=== PATIENT | female | born 1940 | race Caucasian/White ===

== ENCOUNTER 2018-03-20 05:58 | Inpatient (IN) ==
[2018-03-20] MEDS ORDERED: Vancomycin 1,000 MG, Sodium Chloride IRRigation 1,000 ML IR ONE (06:00)
[2018-03-20] MEDS ORDERED: CeFAZolin Syr 2,000MG/20 ML 2,000 MG/20 ML SYRINGE IVPB ONE (06:16)
[2018-03-20] MEDS ORDERED: Albuterol 2.5 MG/3 ML NEBULIZER IH ONE (06:16)
[2018-03-20] MEDS ORDERED: Ringers Solution, Lactated 1,000 ML IVC SCH (06:30)
[2018-03-20] MEDS ORDERED: *HR* Propofol 200 MG/20 ML VIAL IVP ONE (06:48)
[2018-03-20] MEDS ORDERED: *HR* FentaNYL (PF) 100 MCG/2 ML VIAL ONE ×2 (06:48→10:37)
--- NOTE | 2018-03-20 06:48 | Anesthesia Evaluation PreOp ---
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) Other Medical History: Renal (frequent UTIs) Anesthesia History: No Prior Anesthetic Complications, Past Anesthesia (jaw sx, lumpectomy) Alcohol Use: rarely Drug use: marijuana Medications and Allergies Amlodipine [Norvasc] 5 mg PO DAILY 06/26/15 [History] Aspirin 81 mg PO DAILY 06/26/15 [History] Clopidogrel [Plavix] 75 mg PO DAILY #30 tablet 06/28/15 [Rx] Atorvastatin [Lipitor] 40 mg PO HS #30 tablet 08/12/15 [Rx] Citalopram [CeleXA] 40 mg PO DAILY 10/19/15 [History] Trospium Chloride [Trospium Chloride ER] 60 mg PO DAILY 07/14/16 [History] Docusate [Colace] 100 mg PO BID PRN 07/23/16 [History] Ipratropium/Albuterol Sulfate [Combivent Respimat Inhal Alba] 4 gm IH QID PRN 07/23/16 [History] Multivit-Min/FA/Lycopen/Lutein [Centrum Silver Tablet] 1 tab PO DAILY 07/23/16 [ History] Bisacodyl [Dulcolax] 10 mg RC DAILY PRN #0 supp.rect 08/11/16 [Rx] Ferrous Sulfate 325 mg PO BIDWM tablet 08/11/16 [Rx] Lidocaine Patch [Lidoderm 5% patch] 1 each TP DAILY adh..patch 08/11/16 [Rx] Metoprolol [Lopressor] 12.5 mg PO BID tablet 08/11/16 [Rx] Omeprazole [PriLOSEC] 20 mg PO DAILY@0630 capsule. 08/11/16 [Rx] Ondansetron ODT [Zofran ODT] 4 mg SL Q6HR PRN #0 tab.rapdis 08/11/16 [Rx] OxyCODONE/APAP 7.5/325 [Percocet 7.5/325 MG] 1 each PO Q6HR PRN #10 tablet 08/11 [Rx] Sennosides/Docusate Sodium [Senna Plus] 2 each PO BID tablet 08/11/16 [Rx] 3 Allergy/AdvReac Type Severity Reaction Status Date / Time codeine Allergy Severe Anaphylaxis Verified 07/15/16 13:36 - Meds/Allergy Pre-op Review Medications Reviewed: Yes Allergies Reviewed: Yes Beta Blockers on Current Med List: Yes If Beta Blockers taken, Date/Time (Last Dose taken): unknown, [facility] not answering phone Anesthesia Results - Labs Laboratory Tests 03/11/18 03/11/18 03/17/18 15:51 15:51 06:12 Hgb 13.7 Hct 41.1 Plt Count 284 PT 11.1 INR 1.0 APTT 32.1 Sodium 135 L Potassium 3.9 BUN 19 Creatinine 0.74 - Imaging Additional studies: stress: mpression: Pharmacologic stress ECG is negative for ischemia at level of heart rate achieved. Gated EF > 70%. Perfusion imaging was negative for ischemia or infarct. cath 2015: Impressions: There is severe one vessel coronary artery disease. RCA 100% occluded. The left ventricle is normal and has normal contractility EF 70% FFR Measurement: 0.99 LMCA There is good quality collateral vessel/vessels from the left to the right that are visualized. FFR Measurement: 0.94 Mid LAD carotid studies: mpressions: Findings: Bilateral carotid systems have nonstenotic plaque. Anesthesia Exam - HEENT Pupil (Motor): EOMI Mallampati: II Teeth: Missing, Edentulous Denture Type: Upper: Complete Oral Opening: Greater than 3 - ACTIVITIES AIDE LOC: Oriented ACTIVITIES AIDE Motor: Normal RUE, Normal LUE, Normal RLE, Normal LLE, Normal Face ACTIVITIES AIDE Sensory: Normal: RUE, LUE, RLE, LLE, Face - Cardiac Rhythm: Regular - Pulmonary Breath Sounds: bilateral Clear Respiratory Effort: Symmetrical Anesthesia Assess/Plan ASA Score: 4 Modified Noemi Scale for Level of Consciousness: Cooperative, oriented, and tranquil Anesthetic Plan: General Monitoring Plan: Standard Monitors, A-Line, CVC Recovery Plan: ICU (agrees to GA, lines and blood products if needed)
[2018-03-20] MEDS ORDERED: Dexamethasone 4 MG/ML VIAL ONE (06:50)
[2018-03-20] MEDS ORDERED: Ondansetron 4 MG/2 ML VIAL ONE (06:50)
[2018-03-20] MEDS ORDERED: Lidocaine -MPF 2% 2 ML VIAL ONE (06:51)
[2018-03-20] MEDS ORDERED: *HR* Rocuronium Bromide 50 MG/5 ML VIAL ONE (06:51)
[2018-03-20] MEDS ORDERED: Lidocaine -MPF 4% 5 ML AMPUL ONE (06:58)
[2018-03-20] MEDS ORDERED: *HR* Labetalol 100 MG/20 ML MDV ONE (07:05)
[2018-03-20] MEDS ORDERED: NiCARdipine 2.5 MG/10 ML Syringe IVPB ONE (07:06)
[2018-03-20] MEDS ORDERED: *HR* Phenylephrine 10 MG/ML VIAL ONE (07:07)
[2018-03-20] MEDS ORDERED: *HR* Remifentanil 1 MG VIAL IVP ONE (07:12)
[2018-03-20] MEDS ORDERED: Heparin 1,000 UNITS/500 mL 1,500 ML ONE (07:23)
--- NOTE | 2018-03-20 07:31 | History & Physical Report ---
Date of Encounter: 03/20/18 Time of Encounter: 07:28 24 Hour HP Update - Instructions Instructions: If the History and Physical is less than 30 days old and was completed prior to A.M. admission and or procedure and has NOT been updated on calendar day of procedure please complete this update prior to performing procedure. - Update Patient reports changes in Medical Condition: No Changes in examination, assessment, or condition: No Changes in Medication: No Preop tests/diagnostics Reviewed: Yes Surgery Remains Indicated: Yes Consent for Planned Operative Procedure(s) Verified: Yes - Pre-Operative Checklist Preoperative Checklist Indicated: Yes Prophylactic Antibiotic Ordered: Yes (vancomycin due to MRSA risk) Home Medications Include Beta Marian: Yes Beta Marian Taken Today (Day of Surgery): Yes Beta Marian Taken Yesterday (Day Prior to Surgery): Yes Is VTE Prophylaxis Indicated?: Yes
[2018-03-20] MEDS ORDERED: Nitroglycerin 25 MG/250 ML INFUS..BTL IVC ONE (07:52)
[2018-03-20] MEDS ORDERED: *HR* Midazolam HCl 2 MG/2 ML VIAL ONE (08:05)
[2018-03-20] MEDS ORDERED: Vancomycin 1,000 MG VIAL ONE ×2 (11:08→12:11)
[2018-03-20] MEDS ORDERED: Albumin Human 5% 25.0 GM/500 ML VIAL ONE (11:40)
[2018-03-20] MEDS ORDERED: EPHEDrine 50 MG/ML VIAL ONE (12:10)
[2018-03-20] MEDS ORDERED: *HR* PHENYLEPHRINE 1,000 MCG/10 ML SYRINGE IVP ONE (12:19)
[2018-03-20 12:54] LABS: ABG Base Excess -10 mEq/L (-2 to 3); ABG Chloride 106 mEq/L (98-107); ABG Glucose 321 mg/dL (60-95); ABG HCO3 17 mEq/L (21-27); ABG Ionized Calcium 1.14 mmol/L (1.15-1.35); ABG Oxygen Saturation 100 % (95-98); ABG PCO2 46 mmHg (35-45); ABG PH 7.18 pH Units (7.32-7.45); ABG PO2 262 mmHg (85-104); ABG TCO2 19 mEq/L (20-26)
[2018-03-20] MEDS ORDERED: *HR* HYDROmorphone (PF) 1 MG/ML SYRINGE ONE (13:02)
[2018-03-20] MEDS ORDERED: Neostigmine Methylsulfate 3 MG/3 ML SYRINGE ONE (13:13)
[2018-03-20 13:36] LABS: ABG Base Excess -4 mEq/L (-2 to 3); ABG Chloride 104 mEq/L (98-107); ABG Glucose 274 mg/dL (60-95); ABG HCO3 22 mEq/L (21-27); ABG Oxygen Saturation 100 % (95-98); ABG PCO2 46 mmHg (35-45); ABG PH 7.29 pH Units (7.32-7.45); ABG PO2 536 mmHg (85-104); ABG TCO2 24 mEq/L (20-26)
[2018-03-20] MEDS ORDERED: Potassium Phosphate 44 MEQ in 0.9 % Sodium Chloride 250 ML IVPB PRN ×2 (14:06→14:27)
--- NOTE | 2018-03-20 14:09 | Operative Note ---
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 Complications: None Anesthesia: NAN Surgeon: Andrae Holman Was there an laboratory assistant present: No Tank Truck Mechanic: David Berkowitz Estimated blood loss (cc): 1,800 (940 returned via Cellsaver) Specimen: aortic thrombus and plaque Condition: stable Disposition: ICU Procedure in Detail: Indications: The patient is a 77-year-old female with a history of hypertension , hyperlipidemia, coronary artery disease and tobacco abuse. She is found have a 6.7 cm juxtarenal aortic aneurysm. Aneurysm was not amenable to endograft repair. The patient also declined fenestrated endograft repair. Repair is recommended to reduce her risk of rupture.. Procedure: The patient was identified in the preoperative area. The risks, benefits, and alternatives of the procedure were discussed. All questions were answered. The patient was taken to the operating room and placed in supine position on the operating room table. After the induction of general endotracheal anesthesia, he was cleaned and draped in normal sterile fashion. A midline incision was mad sharply. Hemaostasis was obtained via electrocautery. Through a process of blunt, sharp and electrocautery dissection , the subcutaneous tissue, fascia and peritoneum were traversed. A brief exporation of the peritoneum revealed no acute pathology. The aorta was palpated in the retroperitoneum. Exploration of the abdomen revealed no acute pathology. The retroperitoneum was opened with blunt, sharp and electrocautery dissection. The aorta was dissected along it's anterior, medial and lateral surfaces to above the renal arteries. Sufficient infrarenal aortic neck was identified to allow for clamping below the renal arteries. The dissection was extended down the aortic bifurcation into the mid to distal portion of the bilateral common iliac arteries. The proximal common iliac artery and a calcified. The distal common iliac artery dissected circumferentially and surrounded with vessel loops. The patient received 5000 units of intravenous heparin. After waiting adequate time for the heparin to circulate the bilateral iliac arteries were occluded by applying tension to the Vesseloops. The aorta was then clamped just below the renal arteries. A longitudinal aortotomy was then made sharply proximally the incision was extended to just below the infrarenal clamp. Distally the incision was extended into the proximal bilateral common iliac arteries. Calcified plaque present at this level was removed with a dental freer. No significant vertebral arteries were identified at this time. Aortic thrombus was removed and sent to pathology. A 12 x 7mm dacron bifurcated graft was cut to appropriate length. The graft was then anastomosed to the infrarenal aortic neck with a running 3-0 prolene. After completing the anastamosis, the graft limbs were clamped and the aorta was reopened. Thrombin and gelfoam were used to aid in hemostasis. The right graft limb was cut to fit the right iliac arteriotomy. The graft was not sutured in place with a running 6-0 Prolene. Prior to completing the anastomosis retrograde flow was then flushed through the opening. The graft was then reoccluded proximally the aorta was flushed through the graft limb and then reoccluded. Heparin was infused into the lumen. Anastomosis was completed and flow was restored to the right lower extremity. The left limb of the graft was then cut to fit the left common iliac arteriotomy. The graft limb was then sutured in place with a running 6-0 Prolene. Prior to completing the anastamosIs, the left iliac artery and aorta were flushed through the graft anastamoses and then reoccluded. then heparin was infused into the lumen. The anastamoses were completed and flow was restored in the left lower extremity. Thrombin and gelfoam were used to aid in hemostasis. Meticulous hemostasis was then obtained throughout the wound with electrocautery. Polyphasic signals were noted distal to the anastamoses. The wounds were irrigated with antibiotic-containing saline. Platelet rich and platelet poor plasma were infused into the wounds. The aortotomy was reapproximated with a running 2-0 Vicryl suture. The retroperitoneum was then reapproximated with 2- 0 Vicryl. The abdominal organs were inspected and no acute pathology was noted. The mesentery was returned to its normal anatomic position. The nasogastric tube was checked for position. The midline fascia was reapproximated with looped PDS suture. The subcutaneous tissue was reapproximated with 2-0 Vicryl. Platelet rich and platelet poor plasma were infused into the wound. Skin was reapproximated with 3-0 Monocryl. Sterile dressings were applied. The patient was then taken to the intensive care unit intubated.
[2018-03-20] MEDS ORDERED: 0.9 % Sodium Chloride 1,000 ML IVC SCH (14:27)
[2018-03-20] MEDS ORDERED: Ondansetron 4 MG/2 ML VIAL IVP PRN (14:27)
[2018-03-20] MEDS ORDERED: NON-FORMULARY MEDICATION 1 EACH EACH (Ipratropium/Albuterol Sulfate [Combivent Respimat In IH PRN (14:27)
[2018-03-20] MEDS ORDERED: OXYCODONE Oral CONC 10 MG/0.5 ML ORAL.SYG SL PRN ×2 (14:27)
[2018-03-20] MEDS ORDERED: Naloxone 0.4 MG/ML INJ IVP PRN (14:27)
[2018-03-20] MEDS ORDERED: *HR* Labetalol 20 MG/4 ML SYRINGE IVP PRN (14:27)
--- NOTE | 2018-03-20 14:50 | Anesthesia Procedures ---
Date of Encounter: 03/20/18 Time of Encounter: 08:30 Procedures: Anesthesia - Central Line Placement Right SC Consent obtained: written consent Time out performed: Yes Patient placed on monitor/pulse ox: Yes Sedation: Versed (mg): 2 Sedation: Fentanyl (mcg): 100 Supplemental Oxygen via Nasal Cannula (L/min): 2 MD prep: mask, gown, gloves Central line prep: Chlorhexidine scrub Local Anesthetic Used: Lidocaine 1% Amount of Anesthetics Used (mls): 5 Ultrasound used for placement: No Technique: Seldinger Lumen Inserted: triple Size / Length: 7 Fr / 16 cm Post procedure: sutured in place, good blood return, all ports aspirated, flushed, capped, sterile dressing applied Post procedure x-ray: tip of catheter in good position, no pneumothorax seen Patient tolerated procedure: well, no complications Complications: none
[2018-03-20] MEDS ORDERED: Ringers Solution, Lactated 500 ML IVC ONE (15:03)
[2018-03-20] MEDS ORDERED: Ringers Solution, Lactated 1,000 ML ONE (15:04)
[2018-03-20] MEDS ORDERED: Phenylephrine 10 MG in D5% in Water 250 ML IVC SCH (15:30)
--- NOTE | 2018-03-20 15:37 | Operative Note ---
Date of procedure: 03/20/18 Pre-op diagnosis: Abdominal aortic aneurysm-juxtarenal Post-op diagnosis: same Procedure: Repair of abdominal aortic aneurysm with 12 x 7 mm heme shield aorto bi common iliac bypass graft Complications: None Anesthesia: GETA Surgeon: Andrae Holman Co-Surgeon: David Berkowitz Was there an clinic assistant present: No Estimated blood loss (cc): 1,800 Specimen: Aortic thrombus and plaque Condition: stable Disposition: ICU Procedure in Detail: History Mrs. Ryan is a 77-year-old white female who was found to have an abdominal aortic aneurysm. By CT scan it measured approximate 6.7 cm. The aneurysm was juxtarenal and there was an inadequate neck for a traditional endovascular aneurysm repair. The patient declined referral to a tertiary care center and now comes to the operating room for open repair of the aneurysm. Procedure After informed consent was obtained the patient was taken to the operating room. General endotracheal anesthesia was established under arterial line pressure monitoring. A nasogastric tube was also placed. The abdomen groin and upper thighs were sterilely prepped and draped. A timeout protocol was observed. A vertical midline incision was made. The abdominal cavity was opened. The contents of the peritoneum were explored. The viscera was then reflected to the right upper quadrant. An Omni-Tract self-retaining retractor was then utilized for exposure. The retroperitoneum was opened in a vertical midline fashion and the aorta exposed. Dissection was carried proximally and distally so that the renal arteries were identified as well as the iliac artery bifurcation from the aorta. Due to the juxtarenal nature of the aneurysm the anterior to the aorta left renal vein needed to be divided. This was dissected and isolated. It was then ligated with 2-0 silk ties and divided. This allowed better visualization of the neck of the aneurysm as well as exposure for appropriate clamping to preserve renal flow during the operation. 5000 units of heparin were administered intravenously. After an appropriate delay the vessels were clamped with the iliac arteries clamped at the common iliac level and the aorta clamped immediately below the renal vessels. A longitudinal midline incision was made on the aneurysm. Large amount of thrombus and plaque was identified and removed and submitted for specimen. There were minimal to no signs of backbleeding from the lumbar vessels. The area was debrided of all the loose plaque and thrombus. The distal aspect of the aneurysm was inspected and then an arteriotomy made of the common iliac arteries and the proximal portion of the vessel. Plaque was identified here which was removed. The reconstruction was then performed using a 12 x 7 mm Hemashield bifurcated graft. The proximal anastomosis was fashioned end-to-end using 3-0 Prolene suture. After appropriate backbleeding and flushing the proximal anastomosis was checked for hemostasis. With this done attention was directed to the iliac system. The right common iliac artery was then anastomosed end-to-end with 4-0 Prolene. After appropriate backbleeding and flushing the right limb was opened and pulsatile flow was restored to the right lower extremity. Attention was then directed to the left side. Again an end-to-end anastomosis was made using the left limb of the aorto by iliac bypass graft to the proximal portion of the left common iliac artery. Again after appropriate backbleeding and flushing the left limb of the graft was opened and pulsatile flow was restored into the left lower extremity. Hemostasis was then achieved in the retroperitoneum. The area was irrigated with antibiotic containing solution. The retroperitoneal membrane was reapproximated over the aorta after the edges of the aneurysm sac were reapproximated over the synthetic graft. With this done the viscera was placed back into its normal position and inspected for any signs of ischemia. There were none. The fascia was then closed as was the subcutaneous and subcuticular layers. A dry sterile dressing was applied. There were no intraoperative complications. One unit of blood was transfused intraoperatively from the blood bank. The patient received approximately 940 mL's of cell saver blood and return during the procedure. The patient was not appropriate for extubation at the conclusion of the operation and so therefore was taken to the intensive care unit intubated and hemodynamically stable.
[2018-03-20] MEDS: Ipratropium/Albuterol Neb 3 ML IH SCH ×2 (15:40→21:42)
--- NOTE | 2018-03-20 16:16 | Pulmonology Consult Note ---
<GogoromiSpeedy N - Last Filed: 03/20/18 16:16> Date of Encounter: 03/20/18 Time of Encounter: 16:15 Assessment and Plan (1) AAA (abdominal aortic aneurysm) Current Visit: No Status: Chronic 77-year-old female with known history of juxta-renal abdominal aortic aneurysm. She underwent open repair of the aneurysm by vascular surgery today. She had approximately 1800 mL of blood loss and received 1 unit of blood intraoperatively and 940 mL of Cell Saver and return. She was hemodynamically stable after surgery, however remained intubated and therefore transferred to the ICU for postoperative management. Upon arrival she did have some borderline low blood pressure readings, she received a small bolus of fluids and is starting to be more arousable which is elevating her blood pressure to normal ranges. She is also currently on CPAP and not ventilator dependent. Will likely try extubation today or tomorrow. -Open AAA repair today by Dr. Holman -1800cc blood loss. 1 unit blood transfused intraoperatively and 940ml of Cell Saver and return -Hemodynamically stable and intubated in the ICU -Possible trial of extubation today or tomorrow -follow up CBC, BMP, lactate, Mg, Ca Qualifiers: Presence of rupture: without rupture Qualified Code(s): I71.4 - Abdominal aortic aneurysm, without rupture (2) COPD (chronic obstructive pulmonary disease) Current Visit: Yes Status: Acute Patient has a past medical history of COPD and chest x-ray findings are consistent with hyperventilation of the lungs. She is on home DuoNeb and is a current smoker. She remains intubated in the ICU with possible extubation today or tomorrow. -History of COPD, on Duoneb therapy at home -will continue duonebs -Likely will extubate soon Qualifiers: Qualified Code(s): J44.9 - Chronic obstructive pulmonary disease, unspecified (3) CVA (cerebral vascular accident) Current Visit: No Status: Acute Review of records reveals that patient had a prior CVA. Neurology report from 06/28/15 reveals MRI findings significant for an acute infarct that was likely embolic in nature. Carotid studies at the time showed multivessel bilateral nonstenotic plaques. -CVA 06/2015. Had slurred speech at the time. Unknown if patient still has residual neurological deficits. -Nonstenotic plaques found on carotid studies in 06/2015 Qualifiers: CVA mechanism: unspecified Qualified Code(s): I63.9 - Cerebral infarction, unspecified (4) HTN (hypertension) Current Visit: No Status: Chronic Patient has been hypotensive since his surgery in the ICU. Currently holding all antihypertensive. Patient received phenylephrine during the surgery. Qualifiers: Hypertension type: essential hypertension Qualified Code(s): I10 - Essential (primary) hypertension (5) DVT prophylaxis Current Visit: No Status: Acute SCDs History of Present Illness Consult date: 03/20/18 Requesting physician: Andrae Holman Reason for consult: other (Intubated) Chief complaint: Abdominal aortic aneurysm History of present illness: Mrs. Ryan is a 77-year-old female with a past medical history of a prior CVA, hypertension, AAA, and COPD who underwent open repair of an abdominal aortic aneurysm. Per [facility], this was first found in 2014 and at that time measured 4.9 x 4.7 cm. It grew to over 6cm since and was described as juxtarenal in position. Patient declined referral to [facility] for a fenestrated endograft repair and instead elected to undergo open repair. Surgery was performed by Dr. Holman. Patient remained intubated following the surgery and was transferred to the ICU for ventilator management. No complications reported during the surgery, however the patient did have an estimated blood loss of 1800 and did require phenylephrine for hemodynamic support. She also received 1 unit of blood intraoperatively and 940 mL of Cell Saver blood and return. Upon arrival to the ICU she had near hypotensive blood pressure readings and she received fluids which slightly improved her blood pressures. Patient is also currently somnolent but improving as sedation from the surgery subsides. She is on CPAP. Past Med Surg Social Fam HX - Past Medical History Medical history: asthma, cancer, COPD, coronary artery disease, CVA, hypertension, other Additional medical history: BRONCHITIS, RIGHT BREAST CANCER Psychiatric history: anxiety, depression, panic disorder - Past Surgical History Surgical History: breast surgery Additional surgical history: jaw - Social History Smoking Status: Current every day smoker Smokeless Tobacco Status: No Alcohol use: rarely Drug use: marijuana - Family History Mother Living Status: Hx Family Cancer: Yes (Colon.) Father Living Status: Hx Family Cardiac Disorders: Yes (IA) Medications and Allergies Aspirin 81 mg PO DAILY 06/26/15 [History] Clopidogrel [Plavix] 75 mg PO DAILY #30 tablet 06/28/15 [Rx] Citalopram [CeleXA] 10 mg PO DAILY 10/19/15 [History] Trospium Chloride [Trospium Chloride ER] 60 mg PO DAILY 07/14/16 [History] Docusate [Colace] 100 mg PO BID PRN 07/23/16 [History] Ipratropium/Albuterol Sulfate [Combivent Respimat Inhal [place]] 4 gm IH QID PRN 07/23/16 [History] Multivit-Min/FA/Lycopen/Lutein [Centrum Silver Tablet] 1 tab PO DAILY 07/23/16 [ History] Bisacodyl [Dulcolax] 10 mg RC DAILY PRN #0 supp.rect 08/11/16 [Rx] Ferrous Sulfate 325 mg PO BIDWM tablet 08/11/16 [Rx] Metoprolol [Lopressor] 12.5 mg PO BID tablet 08/11/16 [Rx] Ondansetron ODT [Zofran ODT] 4 mg SL Q6HR PRN #0 tab.rapdis 08/11/16 [Rx] Atorvastatin [Lipitor] 20 mg PO HS 03/20/18 [History] Pantoprazole Sodium [Protonix] 20 mg PO DAILY 03/20/18 [History] Sennosides/Docusate Sodium [Senna Plus] 2 each PO PRN 03/20/18 [History] 3 Allergy/AdvReac Type Severity Reaction Status Date / Time codeine Allergy Severe Anaphylaxis Verified 07/15/16 13:36 ROS unobtainable: due to endotracheal tube All Systems: The remainder of the systems were reviewed and are negative Physical Examination Vital Signs: Vital Signs, Last 4 Hours Temp Pulse Resp BP Pulse Ox 03/20/18 15:41 18 100 03/20/18 15:14 64 16 93/53 99 03/20/18 15:03 62 21 78/46 99 03/20/18 15:00 97.1 F L 62 21 78/46 99 03/20/18 14:47 69 99 03/20/18 14:32 19 100 03/20/18 14:15 97.1 F L 61 19 88/50 100 General appearance: other (Somnolent, slowly improving and becoming more alert and awake. Frail in appearance) Eyes: nonicteric Effort: normal Auscultation: bilateral: clear Cardiovascular: regular rate and rhythm Gastrointestinal: absent bowel sounds, other (There is a large midline dressing in place. Is clean dry and intact.) Integumentary: normal Extremities: no cyanosis, no edema, no clubbing Ventilator Settings Ventilator Settings: Ventilator Settings, Last 8 Hours Ventilator Tidal Volume 400 Setting Ventilator Respiratory Rate 12 Setting Actual Respiratory Rate 18 Actual Respiratory Rate 17 Actual Respiratory Rate 19 Actual Respiratory Rate 19 Actual Respiratory Rate 18 Actual Respiratory Rate 19 Positive End Expiratory 5 Pressure Positive End Expiratory 5 Pressure Peak Inspiratory Airway 6.5 Pressure Peak Inspiratory Airway 12 Pressure Peak Inspiratory Airway 6.6 Pressure Results - Laboratory Findings ABG ABG pH 7.29 pH Units (7.32-7.45) L 03/20/18 13:31 ABG pCO2 46 mmHg (35-45) H 03/20/18 13:31 ABG pO2 536 mmHg (85-104) H D 03/20/18 13:31 ABG O2 Saturation 100 % (95-98) H 03/20/18 13:31 Abnormal lab findings: Abnormal lab results ABG pH 7.29 pH Units (7.32-7.45) L 03/20/18 13:31 ABG pCO2 46 mmHg (35-45) H 03/20/18 13:31 ABG pO2 536 mmHg (85-104) H D 03/20/18 13:31 ABG O2 Saturation 100 % (95-98) H 03/20/18 13:31 ABG Base Excess -4 mEq/L (-2 to 3) L 03/20/18 13:31 ABG Hematocrit 27.0 % (35.3-44.9) L 03/20/18 13:31 Glucose 274 mg/dL (60-95) H 03/20/18 13:31 - Clinical Findings Intake & Output: Intake & Output 03/20/18 03/20/18 03/20/18 07:59 15:59 23:59 Output Total 1974 Balance -1974 Weight 48.534 kg Consult Discharge Plan - Plan Referrals: NONE,PCP [Primary Care Provider] - <Jesse Greene W - Last Filed: 03/20/18 17:17> Date of Encounter: 07/26/18 All Systems: The remainder of the systems were reviewed and are negative Physical Examination Vital Signs: Vital Signs, Last 4 Hours Temp Pulse Resp BP Pulse Ox 03/20/18 16:45 75 18 114/55 100 03/20/18 16:30 76 18 113/86 100 03/20/18 16:00 72 18 111/91 100 03/20/18 15:45 71 18 98/59 100 03/20/18 15:41 18 100 03/20/18 15:30 68 18 117/78 100 03/20/18 15:14 64 16 93/53 99 03/20/18 15:03 62 21 78/46 99 03/20/18 15:00 97.1 F L 62 21 78/46 99 03/20/18 14:47 69 99 03/20/18 14:32 19 100 03/20/18 14:15 97.1 F L 61 19 88/50 100 Ventilator Settings Ventilator Settings: Ventilator Settings, Last 8 Hours Ventilator Tidal Volume 400 Setting Ventilator Respiratory Rate 12 Setting Actual Respiratory Rate 19 Actual Respiratory Rate 18 Actual Respiratory Rate 17 Actual Respiratory Rate 19 Actual Respiratory Rate 19 Actual Respiratory Rate 18 Actual Respiratory Rate 19 Positive End Expiratory 5 Pressure Positive End Expiratory 5 Pressure Positive End Expiratory 5 Pressure Positive End Expiratory 5 Pressure Positive End Expiratory 5 Pressure Positive End Expiratory 5 Pressure Positive End Expiratory 5 Pressure Peak Inspiratory Airway 6.5 Pressure Peak Inspiratory Airway 6.5 Pressure Peak Inspiratory Airway 12 Pressure Peak Inspiratory Airway 6.6 Pressure Results - Laboratory Findings CBC and BMP: 03/20/18 16:20 03/20/18 16:20 ABG ABG pH 7.29 pH Units (7.32-7.45) L 03/20/18 13:31 ABG pCO2 46 mmHg (35-45) H 03/20/18 13:31 ABG pO2 536 mmHg (85-104) H D 03/20/18 13:31 ABG O2 Saturation 100 % (95-98) H 03/20/18 13:31 Abnormal lab findings: Abnormal lab results WBC 18.6 K/mcL (4.3-11.1) H D 03/20/18 16:20 RBC 3.41 M/mcL (3.82-4.97) L 03/20/18 16:20 Hgb 10.7 g/dL (11.5-15.4) L D 03/20/18 16:20 Hct 31.5 % (35.3-44.9) L 03/20/18 16:20 Plt Count 136 K/mcL (140-400) L D 03/20/18 16:20 MPV 9.0 fL (9.4-12.4) L 03/20/18 16:20 Neutrophils # 16.2 K/mcL (1.6-8.9) H 03/20/18 16:20 Monocytes # 1.4 K/mcL (0.0-1.3) H 03/20/18 16:20 ABG pH 7.29 pH Units (7.32-7.45) L 03/20/18 13:31 ABG pCO2 46 mmHg (35-45) H 03/20/18 13:31 ABG pO2 536 mmHg (85-104) H D 03/20/18 13:31 ABG O2 Saturation 100 % (95-98) H 03/20/18 13:31 ABG Base Excess -4 mEq/L (-2 to 3) L 03/20/18 13:31 ABG Hematocrit 27.0 % (35.3-44.9) L 03/20/18 13:31 Glucose 274 mg/dL (60-95) H 03/20/18 13:31 Chloride 111 mEq/L (98-107) H 03/20/18 16:20 Carbon Dioxide 20 mEq/L (23-29) L 03/20/18 16:20 Creatinine 0.57 mg/dL (0.60-1.20) L 03/20/18 16:20 Glucose 183 mg/dL (70-105) H 03/20/18 16:20 Lactic Acid 2.5 mmol/L (0.5-2.2) H 03/20/18 16:20 Calcium 7.4 mg/dL (8.6-10.3) L 03/20/18 16:20 Magnesium 1.4 mg/dL (1.6-2.6) L 03/20/18 16:20 - Clinical Findings Intake & Output: Intake & Output 03/20/18 03/20/18 03/20/18 07:59 15:59 23:59 Output Total 1974 Balance -1974 Weight 48.534 kg - Attending Attestation I examined this patient and my medical decision-making was reviewed with the Resident Physician. I agree with the documented findings, disposition and treatment plan as described except to the extent set forth below. We independently had [id number] contact with the patient Patient seen and examined at bedside Labs, radiology, chart personally reviewed. Management was reviewed during multidisciplinary critical care rounds. CYBER INTELLIGENCE ANALYST: The patient is awake but remains lethargic postoperatively. She is able to follow commands and does not appear to be a focal neurological deficit. We will provide patient with analgesia as needed postoperatively Pulm: Postoperative hypoxic hypercapnic respiratory failure remains intubated perform CPAP trial today with the borderline weaning parameters however patient remains lethargic given nature of surgery and underlying poor clinical health including COPD would recommend keeping intubated overnight as anesthetic effect wears off spontaneous breathing trial planned for the morning Cards: She is postop day 0 status post open AAA repair vascular surgery is managing this. History of obstructive coronary artery disease ECG pending check Troponin and BNP. Mild postoperative hypotension which is resolved with volume expansion with colloid. GI: Stress ulcer prophylaxis given Nutrition: Nothing by mouth for now Renal: UOP Monitored, Cont to Trend sCr and monitor Electrolytes. ID: White count elevated in the perioperative period no overt evidence of sepsis at this time we will continue to monitor Heme/Onc: Mechanical DVT prophylaxis given; continue to monitor for postoperative anemia and evidence of intra-abdominal hemorrhage Endo: Glucose Monitored Integ/MSK: Skin Care per routine ICU Nursing Protocol to prevent ulcers. Lines: All lines examined without evidence of infection : Dispo: Remain in ICU CODE: Full
[2018-03-20 16:34] LABS: Basophils % 0.2 %; Eosinophils % 0.1 %; Hematocrit 31.5 % (35.3-44.9); Immature Granulocytes % 1.2 % (0-4); Lymphocytes # 0.7 K/mcL (0.6-4.6); Lymphocytes % 3.9 %; Mean Corpuscular Hemoglobin 31.4 pg (28.0-33.3); Mean Corpuscular Volume 92.4 fL (83.0-100.0); Monocytes # 1.4 K/mcL (0.0-1.3); Monocytes % 7.7 %; Platelet Count 136 K/mcL (140-400); Red Blood Count 3.41 M/mcL (3.82-4.97); Red Cell Distribution Width 13.2 % (11.5-14.5); Segmented Neutrophils % 86.9 %
[2018-03-20 16:37] LABS: Neutrophils # 16.2 K/mcL (1.6-8.9)
[2018-03-20 16:38] LABS: VBG Ionized Calcium 1.15 mmol/L (1.15-1.35)
[2018-03-20 16:38] LABS: Hemoglobin 10.7 g/dL (11.5-15.4)
[2018-03-20 16:57] LABS: BUN/Creatinine Ratio 21 (6-26); Blood Urea Nitrogen 12 mg/dL (8-23); Calcium 7.4 mg/dL (8.6-10.3); Carbon Dioxide 20 mEq/L (23-29); Chloride 111 mEq/L (98-107); Glucose 183 mg/dL (70-105); Magnesium 1.4 mg/dL (1.6-2.6); Osmolality,Calculated 286 (280-300); Phosphorous 4.4 mg/dL (2.7-4.5); Potassium 4.1 mEq/L (3.5-5.1); Sodium 136 mEq/L (136-145); eGFR For Non-African Americans > 60 (> 60)
[2018-03-20] MEDS ORDERED: FentaNYL (PF) 1,000 MCG in 0.9 % Sodium Chloride 80 ML IVC SCH (17:15)
--- NOTE | 2018-03-20 17:25 | Vascular/[facility] Progress Note ---
Date of Encounter: 03/20/18 Time of Encounter: 16:30 - Assessment and plan (1) AAA (abdominal aortic aneurysm) Current Visit: Yes Status: Chronic Patient is undergone open repair of a juxtarenal abdominal aortic aneurysm. She is hemodynamically stable without evidence of ongoing blood loss. She remains intubated but is becoming more alert and responsive properly. Her abdomen is soft and her extremities are neurovascularly intact. Continue with intravenous fluids, pain control, nasogastric tube and plan to wean ventilator and extubate. Pulmonary/critical care has been counseled. - Subjective Interval history: The patient is currently intubated, but easily responds to all commands appropriately. Vital Signs, Last 4 Hours Temp Pulse Resp BP Pulse Ox 03/20/18 16:45 75 18 114/55 100 03/20/18 16:30 76 18 113/86 100 03/20/18 16:00 72 18 111/91 100 03/20/18 15:45 71 18 98/59 100 03/20/18 15:41 18 100 03/20/18 15:30 68 18 117/78 100 03/20/18 15:14 64 16 93/53 99 03/20/18 15:03 62 21 78/46 99 03/20/18 15:00 97.1 F L 62 21 78/46 99 03/20/18 14:47 69 99 03/20/18 14:32 19 100 03/20/18 14:15 97.1 F L 61 19 88/50 100 - Physical Examination General: Present: No Apparent Distress HEENT: Present: Pupils equal Cardiac: Present: Reg Rate and Rhythm Neuro: Present: No focal deficits noted, Motor nerves grossly intact, Sensory nerves grossly intact Vascular: Present: Normal capillary refill (Pedal signals present bilaterally), Surgical incisions (Bandage dry, no hematoma). Absent: Cyanosis, Edema Abdomen: Present: Soft. Absent: Masses Skin: Present: No rashes noted on visualized skin - VTE Documentation of Mechanical Device: Intermittent pneumatic compression device Results 03/21/18 03:40 03/21/18 03:40 Lab Results, Last 24 hours 03/20/18 03/20/18 16:20 16:20 WBC 18.6 H D Hgb 10.7 L D Hct 31.5 L Plt Count 136 L D Sodium 136 Potassium 4.1 Chloride 111 H Carbon Dioxide 20 L BUN 12 Creatinine 0.57 L Glucose 183 H Calcium 7.4 L Magnesium 1.4 L Consult Discharge Plan - Plan Referrals: NONE,PCP [Primary Care Provider] -
[2018-03-20 17:57] LABS: Troponin I < 0.03 ng/mL (< 0.04)
[2018-03-20] MEDS: Ketorolac 15 MG/ML VIAL IVP SCH ×2 (21:17→22:22)
[2018-03-20] MEDS: *HR* Metoprolol 5 MG/5 ML VIAL IVP SCH ×2 (21:17→22:20)
[2018-03-20] MEDS: Pantoprazole 40 MG VIAL IVP SCH (21:20)
[2018-03-20] MEDS ORDERED: Vancomycin 0 MG in D5% in Water 250 ML IVPB ONE (22:00)
[2018-03-21] MEDS: Ipratropium/Albuterol Neb 3 ML IH SCH ×4 (03:43→21:53)
[2018-03-21 04:10] LABS: Basophils % 0.1 %; Hemoglobin 10.4 g/dL (11.5-15.4); Immature Granulocytes % 0.8 % (0-4); Lymphocytes # 1.2 K/mcL (0.6-4.6); Lymphocytes % 5.6 %; Mean Corpuscular HGB Conc 33.5 g/dL (31.6-35.5); Mean Corpuscular Hemoglobin 30.5 pg (28.0-33.3); Mean Corpuscular Volume 90.9 fL (83.0-100.0); Mean Platelet Volume 9.9 fL (9.4-12.4); Monocytes # 1.8 K/mcL (0.0-1.3); Monocytes % 8.3 %; Neutrophils # 18.8 K/mcL (1.6-8.9); Platelet Count 174 K/mcL (140-400); Red Blood Count 3.41 M/mcL (3.82-4.97); Red Cell Distribution Width 13.3 % (11.5-14.5); Segmented Neutrophils % 85.2 %
[2018-03-21 04:14] LABS: VBG Ionized Calcium 1.16 mmol/L (1.15-1.35)
[2018-03-21 04:22] LABS: BUN/Creatinine Ratio 26 (6-26); Blood Urea Nitrogen 20 mg/dL (8-23); Calcium 7.9 mg/dL (8.6-10.3); Carbon Dioxide 21 mEq/L (23-29); Chloride 110 mEq/L (98-107); Glucose 164 mg/dL (70-105); Osmolality,Calculated 290 (280-300); Potassium 4.3 mEq/L (3.5-5.1); Sodium 137 mEq/L (136-145); eGFR For Non-African Americans > 60 (> 60)
[2018-03-21 04:23] LABS: Magnesium 1.6 mg/dL (1.6-2.6); Phosphorous 5.4 mg/dL (2.7-4.5)
[2018-03-21] MEDS: Pantoprazole 40 MG VIAL IVP SCH ×2 (05:05→17:41)
[2018-03-21] MEDS: *HR* Metoprolol 5 MG/5 ML VIAL IVP SCH ×4 (05:07→23:01)
[2018-03-21] MEDS: Ketorolac 15 MG/ML VIAL IVP SCH ×4 (05:07→23:04)
[2018-03-21] MEDS ORDERED: *HR* Heparin 5,000 UNIT/ML VIAL SQ SCH (06:00)
[2018-03-21] MEDS ORDERED: *HR* FentaNYL (PF) 100 MCG/2 ML VIAL IVP ONE (06:40)
[2018-03-21] MEDS ORDERED: Tetracaine/Benzocaine/Butamben 200MG/SPRAY (100SPY/BOT) MM ONE (06:40)
[2018-03-21] MEDS ORDERED: *HR* Midazolam HCl 5 MG/5 ML VIAL IVP ONE (06:40)
--- NOTE | 2018-03-21 06:40 | Pre-Sedation Evaluation ---
Pre-sedation evaluation - Pre-sedation checklist Date of procedure: 03/20/18 Procedure: Bronchoscopy Recent Vitals: Last Vital Signs Temp 97.7 F 03/21/18 04:00 Pulse 101 03/21/18 06:00 Resp 16 03/21/18 06:00 BP 132/63 03/21/18 06:00 Pulse Ox 96 03/21/18 06:00 Previous reaction to sedatives/anesthetics: Yes; explain in comment Dentition: full dentition Possible difficult airway: No ASA Classification *see protocol: CLASS III-Severe systemic disease Plan of Care: Pt appropriate candidate for procedure/moderate/conscious sedation , Risks/benefits of procedure/sedation discussed w/ patient/family Cardiac Registry (Cardio Only) - Functional Capacity - Clincal Frailty Scale
--- NOTE | 2018-03-21 09:42 | Pulmonology Progress Note ---
<RamonaJesse W - Last Filed: 03/21/18 10:50> Date of Encounter: 03/21/18 Objective PUL Vital signs: Last Vital Signs Temp 97.7 F 03/21/18 04:00 Pulse 106 03/21/18 08:00 Resp 18 03/21/18 08:00 BP 139/85 03/21/18 08:00 Pulse Ox 96 03/21/18 08:00 Results - Laboratory Findings CBC and BMP: 03/21/18 03:40 03/21/18 03:40 ABG ABG pH 7.29 pH Units (7.32-7.45) L 03/20/18 13:31 ABG pCO2 46 mmHg (35-45) H 03/20/18 13:31 ABG pO2 536 mmHg (85-104) H D 03/20/18 13:31 ABG O2 Saturation 100 % (95-98) H 03/20/18 13:31 Abnormal lab findings: Abnormal lab results WBC 22.1 K/mcL (4.3-11.1) H 03/21/18 03:40 RBC 3.41 M/mcL (3.82-4.97) L 03/21/18 03:40 Hgb 10.4 g/dL (11.5-15.4) L 03/21/18 03:40 Hct 31.0 % (35.3-44.9) L 03/21/18 03:40 Neutrophils # 18.8 K/mcL (1.6-8.9) H 03/21/18 03:40 Monocytes # 1.8 K/mcL (0.0-1.3) H 03/21/18 03:40 ABG pH 7.29 pH Units (7.32-7.45) L 03/20/18 13:31 ABG pCO2 46 mmHg (35-45) H 03/20/18 13:31 ABG pO2 536 mmHg (85-104) H D 03/20/18 13:31 ABG O2 Saturation 100 % (95-98) H 03/20/18 13:31 ABG Base Excess -4 mEq/L (-2 to 3) L 03/20/18 13:31 ABG Hematocrit 27.0 % (35.3-44.9) L 03/20/18 13:31 Glucose 274 mg/dL (60-95) H 03/20/18 13:31 Chloride 110 mEq/L (98-107) H 03/21/18 03:40 Carbon Dioxide 21 mEq/L (23-29) L 03/21/18 03:40 Glucose 164 mg/dL (70-105) H 03/21/18 03:40 POC Glucose 154 mg/dL (70-99) H 03/20/18 23:30 Lactic Acid 2.4 mmol/L (0.5-2.2) H 03/21/18 02:15 Calcium 7.9 mg/dL (8.6-10.3) L 03/21/18 03:40 Phosphorus 5.4 mg/dL (2.7-4.5) H 03/21/18 03:40 - Clinical Findings Intake & Output: Intake & Output 03/20/18 03/21/18 03/21/18 23:59 07:59 15:59 Intake Total 350 / 350 350 / 350 Output Total 1875 / 1875 100 / 100 Balance -1525 / -1525 250 / 250 Weight 54.4 kg Consult Discharge Plan - Plan Referrals: NONE,PCP [Primary Care Provider] - - Attending Attestation I examined this patient and my medical decision-making was reviewed with the Resident Physician. I agree with the documented findings, disposition and treatment plan as described except to the extent set forth below. We independently had [id number] contact with the patient Patient seen and examined at bedside Labs, radiology, chart personally reviewed. Management was reviewed during multidisciplinary critical care rounds. PIERCER OPERATOR: The patient is awake and alert no focal deficit neurovascular intact in the extremities Pulm: Preoperative respiratory failure history of COPD liberated from then yesterday nasal cannula O2 at present diffuse wheezing starting Symbicort encourage incentive spirometry recommend DC NG tube as soon as possible outpatient pulmonary follow-up with PFTs wean FiO2 to keep saturation greater than 80% out of bed to chair and early ambulation are also effective adjuncts to mitigating effects of VQ mismatching secondary to atelectasis in the postoperative period Cards: Postop day 1 status post open AAA repair messier surgery managing this. Titrating beta janene for goal heart rate less than 100 and systolic blood pressure between 90-120. Troponin is normal and ECG without dynamic changes BNP is within normal limits GI: Nothing by mouth for now Renal: UOP Monitored, Cont to Trend sCr and monitor Electrolytes. ID: leukocytosis without fever lambert culture ordered continue to monitor and no overt evidence of sepsis at this time Heme/Onc: DVT prophylaxis per routine Endo: Glucose Monitored Integ/MSK: Skin Care per routine ICU Nursing Protocol to prevent ulcers. Lines: All lines examined without evidence of infection : Dispo: Stable for transfer from pulmonary perspective out of ICU CODE: full <Speedy Mackey N - Last Filed: 03/21/18 14:25> Date of Encounter: 03/21/18 Time of Encounter: 09:42 Assessment and Plan (1) AAA (abdominal aortic aneurysm) Current Visit: Yes Status: Chronic Hemoglobin has remained stable overnight. Successfully extubated yesterday and is tolerating room air and nasal cannula appropriately. WBC and lactate have elevated. Will give bolus of 500cc fluid and obtain CXR. Patient is hemodynamically stable currently Qualifiers: Presence of rupture: without rupture Qualified Code(s): I71.4 - Abdominal aortic aneurysm, without rupture (2) Leukocytosis Current Visit: Yes Status: Acute Patient had an elevated white blood cell count after surgery yesterday of 18.6. This has risen to 22.1 today with an increase in neutrophils as well. Her lactic acid level has also doubled since yesterday from 2.3 after surgery yesterday to 4.9 today. -500 mL bolus LR -Obtain chest x-ray -Continue to monitor and trend lactic acid level. Qualifiers: Qualified Code(s): D72.829 - Elevated white blood cell count, unspecified (3) COPD (chronic obstructive pulmonary disease) Current Visit: Yes Status: Acute Patient wheezes with a prolonged respiratory phase on physical exam today. Continue DuoNeb and Symbicort. Qualifiers: Qualified Code(s): J44.9 - Chronic obstructive pulmonary disease, unspecified (4) HTN (hypertension) Current Visit: No Status: Chronic Patient remained normotensive to slightly hypertensive today WBC and lactic acid levels have elevated, no current signs of sepsis We will continue to monitor her hypotension Qualifiers: Hypertension type: essential hypertension Qualified Code(s): I10 - Essential (primary) hypertension (5) DVT prophylaxis Current Visit: No Status: Acute SCD Subjective Principal diagnosis: Open repair abdominal aortic aneurysm Interval history: Patient arrived from the operating room to the ICU yesterday after an open repair of a juxtarenal abdominal aortic aneurysm. She was extubated successfully yesterday evening and has tolerated nasal cannula and room air appropriately. No acute events overnight. Patient has experienced an elevated white blood cell count and lactic acid level since yesterday however she is hemodynamic was stable. No acute signs of infection at this time. Patient is not ventilator dependent. Objective PUL Vital signs: Last Vital Signs Temp 97.7 F 03/21/18 04:00 Pulse 106 03/21/18 08:00 Resp 18 03/21/18 08:00 BP 139/85 03/21/18 08:00 Pulse Ox 96 03/21/18 08:00 General appearance: no acute distress Effort: normal Auscultation: bilateral: diminished breath sounds (Poor air movement with prolonged expiratory phase and mild faint wheezes), wheezes Cardiovascular: regular rate and rhythm Gastrointestinal: hypoactive bowel sounds, tender Integumentary: normal Extremities: no edema, no clubbing, other Results - Laboratory Findings CBC and BMP: 03/21/18 03:40 03/21/18 03:40 ABG ABG pH 7.29 pH Units (7.32-7.45) L 03/20/18 13:31 ABG pCO2 46 mmHg (35-45) H 03/20/18 13:31 ABG pO2 536 mmHg (85-104) H D 03/20/18 13:31 ABG O2 Saturation 100 % (95-98) H 03/20/18 13:31 Abnormal lab findings: Abnormal lab results WBC 22.1 K/mcL (4.3-11.1) H 03/21/18 03:40 RBC 3.41 M/mcL (3.82-4.97) L 03/21/18 03:40 Hgb 10.4 g/dL (11.5-15.4) L 03/21/18 03:40 Hct 31.0 % (35.3-44.9) L 03/21/18 03:40 Neutrophils # 18.8 K/mcL (1.6-8.9) H 03/21/18 03:40 Monocytes # 1.8 K/mcL (0.0-1.3) H 03/21/18 03:40 ABG pH 7.29 pH Units (7.32-7.45) L 03/20/18 13:31 ABG pCO2 46 mmHg (35-45) H 03/20/18 13:31 ABG pO2 536 mmHg (85-104) H D 03/20/18 13:31 ABG O2 Saturation 100 % (95-98) H 03/20/18 13:31 ABG Base Excess -4 mEq/L (-2 to 3) L 03/20/18 13:31 ABG Hematocrit 27.0 % (35.3-44.9) L 03/20/18 13:31 Glucose 274 mg/dL (60-95) H 03/20/18 13:31 Chloride 110 mEq/L (98-107) H 03/21/18 03:40 Carbon Dioxide 21 mEq/L (23-29) L 03/21/18 03:40 Glucose 164 mg/dL (70-105) H 03/21/18 03:40 POC Glucose 154 mg/dL (70-99) H 03/20/18 23:30 Lactic Acid 2.4 mmol/L (0.5-2.2) H 03/21/18 02:15 Calcium 7.9 mg/dL (8.6-10.3) L 03/21/18 03:40 Phosphorus 5.4 mg/dL (2.7-4.5) H 03/21/18 03:40 - Clinical Findings Intake & Output: Intake & Output 03/20/18 03/21/18 03/21/18 23:59 07:59 15:59 Intake Total 350 / 350 350 / 350 Output Total 1875 / 1875 100 / 100 Balance -1525 / -1525 250 / 250 Weight 54.4 kg - VTE Documentation of Mechanical Device: Intermittent pneumatic compression device
[2018-03-21] MEDS ORDERED: Budesonide/Formoterol 160/4.5 MDI IH SCH (10:00)
[2018-03-21] MEDS ORDERED: Ipratropium/Albuterol Neb 3 ML IH SCH (10:00)
--- NOTE | 2018-03-21 11:52 | Vascular/Endovas Progress Note ---
Date of Encounter: 03/21/18 Time of Encounter: 07:45 - Assessment and plan (1) AAA (abdominal aortic aneurysm) Status: Chronic The patient is postoerative day #1 after open repair of her aortic aneurysm. She is hemodynamically stable. She is making urine. Her pain is controlled and she is alert. She may be transferred to the floor today. Will consult PT/ OT and adoption social worker. The patient will remain NPO. Recheck labs in AM. Her Jama catheter will be left in place due to the need to monitor her urine output. Qualifiers: Presence of rupture: without rupture Qualified Code(s): I71.4 - Abdominal aortic aneurysm, without rupture (2) Acute on chronic blood loss anemia Status: Acute The patient has chronic anemia with acute expected postoperative blood loss anemia. She is hemodynamically stable without evidence of ongoing blood loss. Deep venous prophylaxis with heparin will be held due to risk of bleeding. (3) COPD (chronic obstructive pulmonary disease) Status: Chronic Qualifiers: COPD type: emphysema Emphysema type: panlobular Qualified Code(s): J43.1 - Panlobular emphysema (4) HTN (hypertension) Status: Chronic Qualifiers: Hypertension type: essential hypertension Qualified Code(s): I10 - Essential (primary) hypertension (5) Mixed hyperlipidemia Status: Chronic (6) Severe protein-calorie malnutrition Status: Chronic The patient is currently nothing by mouth. (7) Tobacco abuse Status: Chronic - Subjective Interval history: The patient is alert and comfortable. She reports adequate pain control. She denies any chest pain or shortness of breath. She denies any nausea. Vital Signs, Last 4 Hours Temp Pulse Resp BP Pulse Ox 03/21/18 10:53 16 97 03/21/18 10:00 103 18 141/79 97 03/21/18 09:00 93 20 135/87 96 03/21/18 08:00 98.2 F 106 18 139/85 96 03/21/18 07:59 106 - VTE Documentation of Mechanical Device: Intermittent pneumatic compression device Results 03/25/18 06:35 03/25/18 08:00 Lab Results, Last 24 hours 03/20/18 03/20/18 03/20/18 16:20 16:20 16:20 WBC 18.6 H D Hgb 10.7 L D Hct 31.5 L Plt Count 136 L D Sodium 136 Potassium 4.1 Chloride 111 H Carbon Dioxide 20 L BUN 12 Creatinine 0.57 L Glucose 183 H Calcium 7.4 L Magnesium 1.4 L Troponin I < 0.03 B-Natriuretic Peptide 03/21/18 03/21/18 03/21/18 03:40 03:40 03:40 WBC 22.1 H Hgb 10.4 L Hct 31.0 L Plt Count 174 Sodium 137 Potassium 4.3 Chloride 110 H Carbon Dioxide 21 L BUN 20 Creatinine 0.77 Glucose 164 H Calcium 7.9 L Magnesium 1.6 Troponin I B-Natriuretic Peptide Consult Discharge Plan - Plan Instructions: Oxycodone/Acetaminophen (By mouth) Additional Instructions: The patient may shower on 03/26/2018. No tub baths or swimming until 04/26/2018. No lifting more than 10 pounds until 04/26/2018. No lifting more than 20 pounds until 05/26/2018. Referrals: Andrae Holman MD [Partnered Physician] - 05/05/18 9:20 am NONE,PCP [Primary Care Provider] - (Patient is from [facility] no PCP appointment needed) Prescriptions: OxyCODONE/APAP 5/325 [Percocet 5/325 MG] 1 each PO Q6HR PRN 7 Days #25 tablet PRN Reason: Postoperative pain
[2018-03-21] MEDS ORDERED: Ringers Solution, Lactated 500 ML IVC ONE ×2 (12:04→14:59)
[2018-03-21] MEDS ORDERED: Ringers Solution, Lactated 1,000 ML ONE (14:07)
[2018-03-21] MEDS ORDERED: *HR* Labetalol 20 MG/4 ML SYRINGE IVP PRN (14:59)
[2018-03-21] MEDS ORDERED: OXYCODONE Oral CONC 10 MG/0.5 ML ORAL.SYG SL PRN (14:59)
[2018-03-21] MEDS ORDERED: Potassium Phosphate 44 MEQ in 0.9 % Sodium Chloride 250 ML IVPB PRN (14:59)
[2018-03-21] MEDS ORDERED: Naloxone 0.4 MG/ML INJ IVP PRN (14:59)
[2018-03-21] MEDS ORDERED: 0.9 % Sodium Chloride 500 ML ONE (15:50)
[2018-03-21 16:04] LABS: Basophils % 0.1 %; Hematocrit 28.7 % (35.3-44.9); Hemoglobin 9.8 g/dL (11.5-15.4); Immature Granulocytes % 0.7 % (0-4); Lymphocytes # 1.3 K/mcL (0.6-4.6); Lymphocytes % 5.5 %; Mean Corpuscular HGB Conc 34.1 g/dL (31.6-35.5); Mean Corpuscular Hemoglobin 31.2 pg (28.0-33.3); Mean Corpuscular Volume 91.4 fL (83.0-100.0); Mean Platelet Volume 9.8 fL (9.4-12.4); Monocytes # 2.5 K/mcL (0.0-1.3); Monocytes % 10.3 %; Neutrophils # 20.3 K/mcL (1.6-8.9); Platelet Count 189 K/mcL (140-400); Red Blood Count 3.14 M/mcL (3.82-4.97); Red Cell Distribution Width 13.4 % (11.5-14.5); Segmented Neutrophils % 83.4 %
[2018-03-21 16:27] LABS: Alanine Aminotransferase 26 Units/L (7-52); Albumin 2.9 g/dL (3.5-5.7); Albumin/Globulin Ratio 1.8 (1.1-2.2); Alkaline Phosphatase 56 Units/L (34-104); Aspartate Amino Transferase 44 Units/L (13-39); BUN/Creatinine Ratio 30 (6-26); Bilirubin,Total 0.4 mg/dL (0.3-1.0); Blood Urea Nitrogen 27 mg/dL (8-23); Calcium 8.1 mg/dL (8.6-10.3); Carbon Dioxide 22 mEq/L (23-29); Chloride 110 mEq/L (98-107); Creatine Kinase 295 Units/L (30-223); Globulin 1.6 g/dL (2.4-3.5); Glucose 155 mg/dL (70-105); Osmolality,Calculated 294 (280-300); Potassium 4.4 mEq/L (3.5-5.1); Sodium 138 mEq/L (136-145); Total Protein 4.5 g/dL (6.4-8.9); eGFR For Non-African Americans > 60 (> 60)
[2018-03-21 16:28] LABS: Troponin I < 0.03 ng/mL (< 0.04)
--- NOTE | 2018-03-21 16:34 | Electrocardiograph Report ---
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
[2018-03-21] MEDS: 0.9 % Sodium Chloride 1,000 ML IVC SCH (19:00)
[2018-03-21] MEDS: Budesonide/Formoterol 160/4.5 MDI IH SCH (21:53)
[2018-03-21] MEDS: Ondansetron 4 MG/2 ML VIAL IVP PRN (22:56)
[2018-03-21] MEDS: Piperacillin/Tazobactam 3.375 GM in 0.9 % Sodium Chloride Mini Bag 100 ML IVPB SCH (22:57)
[2018-03-22] MEDS: Ipratropium/Albuterol Neb 3 ML IH SCH ×4 (03:59→22:07)
[2018-03-22 04:08] LABS: Basophils % 0.1 %; Hematocrit 22.6 % (35.3-44.9); Hemoglobin 7.7 g/dL (11.5-15.4); Immature Granulocytes % 0.5 % (0-4); Lymphocytes # 0.8 K/mcL (0.6-4.6); Lymphocytes % 4.9 %; Mean Corpuscular HGB Conc 34.1 g/dL (31.6-35.5); Mean Corpuscular Hemoglobin 31.4 pg (28.0-33.3); Mean Corpuscular Volume 92.2 fL (83.0-100.0); Mean Platelet Volume 9.5 fL (9.4-12.4); Monocytes # 1.8 K/mcL (0.0-1.3); Monocytes % 10.8 %; Neutrophils # 14.1 K/mcL (1.6-8.9); Platelet Count 177 K/mcL (140-400); Red Blood Count 2.45 M/mcL (3.82-4.97); Red Cell Distribution Width 13.7 % (11.5-14.5); Segmented Neutrophils % 83.7 %
[2018-03-22 04:20] LABS: VBG Ionized Calcium 1.18 mmol/L (1.15-1.35)
[2018-03-22 04:30] LABS: Magnesium 2.3 mg/dL (1.6-2.6); Phosphorous 3.4 mg/dL (2.7-4.5)
[2018-03-22 04:41] LABS: Bilirubin,Urine Negative (Negative); Blood,Urine Small (Negative); Clarity,Urine Turbid (Clear); Color,Urine Yellow (Yellow); Glucose,Urine (UA) Normal (Normal); Ketones,Urine Negative (Negative); Leukocyte Esterase,Urine Negative (Negative); Nitrite,Urine Negative (Negative); PH,Urine 5.5 pH Units (5.0-8.0); Protein,Urine Trace mg/dL (Neg-Trace); Specific Gravity,Urine 1.025 (1.010-1.025); Urobilinogen,Urine Normal (Normal)
[2018-03-22 04:42] LABS: Bacteria,Urine None Seen per hpf (None-Few); Squamous Epithelial Cell,Urine Many per lpf (None-Few)
[2018-03-22 05:18] LABS: Hyaline Casts,Urine None Seen per lpf (None-Few); Oval Fat Bodies,Urine Present (Not Present)
[2018-03-22] MEDS: Ketorolac 15 MG/ML VIAL IVP SCH ×3 (05:24→20:54)
[2018-03-22] MEDS: Pantoprazole 40 MG VIAL IVP SCH ×2 (05:24→20:54)
[2018-03-22] MEDS: *HR* Metoprolol 5 MG/5 ML VIAL IVP SCH ×3 (05:24→20:54)
[2018-03-22 05:41] LABS: BUN/Creatinine Ratio 36 (6-26); Blood Urea Nitrogen 28 mg/dL (8-23); Carbon Dioxide 23 mEq/L (23-29); Chloride 111 mEq/L (98-107); Glucose 130 mg/dL (70-105); Osmolality,Calculated 295 (280-300); Potassium 3.9 mEq/L (3.5-5.1); Sodium 139 mEq/L (136-145); eGFR For Non-African Americans > 60 (> 60)
--- NOTE | 2018-03-22 08:42 | Pulmonology Progress Note ---
Date of Encounter: 03/22/18 Time of Encounter: 08:40 Assessment and Plan (1) Acute respiratory failure Current Visit: Yes Status: Acute Postoperative respiratory failure patient was underlying COPD Successfully liberated from the vent on 03/20 Acceptable oxygenation on nasal cannula waiting for goal FiO2 around 89-92% NG tube has been removed Encouraged incentive spirometry would with the use of this with the patient recommend this every hour or ideally every 20 minutes while awake Out of bed to chair and early ambulation are also helpful to mitigate the effects of atelectasis VQ mismatch Qualifiers: Respiratory failure complication: hypoxia Qualified Code(s): J96.01 - Acute respiratory failure with hypoxia (2) AAA (abdominal aortic aneurysm) Current Visit: Yes Status: Chronic The patient is postop day 2 status post open juxtarenal AAA repair Vascular surgery managing Qualifiers: Presence of rupture: without rupture Qualified Code(s): I71.4 - Abdominal aortic aneurysm, without rupture (3) Acute on chronic blood loss anemia Current Visit: Yes Status: Acute Patient is had a 2 g decrease in hemoglobin in the last 24 hours given rising lactate possibility for intra-abdominal hemorrhage. However examination has not changed from the previous 48 hours and she has been otherwise hemodynamically stable outside of some mild tachycardia suspected related to pain. We will discuss with vascular surgery about the utility of repeat CT scan of the abdomen. Goal transfusion hemoglobin greater than 7 (4) Leukocytosis Current Visit: Yes Status: Acute Patient has had postoperative leukocytosis Rising lactic acidosis was concerned for sepsis in this picture in the postoperative period Brennan cultures obtained yesterday no clear evidence of infection Broad-spectrum antimicrobials were started with a decrease in WBC count the last 24 hours Recommend continuation broad-spectrum antimicrobials were total of 48 hours if cultures remain negative and clinical course has improved these can be at the very least Deescalated I suspect stopped entirely Qualifiers: Leukocytosis type: unspecified Qualified Code(s): D72.829 - Elevated white blood cell count, unspecified (5) Lactic acidosis Current Visit: Yes Status: Acute I suspect type A lactic acidosis related to tissue hypoperfusion possibly in the context of blood loss intravascular volume depletion or secondary to sepsis Encouragingly lactate has trended to near-normal levels today we will continue to monitor this Recommend bolus of the IV colloid as needed (6) COPD (chronic obstructive pulmonary disease) Current Visit: Yes Status: Acute No evidence of acute exacerbation Patient was placed on Symbicort which she can continue to use in the outpatient setting She will need outpatient pulmonary follow-up for medication optimization and pulmonary function testing Qualifiers: Emphysema type: unspecified Qualified Code(s): J43.9 - Emphysema, unspecified (7) Tobacco abuse Current Visit: No Status: Chronic Tobacco cessation counseling given (8) DVT prophylaxis Current Visit: No Status: Acute Mechanical DVT prophylaxis given Subjective Principal diagnosis: Open repair abdominal aortic aneurysm Interval history: The last 24 hours she had noted increase in lactic acid 2 greater than 6 this was of unclear etiology. Abdominal exam was remarkable for significant change there is no evidence of renal hypoperfusion bladder pressures were within normal limits urine output remained marginal but acceptable she was afebrile white count was trending up but chest x-ray without clear evidence of pneumonia urinalysis without obvious infection patient received 500 mL of LR and another 500 mL of colloid repeat an broad-spectrum antimicrobials were started for hospital associated organisms. lactate encouragingly had trended the right direction. Today the patient states that she is "thirsty is helpful" she is complaining of leg pain and is asking for additional doses of analgesia Objective PUL Vital signs: Last Vital Signs Temp 98.0 F 03/22/18 07:38 Pulse 108 03/22/18 06:00 Resp 16 03/22/18 06:00 BP 109/61 03/22/18 06:00 Pulse Ox 100 03/22/18 06:00 General appearance: no acute distress Eyes: nonicteric Effort: normal Auscultation: bilateral: diminished breath sounds Cardiovascular: regular rate and rhythm Gastrointestinal: absent bowel sounds, soft, other (Midline abdominal wound shows a dressing is clean dry and intact there is no significant surrounding erythema or purulent exudate from the suture site.) Extremities: other (Pulses can be dopplerable in the lower extremities they are both warm without evidence of ischemia or petechia) normal mental status, non-focal exam, pupils equal and round mood appropriate Results - Laboratory Findings CBC and BMP: 03/22/18 03:55 03/22/18 04:00 ABG ABG pH 7.29 pH Units (7.32-7.45) L 03/20/18 13:31 ABG pCO2 46 mmHg (35-45) H 03/20/18 13:31 ABG pO2 536 mmHg (85-104) H D 03/20/18 13:31 ABG O2 Saturation 100 % (95-98) H 03/20/18 13:31 Abnormal lab findings: Abnormal lab results WBC 16.9 K/mcL (4.3-11.1) H 03/22/18 03:55 RBC 2.45 M/mcL (3.82-4.97) L 03/22/18 03:55 Hgb 7.7 g/dL (11.5-15.4) L D 03/22/18 03:55 Hct 22.6 % (35.3-44.9) L 03/22/18 03:55 Neutrophils # 14.1 K/mcL (1.6-8.9) H 03/22/18 03:55 Monocytes # 1.8 K/mcL (0.0-1.3) H 03/22/18 03:55 ABG pH 7.29 pH Units (7.32-7.45) L 03/20/18 13:31 ABG pCO2 46 mmHg (35-45) H 03/20/18 13:31 ABG pO2 536 mmHg (85-104) H D 03/20/18 13:31 ABG O2 Saturation 100 % (95-98) H 03/20/18 13:31 ABG Base Excess -4 mEq/L (-2 to 3) L 03/20/18 13:31 ABG Hematocrit 27.0 % (35.3-44.9) L 03/20/18 13:31 Glucose 274 mg/dL (60-95) H 03/20/18 13:31 Chloride 111 mEq/L (98-107) H 03/22/18 04:00 BUN 28 mg/dL (8-23) H 03/22/18 04:00 BUN/Creatinine Ratio 36 (6-26) H 03/22/18 04:00 Glucose 130 mg/dL (70-105) H 03/22/18 04:00 POC Glucose 125 mg/dL (70-99) H 03/22/18 00:05 Calcium 8.0 mg/dL (8.6-10.3) L 03/22/18 04:00 AST 44 Units/L (13-39) H 03/21/18 15:46 Creatine Kinase 295 Units/L (30-223) H 03/21/18 15:46 Serum Total Protein 4.5 g/dL (6.4-8.9) L 03/21/18 15:46 Albumin 2.9 g/dL (3.5-5.7) L 03/21/18 15:46 Globulin 1.6 g/dL (2.4-3.5) L 03/21/18 15:46 Urine Clarity Turbid (Clear) A 03/22/18 04:20 Urine Blood Small (Negative) H 03/22/18 04:20 Urine Microscopic RBC 3-5 per hpf (0-3) H 03/22/18 04:20 Urine Microscopic WBC 5-15 per hpf (0-3) H 03/22/18 04:20 Ur Squamous Epith Cells Many per lpf (None-Few) H 03/22/18 04:20 Ur Oval Fat Bodies Present (Not Present) A 03/22/18 04:20 - Microbiology Findings Microbiology Findings: Microbiology, Last 48 Hours 03/21/18 11:02 Blood Culture - Preliminary Peripheral Venipuncture Culture is incubating and being continuously monitored for growth. Final report to follow. - Diagnostic Findings Chest x-ray: report reviewed, image reviewed - Clinical Findings Intake & Output: Intake & Output 03/21/18 03/22/18 03/22/18 23:59 07:59 15:59 Intake Total 0 / 0 100 / 100 Output Total 225 / 225 330 / 330 Balance -225 / -225 -230 / -230 Weight 57 kg - VTE Documentation of Mechanical Device: Intermittent pneumatic compression device Consult Discharge Plan - Plan Referrals: NONE,PCP [Primary Care Provider] -
[2018-03-22] MEDS: Piperacillin/Tazobactam 3.375 GM in 0.9 % Sodium Chloride Mini Bag 100 ML IVPB SCH ×2 (08:51→15:43)
[2018-03-22] MEDS ORDERED: *HR* FentaNYL (PF) 100 MCG/2 ML VIAL IVP ONE (09:13)
[2018-03-22] MEDS: Budesonide/Formoterol 160/4.5 MDI IH SCH ×2 (10:36→22:06)
[2018-03-22] MEDS ORDERED: Aminoglycoside Consult 1 EACH MC ONE (12:20)
--- NOTE | 2018-03-22 12:30 | Vascular/Endovas Progress Note ---
Date of Encounter: 03/22/18 Time of Encounter: 12:27 - Assessment and plan (1) AAA (abdominal aortic aneurysm) Current Visit: Yes Status: Chronic Patient is status post successful repair of juxtarenal abdominal aortic aneurysm with 12 x 7 mm Hemashield graft. The bypass graft is patent with baseline perfusion to lower extremities. With the exception of her tachycardia the patient appears to be hemodynamically stable following his surgery. Urinary output has increased over the past 24 hours and the patient had been placed on 50 mL's of normal saline late yesterday. This will now be decreased to 25 mL's of saline. Anticipate Jama removal tomorrow. Qualifiers: Presence of rupture: without rupture Qualified Code(s): I71.4 - Abdominal aortic aneurysm, without rupture (2) Acute on chronic blood loss anemia Current Visit: Yes Status: Acute Patient has chronic anemia. Exacerbated by the expected blood loss from aortic surgery. Hemoglobin is 7.7. There is third shifts attributing some of this hemodilution. At this point I do not recommend transfusion. CT scan is not necessary at this time. (3) Lactic acidosis Current Visit: Yes Status: Resolved Patient had elevated lactic acid yesterday. This has resolved essentially spontaneously. I believe this is partially due to lab error. There appears to be no clinical consequence to this and no further workup is necessary. Biochemical renal parameters remain normal. - Subjective Interval history: Patient is postoperative day #2 following open repair of juxtarenal abdominal aortic aneurysm. Patient had a laboratory abnormality late yesterday afternoon with an elevated lactate level. However, the patient clinically was doing very well and I suspect this was a laboratory error. In addition the patient's CO2 on the electrolyte panel was also unimpressive. The patient had an uneventful night. She remains hemodynamically stable though she has persistent tachycardia. Her only real complaint is that she is thirsty and wants to drink water. She has had no flatus or bowel movement postoperatively. The nasogastric tube was removed yesterday. Vital Signs, Last 4 Hours Temp Pulse Resp BP Pulse Ox 03/22/18 11:09 114 03/22/18 11:00 98.2 F 115 18 114/66 93 03/22/18 10:36 20 97 03/22/18 10:00 115 18 120/70 97 03/22/18 08:41 112 - Physical Examination General: Present: Conversant, No Apparent Distress HEENT: Present: Atraumatic Neck: Absent: JVD Cardiac: Present: Reg Rate and Rhythm, Other (Tachycardic) Lungs: Present: Normal Breath Sounds Neuro: Present: Alert and responsive, Other (Bilateral foot drop). Absent: No focal deficits noted Vascular: Present: Surgical incisions (The dressing was removed from the abdominal incision. The incision is clean and dry. There is no sign of infection.), Other (Patient has Doppler signals at the ankle. On the right side there are Doppler signals over the peroneal and posterior tibial artery. On the left there is Doppler signal over the posterior tibial artery.). Absent: Cyanosis, Edema Abdomen: Present: Soft, Other (Patient has mild abdominal tenderness to deep palpation which is expected on postoperative day 2 following midline incision. There were minimal bowel sounds and my examination today.) Skin: Present: No rashes noted on visualized skin - VTE Documentation of Mechanical Device: Intermittent pneumatic compression device Results 03/22/18 03:55 03/22/18 04:00 Lab Results, Last 24 hours 03/21/18 03/21/18 03/22/18 15:46 15:46 03:55 WBC 24.3 H 16.9 H Hgb 9.8 L 7.7 L D Hct 28.7 L 22.6 L Plt Count 189 177 Sodium 138 Potassium 4.4 Chloride 110 H Carbon Dioxide 22 L BUN 27 H Creatinine 0.91 Glucose 155 H Calcium 8.1 L Magnesium Total Bilirubin 0.4 AST 44 H ALT 26 Alkaline Phosphatase 56 Troponin I < 0.03 03/22/18 03/22/18 03:55 04:00 WBC Hgb Hct Plt Count Sodium 139 Potassium 3.9 Chloride 111 H Carbon Dioxide 23 BUN 28 H Creatinine 0.78 Glucose 130 H Calcium 8.0 L Magnesium 2.3 Total Bilirubin AST ALT Alkaline Phosphatase Troponin I Consult Discharge Plan - Plan Referrals: NONE,PCP [Primary Care Provider] -
[2018-03-22] MEDS: 0.9 % Sodium Chloride 1,000 ML IVC SCH (15:43)
[2018-03-22] MEDS: Ondansetron 4 MG/2 ML VIAL IVP PRN (20:57)
[2018-03-22] MEDS: OXYCODONE Oral CONC 10 MG/0.5 ML ORAL.SYG SL PRN (21:03)
[2018-03-23] MEDS: Ipratropium/Albuterol Neb 3 ML IH SCH ×4 (03:00→21:31)
[2018-03-23] MEDS: OXYCODONE Oral CONC 10 MG/0.5 ML ORAL.SYG SL PRN (03:43)
[2018-03-23] MEDS: *HR* Metoprolol 5 MG/5 ML VIAL IVP SCH ×4 (03:44→16:55)
[2018-03-23] MEDS: Piperacillin/Tazobactam 3.375 GM in 0.9 % Sodium Chloride Mini Bag 100 ML IVPB SCH ×2 (03:44→08:26)
[2018-03-23] MEDS: Ketorolac 15 MG/ML VIAL IVP SCH ×4 (03:44→16:56)
[2018-03-23] MEDS: Pantoprazole 40 MG VIAL IVP SCH ×2 (08:26→16:55)
--- NOTE | 2018-03-23 08:41 | Event Note ---
Date of Encounter: 03/23/18 Time of Encounter: 08:40 Cultures as far remain negative patient has been afebrile antibiotics were started in the context of worsening lactic acidosis that resolved essentially spontaneously. I have low clinical and suspicion for active infection and we will stop broad-spectrum antibiotics that were started while she was in the ICU. We will refer to vascular surgery for further recommendations please call with questions
[2018-03-23] MEDS: Budesonide/Formoterol 160/4.5 MDI IH SCH ×2 (10:57→21:31)
--- NOTE | 2018-03-23 12:17 | Vascular/Endovas Progress Note ---
Date of Encounter: 03/23/18 Time of Encounter: 12:15 - Assessment and plan (1) AAA (abdominal aortic aneurysm) Current Visit: Yes Status: Chronic Patient is status post successful repair of juxtarenal abdominal aortic aneurysm with 12 x 7 mm Hemashield graft. The bypass graft is patent with baseline perfusion to lower extremities. With the exception of her tachycardia the patient appears to be hemodynamically stable following his surgery. Urinary output has increased over the past 24 hours. Will DC Jama catheter today. We will increase physical activities today. We will begin ice chips and water today. The broad-spectrum antibiotics started in the intensive care unit have been discontinued. Qualifiers: Presence of rupture: without rupture Qualified Code(s): I71.4 - Abdominal aortic aneurysm, without rupture (2) Acute on chronic blood loss anemia Current Visit: Yes Status: Acute Patient has chronic anemia. Exacerbated by the expected blood loss from aortic surgery. Last Hemoglobin is 7.7 from March 22. There is third shifts attributing some of this hemodilution. At this point I do not recommend transfusion. CT scan is not necessary at this time. (3) Lactic acidosis Current Visit: Yes Status: Resolved Patient had elevated lactic acid. This has resolved essentially spontaneously. - Subjective Interval history: Patient is postoperative day #3 following open repair of juxtarenal abdominal aortic aneurysm. Has persistent tachycardia. Her only real complaint is that she is thirsty and wants to drink water. She has had no flatus or bowel movement postoperatively. There were no labs ordered for this morning to review. The patient's urinary output has significantly improved. Vital Signs, Last 4 Hours Temp Pulse Resp BP Pulse Ox 03/23/18 11:22 97.8 F 99 16 104/60 98 03/23/18 10:57 16 96 03/23/18 08:22 97.5 F L 86 16 110/64 95 - Physical Examination General: Present: Conversant, No Apparent Distress HEENT: Present: Atraumatic Cardiac: Present: Other (Low-grade sinus tachycardia) Lungs: Present: Normal Breath Sounds Neuro: Present: Alert and responsive Vascular: Present: Normal capillary refill, Surgical incisions (Abdominal incision is clean and dry) Abdomen: Present: Soft, Non-tender, Other (Hypoactive bowel sounds) - VTE Documentation of Mechanical Device: Intermittent pneumatic compression device Results 03/22/18 03:55 03/22/18 04:00 Consult Discharge Plan - Plan Referrals: NONE,PCP [Primary Care Provider] -
[2018-03-24] MEDS: *HR* Metoprolol 5 MG/5 ML VIAL IVP SCH ×4 (00:55→16:26)
[2018-03-24] MEDS: OXYCODONE Oral CONC 10 MG/0.5 ML ORAL.SYG SL PRN (00:55)
[2018-03-24] MEDS: Ketorolac 15 MG/ML VIAL IVP SCH ×2 (00:55→05:19)
[2018-03-24] MEDS: Ipratropium/Albuterol Neb 3 ML IH SCH ×4 (03:49→22:23)
[2018-03-24] MEDS: Pantoprazole 40 MG VIAL IVP SCH ×2 (05:18→16:26)
[2018-03-24 05:40] LABS: Hematocrit 18.6 % (35.3-44.9); Mean Corpuscular HGB Conc 32.8 g/dL (31.6-35.5); Mean Corpuscular Hemoglobin 31.4 pg (28.0-33.3); Mean Corpuscular Volume 95.9 fL (83.0-100.0); Mean Platelet Volume 9.7 fL (9.4-12.4); Platelet Count 168 K/mcL (140-400); Red Blood Count 1.94 M/mcL (3.82-4.97); Red Cell Distribution Width 14.4 % (11.5-14.5)
[2018-03-24 05:42] LABS: Hemoglobin 6.1 g/dL (11.5-15.4)
[2018-03-24 06:00] LABS: BUN/Creatinine Ratio 38 (6-26); Blood Urea Nitrogen 31 mg/dL (8-23); Calcium 8.1 mg/dL (8.6-10.3); Carbon Dioxide 22 mEq/L (23-29); Chloride 117 mEq/L (98-107); Glucose 111 mg/dL (70-105); Osmolality,Calculated 307 (280-300); Potassium 2.9 mEq/L (3.5-5.1); Sodium 145 mEq/L (136-145); eGFR For Non-African Americans > 60 (> 60)
[2018-03-24] MEDS ORDERED: Acetaminophen 325 MG TABLET PO PRN (08:53)
[2018-03-24] MEDS ORDERED: Furosemide 20 MG/2 ML VIAL IVP ONE (08:54)
[2018-03-24] MEDS ORDERED: *HR* OxyCODONE/APAP 5/325 TABLET PO PRN (08:54)
--- NOTE | 2018-03-24 09:05 | Vascular/Endovas Progress Note ---
Date of Encounter: 03/24/18 Time of Encounter: 08:05 - Assessment and plan (1) AAA (abdominal aortic aneurysm) Current Visit: Yes Status: Chronic The patient is postoerative day #4 after open repair of her aortic aneurysm. She is hemodynamically stable. She has acute expected postoperative blood loss anemia. She will receive 1 unit of packed red blood cells today. She is tolerating clear liquids. Her diet will be advanced. - Subjective Interval history: The patient is comfortable and tolerating clear liquids today. She reports incisional pain. She reports chronic lower back pain. She denies chest pain or shortness of breath. Vital Signs, Last 4 Hours Temp Pulse Resp BP Pulse Ox 03/24/18 07:21 99 03/24/18 07:10 97.7 F 97 18 109/61 99 - Physical Examination General: Present: Conversant, No Apparent Distress Neck: Absent: JVD Cardiac: Present: Reg Rate and Rhythm Lungs: Present: Normal Breath Sounds Neuro: Present: Alert and responsive, No focal deficits noted Vascular: Present: Normal capillary refill, Surgical incisions (Clean, dry and intact without erythema or drainage.). Absent: Cyanosis Abdomen: Present: Soft, Other (Bowel sounds present, no rebound or guarding). Absent: Non-tender (Incisional tenderness) - VTE Documentation of Mechanical Device: Intermittent pneumatic compression device Results 03/24/18 05:10 03/24/18 04:00 Lab Results, Last 24 hours 03/24/18 03/24/18 04:00 05:10 WBC 7.1 D Hgb 6.1 L D Hct 18.6 L Plt Count 168 Sodium 145 Potassium 2.9 L Chloride 117 H Carbon Dioxide 22 L BUN 31 H Creatinine 0.81 Glucose 111 H Calcium 8.1 L Consult Discharge Plan - Plan Referrals: NONE,PCP [Primary Care Provider] -
[2018-03-24] MEDS: Ondansetron 4 MG/2 ML VIAL IVP PRN ×2 (09:25→20:31)
[2018-03-24] MEDS: Bisacodyl 10 MG RECTAL SUPPOSITORY RC ONE ×2 (09:25→09:43)
[2018-03-24 09:40] LABS: Magnesium 2.3 mg/dL (1.6-2.6)
[2018-03-24] MEDS ORDERED: 0.9 % Sodium Chloride 250 ML ONE (10:42)
[2018-03-24] MEDS: Budesonide/Formoterol 160/4.5 MDI IH SCH ×2 (11:29→22:23)
[2018-03-24] MEDS: *HR* OxyCODONE Immed Rel 5 MG TABLET PO PRN ×2 (12:02→20:30)
[2018-03-24 16:52] LABS: Hematocrit 25.3 % (35.3-44.9); Hemoglobin 8.6 g/dL (11.5-15.4)
[2018-03-24 16:56] LABS: VBG Ionized Calcium 1.23 mmol/L (1.15-1.35)
[2018-03-24 17:13] LABS: BUN/Creatinine Ratio 34 (6-26); Blood Urea Nitrogen 29 mg/dL (8-23); Calcium 8.4 mg/dL (8.6-10.3); Carbon Dioxide 22 mEq/L (23-29); Chloride 113 mEq/L (98-107); Glucose 131 mg/dL (70-105); Osmolality,Calculated 300 (280-300); Potassium 3.9 mEq/L (3.5-5.1); Sodium 141 mEq/L (136-145); eGFR For Non-African Americans > 60 (> 60)
--- NOTE | 2018-03-24 17:56 | Electrocardiograph Report ---
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
[2018-03-25] MEDS: *HR* Metoprolol 5 MG/5 ML VIAL IVP SCH ×2 (01:03→05:32)
[2018-03-25] MEDS: Ipratropium/Albuterol Neb 3 ML IH SCH ×2 (03:48→11:15)
[2018-03-25] MEDS: Pantoprazole 40 MG VIAL IVP SCH (05:32)
[2018-03-25] MEDS: *HR* OxyCODONE Immed Rel 5 MG TABLET PO PRN (06:28)
[2018-03-25] MEDS ORDERED: Ondansetron ODT 4 MG TAB.RAPDIS SL PRN (06:34)
--- NOTE | 2018-03-25 06:42 | Discharge Summary ---
Orders not resulted at time of discharge: Pending orders 03/21/18 11:02 Culture,Blood [BC] Stat 03/25/18 06:13 Hemoglobin and Hematocrit [HEME] Routine Phosphorous Routine 03/25/18 09:00 Chem 7 [Basic Metabolic Panel] AM 0400 Date of Encounter: 03/25/18 Time of Encounter: 08:00 - Discharge Diagnosis (1) AAA (abdominal aortic aneurysm) Priority: Primary Status: Chronic Comments: The patient is postoperative day #5 after open repair of an abdominal aortic aneurysm. She is tolerating a diet. Her pain is well-controlled with oral pain medication. She will be discharged today. Qualifiers: Presence of rupture: without rupture Qualified Code(s): I71.4 - Abdominal aortic aneurysm, without rupture (2) Essential hypertension Priority: Secondary Status: Chronic (3) Mixed hyperlipidemia Priority: Secondary Status: Chronic (4) Coronary artery disease Priority: Secondary Status: Acute Qualifiers: Coronary Disease-Associated Artery/Lesion type: [place] artery [place] vs. transplanted heart: [place] heart Associated angina: without angina Qualified Code(s): I25.10 - Atherosclerotic heart disease of [place] coronary artery without angina pectoris (5) Acute blood loss anemia Priority: Secondary Status: Acute Comments: The patient developed acute expected postoperative blood loss anemia. She required 1 unit of packed red blood cells. She remained hemodynamically stable. Her hemoglobin is stable. She is no evidence of ongoing blood loss. (6) COPD (chronic obstructive pulmonary disease) Priority: Secondary Status: Chronic Qualifiers: COPD type: emphysema Emphysema type: panlobular Qualified Code(s): J43.1 - Panlobular emphysema (7) Severe protein-calorie malnutrition Priority: Secondary Status: Chronic Comments: The patient is tolerating a regular diet has been given nutritional supplementation. (8) Tobacco abuse Priority: Secondary Status: Chronic - Hospital Course Hospital course: Ms. Ryan is a 77 year old female with a history of hypertension, hyperlipidemia, COPD, coronary artery disease and tobacco abuse. She required open repair of the juxtarenal abdominal aortic aneurysm. In the postoperative. She was transferred to the intensive care unit intubated and in stable condition. She was extubated on postoperative day 0. She remained hemodynamically stable and on postoperative day #1 she was transferred to the floor. She had physical therapy and occupational therapy consultation. She received intravenous fluids. She had an elevated white blood cell count initial postoperative. This was felt to be reactive rather than an indication of infection. However she was treated with intravenous antibiotics by the garageman due to a suspected infection which later ruled out. The patient was also noted to have acute expected postoperative blood loss anemia. She remained hemodynamically stable and received one unit of packed red blood cells. Her diet was advanced. She was discharged to her snf in stable condition on postoperative day #5 without complications. Time spent discussing smoking cessation with patient: 3 to 10 minutes - Time Spent with Patient Total time spent providing and/or coordinating discharge services: - Discharge Medications Prescriptions: OxyCODONE/APAP 5/325 [Percocet 5/325 MG] 1 each PO Q6HR PRN 7 Days #25 tablet PRN Reason: Postoperative pain Home Medications: Aspirin 81 mg PO DAILY 06/26/15 [History] Clopidogrel [Plavix] 75 mg PO DAILY #30 tablet 06/28/15 [Rx] Citalopram [CeleXA] 10 mg PO DAILY 10/19/15 [History] Trospium Chloride [Trospium Chloride ER] 60 mg PO DAILY 07/14/16 [History] Docusate [Colace] 100 mg PO BID PRN 07/23/16 [History] Ipratropium/Albuterol Sulfate [Combivent Respimat Inhal [place]] 4 gm IH QID PRN 07/23/16 [History] Multivit-Min/FA/Lycopen/Lutein [Centrum Silver Tablet] 1 tab PO DAILY 07/23/16 [ History] Bisacodyl [Dulcolax] 10 mg RC DAILY PRN #0 supp.rect 08/11/16 [Rx] Ferrous Sulfate 325 mg PO BIDWM tablet 08/11/16 [Rx] Metoprolol [Lopressor] 12.5 mg PO BID tablet 08/11/16 [Rx] Ondansetron ODT [Zofran ODT] 4 mg SL Q6HR PRN #0 tab.rapdis 08/11/16 [Rx] Atorvastatin [Lipitor] 20 mg PO HS 03/20/18 [History] Pantoprazole Sodium [Protonix] 20 mg PO DAILY 03/20/18 [History] Sennosides/Docusate Sodium [Senna Plus] 2 each PO PRN 03/20/18 [History] OxyCODONE/APAP 5/325 [Percocet 5/325 MG] 1 each PO Q6HR PRN 7 Days #25 tablet [Rx] Allergies/Adverse Reactions: 3 Allergy/AdvReac Type Severity Reaction Status Date / Time codeine Allergy Severe Anaphylaxis Verified 07/15/16 13:36 Date of admission: 03/20/18 14:09 Primary care physician: PCP NONE Consults: 03/20/18 14:27 Consult to Critical Care [CONS] Routine Consulting Provider: [facility] [place] Reason for Consult: s/p open repair of aortic aneurysm. Spoke with Dr. Mackey. Time Notified: 14:00 Call Completed: Yes 03/21/18 14:59 Consult to Occupational Therapy [CONS] Routine Comment: Evaluate, develop and implement POC Reason for Consult: S/P open aortic aneurysm repair. 03/20/18. Does patient have active BEDREST order?: No Is patient medically & hemodynamically stable?: Yes Patient assessed for mobility or mobilized this visit?: No Consult to Physical Therapy [CONS] Routine Comment: Evaluate, develop and implement POC Reason for Consult: S/P open aortic aneurysm repair. 03/20/18. Does patient have active BEDREST order?: No Is patient medically & hemodynamically stable?: Yes Patient assessed for mobility or mobilized this visit?: No Consult to [place] [CONS] Routine Reason for SW Consult: D/C planning for S/P open aortic aneurysm repair . Procedure(s) Performed: Open repair of abdominal aortic aneurysm. Discharging clinician: Andrae Holman Anticipated date of discharge: 03/25/18 Exam Vital Signs, Last 4 Hours Temp Pulse Resp BP Pulse Ox 03/25/18 03:48 18 93 03/25/18 03:03 99.0 F 131 20 133/104 90 General: Present: Conversant, No Apparent Distress Neck: Absent: JVD Cardiac: Present: Reg Rate and Rhythm Lungs: Present: Normal Breath Sounds Neuro: Present: Alert and responsive, No focal deficits noted Abdomen: Present: Soft, Other (Incisional tenderness, bowel sounds present, no rebound, no guarding) Vascular: Present: Normal capillary refill, Surgical incisions (Incision clean, dry and intact without erythema or drainage), Other (Feet warm, pedal signals present bilaterally). Absent: Cyanosis, Edema Skin: Present: No rashes noted on visualized skin - Patient Status Disposition: Transfer SNF Condition: Good Functional capacity at discharge: independent ambulation Overall status at discharge: patient is progressing back to baseline - Discharge Instructions Follow Up With: Andrae Holman MD [Partnered Physician] - 05/05/18 9:20 am NONE,PCP [Primary Care Provider] - (Patient is from [facility] no PCP appointment needed) Additional Instructions: The patient may shower on 03/26/2018. No tub baths or swimming until 04/26/2018. No lifting more than 10 pounds until 04/26/2018. No lifting more than 20 pounds until 05/26/2018. - Diet and Activity Activity: increase activity as tolerated Diet: regular diet (With nutritional supplementation via shakes with all meals.) - VTE Documentation of Mechanical Device: Intermittent pneumatic compression device
[2018-03-25] MEDS ORDERED: *HR* Heparin 5,000 UNIT/ML VIAL SQ SCH (06:45)
[2018-03-25 06:50] LABS: Hemoglobin 8.3 g/dL (11.5-15.4)
[2018-03-25 08:42] LABS: BUN/Creatinine Ratio 32 (6-26); Blood Urea Nitrogen 26 mg/dL (8-23); Calcium 8.4 mg/dL (8.6-10.3); Carbon Dioxide 22 mEq/L (23-29); Chloride 116 mEq/L (98-107); Glucose 122 mg/dL (70-105); Osmolality,Calculated 302 (280-300); Phosphorous 3.2 mg/dL (2.7-4.5); Potassium 5.3 mEq/L (3.5-5.1); Sodium 143 mEq/L (136-145); eGFR For Non-African Americans > 60 (> 60)
[2018-03-25] MEDS ORDERED: Furosemide 20 MG/2 ML VIAL IVP ONE (08:56)
[2018-03-25] MEDS ORDERED: Aspirin 81 MG TAB.CHEW PO SCH (09:00)
[2018-03-25] MEDS ORDERED: Bisacodyl 10 MG RECTAL SUPPOSITORY RC ONE (09:00)
[2018-03-25] MEDS ORDERED: Multivit/Ca/Min/Fe/FA 1 TAB TABLET PO SCH (09:00)
[2018-03-25 11:11] VITALS: BP 135/82
[2018-03-25] MEDS: Budesonide/Formoterol 160/4.5 MDI IH SCH (11:16)
--- NOTE | 2018-03-25 12:44 | Physician Discharge Referral ---
ExtendedCare Referral Info Transfer To: Nursing Facility Provider in Charge after Transfer: PCP Institutional Level of Care: Skilled - Diagnosis (1) AAA (abdominal aortic aneurysm) Priority: Primary Status: Chronic (2) Coronary artery disease Priority: Secondary Status: Acute (3) COPD (chronic obstructive pulmonary disease) Priority: Secondary Status: Chronic (4) Essential hypertension Priority: Secondary Status: Chronic (5) Mixed hyperlipidemia Priority: Secondary Status: Chronic (6) Anemia Priority: Secondary Status: Acute (7) Severe protein-calorie malnutrition Priority: Secondary Status: Chronic (8) Tobacco abuse Priority: Secondary Status: Chronic Prognosis: Good Aware of Diagnosis: Patient, Family Aware of Prognosis: Patient, Family - Transfer Medications Prescriptions: OxyCODONE/APAP 5/325 [Percocet 5/325 MG] 1 each PO Q6HR PRN 7 Days #25 tablet PRN Reason: Postoperative pain Home Medications: Aspirin 81 mg PO DAILY 06/26/15 [History] Clopidogrel [Plavix] 75 mg PO DAILY #30 tablet 06/28/15 [Rx] Citalopram [CeleXA] 10 mg PO DAILY 10/19/15 [History] Trospium Chloride [Trospium Chloride ER] 60 mg PO DAILY 07/14/16 [History] Docusate [Colace] 100 mg PO BID PRN 07/23/16 [History] Ipratropium/Albuterol Sulfate [Combivent Respimat Inhal [place]] 4 gm IH QID PRN 07/23/16 [History] Multivit-Min/FA/Lycopen/Lutein [Centrum Silver Tablet] 1 tab PO DAILY 07/23/16 [ History] Bisacodyl [Dulcolax] 10 mg RC DAILY PRN #0 supp.rect 08/11/16 [Rx] Ferrous Sulfate 325 mg PO BIDWM tablet 08/11/16 [Rx] Metoprolol [Lopressor] 12.5 mg PO BID tablet 08/11/16 [Rx] Ondansetron ODT [Zofran ODT] 4 mg SL Q6HR PRN #0 tab.rapdis 08/11/16 [Rx] Atorvastatin [Lipitor] 20 mg PO HS 03/20/18 [History] Pantoprazole Sodium [Protonix] 20 mg PO DAILY 03/20/18 [History] Sennosides/Docusate Sodium [Senna Plus] 2 each PO PRN 03/20/18 [History] OxyCODONE/APAP 5/325 [Percocet 5/325 MG] 1 each PO Q6HR PRN 7 Days #25 tablet [Rx] Allergies/Adverse Reactions: 3 Allergy/AdvReac Type Severity Reaction Status Date / Time codeine Allergy Severe Anaphylaxis Verified 07/15/16 13:36 - Respiratory Orders Smoking Cessation: Smoking cessation has been advised. For more information, call the [place] Tobacco Quit Line at 2-419-DVIV-NOW. - Lab Orders Lab Orders: CBC (Check on 03/27/[address] Holman.), Josh 17 - Ancillary Orders May use pressure relief devices daily prn, May go on YOKASTA w/family/respon alliance party w /meds at nurse discretion PRN, May have alcoholic beverages, May consult with Dentist, Sports Book Board Attendant, Informaticist PRN - Advance Directives Living Will: No Power of Frame Changer: No Code Status: Full Code - Mobility Orders Ambulate - Rehabiliation Orders Rehab Orders: ROM Exercises, Evaluation for Physical Therapy - Treatments Skin tear care topically daily PRN per policy, May check for fecal impaction rectally daily PRN, Fleet enema rectally every other day PRN cleansing purposes - Diet Orders Regular House Supplement per Dietary: Nutritional shakes with meals. CERTIFICATION: I certify that the transfer of the above named patient to an Extended Care Facility is necessary for the continuing treatment of the diagnosis listed. The above information is true and accurate reflection of patient's current condition. Confidential - Redisclosure prohibited without a patient's written consent.
== END 2018-03-25 15:48 | DRG 268 ==
LOC: SAMDAY 05:58 → ICNU 14:09 → 2NNU 03-22 15:19
PROVIDERS: ADMIT Surgery; ATTEND Surgery

== ENCOUNTER 2018-03-26 22:10 | Inpatient (IN) ==
[2018-03-26 22:28] LABS: Basophils % 0.1 %; Eosinophils # 0.2 K/mcL (0.0-0.6); Eosinophils % 1.8 %; Hematocrit 27.5 % (35.3-44.9); Hemoglobin 9.1 g/dL (11.5-15.4); Lymphocytes # 0.8 K/mcL (0.6-4.6); Lymphocytes % 9.3 %; Mean Corpuscular HGB Conc 33.1 g/dL (31.6-35.5); Mean Corpuscular Hemoglobin 31.4 pg (28.0-33.3); Mean Corpuscular Volume 94.8 fL (83.0-100.0); Mean Platelet Volume 8.9 fL (9.4-12.4); Monocytes % 12.1 %; Neutrophils # 6.4 K/mcL (1.6-8.9); Nucleated Red Blood Cells 0.5 /100 WBC (0); Platelet Count 332 K/mcL (140-400); Red Cell Distribution Width 16.2 % (11.5-14.5); Segmented Neutrophils % 74.7 %
[2018-03-26 22:49] LABS: BUN/Creatinine Ratio 35 (6-26); Blood Urea Nitrogen 25 mg/dL (8-23); Calcium 8.6 mg/dL (8.6-10.3); Carbon Dioxide 24 mEq/L (23-29); Chloride 112 mEq/L (98-107); Glucose 123 mg/dL (70-105); Osmolality,Calculated 300 (280-300); Potassium 4.2 mEq/L (3.5-5.1); Sodium 142 mEq/L (136-145); eGFR For Non-African Americans > 60 (> 60)
[2018-03-26 22:55] LABS: Troponin I 3.65 ng/mL (< 0.04)
--- NOTE | 2018-03-26 22:55 | Emergency Department Note ---
Disposition Clinical Impression: Abdominal pain, Elevated troponin, Pleural effusion Disposition: Still a Patient Condition: Undetermined Referrals: NONE,PCP [Primary Care Provider] - Forms: Work/School Release, ED Satisfaction Letter Time of Disposition: 01:39 Abdominal Pain HPI - General Chief Complaint: ED Abdominal Pain Stated Complaint: abd pain Time Seen by Provider: 03/26/18 22:13 Source: patient, EMS Mode of arrival: EMS Limitations: no limitations Nursing Notes Reviewed: Yes Vital Signs Reviewed: Yes - History of Present Illness HPI Narrative: 77-year-old female with recent injury the vascular aortic abdominal repair performed by Dr. yañez as her here at [facility] 7 days ago arrives to the emergency department with complaint of abdominal pain radiating into her back. The patient states that she feels very similar to when she had her AAA repair prior to coming in and when it was initially discovered. In addition the patient states that she has had some constipation over the course the past 7 days but she also states that when she sort of felt like before she had her AAA. The patient denies any other complaints at this time. She is noted to be tachycardic by EMS which apparently is baseline per family. Patient denies any other complaints at this time including fevers, chills, nausea, vomiting, diarrhea, chest pain, difficulty breathing. Pain Scale: 7 - Related Data Home Medications Medication Instructions Recorded Confirmed Aspirin 81 mg PO DAILY 06/26/15 03/26/18 Citalopram [CeleXA] 10 mg PO DAILY 10/19/15 03/26/18 Trospium Chloride [Trospium 60 mg PO DAILY 07/14/16 03/26/18 Chloride ER] Docusate [Colace] 100 mg PO BID PRN 07/23/16 03/26/18 Ipratropium/Albuterol Sulfate 4 gm IH QID PRN 07/23/16 03/26/18 [Combivent Respimat Inhal [place]] Multivit-Min/FA/Lycopen/Lutein 1 tab PO DAILY 07/23/16 03/26/18 [Centrum Silver Tablet] Atorvastatin [Lipitor] 20 mg PO HS 03/20/18 03/26/18 Pantoprazole Sodium [Protonix] 20 mg PO DAILY 03/20/18 03/26/18 Sennosides/Docusate Sodium [Senna 2 each PO PRN 03/20/18 Plus] Bisacodyl [Dulcolax] 10 mg RC ONCE 03/26/18 03/26/18 Previous Rx's Medication Instructions Recorded Clopidogrel [Plavix] 75 mg PO DAILY #30 tablet 06/28/15 Ferrous Sulfate 325 mg PO BIDWM tablet 08/11/16 Metoprolol [Lopressor] 12.5 mg PO BID tablet 08/11/16 Ondansetron ODT [Zofran ODT] 4 mg SL Q6HR PRN #0 tab.rapdis 08/11/16 OxyCODONE/APAP 5/325 [Percocet 1 each PO Q6HR PRN 7 Days #25 03/25/18 5/325 MG] tablet Allergies Allergy/AdvReac Type Severity Reaction Status Date / Time codeine Allergy Severe Anaphylaxis Verified 07/15/16 13:36 All systems ED: reviewed and negative except as stated. Constitutional: Denies: fever, chills, weakness ENT ED: Denies: congestion Cardiovascular: Denies: chest pain Respiratory: Denies: dyspnea Gastrointestinal: Reports: abdominal pain, constipation. Denies: nausea, vomiting, diarrhea, hematemesis, melena, hematochezia Genitourinary: Denies: urgency, dysuria Musculoskeletal: Reports: back pain. Denies: arthralgia, myalgia Integumentary: Denies: rash Neurological: Denies: headache Abdominal Pain PMH - Past Medical History Medical history: Reports: asthma, cancer, COPD, coronary artery disease, CVA, hypertension, other MANAGER MEDICAL DEVICE history: Reports: no MANAGER MEDICAL DEVICE history Psychiatric history: Reports: anxiety, depression, panic disorder - Social History Smoking status: Current every day smoker Alcohol use: Reports: rarely Drug use: Reports: marijuana, IV Drug Use Physical Exam - General Limitations: no limitations General appearance: alert, in no apparent distress - Head Head exam: atraumatic, normocephalic, normal inspection - Eye Eye exam: Present: normal appearance, PERRL, EOMI - ENT ENT exam: normal exam, normal oropharynx, mucous membranes moist - Neck Neck exam: Present: normal inspection, full ROM, trachea midline - Chest Chest inspection: Present: normal inspection, symmetric chest wall rise - Respiratory Respiratory exam: Present: normal lung sounds bilaterally - Cardiovascular Cardiovascular exam: Present: normal rhythm, tachycardia, normal heart sounds - Abdominal Exam Abdominal exam: Present: soft, tenderness (diffuse), incision (intact). Absent : distention, guarding, rebound, rigidity - Extremities Exam Extremities exam: Present: normal inspection, full ROM. Absent: tenderness, pedal edema - Neurological Exam Neurological exam: Present: alert, oriented X3 - Skin Skin exam: Present: warm, dry, intact, normal color Course - Reevaluation(s) Reevaluation #1: Patient's CTA of the chest demonstrates pleural effusions with no dissection of aorta. There is ectasia that is noted in the thoracic aorta but no dissection noted. The patient's CTA of the abdomen and pelvis has continued to remain on red. We have called numerous times to the radiology office as well as CAT scan about issues. First phone call roughly 2 hours after orders placed at 0022. A repeat phone call was performed at 0040. Attending called at 0057. We were informed that read is in place at this time. Roughly 2.5 hours after orders placed from CTA, no results have been red for CTA of the abdomen and pelvis. Time: 01:08 Vital Signs Temperature 97 F L 03/26/18 22:23 Pulse Rate 105 03/26/18 22:23 Respiratory Rate 12 03/26/18 22:23 Blood Pressure 125/85 03/26/18 22:23 O2 Sat by Pulse Oximetry 94 03/26/18 22:23 Temperature 97.8 F 03/26/18 23:16 Pulse Rate 106 03/27/18 00:33 Respiratory Rate 12 03/27/18 00:33 Blood Pressure 138/88 03/27/18 00:33 O2 Sat by Pulse Oximetry 96 03/27/18 00:33 Oxygen Delivery Oxygen Delivery Nasal Cannula Abdominal Pain - MDM Narrative Medical decision making narrative: Patient care signed out to Dr. Patel and Dr. Mendez. - Medical Records Medical records reviewed: Yes I reviewed the patient's medical records. - Lab Data Lab results reviewed: Yes I reviewed the patient's lab results. Result diagrams: 03/26/18 22:14 03/26/18 22:14 Lab Results 03/26/18 03/26/18 03/26/18 Range/Units 10:43 22:14 22:14 WBC 8.5 (4.3-11.1) K/mcL RBC 2.90 L (3.82-4.97) M/mcL Hgb 9.1 L (11.5-15.4) g/dL Hct 27.5 L (35.3-44.9) % MCV 94.8 (83.0-100.0) fL MCH 31.4 (28.0-33.3) pg MCHC 33.1 (31.6-35.5) g/dL RDW 16.2 H (11.5-14.5) % Plt Count 332 D (140-400) K/mcL MPV 8.9 L (9.4-12.4) fL Immature Gran % 2.0 (0-4) % Seg Neutrophils % 74.7 % Lymphocytes % 9.3 % Monocytes % 12.1 % Eosinophils % 1.8 % Basophils % 0.1 % Neutrophils # 6.4 (1.6-8.9) K/mcL Lymphocytes # 0.8 (0.6-4.6) K/mcL Monocytes # 1.0 (0.0-1.3) K/mcL Eosinophils # 0.2 (0.0-0.6) K/mcL Basophils # 0.0 (0.0-0.2) K/mcL Nucleated RBCs/100 WBC 0.5 H (0) /100 WBC Sodium 142 (136-145) mEq/L Potassium 4.2 (3.5-5.1) mEq/L Chloride 112 H (98-107) mEq/L Carbon Dioxide 24 (23-29) mEq/L BUN 25 H (8-23) mg/dL Creatinine 0.72 (0.60-1.20) mg/dL Est GFR ( Amer) > 60 (> 60) Est GFR (Non-Af Amer) > 60 (> 60) BUN/Creatinine Ratio 35 H (6-26) Glucose 123 H (70-105) mg/dL Calculated Osmolality 300 (280-300) Calcium 8.6 (8.6-10.3) mg/dL Troponin I 3.65 H* (< 0.04) ng/mL Urine Color Dark Yellow (Yellow) Urine Clarity Clear (Clear) Urine pH 5.5 (5.0-8.0) pH Units Ur Specific [place] 1.021 (1.010-1.025) Urine Protein 30 H (Neg-Trace) mg/dL Urine Glucose (UA) Normal (Normal) mg/dL Urine Ketones 15 H (Negative) mg/dL Urine Blood Negative (Negative) Urine Nitrite Negative (Negative) Urine Bilirubin Small H (Negative) Urine Urobilinogen Normal (Normal) mg/dL Ur Leukocyte Esterase Small H (Negative) Urine Microscopic RBC 0-3 (0-3) per hpf Urine Microscopic WBC 5-15 H (0-3) per hpf Ur Squamous Epith Cells Many H (None-Few) per lpf Urine Bacteria None Seen (None-Few) per hpf Hyaline Casts Few (None-Few) per lpf Ur Culture Indicated? NO. A (NO) - EKG Data EKG attestation: Yes I reviewed and interpreted this EKG. EKG results narrative: Heart rate 10 [address]. No [address] elevation or ST depression noted.
[2018-03-26 22:57] LABS: Bilirubin,Urine Small (Negative); Blood,Urine Negative (Negative); Clarity,Urine Clear (Clear); Color,Urine Dark Yellow (Yellow); Glucose,Urine (UA) Normal (Normal); Ketones,Urine 15 mg/dL (Negative); Leukocyte Esterase,Urine Small (Negative); Nitrite,Urine Negative (Negative); PH,Urine 5.5 pH Units (5.0-8.0); Protein,Urine 30 mg/dL (Neg-Trace); Specific Gravity,Urine 1.021 (1.010-1.025); Urobilinogen,Urine Normal (Normal)
[2018-03-26] MEDS: Isovue-370 500 ML INFUS..BTL IV ONE ×2 (22:58→23:07)
[2018-03-26 22:59] LABS: Bacteria,Urine None Seen per hpf (None-Few); Hyaline Casts,Urine Few per lpf (None-Few); RBC,Urine 0-3 per hpf (0-3); Squamous Epithelial Cell,Urine Many per lpf (None-Few)
--- NOTE | 2018-03-26 23:32 | Emergency Department Note ---
Disposition Clinical Impression: Elevated troponin Disposition: Still a Patient Condition: Undetermined Referrals: NONE,PCP [Primary Care Provider] - Forms: ED Satisfaction Letter, Work/School Release Time of Disposition: 01:41 General Adult HPI - General Chief complaint: ED Abdominal Pain Stated complaint: abd pain Time Seen by Provider: 03/26/18 22:13 Source: patient, EMS Mode of arrival: EMS Limitations: no limitations - History of Present Illness Pain Scale: 6 - Related Data Home Medications Medication Instructions Recorded Confirmed Aspirin 81 mg PO DAILY 06/26/15 03/26/18 Citalopram [CeleXA] 10 mg PO DAILY 10/19/15 03/26/18 Trospium Chloride [Trospium 60 mg PO DAILY 07/14/16 03/26/18 Chloride ER] Docusate [Colace] 100 mg PO BID PRN 07/23/16 03/26/18 Ipratropium/Albuterol Sulfate 4 gm IH QID PRN 07/23/16 03/26/18 [Combivent Respimat Inhal [place]] Multivit-Min/FA/Lycopen/Lutein 1 tab PO DAILY 07/23/16 03/26/18 [Centrum Silver Tablet] Atorvastatin [Lipitor] 20 mg PO HS 03/20/18 03/26/18 Pantoprazole Sodium [Protonix] 20 mg PO DAILY 03/20/18 03/26/18 Sennosides/Docusate Sodium [Senna 2 each PO PRN 03/20/18 Plus] Bisacodyl [Dulcolax] 10 mg RC ONCE 03/26/18 03/26/18 Previous Rx's Medication Instructions Recorded Clopidogrel [Plavix] 75 mg PO DAILY #30 tablet 06/28/15 Ferrous Sulfate 325 mg PO BIDWM tablet 08/11/16 Metoprolol [Lopressor] 12.5 mg PO BID tablet 08/11/16 Ondansetron ODT [Zofran ODT] 4 mg SL Q6HR PRN #0 tab.rapdis 08/11/16 OxyCODONE/APAP 5/325 [Percocet 1 each PO Q6HR PRN 7 Days #25 03/25/18 5/325 MG] tablet Allergies Allergy/AdvReac Type Severity Reaction Status Date / Time codeine Allergy Severe Anaphylaxis Verified 07/15/16 13:36 Constitutional: Denies: fever, chills, weakness ENT ED: Denies: congestion Cardiovascular: Denies: chest pain Respiratory: Denies: dyspnea Gastrointestinal: Reports: abdominal pain, constipation. Denies: nausea, vomiting, diarrhea, hematemesis, melena, hematochezia Genitourinary: Denies: urgency, dysuria Musculoskeletal: Reports: back pain. 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, IV Drug Use Physical Exam - General Limitations: no limitations General appearance: alert, in no apparent distress Course Vital Signs Temperature 97 F L 03/26/18 22:23 Pulse Rate 105 03/26/18 22:23 Respiratory Rate 12 03/26/18 22:23 Blood Pressure 125/85 03/26/18 22:23 O2 Sat by Pulse Oximetry 94 03/26/18 22:23 Temperature 97.8 F 03/26/18 23:16 Pulse Rate 106 03/27/18 00:33 Respiratory Rate 12 03/27/18 00:33 Blood Pressure 138/88 03/27/18 00:33 O2 Sat by Pulse Oximetry 96 03/27/18 00:33 Oxygen Delivery Oxygen Delivery Nasal Cannula Medical Decision Making - Lab Data Result diagrams: 03/26/18 22:14 03/26/18 22:14 Lab Results 03/26/18 03/26/18 03/26/18 Range/Units 10:43 22:14 22:14 WBC 8.5 (4.3-11.1) K/mcL RBC 2.90 L (3.82-4.97) M/mcL Hgb 9.1 L (11.5-15.4) g/dL Hct 27.5 L (35.3-44.9) % MCV 94.8 (83.0-100.0) fL MCH 31.4 (28.0-33.3) pg MCHC 33.1 (31.6-35.5) g/dL RDW 16.2 H (11.5-14.5) % Plt Count 332 D (140-400) K/mcL MPV 8.9 L (9.4-12.4) fL Immature Gran % 2.0 (0-4) % Seg Neutrophils % 74.7 % Lymphocytes % 9.3 % Monocytes % 12.1 % Eosinophils % 1.8 % Basophils % 0.1 % Neutrophils # 6.4 (1.6-8.9) K/mcL Lymphocytes # 0.8 (0.6-4.6) K/mcL Monocytes # 1.0 (0.0-1.3) K/mcL Eosinophils # 0.2 (0.0-0.6) K/mcL Basophils # 0.0 (0.0-0.2) K/mcL Nucleated RBCs/100 WBC 0.5 H (0) /100 WBC Sodium 142 (136-145) mEq/L Potassium 4.2 (3.5-5.1) mEq/L Chloride 112 H (98-107) mEq/L Carbon Dioxide 24 (23-29) mEq/L BUN 25 H (8-23) mg/dL Creatinine 0.72 (0.60-1.20) mg/dL Est GFR ( Amer) > 60 (> 60) Est GFR (Non-Af Amer) > 60 (> 60) BUN/Creatinine Ratio 35 H (6-26) Glucose 123 H (70-105) mg/dL Calculated Osmolality 300 (280-300) Calcium 8.6 (8.6-10.3) mg/dL Troponin I 3.65 H* (< 0.04) ng/mL Urine Color Dark Yellow (Yellow) Urine Clarity Clear (Clear) Urine pH 5.5 (5.0-8.0) pH Units Ur Specific [place] 1.021 (1.010-1.025) Urine Protein 30 H (Neg-Trace) mg/dL Urine Glucose (UA) Normal (Normal) mg/dL Urine Ketones 15 H (Negative) mg/dL Urine Blood Negative (Negative) Urine Nitrite Negative (Negative) Urine Bilirubin Small H (Negative) Urine Urobilinogen Normal (Normal) mg/dL Ur Leukocyte Esterase Small H (Negative) Urine Microscopic RBC 0-3 (0-3) per hpf Urine Microscopic WBC 5-15 H (0-3) per hpf Ur Squamous Epith Cells Many H (None-Few) per lpf Urine Bacteria None Seen (None-Few) per hpf Hyaline Casts Few (None-Few) per lpf Ur Culture Indicated? NO. A (NO) Attestation Statement - Attestation Attestation: I examined this patient and my medical decision-making was reviewed with the Resident Physician. I agree with the documented findings, disposition and treatment plan as described except to the extent set forth below. Patient presents to the ED from her nursing facility with a chief complaint of abdominal pain. Rating to her back. 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 On my evaluation patient denies having any pain. On examination she is laying in bed in no acute distress. She is mildly tachycardic. Her midline abdominal incision is well-healed. There is no erythema or drainage. Plan. CTA chest abdomen pelvis was ordered on her arrival. At this time are still awaiting the results of the abdomen pelvis has have not been dictated by the radiologist upper multiple calls to CT department and the radiologist. Her troponin is elevated. We did reevaluate her and she is denying any chest pain or difficulty breathing at this time. We have been attempting to obtain a reading on the abdomen and pelvis CT for over an hour and a half. Patient is signed out to manager night pending CT result and admission. Patient has not had any change in her hemodynamic status since she has been here. Her hemoglobin is stable.
--- NOTE | 2018-03-27 03:42 | Emergency Department Note ---
Disposition Clinical Impression: Elevated troponin, Pleural effusion Abdominal pain Qualifiers: Abdominal location: generalized Qualified Code(s): R10.84 - Generalized abdominal pain Disposition: Admitted As Inpatient Condition: Fair Referrals: NONE,PCP [Primary Care Provider] - Forms: ED Satisfaction Letter, Work/School Release Time of Disposition: 03:43 General Adult HPI - General Chief complaint: ED Abdominal Pain Stated complaint: abd pain Time Seen by Provider: 03/26/18 22:13 Source: patient, EMS Mode of arrival: EMS Limitations: no limitations - History of Present Illness Pain Scale: 7 - Related Data Home Medications Medication Instructions Recorded Confirmed Aspirin 81 mg PO DAILY 06/26/15 03/26/18 Citalopram [CeleXA] 10 mg PO DAILY 10/19/15 03/26/18 Trospium Chloride [Trospium 60 mg PO DAILY 07/14/16 03/26/18 Chloride ER] Docusate [Colace] 100 mg PO BID PRN 07/23/16 03/26/18 Ipratropium/Albuterol Sulfate 4 gm IH QID PRN 07/23/16 03/26/18 [Combivent Respimat Inhal [place]] Multivit-Min/FA/Lycopen/Lutein 1 tab PO DAILY 07/23/16 03/26/18 [Centrum Silver Tablet] Atorvastatin [Lipitor] 20 mg PO HS 03/20/18 03/26/18 Pantoprazole Sodium [Protonix] 20 mg PO DAILY 03/20/18 03/26/18 Sennosides/Docusate Sodium [Senna 2 each PO PRN 03/20/18 Plus] Bisacodyl [Dulcolax] 10 mg RC ONCE 03/26/18 03/26/18 Previous Rx's Medication Instructions Recorded Clopidogrel [Plavix] 75 mg PO DAILY #30 tablet 06/28/15 Ferrous Sulfate 325 mg PO BIDWM tablet 08/11/16 Metoprolol [Lopressor] 12.5 mg PO BID tablet 08/11/16 Ondansetron ODT [Zofran ODT] 4 mg SL Q6HR PRN #0 tab.rapdis 08/11/16 OxyCODONE/APAP 5/325 [Percocet 1 each PO Q6HR PRN 7 Days #25 03/25/18 5/325 MG] tablet Allergies Allergy/AdvReac Type Severity Reaction Status Date / Time codeine Allergy Severe Anaphylaxis Verified 07/15/16 13:36 Constitutional: Denies: fever, chills, weakness ENT ED: Denies: congestion Cardiovascular: Denies: chest pain Respiratory: Denies: dyspnea Gastrointestinal: Reports: abdominal pain, constipation. Denies: nausea, vomiting, diarrhea, hematemesis, melena, hematochezia Genitourinary: Denies: urgency, dysuria Musculoskeletal: Reports: back pain. 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 Please see their documentation for details. Imaging was read without evidence of dissection with expected postoperative changes. Discussed this with the patient. She is noted to have an elevated troponin. Her EKG does not demonstrate any ischemic findings and she is currently chest pain-free. - Consultations Consultation #1: I spoke with the on-call vascular surgeon at the request of the hospitalist. Discussed the patient's history as well as imaging and lab findings. Agreeable to see the patient in consultation. Vital Signs Temperature 97 F L 03/26/18 22:23 Pulse Rate 105 03/26/18 22:23 Respiratory Rate 12 03/26/18 22:23 Blood Pressure 125/85 03/26/18 22:23 O2 Sat by Pulse Oximetry 94 03/26/18 22:23 Temperature 97.8 F 03/26/18 23:16 Pulse Rate 111 03/27/18 03:30 Respiratory Rate 18 03/27/18 03:30 Blood Pressure 134/87 03/27/18 03:30 O2 Sat by Pulse Oximetry 93 03/27/18 03:30 Oxygen Delivery Oxygen Delivery Room Air Medical Decision Making - MDM Narrative Medical decision making narrative: 77-year-old female presented with abdominal pain with recent AAA repair. Sign out from [facility] team pending imaging. CTA without evidence of dissection. Noted to have postsurgical changes. Hemoglobin here is stable. Elevated troponin of 3.65 without ischemic EKG. Certainly would not anticoagulate this patient given her recent procedure. Case discussed with vascular surgery. The patient is admitted to the hospitalist service with vascular consultation. - Lab Data Lab results reviewed: Yes I reviewed the patient's lab results. Result diagrams: 03/26/18 22:14 03/26/18 22:14 Lab Results 03/26/18 03/26/18 03/26/18 Range/Units 10:43 22:14 22:14 WBC 8.5 (4.3-11.1) K/mcL RBC 2.90 L (3.82-4.97) M/mcL Hgb 9.1 L (11.5-15.4) g/dL Hct 27.5 L (35.3-44.9) % MCV 94.8 (83.0-100.0) fL MCH 31.4 (28.0-33.3) pg MCHC 33.1 (31.6-35.5) g/dL RDW 16.2 H (11.5-14.5) % Plt Count 332 D (140-400) K/mcL MPV 8.9 L (9.4-12.4) fL Immature Gran % 2.0 (0-4) % Seg Neutrophils % 74.7 % Lymphocytes % 9.3 % Monocytes % 12.1 % Eosinophils % 1.8 % Basophils % 0.1 % Neutrophils # 6.4 (1.6-8.9) K/mcL Lymphocytes # 0.8 (0.6-4.6) K/mcL Monocytes # 1.0 (0.0-1.3) K/mcL Eosinophils # 0.2 (0.0-0.6) K/mcL Basophils # 0.0 (0.0-0.2) K/mcL Nucleated RBCs/100 WBC 0.5 H (0) /100 WBC Sodium 142 (136-145) mEq/L Potassium 4.2 (3.5-5.1) mEq/L Chloride 112 H (98-107) mEq/L Carbon Dioxide 24 (23-29) mEq/L BUN 25 H (8-23) mg/dL Creatinine 0.72 (0.60-1.20) mg/dL Est GFR ( Amer) > 60 (> 60) Est GFR (Non-Af Amer) > 60 (> 60) BUN/Creatinine Ratio 35 H (6-26) Glucose 123 H (70-105) mg/dL Calculated Osmolality 300 (280-300) Calcium 8.6 (8.6-10.3) mg/dL Troponin I 3.65 H* (< 0.04) ng/mL B-Natriuretic Peptide (Less than 100) pg/mL Urine Color Dark Yellow (Yellow) Urine Clarity Clear (Clear) Urine pH 5.5 (5.0-8.0) pH Units Ur Specific [place] 1.021 (1.010-1.025) Urine Protein 30 H (Neg-Trace) mg/dL Urine Glucose (UA) Normal (Normal) mg/dL Urine Ketones 15 H (Negative) mg/dL Urine Blood Negative (Negative) Urine Nitrite Negative (Negative) Urine Bilirubin Small H (Negative) Urine Urobilinogen Normal (Normal) mg/dL Ur Leukocyte Esterase Small H (Negative) Urine Microscopic RBC 0-3 (0-3) per hpf Urine Microscopic WBC 5-15 H (0-3) per hpf Ur Squamous Epith Cells Many H (None-Few) per lpf Urine Bacteria None Seen (None-Few) per hpf Hyaline Casts Few (None-Few) per lpf Ur Culture Indicated? NO. A (NO) 03/26/18 Range/Units 22:19 WBC (4.3-11.1) K/mcL RBC (3.82-4.97) M/mcL Hgb (11.5-15.4) g/dL Hct (35.3-44.9) % MCV (83.0-100.0) fL MCH (28.0-33.3) pg MCHC (31.6-35.5) g/dL RDW (11.5-14.5) % Plt Count (140-400) K/mcL MPV (9.4-12.4) fL Immature Gran % (0-4) % Seg Neutrophils % % Lymphocytes % % Monocytes % % Eosinophils % % Basophils % % Neutrophils # (1.6-8.9) K/mcL Lymphocytes # (0.6-4.6) K/mcL Monocytes # (0.0-1.3) K/mcL Eosinophils # (0.0-0.6) K/mcL Basophils # (0.0-0.2) K/mcL Nucleated RBCs/100 WBC (0) /100 WBC Sodium (136-145) mEq/L Potassium (3.5-5.1) mEq/L Chloride (98-107) mEq/L Carbon Dioxide (23-29) mEq/L BUN (8-23) mg/dL Creatinine (0.60-1.20) mg/dL Est GFR ( Amer) (> 60) Est GFR (Non-Af Amer) (> 60) BUN/Creatinine Ratio (6-26) Glucose (70-105) mg/dL Calculated Osmolality (280-300) Calcium (8.6-10.3) mg/dL Troponin I (< 0.04) ng/mL B-Natriuretic Peptide 2461 H (Less than 100) pg/mL Urine Color (Yellow) Urine Clarity (Clear) Urine pH (5.0-8.0) pH Units Ur Specific [place] (1.010-1.025) Urine Protein (Neg-Trace) mg/dL Urine Glucose (UA) (Normal) mg/dL Urine Ketones (Negative) mg/dL Urine Blood (Negative) Urine Nitrite (Negative) Urine Bilirubin (Negative) Urine Urobilinogen (Normal) mg/dL Ur Leukocyte Esterase (Negative) Urine Microscopic RBC (0-3) per hpf Urine Microscopic WBC (0-3) per hpf Ur Squamous Epith Cells (None-Few) per lpf Urine Bacteria (None-Few) per hpf Hyaline Casts (None-Few) per lpf Ur Culture Indicated? (NO) - Radiology Data Radiology results reviewed: Yes I reviewed the patient's radiology results. Chest CTA 03/26/18 22:13 IMPRESSION: No CT evidence pulmonary embolism. Moderate bilateral pleural effusions with dependent lower lobe consolidation, likely passive atelectasis. Pneumonia cannot be excluded. The presence of septal thickening within the lung apices raises the possibility of a component of interstitial edema. 1 cm noncalcified right upper lobe nodule, not present on the prior CT chest May 2015. A PET-CT could be considered to further evaluate as below. RECOMMENDATIONS: Fleischner Society guidelines for follow-up and management of incidentally detected pulmonary nodules: Single Solid Nodule: Nodule size greater than 8 mm In a low-risk patient, consider CT at 3 months, PET/CT, or tissue sampling. In a high-risk patient, consider CT at 3 months, PET/CT, or tissue sampling. - Low risk patients include individuals with minimal or absent history of smoking and other known risk factors. - High risk patients include individuals with a history or smoking or known risk factors. Radiology 2017 http://pubs.rsna.org/doi/full/10.1148/radiol.[email or web address] D/ / Yvonne Arias Cha, MD / Yvonne Arias Cha, MD Interpreting Provider: Yvonne Arias Cha, MD Keron - Keron Situation: Demographics, MOA Background: Presenting Complaint, Relevant PMH, Meds, & Allergies Assessment: Course and respsone to treatment, Exam Concerns, Patient/Family Expectation, Pertinant Lab Results Recommendation: Barrier(s) to disposition, Recommendation based on pending studies, treatments, or consults SChristiano Report Given to: Dr. Mitchell Cabrales Repor Time: 03:42
--- NOTE | 2018-03-27 03:48 | Emergency Department Note ---
Disposition Clinical Impression: Elevated troponin, Pleural effusion Abdominal pain Qualifiers: Abdominal location: generalized Qualified Code(s): R10.84 - Generalized abdominal pain Disposition: Admitted As Inpatient Condition: Fair Referrals: NONE,PCP [Primary Care Provider] - Forms: ED Satisfaction Letter, Work/School Release Time of Disposition: 03:43 General Adult HPI - General Chief complaint: ED Abdominal Pain Stated complaint: abd pain Time Seen by Provider: 03/26/18 22:13 Source: patient, EMS Mode of arrival: EMS Limitations: no limitations Nursing Notes Reviewed: Yes Vital Signs Reviewed: Yes - History of Present Illness Pain Scale: 7 - Related Data Home Medications Medication Instructions Recorded Confirmed Aspirin 81 mg PO DAILY 06/26/15 03/26/18 Citalopram [CeleXA] 10 mg PO DAILY 10/19/15 03/26/18 Trospium Chloride [Trospium 60 mg PO DAILY 07/14/16 03/26/18 Chloride ER] Docusate [Colace] 100 mg PO BID PRN 07/23/16 03/26/18 Ipratropium/Albuterol Sulfate 4 gm IH QID PRN 07/23/16 03/26/18 [Combivent Respimat Inhal [place]] Multivit-Min/FA/Lycopen/Lutein 1 tab PO DAILY 07/23/16 03/26/18 [Centrum Silver Tablet] Atorvastatin [Lipitor] 20 mg PO HS 03/20/18 03/26/18 Pantoprazole Sodium [Protonix] 20 mg PO DAILY 03/20/18 03/26/18 Sennosides/Docusate Sodium [Senna 2 each PO PRN 03/20/18 Plus] Bisacodyl [Dulcolax] 10 mg RC ONCE 03/26/18 03/26/18 Previous Rx's Medication Instructions Recorded Clopidogrel [Plavix] 75 mg PO DAILY #30 tablet 06/28/15 Ferrous Sulfate 325 mg PO BIDWM tablet 08/11/16 Metoprolol [Lopressor] 12.5 mg PO BID tablet 08/11/16 Ondansetron ODT [Zofran ODT] 4 mg SL Q6HR PRN #0 tab.rapdis 08/11/16 OxyCODONE/APAP 5/325 [Percocet 1 each PO Q6HR PRN 7 Days #25 03/25/18 5/325 MG] tablet Allergies Allergy/AdvReac Type Severity Reaction Status Date / Time codeine Allergy Severe Anaphylaxis Verified 07/15/16 13:36 Constitutional: Denies: fever, chills, weakness ENT ED: Denies: congestion Cardiovascular: Denies: chest pain Respiratory: Denies: dyspnea Gastrointestinal: Reports: abdominal pain, constipation. Denies: nausea, vomiting, diarrhea, hematemesis, melena, hematochezia Genitourinary: Denies: urgency, dysuria Musculoskeletal: Reports: back pain. Denies: arthralgia, myalgia Integumentary: Denies: rash Neurological: Denies: headache Past Medical History - Past Medical History Medical history: Reports: asthma, cancer, COPD, coronary artery disease, CVA, hypertension, other Surgical history: Reports: breast surgery Psychiatric history: Reports: anxiety, depression, panic disorder ASH KIER BOILER history: Reports: no ASH KIER BOILER history - Social History Smoking Status: Current every day smoker Smokeless Tobacco Status: No Alcohol use: Reports: rarely Drug use: Reports: marijuana, IV Drug Use Physical Exam - General Limitations: no limitations General appearance: alert, in no apparent distress Course Vital Signs Temperature 97 F L 03/26/18 22:23 Pulse Rate 105 03/26/18 22:23 Respiratory Rate 12 03/26/18 22:23 Blood Pressure 125/85 03/26/18 22:23 O2 Sat by Pulse Oximetry 94 03/26/18 22:23 Temperature 97.8 F 03/26/18 23:16 Pulse Rate 111 03/27/18 03:30 Respiratory Rate 18 03/27/18 03:30 Blood Pressure 134/87 03/27/18 03:30 O2 Sat by Pulse Oximetry 93 03/27/18 03:30 Oxygen Delivery Oxygen Delivery Room Air Medical Decision Making - Lab Data Result diagrams: 03/26/18 22:14 03/26/18 22:14 Lab Results 03/26/18 03/26/18 03/26/18 Range/Units 10:43 22:14 22:14 WBC 8.5 (4.3-11.1) K/mcL RBC 2.90 L (3.82-4.97) M/mcL Hgb 9.1 L (11.5-15.4) g/dL Hct 27.5 L (35.3-44.9) % MCV 94.8 (83.0-100.0) fL MCH 31.4 (28.0-33.3) pg MCHC 33.1 (31.6-35.5) g/dL RDW 16.2 H (11.5-14.5) % Plt Count 332 D (140-400) K/mcL MPV 8.9 L (9.4-12.4) fL Immature Gran % 2.0 (0-4) % Seg Neutrophils % 74.7 % Lymphocytes % 9.3 % Monocytes % 12.1 % Eosinophils % 1.8 % Basophils % 0.1 % Neutrophils # 6.4 (1.6-8.9) K/mcL Lymphocytes # 0.8 (0.6-4.6) K/mcL Monocytes # 1.0 (0.0-1.3) K/mcL Eosinophils # 0.2 (0.0-0.6) K/mcL Basophils # 0.0 (0.0-0.2) K/mcL Nucleated RBCs/100 WBC 0.5 H (0) /100 WBC Sodium 142 (136-145) mEq/L Potassium 4.2 (3.5-5.1) mEq/L Chloride 112 H (98-107) mEq/L Carbon Dioxide 24 (23-29) mEq/L BUN 25 H (8-23) mg/dL Creatinine 0.72 (0.60-1.20) mg/dL Est GFR ( Amer) > 60 (> 60) Est GFR (Non-Af Amer) > 60 (> 60) BUN/Creatinine Ratio 35 H (6-26) Glucose 123 H (70-105) mg/dL Calculated Osmolality 300 (280-300) Calcium 8.6 (8.6-10.3) mg/dL Troponin I 3.65 H* (< 0.04) ng/mL B-Natriuretic Peptide (Less than 100) pg/mL Urine Color Dark Yellow (Yellow) Urine Clarity Clear (Clear) Urine pH 5.5 (5.0-8.0) pH Units Ur Specific [place] 1.021 (1.010-1.025) Urine Protein 30 H (Neg-Trace) mg/dL Urine Glucose (UA) Normal (Normal) mg/dL Urine Ketones 15 H (Negative) mg/dL Urine Blood Negative (Negative) Urine Nitrite Negative (Negative) Urine Bilirubin Small H (Negative) Urine Urobilinogen Normal (Normal) mg/dL Ur Leukocyte Esterase Small H (Negative) Urine Microscopic RBC 0-3 (0-3) per hpf Urine Microscopic WBC 5-15 H (0-3) per hpf Ur Squamous Epith Cells Many H (None-Few) per lpf Urine Bacteria None Seen (None-Few) per hpf Hyaline Casts Few (None-Few) per lpf Ur Culture Indicated? NO. A (NO) 03/26/18 Range/Units 22:19 WBC (4.3-11.1) K/mcL RBC (3.82-4.97) M/mcL Hgb (11.5-15.4) g/dL Hct (35.3-44.9) % MCV (83.0-100.0) fL MCH (28.0-33.3) pg MCHC (31.6-35.5) g/dL RDW (11.5-14.5) % Plt Count (140-400) K/mcL MPV (9.4-12.4) fL Immature Gran % (0-4) % Seg Neutrophils % % Lymphocytes % % Monocytes % % Eosinophils % % Basophils % % Neutrophils # (1.6-8.9) K/mcL Lymphocytes # (0.6-4.6) K/mcL Monocytes # (0.0-1.3) K/mcL Eosinophils # (0.0-0.6) K/mcL Basophils # (0.0-0.2) K/mcL Nucleated RBCs/100 WBC (0) /100 WBC Sodium (136-145) mEq/L Potassium (3.5-5.1) mEq/L Chloride (98-107) mEq/L Carbon Dioxide (23-29) mEq/L BUN (8-23) mg/dL Creatinine (0.60-1.20) mg/dL Est GFR ( Amer) (> 60) Est GFR (Non-Af Amer) (> 60) BUN/Creatinine Ratio (6-26) Glucose (70-105) mg/dL Calculated Osmolality (280-300) Calcium (8.6-10.3) mg/dL Troponin I (< 0.04) ng/mL B-Natriuretic Peptide 2461 H (Less than 100) pg/mL Urine Color (Yellow) Urine Clarity (Clear) Urine pH (5.0-8.0) pH Units Ur Specific [place] (1.010-1.025) Urine Protein (Neg-Trace) mg/dL Urine Glucose (UA) (Normal) mg/dL Urine Ketones (Negative) mg/dL Urine Blood (Negative) Urine Nitrite (Negative) Urine Bilirubin (Negative) Urine Urobilinogen (Normal) mg/dL Ur Leukocyte Esterase (Negative) Urine Microscopic RBC (0-3) per hpf Urine Microscopic WBC (0-3) per hpf Ur Squamous Epith Cells (None-Few) per lpf Urine Bacteria (None-Few) per hpf Hyaline Casts (None-Few) per lpf Ur Culture Indicated? (NO) Attestation Statement - Attestation Attestation: I, Antonio Patel MD, personally evaluated this patient and discussed their management with the resident physician. I reviewed the resident's note and agree with the documented findings, medical decision making, and plan of care. This patient was signed out at shift change from Dr. Villanueva and Dr. Thomason. Please refer to their notes for complete details of history and physical examination. At shift change patient is just awaiting return of the review on a CT of the abdomen and pelvis. CT returned showing postoperative changes, no aortic dissection or hemorrhage. Mild postoperative ileus. The hospitalist, Dr. Walsh, was consulted and accepted admission of the patient. The vascular surgeon supervisor mirror fabrication, Dr. Berkowitz, was also consulted and advised of the patient's admission.
--- NOTE | 2018-03-27 04:22 | Internal Med History&Physical ---
Date of Encounter: 03/27/18 Time of Encounter: 04:20 Internal Medicine - H&P: HPI Chief complaint: abdominal discomfort Admitted From: Home Plans for Post Hospital Care: Home History of present illness: Clifford Ryan is a 77 year old female with a history of hypertension, hyperlipidemia, COPD, coronary artery disease and tobacco abuse. She was admitted here 1 week ago to undergo open repair of a juxtarenal abdominal aortic aneurysm that was 6.7cm on CT scan and increasing in size with symptoms. Postoperatively she was transferred to the intensive care unit intubated and in stable condition. She was extubated on postoperative day 0. She remained hemodynamically stable and on postoperative day #1 she was transferred to the floor. She had physical therapy and occupational therapy consultation. She received intravenous fluids. She had an elevated white blood cell count initial postoperative. This was felt to be reactive rather than an indication of infection. However she was treated with intravenous antibiotics by the form setter steel forms due to a suspected infection which later ruled out. The patient was also noted to have acute expected postoperative blood loss anemia. She remained hemodynamically stable and received one unit of packed red blood cells. Her diet was advanced. She was discharged to her skilled nursing in stable condition on postoperative day #5 without complications. She now presents from the skilled nursing reportedly complaining of abdominal pain with radiation to the back accompanied by nausea and vomiting. She was mildly tachycardic on arrival but with normal blood pressure. Routine labs done were grossly within normal limits except a serum troponin ordered in the ER was 3.[address] scan done showed expected postsurgical changes of the recent aortic aneurysm repair, small amount of pelvic thick blood and dependent blood products within the aneurysmal sac, no active extravasation or endoleak and mild postoperative ileus. Moderate bilateral pleural effusions with dependent lower lobe consolidation likely passive atelectasis was also seen. There was no CT evidence of pulmonary embolism. On my evaluation, the patient states that the only reason she came to the hospital is because she has not passed gas or moved her bowels since the surgery and does not have much pain. She localizes some pain to the superior pole of her surgical incision site. She also denies feeling nauseated or ever vomiting. She denies difficulty breathing or chest pain. She does acknowledge having some swelling to her legs but otherwise no other complaints. Given the discrepancies in stories, it is unclear how reliable her history giving is. Past Med Surg Social Fam HX - Past Medical History Medical history: asthma, cancer, COPD, coronary artery disease, CVA, hypertension, other Additional medical history: BRONCHITIS, RIGHT BREAST CANCER Psychiatric history: anxiety, depression, panic disorder - Past Surgical History Surgical History: breast surgery Additional surgical history: AAA repair 03/20/2018. jaw - Social History Smoking Status: Current every day smoker Smokeless Tobacco Status: No Alcohol use: rarely Drug use: marijuana, IV Drug Use - Family History Mother Living Status: Hx Family Cancer: Yes (Colon.) Father Living Status: Hx Family Cardiac Disorders: Yes ([place]) Internal Medicine - H&P: Meds Aspirin 81 mg PO DAILY 06/26/15 [History] Clopidogrel [Plavix] 75 mg PO DAILY #30 tablet 06/28/15 [Rx] Citalopram [CeleXA] 10 mg PO DAILY 10/19/15 [History] Trospium Chloride [Trospium Chloride ER] 60 mg PO DAILY 07/14/16 [History] Docusate [Colace] 100 mg PO BID PRN 07/23/16 [History] Ipratropium/Albuterol Sulfate [Combivent Respimat Inhal [place]] 4 gm IH QID PRN 07/23/16 [History] Multivit-Min/FA/Lycopen/Lutein [Centrum Silver Tablet] 1 tab PO DAILY 07/23/16 [ History] Ferrous Sulfate 325 mg PO BIDWM tablet 08/11/16 [Rx] Metoprolol [Lopressor] 12.5 mg PO BID tablet 08/11/16 [Rx] Ondansetron ODT [Zofran ODT] 4 mg SL Q6HR PRN #0 tab.rapdis 08/11/16 [Rx] Atorvastatin [Lipitor] 20 mg PO HS 03/20/18 [History] Pantoprazole Sodium [Protonix] 20 mg PO DAILY 03/20/18 [History] Sennosides/Docusate Sodium [Senna Plus] 2 each PO PRN 03/20/18 [History] OxyCODONE/APAP 5/325 [Percocet 5/325 MG] 1 each PO Q6HR PRN 7 Days #25 tablet [Rx] Bisacodyl [Dulcolax] 10 mg RC ONCE 08/01/18 [History] 3 Allergy/AdvReac Type Severity Reaction Status Date / Time codeine Allergy Severe Anaphylaxis Verified 07/15/16 13:36 All Systems PM: A 10-system review of systems was performed and is negative for pertinent findings except as documented above in the HPI. - Constitutional Vitals: Temp Pulse Resp BP Pulse Ox 97.8 F 111 18 134/87 93 03/26/18 23:16 03/27/18 03:30 03/27/18 03:30 03/27/18 03:30 03/27/18 03:30 Exam: Vitals: Reviewed and remarkable for HR between 106-114 General: Lying comfortably in bed in no acute distress Skin: Midline surgical incision scar noted on her abdomen with well approximated borders, no openings, no drainage, no circumferential erythema, swelling or fluctuance. HEENT: Moist mucous membranes. Mild conjunctivae pallor. Neck: No lymphadenopathy. No JVD. Chest: Normal thoracic expansion. Diminished breath sounds in both lung bases. Heart: Normal S1 & S2; rhythmic. No rubs or murmurs. Abdomen: Mildly distended, soft and mildly tender to palpation. No peritoneal reaction. Diminished bowel sounds. Extremities: 1+ pedal and tibial edema. No calf tenderness. Normal distal pulses. Neurological: Awake, alert and oriented to person, place and time. No focal deficits. Psych: Affect appropriate with coherent speech. Internal Med - H&P Results - Labs CBC & Chem 7: 03/26/18 22:14 03/26/18 22:14 Labs: Short CBC 03/26/18 Range/Units 22:14 WBC 8.5 (4.3-11.1) K/mcL Hgb 9.1 L (11.5-15.4) g/dL Hct 27.5 L (35.3-44.9) % Plt Count 332 D (140-400) K/mcL Neutrophils # 6.4 (1.6-8.9) K/mcL BMP 03/26/18 22:14 Sodium 142 Potassium 4.2 Chloride 112 H Carbon Dioxide 24 BUN 25 H Creatinine 0.72 Glucose 123 H Calcium 8.6 Cardiac Enzymes 03/26/18 Range/Units 22:14 Troponin I 3.65 H* (< 0.04) ng/mL Urine 03/26/18 Range/Units 10:43 Urine Color Dark Yellow (Yellow) Urine Clarity Clear (Clear) Urine pH 5.5 (5.0-8.0) pH Units Ur Specific [place] 1.021 (1.010-1.025) Urine Protein 30 H (Neg-Trace) mg/dL Urine Glucose (UA) Normal (Normal) mg/dL - Impressions ITS Impressions Chest CTA 03/26/18 22:13 IMPRESSION: No CT evidence pulmonary embolism. Moderate bilateral pleural effusions with dependent lower lobe consolidation, likely passive atelectasis. Pneumonia cannot be excluded. The presence of septal thickening within the lung apices raises the possibility of a component of interstitial edema. 1 cm noncalcified right upper lobe nodule, not present on the prior CT chest May 2015. A PET-CT could be considered to further evaluate as below. RECOMMENDATIONS: Fleischner Society guidelines for follow-up and management of incidentally detected pulmonary nodules: Single Solid Nodule: Nodule size greater than 8 mm In a low-risk patient, consider CT at 3 months, PET/CT, or tissue sampling. In a high-risk patient, consider CT at 3 months, PET/CT, or tissue sampling. - Low risk patients include individuals with minimal or absent history of smoking and other known risk factors. - High risk patients include individuals with a history or smoking or known risk factors. Radiology 2017 http://pubs.rsna.org/doi/full/10.1148/radiol.0294961257 D/ / Yvonne Arias Cha, MD / Yvonne Arias Cha, MD Interpreting Provider: Yvonne Arias Cha, MD - Assessment and plan (1) Abdominal pain Current Visit: Yes Status: Acute Assessment and plan: The patient's pain is localized to the superior aspect of her surgical incision in the epigastric area when asked however on exam it appeared more diffuse and perhaps related to her distension. The CT scan did not show any acute catastrophic findings but rather only expected postsurgical changes and an ileus. The discomfort from the ileus may be causing the pain. She does not have signs of a post-surgical skin/soft tissue infection either. -Will observe her clinically and administer pain medications as needed. -Vascular surgery has been consulted and will see her this morning for follow up. Qualifiers: Abdominal location: epigastric Qualified Code(s): R10.13 - Epigastric pain (2) Constipation Current Visit: No Status: Chronic Assessment and plan: She has significantly reduced to negligible bowel sounds on abdominal auscultation and she reportedly has been constipated since surgery. Postop ileus is expected after such a major surgery however at this point she may need assistance and evaluation. -Will avoid opiates for pain control. -She should be seen by surgery first after which we can determine what kind of medical therapies will be helpful. -Ambulatory assistance to recover intestinal transit. -Med rec is notable for the patient being on trospium chloride used for overactive bladder but has the side effect of constipation therefore will place this med on hold as well. Qualifiers: Constipation type: slow transit constipation Qualified Code(s): K59.01 - Slow transit constipation (3) Elevated troponin Current Visit: Yes Status: Acute Assessment and plan: She has a rather high troponin level with no characteristic symptoms and may be related to the recent triple AAA surgery. However it is rather high and perioperative myocardial injury after elective open AAA is a known entity and is related to subsequent untoward outcomes. Given this and her history of heart disease, it would be prudent to place her on telemetry, repeat EKGs and trend the enzymes with consideration for cardiology evaluation as well. No indication for urgent antiplatelet or antithrombotic therapy for now. (4) Pleural effusion Current Visit: Yes Status: Acute Assessment and plan: Possibly still re-equilibrating from the fluids received during her hospital stay last week and should gradually resolve on its own. -Will give 1 dose of furosemide to relieve the mild pedal edema and relieve the fluid compression on her lungs leading to atelectasis. (5) Anemia Current Visit: No Status: Acute Assessment and plan: the patient had significant blood loss as expected from a major vascular surgery. She does not have signs of ongoing bleeding and her Hgb today is even better than the previous. -Will continue to monitor and give iron supplements. Qualifiers: Anemia type: other cause Other causes of anemia: acute posthemorrhagic Qualified Code(s): D62 - Acute posthemorrhagic anemia (6) DVT prophylaxis Current Visit: No Status: Acute Assessment and plan: SubQ heparin for now. - Time Spent With Patient Total time spent is greater than 50% in coordination of care (as documented) at patient's floor/unit and/or counseling patient: 25 - 35 minutes
[2018-03-27] MEDS ORDERED: Sennosides/Docusate Sodium TABLET PO PRN (04:39)
[2018-03-27] MEDS ORDERED: Ketorolac 15 MG/ML VIAL IVP PRN (04:40)
[2018-03-27] MEDS ORDERED: Furosemide 40 MG/4 ML VIAL IVP ONE ×2 (04:46→09:21)
[2018-03-27] MEDS ORDERED: (Combivent Respimat InH) IH PRN (05:00)
[2018-03-27] MEDS ORDERED: *HR* Heparin 5,000 UNIT/ML VIAL SQ SCH ×2 (06:00→22:00)
[2018-03-27] MEDS: Aspirin 81 MG TAB.CHEW PO SCH (08:15)
[2018-03-27] MEDS: Multivit/Ca/Min/Fe/FA 1 TAB TABLET PO SCH (08:16)
--- NOTE | 2018-03-27 08:27 | Vascular/[facility] Progress Note ---
Date of Encounter: 03/27/18 Time of Encounter: 08:00 - Assessment and plan (1) AAA (abdominal aortic aneurysm) Current Visit: No Status: Chronic The patient is postoperative day #7 after open aortic aneurysm repair. She is afebrile and tolerating a diet. She denies any abdominal, flank or back pain. Her CT reveals expected postoperative findings without an acute process. Recommend continued postoperative pain control, advance diet and a bowel regimen for constipation. Qualifiers: Presence of rupture: without rupture Qualified Code(s): I71.4 - Abdominal aortic aneurysm, without rupture (2) Elevated troponin Current Visit: Yes Status: Acute Elevated troponin noted. Continue to trend. Patient denies chest pain or shortness of breath. Consider cardiolgoy consult if indicated. - Subjective Interval history: The patient is status post open abdominal aortic aneurysm repair. She is here due to a complaint of back pain. SHe now denies any abdominal, flank or back pain. SHe reports one small bowel movement since discharge. She denies nausea or vomiting. She denies chest pain or shortness of breath. Vital Signs, Last 4 Hours Temp Pulse Resp BP Pulse Ox 03/27/18 07:22 97.7 F 113 18 143/84 93 03/27/18 05:07 97.8 F 114 17 137/88 92 03/27/18 04:45 18 141/82 - Physical Examination General: Present: Conversant, No Apparent Distress HEENT: Present: Pupils equal Cardiac: Present: Reg Rate and Rhythm Lungs: Present: Normal Breath Sounds Neuro: Present: Alert and responsive, No focal deficits noted Vascular: Present: Normal capillary refill, Surgical incisions (incision clean, dry and intact without erythema or drainage). Absent: Cyanosis, Edema Abdomen: Present: Soft, Other (incisional tenderness, no rebound, no guarding, bowel sounds present) Skin: Present: No rashes noted on visualized skin Results 03/26/18 22:14 03/26/18 22:14 Lab Results, Last 24 hours 03/27/18 05:15 Troponin I 3.38 H* - Imaging / Other Tests CT/CTA: report reviewed, image reviewed Consult Discharge Plan - Plan Referrals: NONE,PCP [Primary Care Provider] -
--- NOTE | 2018-03-27 09:34 | Cardiology Consult Note ---
<Liam Thapa S - Last Filed: 03/27/18 11:23> Date of Encounter: 03/27/18 Time of Encounter: 09:00 Assessment and Plan (1) Elevated troponin Current Visit: Yes Status: Acute Pt admitted for a 1 week hx of abdominal pain -she is s/p AAA repair POD 7 -pt is currently hemodynamically stable although she is tacycardic, last HR was 113 -Troponins 3.65 ---> 3.38 -BNP 2461 -EKG showed new T wave inversions in lead III, which is a new change from EKG done in March 21, 2018. -ECHO 06/2015 = LVEF 60-65%, LVH, LV diastolic dysfxn -Carotid US 2016 - B/L nonstenotic plaque -Stress test 11/2017 EF >70%, negative for ischemia or infarct -Pt has a hx of NM x 2, no stents with multiple CAD risk factors -abd pain is ACS (type 2) vs postop ileus pain Cardiac cath in 2014: Lesion Findings/Interventions * Left Main Coronary Artery There is a 30-40% stenosis in the mid LMCA. * Left Anterior Descending There is a 40% stenosis in the Mid LAD. * Circumflex There is a 50% stenosis in the Mid Circumflex. * Right Coronary Artery There is a 100% stenosis in the Proximal RCA. The lesion has collaterals which feed from left to right. Plan: -Continue ASA 81mg PO daily, Lipitor 20mg PO HS, Lopressor 12.5 mg PO BID -ECHO pending -EKG #2 pending -CXR pending -PINEDA score of 5, would benefit from C, attending is agreeable. Pt wants to talk to Dr. Humphries before cath. -currently NPO in case need for intervention -Heparinize as per protocal, talked to Dr. Humphries and he was okay with this as well as intervention (2) Postoperative ileus Current Visit: Yes Status: Acute Pt endorses a hx of abdominal pain that has lasted since her surgery -pt has been unable to have a bowel movement since last week -pain located in epigastric area by surgical site -abdomen is distended -CT scan showed postop changes and a small amount of blood; there were no acute catastrophic findings but there was ileus seen on CT -the surgical site is intact, there appears to be no inflammation or signs of infxn Plan: -monitor electrolytes, especially potassium, which is currently 4.2 -pain medications prn -pt is on tropsium chloride for urge incont , which has an IVY of constipation; this medication has been held as per primary -consider enemas ; Milk of Molasses recommended. (3) Coronary artery disease Current Visit: No Status: Chronic Pt has a hx of CAD, HDL, HTN -she has had 2 NM -pt recently had 6.7 cm AAA repaired , she is POD 7 Plan: -continue Lopressor 12.5mg BID, Plavix 75mg PO daily, Lipitor 20mg PO daily, ASA 81mg -encourage modification of risk factors, such as smoking -encourage heart healthy low fat, low cholesterol diet Qualifiers: Coronary Disease-Associated Artery/Lesion type: [place] artery [place] vs. transplanted heart: [place] heart Associated angina: without angina Qualified Code(s): I25.10 - Atherosclerotic heart disease of [place] coronary artery without angina pectoris (4) Hyperlipidemia Current Visit: Yes Status: Chronic Pt is on Artorvastatin 20mg PO daily -admission in January showed TG 98, Cholesterol 170, LDL 98, VLDL 20, HDL 52 Plan: -continue Lipitor -encourage heart healthy low fat, low cholesterol diet Qualifiers: Hyperlipidemia type: mixed hyperlipidemia Qualified Code(s): E78.2 - Mixed hyperlipidemia (5) Essential hypertension Current Visit: No Status: Chronic Pt is on Lopressor 12.5 mg BID -BP today is 143/84 -poorly controlled Plan -continue Lopressor, consider increasing to 25mg BID on d/c -consider adding Hydralazine 10mg IVP q6hr if SBP increases to >160 Discussion w patient/family: The assessment and plan as outlined above was discussed with the patient and/or family members who expressed understanding and agreement. All questions were answered. Thank you for involving us in the care of your patient. Please call with any questions. History of Present Illness Consult date: 03/27/18 Requesting physician: Pedro Pablo Negro Consult reason: Elevated troponins Chief complaint: Abdominal pain History of present illness: Ms. Ryan is a 77 year old female admitted to the hospital yesterday with abdominal pain. She was recently admitted to [place] 1wk ago for open repair of juxtarenal abdominal aortic aneurysm that was 6.[address] with increasing s/s. -on POD 0 she was extubated in stale condition -POD 1 was hemodynamically stable and was able to be transferred to the floor -she was discharged to her halfway in stable condition on POD5 without complications -she has a PMH of COPD, CAD, HLD, HTN, tobacco abuse. She denies a hx of stents but states she has had 2 NM's. The patient presented back to the hospital with c/o abdominal pain that radiated "to her spine" with nausea and vomiting. The pt has a HR ranging from 105-114 with stable BP. -troponins were 3.65 and 3.38, waiting for last troponin -BNP of 2461 -CT showed postsurgical changes of the recent AAA repair with a small amount of pelvic blood , no extravasation or endoleak and mild postop ileus Patient states she hasn't had a bowel movement in over a week -her normal bowel habits are to have 1BM per week -she states she is not passing gas -denies any nausea or vomiting -denies chest pain -has SOB chronically and cannot lie flat ECHO 06/2015 - LVEF 60-65% , LVH, LV diastolic dysfxn Carotid ultrasound 2016 - B/L nonstenotic plaque Stress test 11/2017 - EF >70%, negative for ischemia or infacrt Fluids - none Electrolytes - all WNL Nutrition - currently NPO in case of need for intervention DVT prophyalxis - 5000U heparin SQ TID GI prophylaxis - Prilosec 20mg PO daily Past Med Surg Social Fam HX - Past Medical History Medical history: asthma, cancer, COPD, coronary artery disease, CVA, hypertension, other Additional medical history: BRONCHITIS, RIGHT BREAST CANCER Psychiatric history: anxiety, depression, panic disorder - Past Surgical History Surgical History: breast surgery Additional surgical history: AAA repair 03/20/2018. jaw - Social History Smoking Status: Current every day smoker Smokeless Tobacco Status: No Alcohol use: rarely Drug use: marijuana - Family History Mother Living Status: Hx Family Cancer: Yes (Colon.) Father Living Status: Hx Family Cardiac Disorders: Yes ([place]) Medications and Allergies Aspirin 81 mg PO DAILY 06/26/15 [History] Clopidogrel [Plavix] 75 mg PO DAILY #30 tablet 06/28/15 [Rx] Citalopram [CeleXA] 10 mg PO DAILY 10/19/15 [History] Trospium Chloride [Trospium Chloride ER] 60 mg PO DAILY 07/14/16 [History] Docusate [Colace] 100 mg PO BID PRN 07/23/16 [History] Ipratropium/Albuterol Sulfate [Combivent Respimat Inhal [place]] 4 gm IH QID PRN 07/23/16 [History] Multivit-Min/FA/Lycopen/Lutein [Centrum Silver Tablet] 1 tab PO DAILY 07/23/16 [ History] Ferrous Sulfate 325 mg PO BIDWM tablet 08/11/16 [Rx] Metoprolol [Lopressor] 12.5 mg PO BID tablet 08/11/16 [Rx] Ondansetron ODT [Zofran ODT] 4 mg SL Q6HR PRN #0 tab.rapdis 08/11/16 [Rx] Atorvastatin [Lipitor] 20 mg PO HS 03/20/18 [History] Pantoprazole Sodium [Protonix] 20 mg PO DAILY 03/20/18 [History] Sennosides/Docusate Sodium [Senna Plus] 2 each PO PRN 03/20/18 [History] OxyCODONE/APAP 5/325 [Percocet 5/325 MG] 1 each PO Q6HR PRN 7 Days #25 tablet [Rx] Bisacodyl [Dulcolax] 10 mg RC ONCE 03/26/18 [History] 3 Allergy/AdvReac Type Severity Reaction Status Date / Time codeine Allergy Severe Anaphylaxis Verified 07/15/16 13:36 All Systems Review: The remainder of the systems were reviewed and are negative - Constitutional Constitutional: chills, fatigue, fever(s) - Cardiovascular Cardiovascular: leg edema, palpitations, paroxysmal nocturnal dyspnea, no chest pain at rest, no chest pain with exertion, no diaphoresis - Respiratory Respiratory: cough, no wheezing - Gastrointestinal Gastrointestinal: abdominal pain, constipation, nausea, no dysphagia - Genitourinary Genitourinary: dysuria, hematuria - Integumentary Integumentary: other (intact midline incisions with vishal in place) - Neurological Neurological: no numbness, no tingling - Hematological/Lymphatic Hematologic/Lymphatic: no easy bruising Physical Examination Vital Signs, Last 4 Hours Temp Pulse Resp BP Pulse Ox 03/27/18 07:22 97.7 F 113 18 143/84 93 General: Conversant HEENT: Atraumatic Neck: No JVD Cardiac: Normal S1 and S2, Other (tacycardic) Lungs: Other (rhonchi on lung exam) Neuro: Alert and responsive Abdomen: Other (distended abdomen) Skin: No rashes noted on visualized skin Musculoskeletal: No Chest Wall Tenderness Extremities: Other (1+ edema B/L LE) Results 03/26/18 22:14 03/26/18 22:14 Lab Results 03/27/18 05:15 Troponin I 3.38 H* Consult Discharge Plan - Plan Referrals: NONE,PCP [Primary Care Provider] - (This patient is from [facility] no PCP appointment needed) <Everardo Fajardo - Last Filed: 03/27/18 12:42> Date of Encounter: 03/27/18 - Attending Attestation I examined this patient and my medical decision-making was reviewed with the Resident Physician. I agree with the documented findings, disposition and treatment plan as described except to the extent set forth below. NSTEMI following surgery. Agree with current medical mgmt. and would recommend left heart cath when able. Assessment and Plan Discussion w patient/family: The assessment and plan as outlined above was discussed with the patient and/or family members who expressed understanding and agreement. All questions were answered. Thank you for involving us in the care of your patient. Please call with any questions. History of Present Illness History of present illness: Ms. Ryan is a 77 year old female All Systems Review: The remainder of the systems were reviewed and are negative Physical Examination Vital Signs, Last 4 Hours Temp Pulse Resp BP Pulse Ox 03/27/18 11:06 98.1 F 120 16 123/69 95 Results 03/27/18 11:17 03/26/18 22:14 Lab Results 03/27/18 03/27/18 03/27/18 05:15 11:17 11:17 WBC 9.5 Hgb 10.0 L Hct 30.3 L Plt Count 373 INR 1.1 Troponin I 3.38 H*
[2018-03-27] MEDS ORDERED: *HR* Heparin 5,000 UNIT/ML VIAL IVP ONE ×2 (10:57→18:50)
[2018-03-27] MEDS ORDERED: *HR* Heparin 5,000 UNIT/ML VIAL IVP PRN ×4 (10:57→18:50)
[2018-03-27] MEDS ORDERED: Heparin 25,000 UNIT/500 ML D5W 25,000 UNIT/500 ML BAG IVC SCH (11:00)
[2018-03-27 11:28] LABS: Hematocrit 30.3 % (35.3-44.9); Mean Corpuscular Hemoglobin 31.3 pg (28.0-33.3); Mean Platelet Volume 8.9 fL (9.4-12.4); Platelet Count 373 K/mcL (140-400); Red Blood Count 3.19 M/mcL (3.82-4.97); Red Cell Distribution Width 16.1 % (11.5-14.5)
[2018-03-27 11:34] LABS: Heparin anti-factor XA UFH 0.03 IU/mL (0.30-0.70)
[2018-03-27 11:35] LABS: INR 1.1; Prothrombin Time 12.7 Seconds (9.4-12.1)
[2018-03-27 13:08] LABS: Potassium 3.4 mEq/L (3.5-5.1)
[2018-03-27] MEDS ORDERED: ISOVUE-370 200 ML INFUS..BTL IV ONE (13:23)
[2018-03-27] MEDS ORDERED: Nitroglycerin 1,000 MCG/10 ML VIAL IV ONE (13:23)
[2018-03-27] MEDS ORDERED: *HR* Heparin 10,000 UNIT/10 ML VIAL ONE (13:23)
[2018-03-27] MEDS ORDERED: Heparin 1,000 UNITS/500 mL 500 ML ONE (13:23)
[2018-03-27] MEDS ORDERED: 0.9 % Sodium Chloride 1,000 ML ONE ×2 (13:23→14:45)
--- NOTE | 2018-03-27 15:12 | Pre-Sedation Evaluation ---
Pre-sedation evaluation - Pre-sedation checklist Date of procedure: 03/27/18 Procedure: Heart Cath Recent Vitals: Last Vital Signs Temp 98.1 F 03/27/18 11:06 Pulse 120 03/27/18 11:06 Resp 16 03/27/18 11:06 BP 123/69 03/27/18 11:06 Pulse Ox 95 03/27/18 11:06 H&P (including ROS) documented in medical record: Yes Previous reaction to sedatives/anesthetics: No Dietary Status: Clear fluids after Midnight Airway Assessment: Patient can open mouth completely, TMJ function normal Dentition: full dentition Possible difficult airway: No ASA Classification *see protocol: CLASS III-Severe systemic disease, CLASS IV- Severe systemic disease/constant threat to pt's life Plan of Care: Pt appropriate candidate for procedure/moderate/conscious sedation , Risks/benefits of procedure/sedation discussed w/ patient/family, If not NPO; Risk of intake outweiged by necessity to perform procedure Cardiac Registry (Cardio Only) - Functional Capacity Functional Capacity: >=4 METS with symptoms - Clincal Frailty Scale Clinical Frailty Scale: Mildly Frail
[2018-03-27] MEDS ORDERED: *HR* Midazolam HCl 2 MG/2 ML VIAL ONE (15:15)
--- NOTE | 2018-03-27 16:14 | Invasive Diagnostic Lab Proc ---
Name: Clifford Ryan Date of Study: 03/27/2018 Date: 1940 Ht: 64.2in Medical Record#: [id number] Age: 77 Wt: 132.28lb Gender: Female BSA: 1.64 Order #: [id number] BMI: 22.58 Physicians Procedure Physician: Fantasma Taylor DO Referring MD: Referring MD: Staff Name Position Time In Miles Clemens RT (R) Scrub 03:02 PM Amari Springer RN Building Construction Inspector 03:02 PM Madeline Berg RN Monitor 03:02 PM Indications Indication Non-Stemi Procedures Performed Procedure L HRT ARTERY/VENTRICLE ANGIO Pre-Procedure Checklist Informed consent is complete signed and on chart. H&P is on chart. ID band is on and ID verified with patient. Patient NPO for procedure The procedure was described for the patient and questions were answered. Blood Pressure: 123/69 ECG is on chart. Rhythm: NSR Plan of Care Patient will tolerate the procedure without complications. Adequate level of comfort will be maintained. Hemodynamics will remain stable Patient will recover from procedure without complications. Respiratory function will be maintained. Cardiac rhythm will remain stable. Patient temperature will be maintained. Patient and/or family have verbalized understanding of the procedure. Patient Education Chief Complaint/Reason for Test: Cardiac Cath Developmental Category: Geriatric (65+ years) Developmentally Appropriate for Age: Yes Learning Barriers: None Education Needs: Procedure Education Method: Verbal Information Taught: Cardiac Cath Educational Evaluation: Able to repeat information Intravenous Access Time IV Size Location DC'd Fluid/Drip Rate Units RN 03:09 PM Started with 20g 1 1/4" Lt Antecubital 0.9NaCl Amari Springer RN 03:10 PM 18g 1 1/4" Patent On Arrival Rt Antecubital Yes Amari Springer RN Allergies codeine Vital Signs Time BP (mmHg) HR (bpm) O2 Sat. RR (bpm) LOC 03:02 PM / % 5 = Fully awake and oriented or at pre-proc level 03:02 PM / % 5 = Fully awake and oriented or at pre-proc level 03:18 PM / % 4 = Oriented but drowsy 03:33 PM / % 5 = Fully awake and oriented or at pre-proc level 03:13 PM 133 / 81 108 96 % 25 03:19 PM 137 / 92 77 98 % 11 03:23 PM 131 / 75 105 98 % 18 03:29 PM 130 / 77 108 97 % 28 03:33 PM 113 / 101 50 97 % 16 03:38 PM 131 / 49 71 96 % 20 03:45 PM 117 / 81 45 72 % 19 03:48 PM 109 / 61 80 82 % 16 03:53 PM 120 / 86 65 96 % 16 03:48 PM / % 5 = Fully awake and oriented or at pre-proc level Procedural Medications Time Medication Dose Units Method Given By 03:02 PM Oxygen 2 L/min nasal cannula Amari Springer RN 03:17 PM Versed 1 mg Intravenous Amari Springer RN 03:25 PM Lidocaine 2% 5 ml Subcutaneous Fantasma Taylor DO ASA Classification: CLASS III- Severe systemic disease (i.e. prior AMI, diabetes with vascular complications, morbid obesity) Amaury Score Preprocedure Postprocedure Activity 2- Moves 4 extremities sustained head lift Activity Circulation 2- SBP +/= 20 points of pre-anesthetic level Circulation Consciousness 2- Awake and alert oriented x 3 Consciousness O2 Saturation 2- Able to maintain O2 satruation of 92% on room air O2 Saturation Respiratory 2- Able to deep breathe and cough well Respiratory Total Score 10 Total Score Contrast Agent: Isovue Diagnostic Contrast: 70 ml Total Contrast: 70 ml Fluoro Dose: 13 mGy Procedure Log Time Note Enter By 02:50 PM 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 scoates 02:59 PM Procedure start 14:59 scoates 02:59 PM Physician arrived 14:59 kmavis 02:59 PM Meet and greet completed kmavis 03:00 PM Patient charges- Angio tray pack, Navilyst 3mm J, Pulse Oximetry and ACIST tubing and transducer kmavis 03:01 PM Hair removed from procedure site in holding area using clippers. Right brachial prepped with Chloraprep by Amari Springer RN, then patient was draped. Skin intact. avis 03:02 PM Miles Clemens RT (R) Position: Scrub Time in: 15:02 avis 03:02 PM Amari Springer RN Position: Building Construction Inspector Time in: 15:02 kmavis 03:02 PM Madeline Berg RN Position: Monitor Time in: 15:02 [facility] 03:02 PM Time: 15:02 Patient comfortable and pain free: Yes [facility] 03:02 PM Time: 15:02LOC: 5 = Fully awake and oriented or at pre-proc level [facility] 03:02 PM Time: 15:02 Oxygen on at 2 L/min per nasal cannula by Amari Springer RN [facility] 03:05 PM IV Supplies used: J loop Angio Cath. [facility] 03:06 PM Clinical Presentation: Non-STEMI [facility] 03:07 PM Vitals capture started with the following parameters, Patient=Adult, Interval=5 min, Initial Frmjeiwc=150 mmHg, Deflation Rate=3 mmHg, Cuff placed on Right Arm 03:12 PM Recorded ECG: EN=470 Condition=Condition 1 03:12 PM Vitals capture started with the following parameters, Patient=Adult, Interval=5 min, Initial Oxcmrrfz=440 mmHg, Deflation Rate=3 mmHg, Cuff placed on Right Arm 03:13 PM HH=156 bpm, YBGP=349/81 mmhg, SpO2=96.0 %, Resp=25 B/min, EtCO2=29 mmHg, Comment=A-Fib 03:17 PM Time: 15:17 Versed 1 mg Intravenous Given by Amari Springer RN [facility] 03:17 PM Time: 15:02 Patient comfortable and pain free: Yes [facility] 03:18 PM Time: 15:02LOC: 5 = Fully awake and oriented or at pre-proc level [facility] 03:18 PM ASA Class CLASS III- Severe systemic disease (i.e. prior AMI, diabetes with vascular complications, morbid obesity) [facility] 03:19 PM HR=77 bpm, MRKS=482/92 mmhg, SpO2=98.0 %, Resp=11 B/min, EtCO2=26 mmHg, Comment=A-Fib 03:19 PM Pressure channel 2 zeroed. 03:19 PM Pressure channel 2 zeroed. 03:23 PM PI=826 bpm, YZFF=944/75 mmhg, SpO2=98.0 %, Resp=18 B/min, EtCO2=20 mmHg, Comment=A-Fib 03:25 PM Time out performed according to hospital policy [facility] 03:25 PM Time: 15:25 5 ml Lidocaine 2% to right brachial Subcutaneous Given by Fantasma Taylor DO kmavis 03:28 PM Micro-Introducer Kit utilized for sheath placement kmavis 03:29 PM YZ=965 bpm, XNFX=751/77 mmhg, SpO2=97.0 %, Resp=28 B/min, EtCO2=26 mmHg, Comment=A-Fib 03:29 PM Access obtained by percutaneous puncture. 6Fr 10cm Terumo Hayes sheath placed in right Brachial artery. [id number] kmavis 03:29 PM 6Fr FR 4 catheter inserted over the wire DN kmavis 03:30 PM Recorded Pressure: LV, QH=872, Condition=Condition 1 (Left Ventricle) LV 107/5/11 03:30 PM Recorded Pressure: LV, Ao, HR=90, Condition=Condition 1 (Left Ventricle) LV 125/6/14, (Aorta) Ao 119/36/83 03:30 PM Recorded Pressure: Ao, CP=506, Condition=Condition 1 (Aorta) Ao 114/48/82 03:30 PM 0.035 145cm Navilyst 3mmJ wire [id number] kmavis 03:31 PM RCA angiography performed in multiple views. kmavis 03:31 PM Catheter removed kmavis 03:32 PM 5Fr FL 4 catheter inserted over the wire DN kmavis 03:32 PM LCA angiography performed in multiple views. kmavis 03:32 PM Lesion found in Proximal RCA. Pre Stenosis: 100 Pre PINEDA Flow: 0: No Flow/No perfusion kmavis 03:32 PM Time: 15:17 Patient comfortable and pain free: Yes kmavis 03:33 PM Time: 15:18LOC: 4 = Oriented but drowsy kmavis 03:33 PM HR=50 bpm, LYMF=549/101 mmhg, SpO2=97.0 %, Resp=16 B/min, EtCO2=23 mmHg, Comment=A-Fib 03:35 PM Catheter removed kmavis 03:35 PM Wire removed kmavis 03:36 PM Procedure completed at 15:36 03/27/2018 kmavis 03:37 PM Did you address PINEDA flow and Dominance? Yes kmavis 03:38 PM HR=71 bpm, CXQD=199/49 mmhg, SpO2=96.0 %, Resp=20 B/min, EtCO2=28 mmHg, Comment=A-Fib 03:38 PM Sign out completed: Radiation Dose 135.94 mGy, 12.74 Gy/cm2 Fluoro Time: 1.8 Isovue 370 - 200ml contrast 70 ml given by Fantasma Taylor DO. Complications: NoneCardiac Rehab Consult needed: NoConfirmed administered medications: Yes kmavis 03:39 PM Lesion found in Proximal LAD. Pre Stenosis: 90 Pre PINEDA Flow: 3: Complete and Brisk Flow/Perfusion kmavis 03:39 PM Lesion found in Mid LAD. Pre Stenosis: 90 Pre PINEDA Flow: 3: Complete and Brisk Flow/Perfusion kmavis 03:39 PM Lesion found in Proximal Circumflex. Pre Stenosis: 80 Pre PINEDA Flow: 3: Complete and Brisk Flow/Perfusion kmavis 03:40 PM Lesion found in Mid Circumflex. Pre Stenosis: 90 Pre PINEDA Flow: 3: Complete and Brisk Flow/Perfusion kmavis 03:44 PM Isovue 370 - 200ml,1 Bottle(s) used. kmavis 03:45 PM Arterial sheath pulled using manual compression and V+ Pad for 15 minutes by Madeline Berg RN kmavis 03:45 PM Estimated Blood Loss: minimal kmavis 03:45 PM Post ECG Atrial Fibrillation kmavis 03:45 PM HR=45 bpm, XRVN=501/81 mmhg, SpO2=72.0 %, Resp=19 B/min, EtCO2=24 mmHg, Comment=A-Fib 03:45 PM Post Blood Pressure 117/81 kmavis 03:46 PM 15:46 Post Pulses Rt Radial 2+ kmavis 03:46 PM Information taught Cardiac Cath and V+ Pad kmavis 03:46 PM Education needs Procedure, Plan of Care, and Responsibilities of Patient in Care kmavis 03:46 PM Learning barriers :None kmavis 03:46 PM Education Methods Verbal kmavis 03:46 PM Education evaluation Able to repeat information kmavis 03:47 PM Family placed in no family available. kmavis 03:47 PM Complications: None kmavis 03:48 PM Time: 15:32 Patient comfortable and pain free: Yes kmavis 03:48 PM Time: 15:33LOC: 5 = Fully awake and oriented or at pre-proc level kmavis 03:48 PM HR=80 bpm, RFKS=577/61 mmhg, SpO2=82.0 %, Resp=16 B/min, EtCO2=24 mmHg, Comment=A-Fib 03:53 PM HR=65 bpm, NZHZ=294/86 mmhg, SpO2=96.0 %, Resp=16 B/min, EtCO2=24 mmHg, Comment=A-Fib 03:57 PM Site status No bleeding/hematoma - Rt Brachial as reported by Madeline Berg RN at 15:57 kmavis 03:57 PM Opsite applied kmavis 03:59 PM Coronary Dominance: right kmavis 04:03 PM Time: 15:48 Patient comfortable and pain free: Yes avis 04:03 PM Report given to Josh SHELDON Pt taken to 2N Room #5. 16:03 kmavis 04:03 PM Time: 15:48LOC: 5 = Fully awake and oriented or at pre-proc level kmavis 04:04 PM Patient out of room: 16:04 [facility] Complications Complication None None Hemodynamics Pressures Site Systolic/A Wave Diastolic/V Wave Mean LV 107 5 11 LV 125 6 14 AO 119 36 83 AO 114 48 82 Post Procedure Information Blood Pressure: 117/81 mmHg Rhythm: Atrial Fibrillation Post procedural instructions were given Closure Device Time Device Success/Fail 03/27/2018 3:47:00 PM Manual Compression Successful Site Checks Time Location Status Staff Sheath In? Note 03:57 PM Rt Brachial No bleeding/hematoma Madeline Berg RN No Pulses Time Site Pre-Procedure Post-Procedure Note Bilateral DP & PT 1+ 3:46:00 PM Rt Radial 2+ Updated by Kyra Agrawal RN on 03/27/2018 4:04:45 PM RT Juarez electronically signed on 03/27/2018 4:05:44 PM with status of Final
--- NOTE | 2018-03-27 17:09 | Event Note ---
Date of Encounter: 03/27/18 Time of Encounter: 15:01 Patient was seen and examined. Patient has episode of intermittent frequent PAC , A. fib with raised troponin therefore informed office professional who decided to take patient for LHC-with finding of RCA 100% stenosis in the proximal RCA lesion has collaterals, 30-40% stenosis in mid LMCA, 40% stenosis in mid LAD and 50% stenosis and mid circumflex. It was advised to continue aspirin, statin , beta janene. Echo report with grossly normal appearing LV systolic function , indeterminate diastolic function moderate dilated left atrium, moderate MR. Vascular surgeon is also on board.. Will keep patient nothing by mouth due to ileus, as patient sounded wet and CT chest with moderate bilateral pleural effusion with dependent lower lobe consolidation questionable atelectasis but could be pneumonia, interstitial edema possibility, 1 cm noncalcified right upper lobe nodule. therefore will hold on IV fluid but continue strict I&O's.
[2018-03-27] MEDS ORDERED: Bisacodyl 10 MG RECTAL SUPPOSITORY RC PRN (18:09)
[2018-03-27] MEDS ORDERED: Amiodarone Premix 360 MG/200 ML BAG IVC ONE (18:56)
[2018-03-27] MEDS ORDERED: Amiodarone Premix 360 MG/200 ML BAG IVC SCH (19:00)
[2018-03-27] MEDS: 0.9 % Sodium Chloride 1,000 ML IVC SCH ×2 (19:46→23:10)
[2018-03-27] MEDS: Heparin 25,000 UNIT/500 ML D5W 25,000 UNIT/500 ML BAG IVC SCH (20:46)
[2018-03-27 21:30] LABS: INR 1.1; Prothrombin Time 12.3 Seconds (9.4-12.1)
[2018-03-27 21:31] LABS: Heparin anti-factor XA UFH 0.03 IU/mL (0.30-0.70)
--- NOTE | 2018-03-28 02:14 | Electrocardiograph Report ---
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
--- NOTE | 2018-03-28 02:14 | Electrocardiograph Report ---
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
[2018-03-28 03:59] LABS: Basophils % 0.1 %; Eosinophils # 0.3 K/mcL (0.0-0.6); Eosinophils % 3.4 %; Hematocrit 27.2 % (35.3-44.9); Immature Granulocytes % 1.5 % (0-4); Lymphocytes % 11.6 %; Mean Corpuscular HGB Conc 33.1 g/dL (31.6-35.5); Mean Corpuscular Hemoglobin 31.4 pg (28.0-33.3); Mean Corpuscular Volume 94.8 fL (83.0-100.0); Mean Platelet Volume 9.4 fL (9.4-12.4); Monocytes # 0.9 K/mcL (0.0-1.3); Monocytes % 10.4 %; Neutrophils # 6.4 K/mcL (1.6-8.9); Nucleated Red Blood Cells 0.2 /100 WBC (0); Platelet Count 390 K/mcL (140-400); Red Blood Count 2.87 M/mcL (3.82-4.97)
[2018-03-28 04:17] LABS: Alanine Aminotransferase 10 Units/L (7-52); Albumin 2.5 g/dL (3.5-5.7); Albumin/Globulin Ratio 1.1 (1.1-2.2); Alkaline Phosphatase 66 Units/L (34-104); Aspartate Amino Transferase 23 Units/L (13-39); BUN/Creatinine Ratio 26 (6-26); Bilirubin,Total 0.8 mg/dL (0.3-1.0); Blood Urea Nitrogen 18 mg/dL (8-23); Calcium 7.8 mg/dL (8.6-10.3); Carbon Dioxide 26 mEq/L (23-29); Chloride 106 mEq/L (98-107); Globulin 2.2 g/dL (2.4-3.5); Glucose 115 mg/dL (70-105); Osmolality,Calculated 291 (280-300); Potassium 3.1 mEq/L (3.5-5.1); Sodium 139 mEq/L (136-145); Total Protein 4.7 g/dL (6.4-8.9); eGFR For Non-African Americans > 60 (> 60)
[2018-03-28 04:36] LABS: Anisocytosis 2+ (Not Present); Hypochromasia Present (Not Present); Macrocytosis Present (Not Present); Platelet Estimate Normal (Normal); Polychromasia 1+ (Not Present)
[2018-03-28] MEDS: Isosorbide MONOnitrate (24 HR) 60 MG TAB.ER.24H PO SCH (07:25)
[2018-03-28] MEDS: Multivit/Ca/Min/Fe/FA 1 TAB TABLET PO SCH (07:25)
[2018-03-28] MEDS: Aspirin 81 MG TAB.CHEW PO SCH (07:25)
[2018-03-28 07:52] LABS: Magnesium 1.9 mg/dL (1.6-2.6)
[2018-03-28] MEDS: Levofloxacin 750 MG/150 ML 750 MG/150 ML BAG IVPB SCH (09:01)
[2018-03-28] MEDS ORDERED: Potassium Chloride 40 MEQ, Lidocaine 1% 2 ML in D5% in Water 500 ML IVPB ONE (09:23)
--- NOTE | 2018-03-28 09:25 | Cardiology Progress Note ---
Date of Encounter: 03/28/18 Time of Encounter: 08:45 Assessment and Plan (1) NSTEMI (non-ST elevated myocardial infarction) Current Visit: Yes Status: Acute Pt admitted for a 1 week hx of abdominal pain -abd pain is ACS (type 2) vs postop ileus pain -she is s/p AAA repair POD 8 -pt is currently hemodynamically stable ; last HR 96, BP 120/68 -Troponins 3.65 ---> 3.38 -BNP 2461 -EKG showed new T wave inversions in lead III, which is a new change from EKG done in March 21, 2018. -ECHO 06/2015 = LVEF 60-65%, LVH, LV diastolic dysfxn -Carotid US 2016 - B/L nonstenotic plaque -Stress test 11/2017 EF >70%, negative for ischemia or infarct -Pt has a hx of UT x 2 Cardiac cath in 2014: Lesion Findings/Interventions * Left Main Coronary Artery There is a 30-40% stenosis in the mid LMCA. * Left Anterior Descending There is a 40% stenosis in the Mid LAD. * Circumflex There is a 50% stenosis in the Mid Circumflex. * Right Coronary Artery There is a 100% stenosis in the Proximal RCA. The lesion has collaterals which feed from left to right. ECHO performed yesterday as noted below: -rhythm not clear - frequent atrial ectopy notes -normal appearing LV systolic fxn but cannot estimate LVEF because of abnormal rhythm -normal RV structure/fxn -dilated LA -No aortic stenosis, moderate MR, mild TR, no pHTN Cardiac cath performed yesterday -no hematoma noted at access site (Rt arm) -report will follow when available. CXR yesterday: Increased interstitial opacity, especially the mid upper lungs. Correlate with clinical evidence of interstitial edema (and consider both cardiogenic and noncardiogenic etiologies). Plan: -Continue ASA 81mg PO daily, Lipitor 20mg PO HS, Lopressor 12.5 mg PO BID -PINEDA score of 5, had heart cath yesterday (2) Atrial fibrillation with RVR Current Visit: Yes Status: Resolved Post LHC pt went into a fib with RVR -she was put on amiodarone drip as per Dr. Gamble at 0.5mg/min -pt is currently rate and rhythm controlled -pt denies any chest pain, SOB, palpiltations at this time -pt is currently on Lopressor 12.5mg PO BID -BP 120/68, HR 96 Plan -will discuss with attending and update plan as per his wishes for continuing amiodarone therapy vs switching to cardizem vs increased Lopressor dose -for now will be continuing amiodarone drip at 0.5mg/min (3) Hypokalemia Current Visit: Yes Status: Acute Potassium today 3.1 -low potassium may be contributing to ileus Plan: -replaced with 40mEq KCl today -recheck CMP in the morning (4) Postoperative ileus Current Visit: Yes Status: Acute Pt endorses a hx of abdominal pain that has lasted since her surgery -pt has been unable to have a bowel movement since last week -pain located in epigastric area by surgical site -abdomen is distended -CT scan showed postop changes and a small amount of blood; there were no acute catastrophic findings but there was ileus seen on CT -the surgical site is intact, there appears to be no inflammation or signs of infxn Plan: -monitor electrolytes, especially potassium -potassium 3.1 this morning, replaced with 40Meq KCl. Will recheck electrolytes in AM -pain medications prn -pt is on tropsium chloride for urge incont , which has an IVY of constipation; this medication has been held as per primary -consider enemas ; Milk of Molasses recommended. (5) Coronary artery disease Current Visit: No Status: Chronic Pt has a hx of CAD, HDL, HTN -she has had 2 UT -pt recently had 6.7 cm AAA repaired , she is POD 8 Plan: -continue Lopressor 12.5mg BID, Plavix 75mg PO daily, Lipitor 20mg PO daily, ASA 81mg -encourage modification of risk factors, such as smoking -encourage heart healthy low fat, low cholesterol diet Qualifiers: Coronary Disease-Associated Artery/Lesion type: [place] artery [place] vs. transplanted heart: [place] heart Associated angina: without angina Qualified Code(s): I25.10 - Atherosclerotic heart disease of [place] coronary artery without angina pectoris (6) Hyperlipidemia Current Visit: No Status: Chronic Pt is on Artorvastatin 20mg PO daily -admission in January showed TG 98, Cholesterol 170, LDL 98, VLDL 20, HDL 52 Plan: -continue Lipitor -encourage heart healthy low fat, low cholesterol diet Qualifiers: Hyperlipidemia type: mixed hyperlipidemia Qualified Code(s): E78.2 - Mixed hyperlipidemia (7) Essential hypertension Current Visit: No Status: Chronic Pt is on Lopressor 12.5 mg BID -BP today is 143/84 -poorly controlled Plan -continue Lopressor, consider increasing to 25mg BID on d/c -consider adding Hydralazine 10mg IVP q6hr if SBP increases to >160 Discussion w patient/family: The assessment and plan as outlined above was discussed with the patient and/or family members who expressed understanding and agreement. All questions were answered. Thank you for involving us in the care of your patient. Please call with any questions. Subjective Principal diagnosis: NSTEMI Interval history: Pt is seen at the bedside. This morning she has no new complaints. She denies having any active chest pain, SOB, palpitations, N/V. -the pt still hasn't had a bowel movement post surgery but states she has been passing gas this morning -she has no complaints or concerns -site where cath access was right arm, no hematoma noted She is s/p open AAA repair POD 8 -pt is hemodynamically stable HR 96, BP 120/68 Pt has LHC yesterday -pt tolerated procedure well but went into A fib with RVR post procedure. She was put on Amiodarone drip running at 0.5mg/min and is tolerating the medication well and her rate/rhythm are back under control -will discuss with attending this morning if pt should stay on Amiodarone lobsterman or be transferred to a medication with less side effects Pt had LHC in 2014 that showed -RCA 100% stenosis in the proximal RCA lesion has collaterals, 30-40% stenosis in mid LMCA, 40% stenosis in mid LAD and 50% stenosis and mid circumflex. Other cardiac workup noted blow: -ECHO 06/2015 = LVEF 60-65%, LVH, LV diastolic dysfxn -Carotid US 2016 - B/L nonstenotic plaque -Stress test 11/2017 EF >70%, negative for ischemia or infarct -Pt has a hx of UT x 2 ECHO performed yesterday as noted below: -rhythm not clear - frequent atrial ectopy notes -normal appearing LV systolic fxn but cannot estimate LVEF because of abnormal rhythm -normal RV structure/fxn -dilated LA -No aortic stenosis, moderate MR, mild TR, no pHTN Fluids - 0.9% NS 100cc/hr Electrolytes - potassium 3.1 , will replace 40mEq Potassium chloride Nutrition - currently NPO DVT prophylaxis - heparin 14.5 mL/min GI prophylaxis - Prilosec 20mg daily PO Objective Vital Signs, Last 4 Hours Temp Pulse Resp BP 03/28/18 07:11 98.2 F 96 18 120/68 03/28/18 06:00 96 118/72 General: Conversant HEENT: Atraumatic, Normocephaly, Mucus Membranes Moist Neck: No JVD Cardiac: Reg Rate and Rhythm, Normal S1 and S2 Lungs: Normal Breath Sounds, No Wheeze, Rales, Rhonchi Neuro: Alert and responsive, No focal deficits noted Abdomen: Non-Tender, Other (Distended) Skin: Other (Midline incision from AAA repair) Musculoskeletal: No Chest Wall Tenderness Extremities: No Edema Results 03/28/18 03:12 03/28/18 03:12 Lab Results 03/27/18 03/27/18 03/27/18 11:17 11:17 12:31 WBC 9.5 Hgb 10.0 L Hct 30.3 L Plt Count 373 INR 1.1 Sodium Potassium 3.4 L Chloride Carbon Dioxide BUN Creatinine Glucose Calcium Magnesium 2.0 Total Bilirubin AST ALT Alkaline Phosphatase 03/27/18 03/28/18 03/28/18 20:39 03:12 03:12 WBC 8.8 Hgb 9.0 L Hct 27.2 L Plt Count 390 INR 1.1 Sodium 139 Potassium 3.1 L Chloride 106 Carbon Dioxide 26 BUN 18 Creatinine 0.70 Glucose 115 H Calcium 7.8 L Magnesium 1.9 Total Bilirubin 0.8 AST 23 ALT 10 Alkaline Phosphatase 66 Consult Discharge Plan - Plan Referrals: NONE,PCP [Primary Care Provider] - (This patient is from [facility] no PCP appointment needed)
--- NOTE | 2018-03-28 11:49 | Vascular/Endovas Progress Note ---
Date of Encounter: 03/28/18 Time of Encounter: 07:30 - Assessment and plan (1) AAA (abdominal aortic aneurysm) Current Visit: No Status: Chronic The patient is postoperative day #8 after open aortic aneurysm repair. She denies any abdominal, flank or back pain. Her incision is healing well. She has no acute issues related to her aortic aneurysm repair. She had a small bowel movement, but remained somewhat constipated. Qualifiers: Presence of rupture: without rupture Qualified Code(s): I71.4 - Abdominal aortic aneurysm, without rupture (2) Elevated troponin Current Visit: Yes Status: Acute Elevated troponins yesterday. Patient underwent left heart catheterization. No intervention was required. Patient remains chest pain free. She did develop atrial fibrillation with rapid ventricular response. Cardiology recommended increasing her beta janene. (3) Postoperative ileus Current Visit: Yes Status: Ruled-out The patient's CT scan reported a mild postoperative ileus. The patient is no clinical signs or symptoms of a postoperative ileus. She was tolerating a regular diet as an outpatient. She was tolerating clear liquids yesterday. She denies nausea or vomiting. Recommend advancing diet as tolerated. - Subjective Interval history: The patient is comfortable. She denies any abdominal, flank or back pain. She denies any nausea and vomiting. She reports that she is hungry. She denies chest pain or shortness of breath. Vital Signs, Last 4 Hours Temp Pulse Resp BP 03/28/18 11:40 98.0 F 86 17 116/64 - Physical Examination General: Present: Conversant, No Apparent Distress Cardiac: Present: Normal S1 and S2 Lungs: Present: Normal Breath Sounds Neuro: Present: Alert and responsive, Motor nerves grossly intact, Sensory nerves grossly intact Vascular: Present: Normal capillary refill, Surgical incisions (Incision clean, dry and intact without erythema or drainage). Absent: Cyanosis, Edema Abdomen: Present: Soft, Non-tender, Other (Bowel sounds present) Skin: Present: No rashes noted on visualized skin Results 03/28/18 03:12 03/28/18 03:12 Lab Results, Last 24 hours 03/27/18 03/27/18 03/28/18 12:31 20:39 03:12 WBC 8.8 Hgb 9.0 L Hct 27.2 L Plt Count 390 INR 1.1 Sodium Potassium 3.4 L Chloride Carbon Dioxide BUN Creatinine Glucose Calcium Magnesium 2.0 Total Bilirubin AST ALT Alkaline Phosphatase 03/28/18 03:12 WBC Hgb Hct Plt Count INR Sodium 139 Potassium 3.1 L Chloride 106 Carbon Dioxide 26 BUN 18 Creatinine 0.70 Glucose 115 H Calcium 7.8 L Magnesium 1.9 Total Bilirubin 0.8 AST 23 ALT 10 Alkaline Phosphatase 66 - Imaging / Other Tests Cardiac cath: report reviewed, image reviewed Consult Discharge Plan - Plan Referrals: NONE,PCP [Primary Care Provider] - (This patient is from [facility] no PCP appointment needed)
--- NOTE | 2018-03-28 13:52 | Internal Med Progress Note ---
Hospitalist Progress Note - Encounter Date of Encounter: 03/28/18 Time of Encounter: 13:50 - Subjective Interval History: not passing flatus. No new abdominal pain. Patient denies nausea vomiting headache dizziness chest pain shortness of breath. She has constipation for more than 1 week. Review of the lab with low potassium level. Reviewed the change consultant notes - Exam Vitals: Temp Pulse Resp BP Pulse Ox 98.0 F 86 17 116/64 99 03/28/18 11:40 03/28/18 11:40 03/28/18 11:40 03/28/18 11:40 03/28/18 03:30 Exam: General appearance: No acute distress Head exam: Atraumatic Eye exam: EOMI, PERRLA ENT exam: Moist oral mucosa Neck nontender, supple Respiratory exam: Clear to auscultation bilaterally Cardiovascular exam: Regular rate and rhythm, no systolic murmur Abdominal exam: Soft, mild to moderate tenderness along the incisional line- not new. nondistended, diminished bowel sounds Extremities exam: No calf tenderness, no pedal edema Present: Neurological exam: Alert, awake, oriented 3, CN II-XII intact, no focal deficits. No facial droop. Normal speech. - Assessment and Plan (1) Postoperative ileus Current Visit: Yes Status: Ruled-out Assessment and Plan: Had abdominal aortic aneurysm repair almost 1 week back. No acute abdominal findings but diminished bowel sounds. Low potassium level as well. Plan to replace potassium and other electrolyte. Patient also has constipation therefore started Dulcolax suppository but will consider enema or milk of molasses. Vascular surgeon on board and no further recommendation from vascular surgery standpoint. Continue supportive treatment with IV fluid and Will consider ice chips if tolerated. (2) NSTEMI (non-ST elevated myocardial infarction) Current Visit: Yes Status: Acute Assessment and Plan: Raised troponin with T-wave inversion in lead 3-new finding. On Line Csr was consulted and did perform heart catheter with finding of RCA 100% occlusion with collaterals-most likely chronic-resistant perform. Echocardiogram normal appearing LV systolic function but cannot estimate LVEF because of abnormal rhythm,normal RV structure/fxn,dilated LA,No aortic stenosis, moderate MR, mild TR, no pHTN (3) Atrial fibrillation with RVR Current Visit: Yes Status: Resolved Assessment and Plan: Post L HC patient went into A. fib with RVR. A started amiodarone drip and eventually stopped as started on metoprolol 25 mg twice a day. On Line Csr's on board (4) Hypokalemia Current Visit: Yes Status: Acute Assessment and Plan: Replacement and monitoring. (5) Essential hypertension Current Visit: No Status: Chronic Assessment and Plan: Well controlled. Continue current medication and close monitoring P (6) Hyperlipidemia Current Visit: No Status: Chronic Assessment and Plan: Continue statin (7) DVT prophylaxis Current Visit: No Status: Acute Assessment and Plan: Patient is on heparin drip. SCDs - Time Spent with Patient Total time spent is greater than 50% in coordination of care (as documented) at patient's floor/unit and/or counseling patient: 25 - 35 minutes Internal Medicine: Result - Labs CBC & Chem 7: 03/28/18 03:12 03/28/18 03:12 Labs: Short CBC 03/28/18 Range/Units 03:12 WBC 8.8 (4.3-11.1) K/mcL Hgb 9.0 L (11.5-15.4) g/dL Hct 27.2 L (35.3-44.9) % Plt Count 390 (140-400) K/mcL Neutrophils # 6.4 (1.6-8.9) K/mcL BMP 03/28/18 03:12 Sodium 139 Potassium 3.1 L Chloride 106 Carbon Dioxide 26 BUN 18 Creatinine 0.70 Glucose 115 H Calcium 7.8 L Liver Function 03/28/18 Range/Units 03:12 Total Bilirubin 0.8 (0.3-1.0) mg/dL AST 23 (13-39) Units/L ALT 10 (7-52) Units/L Alkaline Phosphatase 66 (34-104) Units/L Albumin 2.5 L (3.5-5.7) g/dL - ABG Interpretation ABG results: PT/INR, D-dimer PT 12.3 Seconds (9.4-12.1) H 03/27/18 20:39 - Impressions Impressions Chest X-Ray 03/27/18 09:44 IMPRESSION: Increased interstitial opacity, especially the mid upper lungs. Correlate with clinical evidence of interstitial edema (and consider both cardiogenic and noncardiogenic etiologies). D/ / Serafin Hall MD / Serafin Hall MD Interpreting Provider: Serafin Hall MD Consult Discharge Plan - Plan Referrals: NONE,PCP [Primary Care Provider] - (This patient is from [facility] no PCP appointment needed) (6) Hyperlipidemia Qualifiers: Hyperlipidemia type: mixed hyperlipidemia Qualified Code(s): E78.2 - Mixed hyperlipidemia
[2018-03-28] MEDS: 0.9 % Sodium Chloride 1,000 ML IVC SCH (17:03)
--- NOTE | 2018-03-28 21:17 | Electrocardiograph Report ---
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
[2018-03-29] MEDS: 0.9 % Sodium Chloride 1,000 ML IVC SCH (02:38)
[2018-03-29] MEDS: Heparin 25,000 UNIT/500 ML D5W 25,000 UNIT/500 ML BAG IVC SCH (02:39)
[2018-03-29 07:16] LABS: Hemoglobin 8.4 g/dL (11.5-15.4); Mean Corpuscular HGB Conc 32.3 g/dL (31.6-35.5); Mean Corpuscular Hemoglobin 30.8 pg (28.0-33.3); Mean Corpuscular Volume 95.2 fL (83.0-100.0); Mean Platelet Volume 9.2 fL (9.4-12.4); Platelet Count 432 K/mcL (140-400); Red Blood Count 2.73 M/mcL (3.82-4.97); Red Cell Distribution Width 15.9 % (11.5-14.5)
[2018-03-29 07:34] LABS: Alanine Aminotransferase 8 Units/L (7-52); Albumin 2.3 g/dL (3.5-5.7); Alkaline Phosphatase 63 Units/L (34-104); Aspartate Amino Transferase 19 Units/L (13-39); BUN/Creatinine Ratio 23 (6-26); Bilirubin,Total 0.7 mg/dL (0.3-1.0); Blood Urea Nitrogen 14 mg/dL (8-23); Calcium 7.5 mg/dL (8.6-10.3); Carbon Dioxide 23 mEq/L (23-29); Chloride 106 mEq/L (98-107); Globulin 2.2 g/dL (2.4-3.5); Glucose 102 mg/dL (70-105); Osmolality,Calculated 281 (280-300); Potassium 3.1 mEq/L (3.5-5.1); Sodium 135 mEq/L (136-145); Total Protein 4.5 g/dL (6.4-8.9); eGFR For Non-African Americans > 60 (> 60)
[2018-03-29] MEDS ORDERED: Potassium Chloride 40 MEQ, Lidocaine 1% 2 ML in D5% in Water 500 ML IVPB ONE (07:44)
[2018-03-29] MEDS ORDERED: Ondansetron ODT 4 MG TAB.RAPDIS SL PRN (07:46)
[2018-03-29] MEDS: Multivit/Ca/Min/Fe/FA 1 TAB TABLET PO SCH (08:00)
[2018-03-29] MEDS: Aspirin 81 MG TAB.CHEW PO SCH (08:00)
[2018-03-29] MEDS: Levofloxacin 750 MG/150 ML 750 MG/150 ML BAG IVPB SCH (08:00)
[2018-03-29] MEDS: Isosorbide MONOnitrate (24 HR) 60 MG TAB.ER.24H PO SCH (08:00)
[2018-03-29 08:10] LABS: Magnesium 1.8 mg/dL (1.6-2.6)
[2018-03-29 08:21] LABS: Lymphocytes # 1.8 K/mcL (0.6-4.6); Monocytes # 0.2 K/mcL (0.0-1.3); Neutrophils # 9.1 K/mcL (1.6-8.9)
[2018-03-29 08:22] LABS: Anisocytosis 1+ (Not Present); Polychromasia 1+ (Not Present)
--- NOTE | 2018-03-29 12:25 | Event Note ---
Date of Encounter: 03/29/18 Time of Encounter: 12:23 - Cardiology Event Note Reviewed plan of care regarding detention anticoagulation with Dr. Everardo Fajardo. Rhythm strips, telemetry, and EKG reviewed by him. No definite afib seen, seen to have atrial tachycardia with PAC. No indication for detention AC from cardiology standpoint. Out-pt f/u will be coordinated.
[2018-03-29] MEDS ORDERED: Furosemide 20 MG/2 ML VIAL IVP ONE (14:02)
--- NOTE | 2018-03-29 15:25 | Internal Med Progress Note ---
Hospitalist Progress Note - Encounter Date of Encounter: 03/29/18 Time of Encounter: 15:23 - Subjective Interval History: Patient complained of shortness of breath but denied chest pain headache dizziness nausea vomiting new abdominal pain. Patient is passing flatus and had very small bowel movement. Review of the lab with low potassium level. Reviewed the aviation consultant notes - Exam Vitals: Temp Pulse Resp BP Pulse Ox 98.2 F 95 18 121/64 99 03/29/18 15:20 03/29/18 15:20 03/29/18 15:20 03/29/18 15:20 03/29/18 15:20 Exam: General appearance: No acute distress Head exam: Atraumatic Eye exam: EOMI, PERRLA ENT exam: Moist oral mucosa Neck nontender, supple Respiratory exam: Crepitations bilaterally Cardiovascular exam: Regular rate and rhythm, no systolic murmur Abdominal exam: Soft, mild to moderate tenderness along the incisional line- not new. nondistended, diminished bowel sounds but slight better Extremities exam: No calf tenderness, +1 pedal edema Present bilaterally Neurological exam: Alert, awake, oriented 3, CN II-XII intact, no focal deficits. No facial droop. Normal speech. - Assessment and Plan (1) Pleural effusion Current Visit: Yes Status: Acute Assessment and Plan: Worsening pleural effusion. Stopped IV fluid. Lasix 20 mg IV given. Will reassess I&O's before further diuresis. Pulmonologists consulted. (2) Pneumonia Current Visit: Yes Status: Acute Assessment and Plan: Worsening on chest x-ray. Continue Levaquin, DuoNeb, oxygen when necessary. Consulted tare man (3) Postoperative ileus Current Visit: Yes Status: Ruled-out Assessment and Plan: Had abdominal aortic aneurysm repair more than a week ago. No acute abdominal findings but diminished bowel sounds. Low potassium level as well. Plan to replace potassium and other electrolyte. Patient also has constipation therefore started Dulcolax suppository but will consider enema or milk of molasses if needed. Vascular surgeon on board and no further recommendation from vascular surgery standpoint. Start IV fluid. Patient is tolerating clear liquid. (4) NSTEMI (non-ST elevated myocardial infarction) Current Visit: Yes Status: Acute Assessment and Plan: Raised troponin with T-wave inversion in lead 3-new finding. Assistant Professor Of Nursing was consulted and did perform heart catheter with finding of RCA 100% occlusion with collaterals-most likely chronic. Echocardiogram normal appearing LV systolic function but cannot estimate LVEF because of abnormal rhythm,normal RV structure/fxn,dilated LA,No aortic stenosis, moderate MR, mild TR, no pHTN (5) Atrial fibrillation with RVR Current Visit: Yes Status: Resolved Assessment and Plan: Post L HC patient went into A. fib with RVR. Earlier started amiodarone drip and eventually stopped as started on metoprolol 25 mg twice a day. Heparin drip was also off now. Assistant Professor Of Nursing's on board and will follow his recommendation (6) Hypokalemia Current Visit: Yes Status: Acute Assessment and Plan: Replacement and monitoring. Low normal magnesium level therefore also replaced. Potassium level in the afternoon to follow (7) Essential hypertension Current Visit: No Status: Chronic Assessment and Plan: Well controlled. Continue current medication and close monitoring (8) Hyperlipidemia Current Visit: No Status: Chronic Assessment and Plan: Continue statin (9) DVT prophylaxis Current Visit: No Status: Acute Assessment and Plan: Subcutaneous heparin. SCDs - Time Spent with Patient Total time spent is greater than 50% in coordination of care (as documented) at patient's floor/unit and/or counseling patient: 25 - 35 minutes Internal Medicine: Result - Labs CBC & Chem 7: 03/29/18 06:45 03/29/18 06:45 Labs: Short CBC 03/29/18 Range/Units 06:45 WBC 11.1 (4.3-11.1) K/mcL Hgb 8.4 L (11.5-15.4) g/dL Hct 26.0 L (35.3-44.9) % Plt Count 432 H (140-400) K/mcL Neutrophils # 9.1 H (1.6-8.9) K/mcL BMP 03/29/18 06:45 Sodium 135 L Potassium 3.1 L Chloride 106 Carbon Dioxide 23 BUN 14 Creatinine 0.60 Glucose 102 Calcium 7.5 L Liver Function 03/29/18 Range/Units 06:45 Total Bilirubin 0.7 (0.3-1.0) mg/dL AST 19 (13-39) Units/L ALT 8 (7-52) Units/L Alkaline Phosphatase 63 (34-104) Units/L Albumin 2.3 L (3.5-5.7) g/dL - ABG Interpretation ABG results: PT/INR, D-dimer PT 12.3 Seconds (9.4-12.1) H 03/27/18 20:39 - Impressions Impressions Chest X-Ray 03/29/18 07:48 IMPRESSION: 1. Interval worsening of bibasilar opacities and bilateral effusions. 2. Mild pulmonary edema. D/ / 03/29/2018 09:50:37 Kyra Shukla MD / zak Interpreting Provider: Kyra Shukla MD Consult Discharge Plan - Plan Referrals: NONE,PCP [Primary Care Provider] - (This patient is from [facility] no PCP appointment needed) (2) Pneumonia Qualifiers: Pneumonia type: due to unspecified organism Laterality: bilateral Lung location: lower lobe of lung Qualified Code(s): J18.1 - Lobar pneumonia, unspecified organism (8) Hyperlipidemia Qualifiers: Hyperlipidemia type: mixed hyperlipidemia Qualified Code(s): E78.2 - Mixed hyperlipidemia
[2018-03-29] MEDS: *HR* Heparin 5,000 UNIT/ML VIAL SQ SCH (16:13)
[2018-03-30] MEDS: *HR* Heparin 5,000 UNIT/ML VIAL SQ SCH ×2 (06:14→16:30)
[2018-03-30] MEDS: Aspirin 81 MG TAB.CHEW PO SCH (07:49)
[2018-03-30] MEDS: Isosorbide MONOnitrate (24 HR) 60 MG TAB.ER.24H PO SCH (07:49)
[2018-03-30] MEDS: Multivit/Ca/Min/Fe/FA 1 TAB TABLET PO SCH (07:49)
[2018-03-30] MEDS: Levofloxacin 750 MG/150 ML 750 MG/150 ML BAG IVPB SCH (07:54)
--- NOTE | 2018-03-30 09:03 | Pulmonology Consult Note ---
<SamanthaliyaShane gates M - Last Filed: 03/30/18 10:04> Date of Encounter: 03/30/18 Medications and Allergies Aspirin 81 mg PO DAILY 06/26/15 [History] Citalopram [CeleXA] 10 mg PO DAILY 10/19/15 [History] Trospium Chloride [Trospium Chloride ER] 60 mg PO DAILY 07/14/16 [History] Docusate [Colace] 100 mg PO BID PRN 07/23/16 [History] Ipratropium/Albuterol Sulfate [Combivent Respimat Inhal [place]] 4 gm IH QID PRN 07/23/16 [History] Multivit-Min/FA/Lycopen/Lutein [Centrum Silver Tablet] 1 tab PO DAILY 07/23/16 [ History] Ferrous Sulfate 325 mg PO BIDWM tablet 08/11/16 [Rx] Metoprolol [Lopressor] 12.5 mg PO BID tablet 08/11/16 [Rx] Ondansetron ODT [Zofran ODT] 4 mg SL Q6HR PRN #0 tab.rapdis 08/11/16 [Rx] Pantoprazole Sodium [Protonix] 20 mg PO DAILY 03/20/18 [History] Sennosides/Docusate Sodium [Senna Plus] 2 tab PO DAILY PRN 03/20/18 [History] OxyCODONE/APAP 5/325 [Percocet 5/325 MG] 1 each PO Q6HR PRN 7 Days #25 tablet [Rx] Bisacodyl [Dulcolax] 10 mg RC ONCE 03/26/18 [History] Atorvastatin Calcium [Lipitor] 20 mg PO HS 03/27/18 [History] Clopidogrel [Plavix] 75 mg PO DAILY 03/27/18 [History] Polyethylene Glycol 3350 [MiraLAX] 17 gm PO DAILY 03/27/18 [History] 3 Allergy/AdvReac Type Severity Reaction Status Date / Time codeine Allergy Severe Anaphylaxis Verified 03/27/18 16:39 All Systems: The remainder of the systems were reviewed and are negative Physical Examination Vital Signs: Vital Signs, Last 4 Hours Pulse Resp BP Pulse Ox 03/30/18 07:25 91 17 115/63 93 Results - Laboratory Findings CBC and BMP: 03/29/18 06:45 03/29/18 14:47 PT/INR, D-dimer PT 12.3 Seconds (9.4-12.1) H 03/27/18 20:39 Abnormal lab findings: Abnormal lab results RBC 2.73 M/mcL (3.82-4.97) L 03/29/18 06:45 Hgb 8.4 g/dL (11.5-15.4) L 03/29/18 06:45 Hct 26.0 % (35.3-44.9) L 03/29/18 06:45 RDW 15.9 % (11.5-14.5) H 03/29/18 06:45 Plt Count 432 K/mcL (140-400) H 03/29/18 06:45 MPV 9.2 fL (9.4-12.4) L 03/29/18 06:45 Neutrophils # 9.1 K/mcL (1.6-8.9) H 03/29/18 06:45 Nucleated RBCs/100 WBC 0.2 /100 WBC (0) H 03/28/18 03:12 Platelet Estimate Slight increase (Normal) H 03/29/18 06:45 Polychromasia 1+ (Not Present) A 03/29/18 06:45 Hypochromasia Present (Not Present) A 03/28/18 03:12 Anisocytosis 1+ (Not Present) A 03/29/18 06:45 Macrocytosis Present (Not Present) A 03/28/18 03:12 PT 12.3 Seconds (9.4-12.1) H 03/27/18 20:39 Sodium 135 mEq/L (136-145) L 03/29/18 06:45 POC Glucose 144 mg/dL (70-99) H 03/28/18 11:43 Calcium 7.5 mg/dL (8.6-10.3) L 03/29/18 06:45 Troponin I 3.38 ng/mL (< 0.04) H* 03/27/18 05:15 B-Natriuretic Peptide 2461 pg/mL (Less than 100) H 03/26/18 22:19 Serum Total Protein 4.5 g/dL (6.4-8.9) L 03/29/18 06:45 Albumin 2.3 g/dL (3.5-5.7) L 03/29/18 06:45 Globulin 2.2 g/dL (2.4-3.5) L 03/29/18 06:45 Albumin/Globulin Ratio 1.0 (1.1-2.2) L 03/29/18 06:45 Urine Protein 30 mg/dL (Neg-Trace) H 03/26/18 10:43 Urine Ketones 15 mg/dL (Negative) H 03/26/18 10:43 Urine Bilirubin Small (Negative) H 03/26/18 10:43 Ur Leukocyte Esterase Small (Negative) H 03/26/18 10:43 Urine Microscopic WBC 5-15 per hpf (0-3) H 03/26/18 10:43 Ur Squamous Epith Cells Many per lpf (None-Few) H 03/26/18 10:43 Ur Culture Indicated? NO. (NO) A 03/26/18 10:43 - Clinical Findings Intake & Output: Intake & Output 03/29/18 03/30/18 03/30/18 23:59 07:59 15:59 Intake Total 300 / 300 120 / 120 Output Total 700 / 700 415 / 415 Balance -400 / -400 -415 / -415 120 / 120 Consult Discharge Plan - Plan Referrals: NONE,PCP [Primary Care Provider] - (This patient is from [facility] no PCP appointment needed) - Attending Attestation I examined this patient and my medical decision-making was reviewed with the Resident Physician. I agree with the documented findings, disposition and treatment plan as described except to the extent set forth below. Patient seen and examined. Labs, radiology, chart personally reviewed. Agree with resident's history and physical, assessment, plan with following comments: BOXING TRAINER: Patient follows commands, Pulmonary: Acceptable oxygenation and ventilation and patient is not in any distress. I suspect this is atelectasis rather than pneumonia and antibiotic if needed then only short course is recommended. As far as pleural effusion, it is only small on chest x-ray and no indication for draining. Early mobilization is recommended and bronchodilators since patient has history of smoking. Titrate FiO2 to keep SPO2 around 90%. Also diuresis as tolerated. Thank you for consultation and please call for any questions. <Gary Nieves - Last Filed: 03/30/18 13:49> Date of Encounter: 03/30/18 Time of Encounter: 08:45 Assessment and Plan (1) Pleural effusion Current Visit: Yes Status: Acute Bilateral pleural effusions demonstrated on chest x-ray Etiology is uncertain although heart failure is likely source Patient's respiratory status at this time is acceptable, she is in no acute distress At the time of examination, the patient was on 0 L of oxygen We suspect that some of her distress is caused by atelectasis which may be due to pain from postop ileus Additionally we will recommend optimization of pulmonary disease in general Recommendations -Consider discontinuing levaquin, we do not suspect pneumonia -Continue to diurese as tolerated -Titrate O2 as needed for SpO2 >90% -Incentive spirometry to be used 6-12 times per day to prevent atelectasis -Monitor strict I/Os, limit fluid intake -Add symbicort, duonebs as needed (2) Atelectasis of both lungs Current Visit: Yes Status: Suspected The patient has suspected atelectasis based on lung imaging and clinical picture We suggested the patient use incentive spirometer History of Present Illness Consult date: 03/30/18 Requesting physician: Jackie Prado Reason for consult: pleural effusion Chief complaint: Pleural effusion History of present illness: Mrs. Ryan is a 77-year-old woman with a history of hypertension, hyperlipidemia, COPD, CAD and who is an active tobacco user who underwent repair of abdominal aortic aneurysm approximately one week ago. Following this operation, the patient did have mild complications including leukocytosis and a mild blood loss anemia, however she was discharged to a half-way in stable condition on postoperative day 5 without complications. Since leaving the hospital she has not been able to have a bowel movement however, and she did return for which she was concerned about a bowel obstruction. She was having some abdominal pain, and she was unable to pass gas or bowel movements. On top of that, she did apparently have some swelling in her legs at that time. In the ER, she was found to have a troponin of 3.65, and a BNP of 2461. She was admitted for postoperative ileus, however on chest CT at that time she was found to have bilateral pleural effusions which were moderate in size and were initially treated with Lasix. While in the hospital, the patient developed A. fib RVR, and she was taken to the Education Trainer by cardiology who felt disease that was not able to be stented. Additionally she was found have a normal ejection fraction with indeterminate diastolic function. Her respiratory status continued to decline, and there was some concern that her pleural effusion may be causing worsening symptoms. Past Med Surg Social Fam HX - Past Medical History Medical history: asthma, cancer, COPD, coronary artery disease, CVA, hypertension, other Additional medical history: BRONCHITIS, RIGHT BREAST CANCER Psychiatric history: anxiety, depression, panic disorder - Past Surgical History Surgical History: breast surgery Additional surgical history: AAA repair 03/20/2018. jaw - Social History Smoking Status: Current every day smoker Smokeless Tobacco Status: No Alcohol use: rarely Drug use: marijuana - Family History Mother Living Status: Hx Family Cancer: Yes (Colon.) Father Living Status: Hx Family Cardiac Disorders: Yes (RI) All Systems: The remainder of the systems were reviewed and are negative Review of Systems: Constitutional: Denies fevers, chills, weight loss, generalized fatigue Head/Neck: Denies SORTO, neck stiffness EENT: Denies vision changes/blurriness, rhinorrhea, congestion, sore throat CVS: Denies chest pain, palpitations, KITCHEN, orthopnea, edema, PND Pulm: Admits to some shortness of breath and cough which she does not feel is significantly above baseline GI: Denies significant abdominal pain, diarrhea, constipation, melena : Denies dysuria, hematuria Heme: Denies ease of bleeding or bruising Skin: Denies rashes, ulcers, color changes Physical Examination Vital Signs: Vital Signs, Last 4 Hours Pulse Resp BP Pulse Ox 03/30/18 07:25 91 17 115/63 93 Gen: Vitals noted. No acute distress. HEENT: Normocephalic, atraumatic Cardiac: no murmur, +S1/S2 Pulmonary: Mildly diminished in the right base with minimal crackles in the left base Abdomen: soft, nontender, no guarding Extremities: no BLE edema, nontender calf, no cyanosis or clubbing Neuro: moves all extremities, no focal deficits. Psych: Appropriate mood and behavior Results - Laboratory Findings CBC and BMP: 03/29/18 06:45 03/29/18 14:47 PT/INR, D-dimer PT 12.3 Seconds (9.4-12.1) H 03/27/18 20:39 Abnormal lab findings: Abnormal lab results RBC 2.73 M/mcL (3.82-4.97) L 03/29/18 06:45 Hgb 8.4 g/dL (11.5-15.4) L 03/29/18 06:45 Hct 26.0 % (35.3-44.9) L 03/29/18 06:45 RDW 15.9 % (11.5-14.5) H 03/29/18 06:45 Plt Count 432 K/mcL (140-400) H 03/29/18 06:45 MPV 9.2 fL (9.4-12.4) L 03/29/18 06:45 Neutrophils # 9.1 K/mcL (1.6-8.9) H 03/29/18 06:45 Nucleated RBCs/100 WBC 0.2 /100 WBC (0) H 03/28/18 03:12 Platelet Estimate Slight increase (Normal) H 03/29/18 06:45 Polychromasia 1+ (Not Present) A 03/29/18 06:45 Hypochromasia Present (Not Present) A 03/28/18 03:12 Anisocytosis 1+ (Not Present) A 03/29/18 06:45 Macrocytosis Present (Not Present) A 03/28/18 03:12 PT 12.3 Seconds (9.4-12.1) H 03/27/18 20:39 Sodium 135 mEq/L (136-145) L 03/29/18 06:45 POC Glucose 144 mg/dL (70-99) H 03/28/18 11:43 Calcium 7.5 mg/dL (8.6-10.3) L 03/29/18 06:45 Troponin I 3.38 ng/mL (< 0.04) H* 03/27/18 05:15 B-Natriuretic Peptide 2461 pg/mL (Less than 100) H 03/26/18 22:19 Serum Total Protein 4.5 g/dL (6.4-8.9) L 03/29/18 06:45 Albumin 2.3 g/dL (3.5-5.7) L 03/29/18 06:45 Globulin 2.2 g/dL (2.4-3.5) L 03/29/18 06:45 Albumin/Globulin Ratio 1.0 (1.1-2.2) L 03/29/18 06:45 Urine Protein 30 mg/dL (Neg-Trace) H 03/26/18 10:43 Urine Ketones 15 mg/dL (Negative) H 03/26/18 10:43 Urine Bilirubin Small (Negative) H 03/26/18 10:43 Ur Leukocyte Esterase Small (Negative) H 03/26/18 10:43 Urine Microscopic WBC 5-15 per hpf (0-3) H 03/26/18 10:43 Ur Squamous Epith Cells Many per lpf (None-Few) H 03/26/18 10:43 Ur Culture Indicated? NO. (NO) A 03/26/18 10:43 - Clinical Findings Intake & Output: Intake & Output 03/29/18 03/30/18 03/30/18 23:59 07:59 15:59 Intake Total 300 / 300 Output Total 700 / 700 415 / 415 Balance -400 / -400 -415 / -415
[2018-03-30] MEDS ORDERED: Furosemide 20 MG/2 ML VIAL IVP ONE (11:34)
[2018-03-30] MEDS: Budesonide/Formoterol 80/4.5 MDI IH SCH ×2 (11:53→20:57)
--- NOTE | 2018-03-30 12:09 | Internal Med Progress Note ---
Hospitalist Progress Note - Encounter Date of Encounter: 03/30/18 Time of Encounter: 12:07 - Subjective Interval History: Patient states she is feeling better as far as breathing is concerned but still does need to have some labored breathing. Denies any new fevers or chills yesterday. - Exam Vitals: Temp Pulse Resp BP Pulse Ox 97.4 F L 84 18 110/72 96 03/30/18 11:26 03/30/18 11:26 03/30/18 11:03/30/18 11:03/30/18 11:26 Exam: GENERAL: Alert, moderate distress, cooperative EYES: PERRLA, EOMI EARS: External ears normal, canals clear OROPHARYNX: Lips, mucosa, and tongue normal. Teeth and gums normal. Oropharynx normal. NECK: No jugulovenous distention, No carotid bruits, Carotid pulse normal contour, Supple LUNGS: Scattered crackles bilaterally. CARDIAC: Normal S1 and S2; no rubs, murmurs, or gallops ABDOMEN: Abdomen soft, non-tender, BS normal, No masses or organomegaly Rest of the exam is non contributory - Assessment and Plan (1) DVT prophylaxis Current Visit: No Status: Acute Assessment and Plan: Subcut heparin (2) Hypokalemia Current Visit: Yes Status: Acute Assessment and Plan: Replacement and monitoring. Low normal magnesium level therefore also replaced. Potassium level in the afternoon to follow 03/30-potassium levels seems to be improving. Continue to monitor her daily BMP (3) Essential hypertension Current Visit: No Status: Chronic Assessment and Plan: Well controlled. Continue current medication and close monitoring (4) Pleural effusion Current Visit: Yes Status: Acute Assessment and Plan: Worsening pleural effusion. Stopped IV fluid. Lasix 20 mg IV given. Will reassess I&O's before further diuresis. Pulmonologists consulted. 03/30-chest x-ray from yesterday did show worsening bilateral pleural effusions. She did get a dose of diuretics yesterday and I would continue the diuretics even today. Gas Distribution Supervisor consult has been appreciated. She is also going to do incentive spirometry because there is an element of atelectasis as well. We will titrate the oxygen to keep SPO2 around 90% and wean it down as much as possible because the patient does not use oxygen at home. (5) Postoperative ileus Current Visit: Yes Status: Ruled-out Assessment and Plan: Had abdominal aortic aneurysm repair more than a week ago. No acute abdominal findings but diminished bowel sounds. Low potassium level as well. Plan to replace potassium and other electrolyte. Patient also has constipation therefore started Dulcolax suppository but will consider enema or milk of molasses if needed. Vascular surgeon on board and no further recommendation from vascular surgery standpoint. Start IV fluid. Patient is tolerating clear liquid. 8/5-small amount of bowel movement yesterday and is passing gas consistently. Vascular surgery on board. We can slowly advance her diet today and continue to monitor (6) Hyperlipidemia Current Visit: No Status: Chronic (7) NSTEMI (non-ST elevated myocardial infarction) Current Visit: Yes Status: Acute (8) Atrial fibrillation with RVR Current Visit: Yes Status: Resolved (9) Pneumonia Current Visit: Yes Status: Acute - Time Spent with Patient Total time spent is greater than 50% in coordination of care (as documented) at patient's floor/unit and/or counseling patient: Greater than 35 minutes Plan of Care Discussed with: patient Internal Medicine: Result - Labs CBC & Chem 7: 03/29/18 06:45 03/29/18 14:47 Labs: BMP 03/29/18 14:47 Potassium 3.5 - ABG Interpretation ABG results: PT/INR, D-dimer PT 12.3 Seconds (9.4-12.1) H 03/27/18 20:39 Consult Discharge Plan - Plan Referrals: NONE,PCP [Primary Care Provider] - (This patient is from [facility] no PCP appointment needed) (6) Hyperlipidemia Qualifiers: Hyperlipidemia type: mixed hyperlipidemia Qualified Code(s): E78.2 - Mixed hyperlipidemia (9) Pneumonia Qualifiers: Pneumonia type: due to unspecified organism Laterality: bilateral Lung location: lower lobe of lung Qualified Code(s): J18.1 - Lobar pneumonia, unspecified organism
[2018-03-31] MEDS: *HR* Heparin 5,000 UNIT/ML VIAL SQ SCH ×2 (05:04→18:22)
[2018-03-31] MEDS: Budesonide/Formoterol 80/4.5 MDI IH SCH ×2 (07:41→20:26)
[2018-03-31] MEDS: Isosorbide MONOnitrate (24 HR) 60 MG TAB.ER.24H PO SCH (07:59)
[2018-03-31] MEDS: Multivit/Ca/Min/Fe/FA 1 TAB TABLET PO SCH (07:59)
[2018-03-31] MEDS: Levofloxacin 750 MG/150 ML 750 MG/150 ML BAG IVPB SCH (08:00)
[2018-03-31] MEDS: Aspirin 81 MG TAB.CHEW PO SCH (08:00)
--- NOTE | 2018-03-31 11:20 | Pulmonology Progress Note ---
<Jim Adkins - Last Filed: 03/31/18 13:34> Date of Encounter: 03/31/18 Time of Encounter: 11:16 Assessment and Plan (1) Pleural effusion Current Visit: Yes Status: Acute Patient with mild pleural effusions likely secondary to heart failure and atelectasis secondary to post op pain Patient respiratory status currently stable and ventilation/oxygenation appropriate on 1.5L Patient underwent LHC, Cardiology recommending medical management -Do not suspect pneumonia, consider discontinuing antibiotics per primary team -I reinforced to the patient the importance of using the incentive inspirometer -Continued heart failure treatment including fluid restriction and diuresis as tolerated -Recommend Symbicort and duonebs as needed -Patient pulmonary status is stable and will likely resolve with primary heart failure -Patient was educated on importance of low salt diet outside the hospital to prevent further heart failure complications Subjective Principal diagnosis: NSTEMI Interval history: Patient complains of fatigue this morning which is to be expected based on her eventful hospital course. She otherwise denies SOB, chest pain. I advised her that from a pulmonary stand point we do not suspect pneumonia and that we will continue to recommend supportive care and that her pulmonary edema should resolve. Objective PUL Vital signs: Last Vital Signs Temp 98.1 F 03/31/18 07:07 Pulse 88 03/31/18 08:00 Resp 15 03/31/18 07:41 BP 125/66 03/31/18 07:41 Pulse Ox 95 03/31/18 08:00 Patient in no acute distress, ventilating and oxygenating appropriately on 1.5L Alert and oriented x 3, follows commands Heart in regular rate and rhythm without murmur or gallop Lungs clear to auscultation other than rales in bilateral bases, no wheeze or rhonchi Legs are non edematous, skin warm and dry Results - Laboratory Findings CBC and BMP: 03/29/18 06:45 03/29/18 14:47 PT/INR, D-dimer PT 12.3 Seconds (9.4-12.1) H 03/27/18 20:39 Abnormal lab findings: Abnormal lab results RBC 2.73 M/mcL (3.82-4.97) L 03/29/18 06:45 Hgb 8.4 g/dL (11.5-15.4) L 03/29/18 06:45 Hct 26.0 % (35.3-44.9) L 03/29/18 06:45 RDW 15.9 % (11.5-14.5) H 03/29/18 06:45 Plt Count 432 K/mcL (140-400) H 03/29/18 06:45 MPV 9.2 fL (9.4-12.4) L 03/29/18 06:45 Neutrophils # 9.1 K/mcL (1.6-8.9) H 03/29/18 06:45 Nucleated RBCs/100 WBC 0.2 /100 WBC (0) H 03/28/18 03:12 Platelet Estimate Slight increase (Normal) H 03/29/18 06:45 Polychromasia 1+ (Not Present) A 03/29/18 06:45 Hypochromasia Present (Not Present) A 03/28/18 03:12 Anisocytosis 1+ (Not Present) A 03/29/18 06:45 Macrocytosis Present (Not Present) A 03/28/18 03:12 PT 12.3 Seconds (9.4-12.1) H 03/27/18 20:39 Sodium 135 mEq/L (136-145) L 03/29/18 06:45 POC Glucose 144 mg/dL (70-99) H 03/28/18 11:43 Calcium 7.5 mg/dL (8.6-10.3) L 03/29/18 06:45 Troponin I 3.38 ng/mL (< 0.04) H* 03/27/18 05:15 B-Natriuretic Peptide 2461 pg/mL (Less than 100) H 03/26/18 22:19 Serum Total Protein 4.5 g/dL (6.4-8.9) L 03/29/18 06:45 Albumin 2.3 g/dL (3.5-5.7) L 03/29/18 06:45 Globulin 2.2 g/dL (2.4-3.5) L 03/29/18 06:45 Albumin/Globulin Ratio 1.0 (1.1-2.2) L 03/29/18 06:45 Urine Protein 30 mg/dL (Neg-Trace) H 03/26/18 10:43 Urine Ketones 15 mg/dL (Negative) H 03/26/18 10:43 Urine Bilirubin Small (Negative) H 03/26/18 10:43 Ur Leukocyte Esterase Small (Negative) H 03/26/18 10:43 Urine Microscopic WBC 5-15 per hpf (0-3) H 03/26/18 10:43 Ur Squamous Epith Cells Many per lpf (None-Few) H 03/26/18 10:43 Ur Culture Indicated? NO. (NO) A 03/26/18 10:43 Consult Discharge Plan - Plan Referrals: NONE,PCP [Primary Care Provider] - (This patient is from [facility] no PCP appointment needed) <Janneth Ross - Last Filed: 03/31/18 20:54> Date of Encounter: 03/31/18 Objective PUL Vital signs: Last Vital Signs Temp 97.9 F 03/31/18 19:30 Pulse 114 03/31/18 19:30 Resp 18 03/31/18 20:27 BP 122/60 03/31/18 19:30 Pulse Ox 96 03/31/18 20:27 Results - Laboratory Findings CBC and BMP: 03/29/18 06:45 03/29/18 14:47 PT/INR, D-dimer PT 12.3 Seconds (9.4-12.1) H 03/27/18 20:39 Abnormal lab findings: Abnormal lab results RBC 2.73 M/mcL (3.82-4.97) L 03/29/18 06:45 Hgb 8.4 g/dL (11.5-15.4) L 03/29/18 06:45 Hct 26.0 % (35.3-44.9) L 03/29/18 06:45 RDW 15.9 % (11.5-14.5) H 03/29/18 06:45 Plt Count 432 K/mcL (140-400) H 03/29/18 06:45 MPV 9.2 fL (9.4-12.4) L 03/29/18 06:45 Neutrophils # 9.1 K/mcL (1.6-8.9) H 03/29/18 06:45 Nucleated RBCs/100 WBC 0.2 /100 WBC (0) H 03/28/18 03:12 Platelet Estimate Slight increase (Normal) H 03/29/18 06:45 Polychromasia 1+ (Not Present) A 03/29/18 06:45 Hypochromasia Present (Not Present) A 03/28/18 03:12 Anisocytosis 1+ (Not Present) A 03/29/18 06:45 Macrocytosis Present (Not Present) A 03/28/18 03:12 PT 12.3 Seconds (9.4-12.1) H 03/27/18 20:39 Sodium 135 mEq/L (136-145) L 03/29/18 06:45 POC Glucose 144 mg/dL (70-99) H 03/28/18 11:43 Calcium 7.5 mg/dL (8.6-10.3) L 03/29/18 06:45 Troponin I 3.38 ng/mL (< 0.04) H* 03/27/18 05:15 B-Natriuretic Peptide 2461 pg/mL (Less than 100) H 03/26/18 22:19 Serum Total Protein 4.5 g/dL (6.4-8.9) L 03/29/18 06:45 Albumin 2.3 g/dL (3.5-5.7) L 03/29/18 06:45 Globulin 2.2 g/dL (2.4-3.5) L 03/29/18 06:45 Albumin/Globulin Ratio 1.0 (1.1-2.2) L 03/29/18 06:45 Urine Protein 30 mg/dL (Neg-Trace) H 03/26/18 10:43 Urine Ketones 15 mg/dL (Negative) H 03/26/18 10:43 Urine Bilirubin Small (Negative) H 03/26/18 10:43 Ur Leukocyte Esterase Small (Negative) H 03/26/18 10:43 Urine Microscopic WBC 5-15 per hpf (0-3) H 03/26/18 10:43 Ur Squamous Epith Cells Many per lpf (None-Few) H 03/26/18 10:43 Ur Culture Indicated? NO. (NO) A 03/26/18 10:43 - Clinical Findings Intake & Output: Intake & Output 03/31/18 03/31/18 03/31/18 07:59 15:59 23:59 Intake Total 240 / 510 Output Total 150 / 150 Balance 90 / 360 - Attending Attestation I saw and evaluated this patient and my medical decision-making was reviewed with the Resident Physician. I agree with the documented findings, disposition and treatment plan as described except to the extent set forth below. We independently had [id number] contact with the patient Patient seen and examined at bedside Labs, radiology, chart personally reviewed. Patient is content oriented 3 no acute issues. Pulm: Supple oxygenation and ventilation reason for V/Q mismatch is mostly his bilateral pleural effusion some postoperative atelectasis this effusion is mostly concerned with the diastolic heart failure with high BNP. Cards: Red end STEMI had a cardiac catheter cardiology recommended medical management. Patient has acute on chronic diastolic heart failure to continue diuresis as per primary team Patient is recovering well will sign off and please call with questions .
--- NOTE | 2018-03-31 12:11 | Internal Med Progress Note ---
Hospitalist Progress Note - Encounter Date of Encounter: 03/31/18 Time of Encounter: 12:01 - Subjective Interval History: Cliffodr Ryan is a 77 year old female with a history of hypertension, hyperlipidemia, COPD, coronary artery disease and tobacco abuse. She was admitted here 1 week ago to undergo open repair of a juxtarenal abdominal aortic aneurysm that was 6.7cm on CT scan and increasing in size with symptoms. Postoperatively she was transferred to the intensive care unit intubated and in stable condition. She was extubated on postoperative day 0. She remained hemodynamically stable and on postoperative day #1 she was transferred to the floor. She had physical therapy and occupational therapy consultation. She received intravenous fluids. She had an elevated white blood cell count initial postoperative. This was felt to be reactive rather than an indication of infection. However she was treated with intravenous antibiotics by the daily release and dupe printer due to a suspected infection which later ruled out. The patient was also noted to have acute expected postoperative blood loss anemia. She remained hemodynamically stable and received one unit of packed red blood cells. Her diet was advanced. She was discharged to her [facility] in stable condition on postoperative day #5 without complications. she was discharged on 03/25, and readmitted on 03/27 for NSTEMI and post-op ileus acute on chronic diastolic CHF. 1. NSTEMI s/ cardaic cath on 03/27 showed There is severe three vessel coronary artery disease. LV- Lower limits of normal, EF45% There is good quality collateral vessel/vessels from the Distal LAD to the Mid Circumflex, RCA that are visualized., contineu ASA, statin and BB 2. possible acute on chronci systolic and diastolic CHF with EF 40% from [facility], add lasix 20 mg BID 3. pleural effusion, on lasix, check CXR 4. postop ileus, on miralx, KUB pending 5. AAA postop, weaning O2 down to 1 L 6.deconditioning, consult PT and OT d/c taylor possible discharge in 1-2 days - Exam Vitals: Temp Pulse Resp BP Pulse Ox 97.8 F 80 16 110/66 98 03/31/18 11:20 03/31/18 11:34 03/31/18 11:20 03/31/18 11:20 03/31/18 11:20 Exam: CONSTITUTIONAL: patient appears as an age appropriate female in no acute distress. EYES Clear sclerae, bilateral pupils are equal, reactive to light. EMOI. RESPIRATORY: No accessory muscle use, bilateral clear to auscultation, no wheezing, no crackles/rales. CARDIOVASCULAR: Regular heart rate, normal S1 and S2, no murmurs GASTROINTESTINAL: bowel sounds present, soft, no tenderness. MUSCULOSKELETAL: Joints in normal range of motion, no clubbing, + edema, no cyanosis. Bilateral peripheral pulses 2+. NEUROLOGIC: CN II to XII are grossly intact, no focal neurological deficit. - Assessment and Plan (1) AAA (abdominal aortic aneurysm) Current Visit: Yes Status: Chronic Assessment and Plan: s/p surgery, vascular surgery is ok to discharge (2) Essential hypertension Current Visit: Yes Status: Chronic Assessment and Plan: continue home meds (3) Pleural effusion Current Visit: Yes Status: Acute Assessment and Plan: likley from CHF exacerbation, on IV lasix (4) Postoperative ileus Current Visit: Yes Status: Acute Assessment and Plan: check KUB, has good BS, had BM yesterday, daily mirlax (5) Hyperlipidemia Current Visit: Yes Status: Chronic Assessment and Plan: on statin (6) NSTEMI (non-ST elevated myocardial infarction) Current Visit: Yes Status: Acute Assessment and Plan: s/p LHC on 03/27, showed There is severe three vessel coronary artery disease. LV- Lower limits of normal, EF45% There is good quality collateral vessel/vessels from the Distal LAD to the Mid Circumflex, RCA that are visualized. contineu ASA, plavix, statin BB (7) Atrial fibrillation with RVR Current Visit: Yes Status: Acute Assessment and Plan: job coach reviewed strip, not a-fib, no AC. possible APCs (8) Atelectasis of both lungs Current Visit: Yes Status: Acute Assessment and Plan: d/c levaquin today, ambulate the patient (9) Acute on chronic systolic CHF (congestive heart failure), NYHA class 1 Current Visit: Yes Status: Acute Assessment and Plan: acute on chronic diastolic and systolic CHF, add iv lasix - Summary of Assessment and Plan Summary of Assessment and Plan: check CXR, KUB, IV lasix, follow up lab am consult PT, ambulate the patient d/c vazquez - Time Spent with Patient Total time spent is greater than 50% in coordination of care (as documented) at patient's floor/unit and/or counseling patient: 25 - 35 minutes Plan of Care Discussed with: patient Internal Medicine: Result - Labs CBC & Chem 7: 03/29/18 06:45 03/29/18 14:47 - ABG Interpretation ABG results: PT/INR, D-dimer PT 12.3 Seconds (9.4-12.1) H 03/27/18 20:39 Consult Discharge Plan - Plan Referrals: NONE,PCP [Primary Care Provider] - (This patient is from [facility] no PCP appointment needed) (1) AAA (abdominal aortic aneurysm) Qualifiers: Presence of rupture: without rupture Qualified Code(s): I71.4 - Abdominal aortic aneurysm, without rupture (5) Hyperlipidemia Qualifiers: Hyperlipidemia type: mixed hyperlipidemia Qualified Code(s): E78.2 - Mixed hyperlipidemia
[2018-03-31] MEDS: Furosemide 20 MG/2 ML VIAL IVP SCH ×2 (14:00→18:22)
[2018-03-31] MEDS ORDERED: Acetaminophen 325 MG TABLET PO PRN (21:17)
[2018-04-01] MEDS: *HR* Heparin 5,000 UNIT/ML VIAL SQ SCH (05:30)
[2018-04-01 06:07] LABS: Basophils % 0.2 %; Eosinophils # 0.1 K/mcL (0.0-0.6); Eosinophils % 1.2 %; Hemoglobin 9.4 g/dL (11.5-15.4); Immature Granulocytes % 1.5 % (0-4); Lymphocytes # 0.8 K/mcL (0.6-4.6); Lymphocytes % 9.6 %; Mean Corpuscular HGB Conc 33.6 g/dL (31.6-35.5); Mean Corpuscular Hemoglobin 30.1 pg (28.0-33.3); Mean Corpuscular Volume 89.7 fL (83.0-100.0); Mean Platelet Volume 8.8 fL (9.4-12.4); Monocytes # 0.7 K/mcL (0.0-1.3); Monocytes % 8.4 %; Neutrophils # 6.9 K/mcL (1.6-8.9); Platelet Count 505 K/mcL (140-400); Red Blood Count 3.12 M/mcL (3.82-4.97); Segmented Neutrophils % 79.1 %
[2018-04-01 06:33] LABS: BUN/Creatinine Ratio 17 (6-26); Blood Urea Nitrogen 11 mg/dL (8-23); Carbon Dioxide 24 mEq/L (23-29); Chloride 102 mEq/L (98-107); Glucose 122 mg/dL (70-105); Magnesium 1.8 mg/dL (1.6-2.6); Osmolality,Calculated 279 (280-300); Potassium 2.6 mEq/L (3.5-5.1); Sodium 134 mEq/L (136-145); eGFR For Non-African Americans > 60 (> 60)
[2018-04-01] MEDS ORDERED: Potassium Chloride 40 MEQ, Lidocaine 1% 2 ML in D5% in Water 500 ML IVPB ONE (07:10)
[2018-04-01] MEDS ORDERED: Potassium Chloride Elixir 20 MEQ/15 ML UDC PO ONE (07:11)
[2018-04-01] MEDS: Budesonide/Formoterol 80/4.5 MDI IH SCH (07:42)
[2018-04-01] MEDS: Multivit/Ca/Min/Fe/FA 1 TAB TABLET PO SCH (07:58)
[2018-04-01] MEDS: Furosemide 20 MG/2 ML VIAL IVP SCH ×2 (07:58→17:01)
[2018-04-01] MEDS: Aspirin 81 MG TAB.CHEW PO SCH (07:59)
[2018-04-01] MEDS: Isosorbide MONOnitrate (24 HR) 60 MG TAB.ER.24H PO SCH (07:59)
--- NOTE | 2018-04-01 15:27 | Discharge Summary ---
Orders not resulted at time of discharge: Pending orders 04/02/18 04:00 Chem 7 [Basic Metabolic Panel] AM 0400 Magnesium AM 0400 Date of Encounter: 04/01/18 Time of Encounter: 15:24 - Discharge Diagnosis (1) AAA (abdominal aortic aneurysm) Priority: Secondary Status: Chronic (2) Essential hypertension Priority: Secondary Status: Chronic (3) Pleural effusion Priority: Secondary Status: Acute (4) Postoperative ileus Priority: Secondary Status: Resolved (5) Hyperlipidemia Priority: Secondary Status: Chronic Qualifiers: Hyperlipidemia type: mixed hyperlipidemia Qualified Code(s): E78.2 - Mixed hyperlipidemia (6) NSTEMI (non-ST elevated myocardial infarction) Priority: Primary Status: Resolved (7) Atrial fibrillation with RVR Priority: Secondary Status: Ruled-out (8) Atelectasis of both lungs Priority: Secondary Status: Chronic (9) Acute on chronic systolic CHF (congestive heart failure), NYHA class 1 Priority: Secondary Status: Resolved Hospital course: Clifford Ryan is a 77 year old female with a history of hypertension, hyperlipidemia, COPD, coronary artery disease and tobacco abuse. She was admitted here 1 week ago to undergo open repair of a juxtarenal abdominal aortic aneurysm that was 6.7cm on CT scan and increasing in size with symptoms. Postoperatively she was transferred to the intensive care unit intubated and in stable condition. She was extubated on postoperative day 0. She remained hemodynamically stable and on postoperative day #1 she was transferred to the floor. She had physical therapy and occupational therapy consultation. She received intravenous fluids. She had an elevated white blood cell count initial postoperative. This was felt to be reactive rather than an indication of infection. However she was treated with intravenous antibiotics by the motor vehicle parts interpreter due to a suspected infection which later ruled out. The patient was also noted to have acute expected postoperative blood loss anemia. She remained hemodynamically stable and received one unit of packed red blood cells. Her diet was advanced. She was discharged to her [facility] in stable condition on postoperative day #5 without complications. she was discharged on 03/25, and readmitted on 03/27 for NSTEMI and post-op ileus acute on chronic diastolic CHF. 1. NSTEMI s/ cardaic cath on 03/27 showed There is severe three vessel coronary artery disease. LV- Lower limits of normal, EF45% There is good quality collateral vessel/vessels from the Distal LAD to the Mid Circumflex, RCA that are visualized., contineu ASA, statin and BB 2. possible acute on chronci systolic and diastolic CHF with EF 45 % from [facility], discharge on oral lasix 3. pleural effusion from CHF, on lasix, 4. postop ileus, on miralx, KUB showed improvement. tolerated diet, has BM daily 5. AAA postop, surgeon is ok to discharge 6.deconditioning, consult PT and OT, back to SNF 7. Hypokalemia, replaced and normal on discharge Discharge discussed with: patient Time spent discussing smoking cessation with patient: more than 10 minutes - Time Spent with Patient Total time spent providing and/or coordinating discharge services: Greater than 30 minutes - Discharge Medications Prescriptions: OxyCODONE/APAP 5/325 [Percocet 5/325 MG] 1 each PO Q6HR PRN 7 Days #25 tablet PRN Reason: Postoperative pain Furosemide [Lasix] 20 mg PO DAILY #14 tablet Potassium Chloride 20 meq PO DAILY #14 tab.er.prt Home Medications: Aspirin 81 mg PO DAILY 06/26/15 [History] Citalopram [CeleXA] 10 mg PO DAILY 10/19/15 [History] Trospium Chloride [Trospium Chloride ER] 60 mg PO DAILY 07/14/16 [History] Docusate [Colace] 100 mg PO BID PRN 07/23/16 [History] Ipratropium/Albuterol Sulfate [Combivent Respimat Inhal Kalama] 4 gm IH QID PRN 07/23/16 [History] Multivit-Min/FA/Lycopen/Lutein [Centrum Silver Tablet] 1 tab PO DAILY 07/23/16 [ History] Ferrous Sulfate 325 mg PO BIDWM tablet 08/11/16 [Rx] Metoprolol [Lopressor] 12.5 mg PO BID tablet 08/11/16 [Rx] Ondansetron ODT [Zofran ODT] 4 mg SL Q6HR PRN #0 tab.rapdis 08/11/16 [Rx] Pantoprazole Sodium [Protonix] 20 mg PO DAILY 03/20/18 [History] Sennosides/Docusate Sodium [Senna Plus] 2 tab PO DAILY PRN 03/20/18 [History] Bisacodyl [Dulcolax] 10 mg RC ONCE 03/26/18 [History] Atorvastatin Calcium [Lipitor] 20 mg PO HS 03/27/18 [History] Clopidogrel [Plavix] 75 mg PO DAILY 03/27/18 [History] Polyethylene Glycol 3350 [MiraLAX] 17 gm PO DAILY 03/27/18 [History] Furosemide [Lasix] 20 mg PO DAILY #14 tablet 04/01/18 [Rx] Isosorbide MONOnitrate (24 HR) [Imdur] 60 mg PO DAILY tab.er.24h 04/01/18 [Rx] OxyCODONE/APAP 5/325 [Percocet 5/325 MG] 1 each PO Q6HR PRN 7 Days #25 tablet [Rx] Potassium Chloride 20 meq PO DAILY #14 tab.er.prt 04/01/18 [Rx] Allergies/Adverse Reactions: 3 Allergy/AdvReac Type Severity Reaction Status Date / Time codeine Allergy Severe Anaphylaxis Verified 03/27/18 16:39 Date of admission: 03/31/18 10:01 Primary care physician: PCP NONE Consults: 03/31/18 11:53 Consult to Occupational Therapy [CONS] Routine Comment: Evaluate, develop and implement POC Reason for Consult: discharge Does patient have active BEDREST order?: No Is patient medically & hemodynamically stable?: Yes Patient assessed for mobility or mobilized this visit?: Yes Consult to Physical Therapy [CONS] Routine Comment: Evaluate, develop and implement POC Reason for Consult: weakness Does patient have active BEDREST order?: No Is patient medically & hemodynamically stable?: Yes Patient assessed for mobility or mobilized this visit?: Yes Discharging clinician: Otoniel Razo Anticipated date of discharge: 04/01/18 - Constitutional Vitals: Temp Pulse Resp BP Pulse Ox 97.4 F L 87 18 93/58 95 04/01/18 11:26 04/01/18 11:26 04/01/18 11:26 04/01/18 11:26 04/01/18 11:26 General appearance: Present: A&O X 3, pleasant, answers questions appropriately Exam: CONSTITUTIONAL: patient appears as an age appropriate female in no acute distress. EYES Clear sclerae, bilateral pupils are equal, reactive to light. EMOI. RESPIRATORY: No accessory muscle use, bilateral clear to auscultation, no wheezing, no crackles/rales. CARDIOVASCULAR: Regular heart rate, normal S1 and S2, no murmurs GASTROINTESTINAL: bowel sounds present, soft, no tenderness. MUSCULOSKELETAL: Joints in normal range of motion, no clubbing, no edema, no cyanosis. Bilateral peripheral pulses 2+. NEUROLOGIC: CN II to XII are grossly intact, no focal neurological deficit. - Patient Status Disposition: Transfer SNF Condition: Good Functional capacity at discharge: wheelchair bound Overall status at discharge: patient is not back to baseline - Discharge Instructions Follow Up With: NONE,PCP [Primary Care Provider] - (This patient is from [facility] no PCP appointment needed) Additional Instructions: check BMP in 1 week - VTE Documentation of Mechanical Device: Intermittent pneumatic compression device
[2018-04-01 15:32] VITALS: BP 96/56
--- NOTE | 2018-04-01 16:08 | Physician Discharge Referral ---
ExtendedCare Referral Info Transfer To: SNF Provider in Charge after Transfer: PCP - Diagnosis (1) AAA (abdominal aortic aneurysm) Status: Chronic (2) Essential hypertension Status: Chronic (3) Pleural effusion Status: Acute (4) Postoperative ileus Status: Resolved (5) Hyperlipidemia Status: Chronic (6) NSTEMI (non-ST elevated myocardial infarction) Status: Resolved (7) Atrial fibrillation with RVR Status: Ruled-out (8) Atelectasis of both lungs Status: Chronic (9) Acute on chronic systolic CHF (congestive heart failure), NYHA class 1 Status: Resolved - Transfer Medications Prescriptions: OxyCODONE/APAP 5/325 [Percocet 5/325 MG] 1 each PO Q6HR PRN 7 Days #25 tablet PRN Reason: Postoperative pain Furosemide [Lasix] 20 mg PO DAILY #14 tablet Potassium Chloride 20 meq PO DAILY #14 tab.er.prt Home Medications: Aspirin 81 mg PO DAILY 06/26/15 [History] Citalopram [CeleXA] 10 mg PO DAILY 10/19/15 [History] Trospium Chloride [Trospium Chloride ER] 60 mg PO DAILY 07/14/16 [History] Docusate [Colace] 100 mg PO BID PRN 07/23/16 [History] Ipratropium/Albuterol Sulfate [Combivent Respimat Inhal [place]] 4 gm IH QID PRN 07/23/16 [History] Multivit-Min/FA/Lycopen/Lutein [Centrum Silver Tablet] 1 tab PO DAILY 07/23/16 [ History] Ferrous Sulfate 325 mg PO BIDWM tablet 08/11/16 [Rx] Metoprolol [Lopressor] 12.5 mg PO BID tablet 08/11/16 [Rx] Ondansetron ODT [Zofran ODT] 4 mg SL Q6HR PRN #0 tab.rapdis 08/11/16 [Rx] Pantoprazole Sodium [Protonix] 20 mg PO DAILY 03/20/18 [History] Sennosides/Docusate Sodium [Senna Plus] 2 tab PO DAILY PRN 03/20/18 [History] Bisacodyl [Dulcolax] 10 mg RC ONCE 03/26/18 [History] Atorvastatin Calcium [Lipitor] 20 mg PO HS 03/27/18 [History] Clopidogrel [Plavix] 75 mg PO DAILY 03/27/18 [History] Polyethylene Glycol 3350 [MiraLAX] 17 gm PO DAILY 03/27/18 [History] Furosemide [Lasix] 20 mg PO DAILY #14 tablet 04/01/18 [Rx] Isosorbide MONOnitrate (24 HR) [Imdur] 60 mg PO DAILY tab.er.24h 04/01/18 [Rx] OxyCODONE/APAP 5/325 [Percocet 5/325 MG] 1 each PO Q6HR PRN 7 Days #25 tablet [Rx] Potassium Chloride 20 meq PO DAILY #14 tab.er.prt 04/01/18 [Rx] Allergies/Adverse Reactions: 3 Allergy/AdvReac Type Severity Reaction Status Date / Time codeine Allergy Severe Anaphylaxis Verified 03/27/18 16:39 - Respiratory Orders None Smoking Cessation: Smoking cessation has been advised. For more information, call the [employer] Tobacco Quit Line at 1-449-PRWB-NOW. - Lab Orders Lab Orders: Other (include drug levels w/frequency) (BMP in 1 week) - Advance Directives Code Status: Full Code - Mobility Orders Ambulate - Rehabiliation Orders Rehab Potential: Good Rehab Orders: Evaluation for Physical Therapy, Evaluation for Occupational Therapy, Evaluation for Speech Therapy - Diet Orders Cardiac CERTIFICATION: I certify that the transfer of the above named patient to an Extended Care Facility is necessary for the continuing treatment of the diagnosis listed. The above information is true and accurate reflection of patient's current condition. Confidential - Redisclosure prohibited without a patient's written consent.
[2018-04-02] MEDS ORDERED: Furosemide 20 MG TABLET PO SCH (09:00)
== END 2018-04-01 18:47 | DRG 280 ==
LOC: 2NNU 22:10 → EMEROO 22:10 → SUATTDRO 03-27 04:22 → 2NNU 03-27 04:45
PROVIDERS: ADMIT Student in an Organized Health Care Education/Training Program; ATTEND Hospitalist

== ENCOUNTER 2018-04-15 16:31 | Inpatient (IN) ==
[2018-04-15] MEDS ORDERED: Isovue-370 500 ML INFUS..BTL IV ONE (17:18)
[2018-04-15] MEDS ORDERED: 0.9 % Sodium Chloride 1,000 ML ONE (17:20)
--- NOTE | 2018-04-15 17:37 | Emergency Department Note ---
Disposition Clinical Impression: GI bleed Disposition: Admitted As Inpatient Condition: Fair GI Bleed HPI - General Chief complaint: ED GI Bleed Stated complaint: Rectal Bleed Time Seen by Provider: 04/15/18 17:05 Source: patient, EMS Mode of arrival: EMS Limitations: no limitations Nursing Notes Reviewed: Yes Vital Signs Reviewed: Yes - History of Present Illness HPI Narrative: Patient is 77 yo female with recent AAA open abdominal surgery with stent placement presents today with bright red blood coming out of the rectum and LLQ abdominal pain. Patient reports of the bleeding started this AM with patient was at rest. The assisted caregiver saw of continuous rectum bleeding and called the ambulance. Patient denies any history of GI bleeds and is currently not taking any blood thinner. Patient denies fever, chills, nausea, vomiting, or diarrhea, or any further symptoms at this time. Pt Subjective Complaint: gross hematochezia Onset (ago): hour(s) Consistency: constant Improves with: nothing Worsens with: nothing Context: other (recent AAA graft bypass surgery on March 20) Associated symptoms: Reports: abdominal pain. Denies: nausea, vomiting, fever, chills Treatments Prior to Arrival: none - Related Data Home Medications Medication Instructions Recorded Confirmed Aspirin 81 mg PO DAILY 06/26/15 04/15/18 Citalopram [CeleXA] 10 mg PO DAILY 10/19/15 04/15/18 Docusate [Colace] 100 mg PO BID PRN 07/23/16 04/15/18 Ipratropium/Albuterol Sulfate 4 gm IH QID PRN 07/23/16 04/15/18 [Combivent Respimat Inhal [place]] Multivit-Min/FA/Lycopen/Lutein 1 tab PO DAILY 07/23/16 04/15/18 [Centrum Silver Tablet] Pantoprazole Sodium [Protonix] 20 mg PO DAILY 03/20/18 04/15/18 Sennosides/Docusate Sodium [Senna 2 tab PO DAILY PRN 03/20/18 04/15/18 Plus] Atorvastatin Calcium [Lipitor] 20 mg PO HS 03/27/18 04/15/18 Clopidogrel [Plavix] 75 mg PO DAILY 03/27/18 04/15/18 Polyethylene Glycol 3350 [MiraLAX] 17 gm PO DAILY 08/02/18 08/21/18 Oxybutynin Chloride [Ditropan Xl] 10 mg PO DAILY 04/15/18 04/15/18 Previous Rx's Medication Instructions Recorded Ferrous Sulfate 325 mg PO BIDWM tablet 08/11/16 Metoprolol [Lopressor] 12.5 mg PO BID tablet 08/11/16 Ondansetron ODT [Zofran ODT] 4 mg SL Q6HR PRN #0 tab.rapdis 08/11/16 Furosemide [Lasix] 20 mg PO DAILY #14 tablet 04/01/18 Isosorbide MONOnitrate (24 HR) 60 mg PO DAILY tab.er.24h 04/01/18 [Imdur] OxyCODONE/APAP 5/325 [Percocet 1 each PO Q6HR PRN 7 Days #25 04/01/18 5/325 MG] tablet Potassium Chloride 20 meq PO DAILY #14 tab.er.prt 04/01/18 Allergies Allergy/AdvReac Type Severity Reaction Status Date / Time codeine Allergy Severe Anaphylaxis Verified 03/27/18 16:39 All systems ED: reviewed and negative except as stated. Constitutional: Denies: fever, chills Cardiovascular: Denies: chest pain, palpitations, syncope Respiratory: Denies: cough, dyspnea Gastrointestinal: Reports: abdominal pain (LLQ), hematochezia. Denies: nausea, vomiting, diarrhea, hematemesis Genitourinary: Denies: urgency, dysuria Musculoskeletal: Denies: back pain Integumentary: Denies: rash Neurological: Denies: headache, weakness Endocrine: Reports: fatigue Past Medical History - Past Medical History Medical history: Reports: asthma, cancer, COPD, coronary artery disease, CVA, hypertension, other Surgical history: Reports: breast surgery Psychiatric history: Reports: anxiety, depression, panic disorder LOCKER ATTENDANT history: Reports: no LOCKER ATTENDANT history - Social History Smoking Status: Current every day smoker Smokeless Tobacco Status: No Alcohol use: Reports: rarely Drug use: Reports: marijuana Physical Exam - General Limitations: no limitations General appearance: alert, in no apparent distress, in distress - Head Head exam: atraumatic, normocephalic, normal inspection - Eye Eye exam: Present: normal appearance, PERRL - ENT ENT exam: normal exam, normal oropharynx - Neck Neck exam: Present: normal inspection, full ROM. Absent: tenderness - Chest Chest inspection: Present: normal inspection, symmetric chest wall rise - Respiratory Respiratory exam: Present: normal lung sounds bilaterally. Absent: respiratory distress, wheezes, accessory muscle use - Cardiovascular Cardiovascular exam: Present: normal rhythm, tachycardia, normal heart sounds - Abdominal Exam Abdominal exam: Present: soft, tenderness, normal bowel sounds. Absent: distention, guarding, rebound Abdominal tenderness: Present: RUQ, LLQ - Rectal Exam Detail Drafter present during exam: Yes Rectal exam: Present: normal rectal tone, heme (+) stool, hemorrhoids. Absent: bloody stool, fecal impaction - Extremities Exam Extremities exam: Present: normal inspection, full ROM - Back Exam Back exam: Present: normal inspection - Neurological Exam Neurological exam: Present: alert, oriented X3 - Psychiatric Psychiatric exam: Present: normal affect, normal mood - Skin Skin exam: Present: pallor Course Vital Signs Temperature 97.6 F 04/15/18 16:37 Pulse Rate 104 04/15/18 16:37 Respiratory Rate 18 04/15/18 16:37 Blood Pressure 103/61 04/15/18 16:37 O2 Sat by Pulse Oximetry 96 04/15/18 16:37 Temperature 98.0 F 04/15/18 23:48 Pulse Rate 100 04/15/18 23:48 Respiratory Rate 15 04/15/18 23:48 Blood Pressure 111/61 04/15/18 23:48 O2 Sat by Pulse Oximetry 96 04/15/18 23:48 Oxygen Delivery Oxygen Delivery Nasal Cannula GI Bleed - Lab Data Result diagrams: 04/15/18 18:15 04/15/18 18:15 Lab Results 04/15/18 04/15/18 04/15/18 Range/Units 18:15 18:15 18:15 WBC 7.9 (4.3-11.1) K/mcL RBC 2.87 L (3.82-4.97) M/mcL Hgb 8.9 L (11.5-15.4) g/dL Hct 27.1 L (35.3-44.9) % MCV 94.4 (83.0-100.0) fL MCH 31.0 (28.0-33.3) pg MCHC 32.8 (31.6-35.5) g/dL RDW 15.1 H (11.5-14.5) % Plt Count 269 (140-400) K/mcL MPV 8.7 L (9.4-12.4) fL PT 12.7 H (9.4-12.1) Seconds INR 1.1 Sodium 127 L (136-145) mEq/L Potassium 4.1 (3.5-5.1) mEq/L Chloride 101 (98-107) mEq/L Carbon Dioxide 21 L (23-29) mEq/L BUN 17 (8-23) mg/dL Creatinine 0.50 L (0.60-1.20) mg/dL Est GFR ( Amer) > 60 (> 60) Est GFR (Non-Af Amer) > 60 (> 60) BUN/Creatinine Ratio 34 H (6-26) Glucose 104 (70-105) mg/dL Calculated Osmolality 266 L (280-300) Lactic Acid (0.5-2.2) mmol/L Calcium 8.1 L (8.6-10.3) mg/dL Blood Type Antibody Screen Crossmatch 04/15/18 04/15/18 Range/Units 18:15 18:15 WBC (4.3-11.1) K/mcL RBC (3.82-4.97) M/mcL Hgb (11.5-15.4) g/dL Hct (35.3-44.9) % MCV (83.0-100.0) fL MCH (28.0-33.3) pg MCHC (31.6-35.5) g/dL RDW (11.5-14.5) % Plt Count (140-400) K/mcL MPV (9.4-12.4) fL PT (9.4-12.1) Seconds INR Sodium (136-145) mEq/L Potassium (3.5-5.1) mEq/L Chloride (98-107) mEq/L Carbon Dioxide (23-29) mEq/L BUN (8-23) mg/dL Creatinine (0.60-1.20) mg/dL Est GFR ( Amer) (> 60) Est GFR (Non-Af Amer) (> 60) BUN/Creatinine Ratio (6-26) Glucose (70-105) mg/dL Calculated Osmolality (280-300) Lactic Acid 1.9 (0.5-2.2) mmol/L Calcium (8.6-10.3) mg/dL Blood Type AB POSITIVE Antibody Screen NEGATIVE Crossmatch See Detail
[2018-04-15 18:27] LABS: Hematocrit 27.1 % (35.3-44.9); Hemoglobin 8.9 g/dL (11.5-15.4); Mean Corpuscular HGB Conc 32.8 g/dL (31.6-35.5); Mean Corpuscular Volume 94.4 fL (83.0-100.0); Mean Platelet Volume 8.7 fL (9.4-12.4); Platelet Count 269 K/mcL (140-400); Red Blood Count 2.87 M/mcL (3.82-4.97); Red Cell Distribution Width 15.1 % (11.5-14.5)
[2018-04-15 18:33] LABS: INR 1.1; Prothrombin Time 12.7 Seconds (9.4-12.1)
[2018-04-15] MEDS ORDERED: Pantoprazole 40 MG VIAL IVP ONE (18:43)
--- NOTE | 2018-04-15 18:43 | Emergency Department Note ---
Disposition Clinical Impression: GI bleed Qualifiers: GI bleed type/associated pathology: unspecified gastrointestinal hemorrhage type Qualified Code(s): K92.2 - Gastrointestinal hemorrhage, unspecified Disposition: Admitted As Inpatient Condition: Fair GI Bleed HPI - General Chief complaint: ED GI Bleed Stated complaint: Rectal Bleed Time Seen by Provider: 04/15/18 17:05 Source: patient, EMS Mode of arrival: EMS Limitations: no limitations Nursing Notes Reviewed: Yes Vital Signs Reviewed: Yes - History of Present Illness HPI Narrative: Patient is 77 yo female with recent AAA open abdominal surgery with stent placement presents today with bright red blood coming out of the rectum and LLQ abdominal pain. Patient reports of the bleeding started this AM with patient was at rest. The custodial caregiver saw of continuous rectum bleeding and called the ambulance. Patient denies any history of GI bleeds and is currently not taking any blood thinner. Patient denies fever, chills, nausea, vomiting, or diarrhea, or any further symptoms at this time. I have re-performed and reviewed the history documented by the medical student, and I confirm its accuracy except as noted below Pt Subjective Complaint: gross hematochezia Improves with: nothing Worsens with: nothing Context: other (recent AAA graft bypass surgery on March 20) Associated symptoms: Reports: abdominal pain. Denies: nausea, vomiting, fever, chills Treatments Prior to Arrival: none - Related Data Home Medications Medication Instructions Recorded Confirmed Aspirin 81 mg PO DAILY 06/26/15 04/15/18 Citalopram [CeleXA] 10 mg PO DAILY 10/19/15 04/15/18 Docusate [Colace] 100 mg PO BID PRN 07/23/16 04/15/18 Ipratropium/Albuterol Sulfate 4 gm IH QID PRN 07/23/16 04/15/18 [Combivent Respimat Inhal [place]] Multivit-Min/FA/Lycopen/Lutein 1 tab PO DAILY 07/23/16 04/15/18 [Centrum Silver Tablet] Pantoprazole Sodium [Protonix] 20 mg PO DAILY 03/20/18 04/15/18 Sennosides/Docusate Sodium [Senna 2 tab PO DAILY PRN 03/20/18 04/15/18 Plus] Atorvastatin Calcium [Lipitor] 20 mg PO HS 03/27/18 04/15/18 Clopidogrel [Plavix] 75 mg PO DAILY 03/27/18 04/15/18 Polyethylene Glycol 3350 [MiraLAX] 17 gm PO DAILY 03/27/18 04/15/18 Oxybutynin Chloride [Ditropan Xl] 10 mg PO DAILY 04/15/18 04/15/18 Previous Rx's Medication Instructions Recorded Ferrous Sulfate 325 mg PO BIDWM tablet 08/11/16 Metoprolol [Lopressor] 12.5 mg PO BID tablet 08/11/16 Ondansetron ODT [Zofran ODT] 4 mg SL Q6HR PRN #0 tab.rapdis 08/11/16 Furosemide [Lasix] 20 mg PO DAILY #14 tablet 04/01/18 Isosorbide MONOnitrate (24 HR) 60 mg PO DAILY tab.er.24h 04/01/18 [Imdur] OxyCODONE/APAP 5/325 [Percocet 1 each PO Q6HR PRN 7 Days #25 04/01/18 5/325 MG] tablet Potassium Chloride 20 meq PO DAILY #14 tab.er.prt 04/01/18 Allergies Allergy/AdvReac Type Severity Reaction Status Date / Time codeine Allergy Severe Anaphylaxis Verified 03/27/18 16:39 All systems ED: reviewed and negative except as stated. Constitutional: Denies: fever, chills Cardiovascular: Denies: chest pain, palpitations, syncope Respiratory: Denies: cough, dyspnea Gastrointestinal: Reports: abdominal pain, hematochezia. Denies: nausea, vomiting, diarrhea, hematemesis Genitourinary: Denies: urgency, dysuria Musculoskeletal: Denies: back pain Neurological: Denies: headache, weakness Psychiatric: Denies: anxiety, depression Endocrine: Reports: fatigue Past Medical History - Past Medical History Medical history: Reports: asthma, cancer, COPD, coronary artery disease, CVA, hypertension, other Surgical history: Reports: breast surgery Psychiatric history: Reports: anxiety, depression, panic disorder WATER MECHANIC history: Reports: no WATER MECHANIC history - Social History Smoking Status: Current every day smoker Smokeless Tobacco Status: No Alcohol use: Reports: rarely Drug use: Reports: marijuana Physical Exam - General Limitations: no limitations General appearance: alert, in no apparent distress - Head Head exam: atraumatic, normocephalic, normal inspection - Eye Eye exam: Present: normal appearance, PERRL, EOMI - ENT ENT exam: normal exam, normal oropharynx - Neck Neck exam: Present: normal inspection. Absent: tenderness, meningismus - Chest Chest inspection: Present: normal inspection, symmetric chest wall rise - Respiratory Respiratory exam: Present: normal lung sounds bilaterally. Absent: respiratory distress, accessory muscle use - Cardiovascular Cardiovascular exam: Present: normal rhythm, tachycardia, normal heart sounds - Abdominal Exam Abdominal exam: Present: soft, tenderness. Absent: distention, guarding, rebound, rigidity Abdominal tenderness: Present: RUQ, LLQ - Rectal Exam Commercial Roofing Estimator present during exam: Yes Rectal exam: Present: normal rectal tone, heme (+) stool, hemorrhoids. Absent: fecal impaction - Extremities Exam Extremities exam: Present: normal inspection, full ROM - Back Exam Back exam: Present: normal inspection - Neurological Exam Neurological exam: Present: alert, oriented X3 - Psychiatric Psychiatric exam: Present: normal affect, normal mood - Skin Skin exam: Present: pallor Course Vital Signs Temperature 97.6 F 04/15/18 16:37 Pulse Rate 104 04/15/18 16:37 Respiratory Rate 18 04/15/18 16:37 Blood Pressure 103/61 04/15/18 16:37 O2 Sat by Pulse Oximetry 96 04/15/18 16:37 Temperature 98.0 F 04/15/18 23:48 Pulse Rate 100 04/15/18 23:48 Respiratory Rate 15 04/15/18 23:48 Blood Pressure 111/61 04/15/18 23:48 O2 Sat by Pulse Oximetry 96 04/15/18 23:48 Oxygen Delivery Oxygen Delivery Nasal Cannula GI Bleed - [facility] Narrative Medical decision making narrative: 77-year-old female presents emergency department with concern for rectal bleeding with left lower quadrant abdominal pain. Patient had open repair and grafting of an abdominal aortic aneurysm less than 1 month ago. Initial concern was for possibility of aortoenteric fistula. Patient was initially tachycardic, but was not hypotensive. She did have a lot of hematocheziaappreciated on physical exam. Was also hemorrhoids, but did not think that this was the true cause of the bleeding. CT scan of abdomen and pelvis revealed mild induration of the perirectal fat with local inflammation. There is concern for possibility of colitis. Patient was given Cipro and Flagyl. Patient was also given a liter of fluids here in the emergency department. Hemoglobin was stable at 8.9. Patient remained stable throughout her stay. Heart rate improved after administration of normal saline. Spoke with the hospitalist who agreed to accept the patient for admission. He requested that I obtain blood cultures. He also requested to order a unit of blood but hold transfusion at this time. Patient was also given protonix in the emergency department as I cannot completely rule out an upper GI bleed at this time even though the GI bleed is mostly lower in nature. Patient admitted for further evaluation. Hemodynamically stable at time of admission. Abdomen/Pelvis CTA 04/15/18 17:18 IMPRESSION: Status post abdominal aortic aneurysm repair with interval decrease in size of the aneurysm sac. No evidence for leak or acute aortic abnormality. Findings consistent with postoperative fluid, which is likely resolving blood products, near the left side of the aorta. Attention to on follow-up is recommended. Moderate stool burden with rectal distention and mild induration of the perirectal fat. Fecal impaction or local inflammation should be considered in the appropriate clinical setting. D/ / Koko Holland / Koko Holland Interpreting Provider: Koko Holland Vital Signs Temperature 97.6 F 04/15/18 16:37 Pulse Rate 104 04/15/18 16:37 Respiratory Rate 18 04/15/18 16:37 Blood Pressure 103/61 04/15/18 16:37 O2 Sat by Pulse Oximetry 96 04/15/18 16:37 Temperature 98.0 F 04/15/18 23:48 Pulse Rate 100 04/15/18 23:48 Respiratory Rate 15 04/15/18 23:48 Blood Pressure 111/61 04/15/18 23:48 O2 Sat by Pulse Oximetry 96 04/15/18 23:48 Oxygen Delivery Oxygen Delivery Nasal Cannula - Lab Data Result diagrams: 04/15/18 18:15 04/15/18 18:15 Lab Results 04/15/18 04/15/18 04/15/18 Range/Units 18:15 18:15 18:15 WBC 7.9 (4.3-11.1) K/mcL RBC 2.87 L (3.82-4.97) M/mcL Hgb 8.9 L (11.5-15.4) g/dL Hct 27.1 L (35.3-44.9) % MCV 94.4 (83.0-100.0) fL MCH 31.0 (28.0-33.3) pg MCHC 32.8 (31.6-35.5) g/dL RDW 15.1 H (11.5-14.5) % Plt Count 269 (140-400) K/mcL MPV 8.7 L (9.4-12.4) fL PT 12.7 H (9.4-12.1) Seconds INR 1.1 Sodium 127 L (136-145) mEq/L Potassium 4.1 (3.5-5.1) mEq/L Chloride 101 (98-107) mEq/L Carbon Dioxide 21 L (23-29) mEq/L BUN 17 (8-23) mg/dL Creatinine 0.50 L (0.60-1.20) mg/dL Est GFR ( Amer) > 60 (> 60) Est GFR (Non-Af Amer) > 60 (> 60) BUN/Creatinine Ratio 34 H (6-26) Glucose 104 (70-105) mg/dL Calculated Osmolality 266 L (280-300) Lactic Acid (0.5-2.2) mmol/L Calcium 8.1 L (8.6-10.3) mg/dL Blood Type Antibody Screen Crossmatch 04/15/18 04/15/18 Range/Units 18:15 18:15 WBC (4.3-11.1) K/mcL RBC (3.82-4.97) M/mcL Hgb (11.5-15.4) g/dL Hct (35.3-44.9) % MCV (83.0-100.0) fL MCH (28.0-33.3) pg MCHC (31.6-35.5) g/dL RDW (11.5-14.5) % Plt Count (140-400) K/mcL MPV (9.4-12.4) fL PT (9.4-12.1) Seconds INR Sodium (136-145) mEq/L Potassium (3.5-5.1) mEq/L Chloride (98-107) mEq/L Carbon Dioxide (23-29) mEq/L BUN (8-23) mg/dL Creatinine (0.60-1.20) mg/dL Est GFR ( Amer) (> 60) Est GFR (Non-Af Amer) (> 60) BUN/Creatinine Ratio (6-26) Glucose (70-105) mg/dL Calculated Osmolality (280-300) Lactic Acid 1.9 (0.5-2.2) mmol/L Calcium (8.6-10.3) mg/dL Blood Type AB POSITIVE Antibody Screen NEGATIVE Crossmatch See Detail - EKG Data EKG attestation: Yes I reviewed and interpreted this EKG. EKG results narrative: Heart rate 103, IL 138 ms, QRS duration 89 ms, QT 364 ms, QTC 477 ms, left axis deviation. Sinus tachycardia with a ventricular rate of 103 bpm. No evidence of any ischemic ST changes on this EKG.
[2018-04-15 18:44] LABS: BUN/Creatinine Ratio 34 (6-26); Blood Urea Nitrogen 17 mg/dL (8-23); Calcium 8.1 mg/dL (8.6-10.3); Carbon Dioxide 21 mEq/L (23-29); Chloride 101 mEq/L (98-107); Glucose 104 mg/dL (70-105); Osmolality,Calculated 266 (280-300); Potassium 4.1 mEq/L (3.5-5.1); Sodium 127 mEq/L (136-145); eGFR For Non-African Americans > 60 (> 60)
[2018-04-15] MEDS ORDERED: *HR* FentaNYL (PF) 100 MCG/2 ML VIAL IVP ONE (18:44)
[2018-04-15] MEDS ORDERED: MetroNIDAZOLE 500 MG/100 ML 500 MG/100 ML BAG IVPB ONE (19:54)
--- NOTE | 2018-04-15 21:08 | Emergency Department Note ---
Disposition Clinical Impression: GI bleed Qualifiers: GI bleed type/associated pathology: unspecified gastrointestinal hemorrhage type Qualified Code(s): K92.2 - Gastrointestinal hemorrhage, unspecified Disposition: Admitted As Inpatient Condition: Fair General Adult HPI - General Chief complaint: ED GI Bleed Stated complaint: Rectal Bleed Time Seen by Provider: 04/15/18 17:05 Source: patient, EMS Mode of arrival: EMS Limitations: no limitations - History of Present Illness Pain Scale: 4 - Related Data Home Medications Medication Instructions Recorded Confirmed Aspirin 81 mg PO DAILY 06/26/15 04/15/18 Citalopram [CeleXA] 10 mg PO DAILY 10/19/15 04/15/18 Docusate [Colace] 100 mg PO BID PRN 07/23/16 04/15/18 Ipratropium/Albuterol Sulfate 4 gm IH QID PRN 07/23/16 04/15/18 [Combivent Respimat Inhal [place]] Multivit-Min/FA/Lycopen/Lutein 1 tab PO DAILY 07/23/16 04/15/18 [Centrum Silver Tablet] Pantoprazole Sodium [Protonix] 20 mg PO DAILY 03/20/18 04/15/18 Sennosides/Docusate Sodium [Senna 2 tab PO DAILY PRN 03/20/18 04/15/18 Plus] Atorvastatin Calcium [Lipitor] 20 mg PO HS 03/27/18 04/15/18 Clopidogrel [Plavix] 75 mg PO DAILY 03/27/18 04/15/18 Polyethylene Glycol 3350 [MiraLAX] 17 gm PO DAILY 03/27/18 04/15/18 Oxybutynin Chloride [Ditropan Xl] 10 mg PO DAILY 04/15/18 04/15/18 Previous Rx's Medication Instructions Recorded Ferrous Sulfate 325 mg PO BIDWM tablet 08/11/16 Metoprolol [Lopressor] 12.5 mg PO BID tablet 08/11/16 Ondansetron ODT [Zofran ODT] 4 mg SL Q6HR PRN #0 tab.rapdis 08/11/16 Furosemide [Lasix] 20 mg PO DAILY #14 tablet 04/01/18 Isosorbide MONOnitrate (24 HR) 60 mg PO DAILY tab.er.24h 04/01/18 [Imdur] OxyCODONE/APAP 5/325 [Percocet 1 each PO Q6HR PRN 7 Days #25 04/01/18 5/325 MG] tablet Potassium Chloride 20 meq PO DAILY #14 tab.er.prt 04/01/18 Allergies Allergy/AdvReac Type Severity Reaction Status Date / Time codeine Allergy Severe Anaphylaxis Verified 03/27/18 16:39 Constitutional: Denies: fever, chills Cardiovascular: Denies: chest pain, palpitations, syncope Respiratory: Denies: cough, dyspnea Gastrointestinal: Reports: abdominal pain, hematochezia. Denies: nausea, vomiting, diarrhea, hematemesis Genitourinary: Denies: urgency, dysuria Musculoskeletal: Denies: back pain Neurological: Denies: headache, weakness Psychiatric: Denies: anxiety, depression Endocrine: Reports: fatigue Past Medical History - Past Medical History Medical history: Reports: asthma, cancer, COPD, coronary artery disease, CVA, hypertension, other Surgical history: Reports: breast surgery Psychiatric history: Reports: anxiety, depression, panic disorder DOPE FIRER history: Reports: no DOPE FIRER history - Social History Smoking Status: Current every day smoker Smokeless Tobacco Status: No Alcohol use: Reports: rarely Drug use: Reports: marijuana Physical Exam - General Limitations: no limitations General appearance: alert, in no apparent distress Course Vital Signs Temperature 97.6 F 04/15/18 16:37 Pulse Rate 104 04/15/18 16:37 Respiratory Rate 18 04/15/18 16:37 Blood Pressure 103/61 04/15/18 16:37 O2 Sat by Pulse Oximetry 96 04/15/18 16:37 Temperature 98.1 F 04/16/18 07:33 Pulse Rate 96 04/16/18 07:33 Respiratory Rate 18 04/16/18 07:33 Blood Pressure 118/56 04/16/18 07:33 O2 Sat by Pulse Oximetry 97 04/16/18 07:33 Oxygen Delivery Oxygen Delivery Nasal Cannula Medical Decision Making - Lab Data Result diagrams: 04/16/18 07:10 04/16/18 07:10 Lab Results 04/15/18 04/15/18 04/15/18 Range/Units 18:15 18:15 18:15 WBC 7.9 (4.3-11.1) K/mcL RBC 2.87 L (3.82-4.97) M/mcL Hgb 8.9 L (11.5-15.4) g/dL Hct 27.1 L (35.3-44.9) % MCV 94.4 (83.0-100.0) fL MCH 31.0 (28.0-33.3) pg MCHC 32.8 (31.6-35.5) g/dL RDW 15.1 H (11.5-14.5) % Plt Count 269 (140-400) K/mcL MPV 8.7 L (9.4-12.4) fL PT 12.7 H (9.4-12.1) Seconds INR 1.1 Sodium 127 L (136-145) mEq/L Potassium 4.1 (3.5-5.1) mEq/L Chloride 101 (98-107) mEq/L Carbon Dioxide 21 L (23-29) mEq/L BUN 17 (8-23) mg/dL Creatinine 0.50 L (0.60-1.20) mg/dL Est GFR ( Amer) > 60 (> 60) Est GFR (Non-Af Amer) > 60 (> 60) BUN/Creatinine Ratio 34 H (6-26) Glucose 104 (70-105) mg/dL Calculated Osmolality 266 L (280-300) Lactic Acid (0.5-2.2) mmol/L Calcium 8.1 L (8.6-10.3) mg/dL Blood Type Antibody Screen Crossmatch 04/15/18 04/15/18 Range/Units 18:15 18:15 WBC (4.3-11.1) K/mcL RBC (3.82-4.97) M/mcL Hgb (11.5-15.4) g/dL Hct (35.3-44.9) % MCV (83.0-100.0) fL MCH (28.0-33.3) pg MCHC (31.6-35.5) g/dL RDW (11.5-14.5) % Plt Count (140-400) K/mcL MPV (9.4-12.4) fL PT (9.4-12.1) Seconds INR Sodium (136-145) mEq/L Potassium (3.5-5.1) mEq/L Chloride (98-107) mEq/L Carbon Dioxide (23-29) mEq/L BUN (8-23) mg/dL Creatinine (0.60-1.20) mg/dL Est GFR ( Amer) (> 60) Est GFR (Non-Af Amer) (> 60) BUN/Creatinine Ratio (6-26) Glucose (70-105) mg/dL Calculated Osmolality (280-300) Lactic Acid 1.9 (0.5-2.2) mmol/L Calcium (8.6-10.3) mg/dL Blood Type AB POSITIVE Antibody Screen NEGATIVE Crossmatch See Detail Attestation Statement - Attestation Attestation: I examined this patient and my medical decision-making was reviewed with the Resident Physician. I agree with the documented findings, disposition and treatment plan as described except to the extent set forth below. Patient status post recent open repair of abdominal aortic aneurysm presents with significant amount of rectal bleeding. Mild tachycardic with a rate of approximately 105, systolic pressure in 90s on arrival, in the 100s on my repeat measurement in the room. Appears nontoxic but pale. Has some abdominal discomfort and tenderness, but no rigidity or peritonitis. CTA of the abdomen does not show evidence of graft leak or of aortic enteric fistula. Did show findings suggestive of possible impaction, although on Dr. Carter's rectal exam there was no stool in the vault, only blood. Hemoglobin 8.9. Hemodynamically stable throughout the ED stay. He will be admitted for further evaluation and management of her GI bleed.
[2018-04-15] MEDS ORDERED: Naloxone 0.4 MG/ML INJ IVP PRN ×2 (22:45)
[2018-04-15] MEDS ORDERED: Sennosides/Docusate Sodium TABLET PO PRN (22:48)
[2018-04-15] MEDS ORDERED: (Combivent Respimat InH) IH PRN (22:48)
[2018-04-15] MEDS ORDERED: *HR* OxyCODONE/APAP 5/325 TABLET PO PRN (22:48)
--- NOTE | 2018-04-15 22:57 | Internal Med History&Physical ---
<Wali Hoang - Last Filed: 04/15/18 23:34> Date of Encounter: 04/15/18 Time of Encounter: 22:50 Internal Medicine - H&P: HPI Chief complaint: Rectal bleeding Admitted From: Emergency Dept Plans for Post Hospital Care: [facility] History of present illness: Ms. Ryan is a 77 year old female with past medical history of asthma, COPD, CAD, CVA, hypertension presents to emergency room from senior living facility with complaint of rectal bleeding. Patient also states that she is unable to remember the events accurately but does provide some history. There is no family present at bedside. She also notably underwent AAA open abdominal surgery with stent placement with Dr. Holman on 03/20/18 which per chart review had complications of postoperative ileus as well as atelectasis. Patient states that her symptoms began yesterday morning although she is unable to state how much bleeding she has experienced. Her main complaint at this time is weakness starting in the same time period. She states that she has been having diarrhea but is unsure how much. She denies any symptoms of fevers, chills, abdominal pain, nausea, vomiting. She states that she has had some diarrhea recently however she is unsure about this. She is on aspirin and Plavix secondary to multiple CVAs in the past, she denies residual deficits. In the emergency department, heart rate was mildly elevated at 104 and blood pressure stable at 103/61. Laboratory results are significant for H/H of 8.9/ 27.1 baseline hemoglobin appears to be around 8-9 during her admission for AAA surgery in - prior to that. PT mildly elevated at 12.7. Sodium mildly decreased at 127 which is at baseline. Lactic acid at 1.[address] of the chest and abdomen was obtained in the emergency department due to concerns for possible AAA leak or fistula formation. Results show decrease in size of aneurysm sac, no evidence of leak or abnormality. Also noted was a moderate stool burden with rectal distention and mild induration of perirectal fat. Past medical history as above Past surgical history includes AAA graft as above Social history: Patient is to smoking 3-4 cigarettes per day, denies alcohol use but is former fairly heavy user, former marijuana use approximately 2 years ago Most recent colonoscopy per chart review in October 2015 shows normal-appearing colon with polypectomy 1. Past Med Surg Social Fam HX - Past Medical History Medical history: asthma, cancer, COPD, coronary artery disease, CVA, hypertension, other Additional medical history: BRONCHITIS, RIGHT BREAST CANCER Psychiatric history: anxiety, depression, panic disorder - Past Surgical History Surgical History: breast surgery Additional surgical history: AAA repair 03/20/2018. jaw - Social History Smoking Status: Current every day smoker Smokeless Tobacco Status: No Alcohol use: rarely Drug use: marijuana - Family History Mother Living Status: Hx Family Cancer: Yes (Colon.) Father Living Status: Hx Family Cardiac Disorders: Yes (MS) Internal Medicine - H&P: Meds Aspirin 81 mg PO DAILY 06/26/15 [History] Citalopram [CeleXA] 10 mg PO DAILY 10/19/15 [History] Docusate [Colace] 100 mg PO BID PRN 07/23/16 [History] Ipratropium/Albuterol Sulfate [Combivent Respimat Inhal [place]] 4 gm IH QID PRN 07/23/16 [History] Multivit-Min/FA/Lycopen/Lutein [Centrum Silver Tablet] 1 tab PO DAILY 07/23/16 [ History] Ferrous Sulfate 325 mg PO BIDWM tablet 08/11/16 [Rx] Metoprolol [Lopressor] 12.5 mg PO BID tablet 08/11/16 [Rx] Ondansetron ODT [Zofran ODT] 4 mg SL Q6HR PRN #0 tab.rapdis 08/11/16 [Rx] Pantoprazole Sodium [Protonix] 20 mg PO DAILY 03/20/18 [History] Sennosides/Docusate Sodium [Senna Plus] 2 tab PO DAILY PRN 03/20/18 [History] Atorvastatin Calcium [Lipitor] 20 mg PO HS 03/27/18 [History] Clopidogrel [Plavix] 75 mg PO DAILY 03/27/18 [History] Polyethylene Glycol 3350 [MiraLAX] 17 gm PO DAILY 03/27/18 [History] Furosemide [Lasix] 20 mg PO DAILY #14 tablet 04/01/18 [Rx] Isosorbide MONOnitrate (24 HR) [Imdur] 60 mg PO DAILY tab.er.24h 04/01/18 [Rx] OxyCODONE/APAP 5/325 [Percocet 5/325 MG] 1 each PO Q6HR PRN 7 Days #25 tablet [Rx] Potassium Chloride 20 meq PO DAILY #14 tab.er.prt 04/01/18 [Rx] Oxybutynin Chloride [Ditropan Xl] 10 mg PO DAILY 04/15/18 [History] 3 Allergy/AdvReac Type Severity Reaction Status Date / Time codeine Allergy Severe Anaphylaxis Verified 03/27/18 16:39 ROS unobtainable: due to mental status All Systems PM: A 10-system review of systems was performed and is negative for pertinent findings except as documented above in the HPI. - Constitutional Constitutional: weakness, no chills, no fever(s), no weight loss - Cardiovascular Cardiovascular ROS IM: no chest pain, no dyspnea, no dyspnea on exertion, no edema, no lightheadedness, no orthopnea, no syncope - Respiratory Respiratory: no cough, no dyspnea, no dyspnea on exertion, no pain with cough - Gastrointestinal Gastrointestinal: diarrhea, hematochezia, loose stools, no abdominal pain, no change in bowel habits, no constipation, no cramping, no hematemesis, no melena , no nausea, no vomiting - Integumentary Integumentary IM: no rash - Neurological Neurological ROS: weakness, no numbness, no tingling - Constitutional Vitals: Temp Pulse Resp BP Pulse Ox 97.4 F L 63 14 107/67 97 04/15/18 21:09 04/15/18 21:09 04/15/18 21:09 04/15/18 21:09 04/15/18 21:09 Exam: Gen.: Vitals noted. No acute distress. AAOx2, resting comfortably in bed HEENT: PERRL/EOMI, oropharynx clear, Normocephalic, atraumatic, MMM Cardiac: RRR, no murmur, +S1/S2 Pulmonary: CTA bilaterally, no wheezes, rales or rhonchi, equal chest expansion Abdomen: soft, tender to palpation in epigastric and suprapubic regions, BS diminished, no guarding, no rebound. Extremities: no BLE edema, nontender calf, no cyanosis or clubbing Neuro: A&Ox2, moves all extremities, no focal deficits Psych: Appropriate mood and behavior Internal Med - H&P Results - Labs CBC & Chem 7: 04/15/18 18:15 04/15/18 18:15 - Assessment and plan (1) Weakness Current Visit: Yes Status: Acute Assessment and plan: Likely secondary to rectal bleeding and anemia as above Continue to monitor, may benefit from PT/OT while admitted (2) Tobacco abuse Current Visit: Yes Status: Chronic Assessment and plan: Patient was counseled about tobacco abuse. She states she is smoking approximately 3-4 cigarettes per day and is not interested in quitting at this time. She was offered a nicotine patch while admitted (3) Constipation Current Visit: Yes Status: Chronic Assessment and plan: - Constipation upon CT scan in emergency department - Notably on multiple laxatives at [facility] - Patient states she has been having diarrhea lately however this does not exclude constipation - Per ED physician documentation, rectal exam did not show stool in the rectal vault - We will monitor in the setting of GI bleed and continue home laxatives Qualifiers: Constipation type: slow transit constipation Qualified Code(s): K59.01 - Slow transit constipation (4) Anemia Current Visit: Yes Status: Acute Assessment and plan: Acute on chronic anemia secondary to rectal bleeding as above and recent surgery - Baseline hemoglobin within the last month appears to be around 8-10, however prior to AAA surgery she was noted to be 13's - Management as above Qualifiers: Anemia type: other cause Other causes of anemia: acute posthemorrhagic Qualified Code(s): D62 - Acute posthemorrhagic anemia (5) HTN (hypertension) Current Visit: Yes Status: Chronic Assessment and plan: Well-controlled at this time at 107/67 Stable setting of possible GI bleed Continue home medications Qualifiers: Hypertension type: essential hypertension Qualified Code(s): I10 - Essential (primary) hypertension (6) AAA (abdominal aortic aneurysm) Current Visit: Yes Status: Chronic Assessment and plan: Status post AAA repair on 03/20/18 CT scan emerged department shows healing, no complications, no evidence of leak Qualifiers: Presence of rupture: without rupture Qualified Code(s): I71.4 - Abdominal aortic aneurysm, without rupture (7) Coronary artery disease Current Visit: Yes Status: Chronic Assessment and plan: No complaints of chest pain Transfusion threshold greater than 8 Continue home medications Qualifiers: Coronary Disease-Associated Artery/Lesion type: [place] artery [place] vs. transplanted heart: [place] heart Associated angina: without angina Qualified Code(s): I25.10 - Atherosclerotic heart disease of [place] coronary artery without angina pectoris (8) Hyperlipidemia Current Visit: Yes Status: Chronic Assessment and plan: Continue home statin Qualifiers: Hyperlipidemia type: mixed hyperlipidemia Qualified Code(s): E78.2 - Mixed hyperlipidemia (9) DVT prophylaxis Current Visit: Yes Status: Acute Assessment and plan: SCDs due to concerns of rectal bleeding and anemia (10) Rectal bleeding Current Visit: Yes Status: Acute Assessment and plan: - Likely etiologies include diverticular bleed versus hemorrhoidal bleed - Most recent colonoscopy on 10/28/15, polypectomy otherwise normal per chart review - Patient is unsure how much blood she has been using however H/H is stable at 8.9/27.1 - Platelets and coagulation studies within normal limits - CTA performed in emergency department to rule out AAA complications, healing postoperative changes with evidence of possible constipation taking possible hemorrhoidal bleed more likely - Hemodynamically stable, heart rate improved from on presentation Plan - Monitor H/H with a.m. labs - Protonix 40 mg IV twice a day - Consult to GI for possible colonoscopy - Continue cipro and flagyl for possible colitis/proctitis picture. - CLD - Type and screen however will not transfuse at this time - Continue home laxatives to discourage constipation - Time Spent With Patient Total time spent is greater than 50% in coordination of care (as documented) at patient's floor/unit and/or counseling patient: <Cali Huang - Last Filed: 04/16/18 02:30> Date of Encounter: 04/16/18 Time of Encounter: 01:20 ROS unobtainable: due to mental status Review of systems: limited ROS due to patient poor memory recall and disorientation - Constitutional Constitutional: no chills, no fever(s) - EENT Eyes: no change in vision Nose, mouth and throat: no sore throat - Cardiovascular Cardiovascular ROS IM: no chest pain, no dyspnea - Respiratory Respiratory: no cough, no chest congestion - Gastrointestinal Gastrointestinal: abdominal pain (mild surapubic), diarrhea, hematochezia, loose stools, no melena - Genitourinary Genitourinary: no hematuria - Musculoskeletal Musculoskeletal ROS IM: no myalgias - Neurological Neurological ROS: weakness - Constitutional Vitals: Temp Pulse Resp BP Pulse Ox 98.0 F 100 15 111/61 96 08/21/18 23:48 04/15/18 23:48 04/15/18 23:48 04/15/18 23:48 04/15/18 23:48 General appearance: Present: disheveled, A&O X 2. Absent: answers questions appropriately - Eye Eye exam: Present: PERRL. Absent: scleral icterus - ENT ENT exam: Present: mucous membranes dry, normal exam - Neck Neck exam general surgery: Present: full ROM, supple. Absent: tenderness, nuchal rigidity, thyromegaly - Respiratory Respiratory exam: Present: CTAB. Absent: chest wall tenderness, rales, rhonchi , wheezes - Cardiovascular Cardiovascular exam: Present: distant heart sounds, RRR, +S1, +S2 - GI/Abdominal GI/Abdominal exam: Present: soft, tenderness (mild suprapubic), no peritoneal signs. Absent: guarding, hepatomegaly, rebound, splenomegaly - Extremities Exam Extremities exam: Present: warm. Absent: joint swelling, pedal edema, tenderness - Back Exam Back exam: Absent: CVA tenderness (L), CVA tenderness (R) - Neurological Exam Neurological exam: Present: alert. Absent: oriented X3, no focal deficits (feet /legs with some contractures from old stroke) - Psychiatric Psychiatric exam: Present: flat affect - Skin Skin exam: Present: dry, intact, warm Internal Med - H&P Results - Labs CBC & Chem 7: 04/15/18 18:15 04/15/18 18:15 - Assessment and plan (1) Weakness Current Visit: Yes Status: Acute (2) HTN (hypertension) Current Visit: Yes Status: Chronic Qualifiers: Hypertension type: essential hypertension Qualified Code(s): I10 - Essential (primary) hypertension (3) AAA (abdominal aortic aneurysm) Current Visit: Yes Status: Chronic Qualifiers: Presence of rupture: without rupture Qualified Code(s): I71.4 - Abdominal aortic aneurysm, without rupture (4) Tobacco abuse Current Visit: Yes Status: Chronic (5) DVT prophylaxis Current Visit: Yes Status: Acute (6) Constipation Current Visit: Yes Status: Chronic Qualifiers: Constipation type: slow transit constipation Qualified Code(s): K59.01 - Slow transit constipation (7) Anemia Current Visit: Yes Status: Acute Qualifiers: Anemia type: other cause Other causes of anemia: acute posthemorrhagic Qualified Code(s): D62 - Acute posthemorrhagic anemia (8) Coronary artery disease Current Visit: Yes Status: Chronic Qualifiers: Coronary Disease-Associated Artery/Lesion type: [place] artery [place] vs. transplanted heart: [place] heart Associated angina: without angina Qualified Code(s): I25.10 - Atherosclerotic heart disease of [place] coronary artery without angina pectoris (9) Hyperlipidemia Current Visit: Yes Status: Chronic Qualifiers: Hyperlipidemia type: mixed hyperlipidemia Qualified Code(s): E78.2 - Mixed hyperlipidemia (10) Rectal bleeding Current Visit: Yes Status: Acute - Time Spent With Patient Total time spent is greater than 50% in coordination of care (as documented) at patient's floor/unit and/or counseling patient: - Attending Attestation I discussed the [place], past medical history, review of systems, lab data, and exam findings with Dr. Hoang. I then saw and examined patient independently. She is a poor historian, has poor memory recall, and some mild to moderate confusion and disorientation. Review of systems are limited due to the above. However, she does state she has had some bloody stools lately. She denies any hematemesis or melena. She denies any fevers or chills. Appetite has been diminished. She does have some mild abdominal pain on exam. She states she has had a prior colonoscopy but does not recall when that was. Given her rectal bleeding and anemia, I agree with Dr. Hoang's recommendations and plan for hemoglobin monitoring and GI consultation. Other than my comments above and noted exam findings, I agree with Dr. Hoang's assessment and plan.
[2018-04-16] MEDS: MetroNIDAZOLE 500 MG/100 ML 500 MG/100 ML BAG IVPB SCH ×3 (04:30→21:07)
[2018-04-16] MEDS: Pantoprazole 40 MG VIAL IVP SCH ×2 (05:29→17:05)
[2018-04-16 07:25] LABS: Basophils % 0.4 %; Eosinophils # 0.2 K/mcL (0.0-0.6); Eosinophils % 3.1 %; Hematocrit 24.5 % (35.3-44.9); Hemoglobin 8.1 g/dL (11.5-15.4); Immature Granulocytes % 6.2 % (0-4); Lymphocytes # 1.2 K/mcL (0.6-4.6); Lymphocytes % 23.9 %; Mean Corpuscular HGB Conc 33.1 g/dL (31.6-35.5); Mean Corpuscular Hemoglobin 30.5 pg (28.0-33.3); Mean Corpuscular Volume 92.1 fL (83.0-100.0); Mean Platelet Volume 8.4 fL (9.4-12.4); Monocytes # 0.7 K/mcL (0.0-1.3); Monocytes % 13.1 %; Neutrophils # 2.8 K/mcL (1.6-8.9); Platelet Count 277 K/mcL (140-400); Red Blood Count 2.66 M/mcL (3.82-4.97); Red Cell Distribution Width 15.1 % (11.5-14.5); Segmented Neutrophils % 53.3 %
[2018-04-16 07:49] LABS: BUN/Creatinine Ratio 36 (6-26); Blood Urea Nitrogen 16 mg/dL (8-23); Calcium 7.7 mg/dL (8.6-10.3); Carbon Dioxide 18 mEq/L (23-29); Chloride 102 mEq/L (98-107); Glucose 112 mg/dL (70-105); Osmolality,Calculated 268 (280-300); Potassium 3.2 mEq/L (3.5-5.1); Sodium 128 mEq/L (136-145); eGFR For Non-African Americans > 60 (> 60)
--- NOTE | 2018-04-16 09:24 | Internal Med Progress Note ---
Hospitalist Progress Note - Encounter Date of Encounter: 04/16/18 Time of Encounter: 10:23 - Subjective Interval History: Seen and examined at bedside; says she feels weak and tired, no better from arrival to ED. No recurrence of bleeding. Says abdomen is bloated but that is how it has been since surgery. No abdominal pain. Says she does not feel constipated and reports frequent loose stool. - Exam Vitals: Temp Pulse Resp BP Pulse Ox 98.1 F 96 18 118/56 97 04/16/18 07:33 04/16/18 07:33 04/16/18 07:33 04/16/18 07:33 04/16/18 07:33 Exam: General appearance: Present: A&O X 3, pleasant, no acute distress - Head Head exam: Present: atraumatic, normocephalic - Eye Eye exam: Present: PERRL, conjuntiva pink, sclera anicteric Pupils: Present: PERRL - Neck Neck exam general surgery: Present: supple, trachea midline. Absent: lymphadenopathy - Respiratory Respiratory exam: Present: chest wall tenderness, CTAB. Absent: accessory muscle use, rales, rhonchi, wheezes - Cardiovascular Cardiovascular exam: Present: RRR, +S1, +S2. Absent: diastolic murmur, gallop, rubs, systolic murmur - GI/Abdominal GI/Abdominal exam: Soft, bloated, no distesnion. Healing midline surgical incision. BS + X 4 quad - Extremities Exam Extremities exam: Present: warm, radial pulses palpable and symmetrical. Absent : calf tenderness, cyanotic, pedal edema - Neurological Exam Neurological exam: Present: CN II-XII intact, oriented X3, no focal deficits. Absent: pronater drift, facial droop, speech deficit - Skin Skin exam: Present: dry, intact - Assessment and Plan (1) Anemia Current Visit: Yes Status: Acute Assessment and Plan: acute on chronic anemia likely secondary to rectal bleeding and recent AAA surgery. Baseline hemoglobin within the last month appears to be around 8-10, however prior to AAA surgery Hgb was noted to be 13's. No active bleeding. External hemorrhoid noted on exam. Continue to monitor H&H, continue IV PPI, clear liquid diet and GI consult. Cont home iron supplements (2) Rectal bleeding Current Visit: Yes Status: Acute Assessment and Plan: plan as noted above (3) Constipation Current Visit: Yes Status: Chronic Assessment and Plan: ABD CT showed moderate stool burden with rectal distentionon concerning for possible impaction. Cont home laxatives. Add rectal supp (4) AAA (abdominal aortic aneurysm) Current Visit: Yes Status: Chronic Assessment and Plan: Status post AAA repair on 03/20/[address] showed interval decrease in size of aneurysm, no complications or evidence of leak. (5) Weakness Current Visit: Yes Status: Acute Assessment and Plan: Likely secondary to rectal bleeding and anemia as above. Continue to monitor, may benefit from PT/OT while admitted (6) HTN (hypertension) Current Visit: Yes Status: Chronic Assessment and Plan: per hx. BP controlled. Cont home BP medication (7) Coronary artery disease Current Visit: Yes Status: Chronic Assessment and Plan: per hx. symptomatic, denied chest pain. Continue ASA, Plavix, BB (8) Hyperlipidemia Current Visit: Yes Status: Chronic Assessment and Plan: Continue home statin (9) Tobacco abuse Current Visit: Yes Status: Chronic Assessment and Plan: current smoker; cessation advised. (10) Hyponatremia Current Visit: Yes Status: Acute Assessment and Plan: Na 127; neurologically intact. Suspect multifactorial secondary to loose stool and use of SSRI. Monitor repeat sodium level (11) Hypokalemia Current Visit: No Status: Acute Assessment and Plan: Secondary to frequent loose stool. Monitor and replace PRN DVT Prophylaxis: SCDs - Time Spent with Patient Total time spent is greater than 50% in coordination of care (as documented) at patient's floor/unit and/or counseling patient: Internal Medicine: Result - Labs CBC & Chem 7: 04/16/18 07:10 04/16/18 07:10 Labs: Short CBC 04/16/18 Range/Units 07:10 WBC 5.2 (4.3-11.1) K/mcL Hgb 8.1 L (11.5-15.4) g/dL Hct 24.5 L (35.3-44.9) % Plt Count 277 (140-400) K/mcL BMP 04/16/18 07:10 Sodium 128 L Potassium 3.2 L Chloride 102 Carbon Dioxide 18 L BUN 16 Creatinine 0.44 L Glucose 112 H Calcium 7.7 L - ABG Interpretation ABG results: PT/INR, D-dimer PT 12.7 Seconds (9.4-12.1) H 04/15/18 18:15 - VTE Documentation of Mechanical Device: Intermittent pneumatic compression device Consult Discharge Plan - Plan Referrals: NONE,PCP [Primary Care Provider] - (1) Anemia Qualifiers: Anemia type: other cause Other causes of anemia: acute posthemorrhagic Qualified Code(s): D62 - Acute posthemorrhagic anemia (3) Constipation Qualifiers: Constipation type: slow transit constipation Qualified Code(s): K59.01 - Slow transit constipation (4) AAA (abdominal aortic aneurysm) Qualifiers: Presence of rupture: without rupture Qualified Code(s): I71.4 - Abdominal aortic aneurysm, without rupture (6) HTN (hypertension) Qualifiers: Hypertension type: essential hypertension Qualified Code(s): I10 - Essential (primary) hypertension (7) Coronary artery disease Qualifiers: Coronary Disease-Associated Artery/Lesion type: [place] artery [place] vs. transplanted heart: [place] heart Associated angina: without angina Qualified Code(s): I25.10 - Atherosclerotic heart disease of [place] coronary artery without angina pectoris (8) Hyperlipidemia Qualifiers: Hyperlipidemia type: mixed hyperlipidemia Qualified Code(s): E78.2 - Mixed hyperlipidemia
[2018-04-16] MEDS: Potassium Chloride Elixir 20 MEQ/15 ML UDC PO SCH (09:51)
[2018-04-16] MEDS: Furosemide 20 MG TABLET PO SCH (09:56)
[2018-04-16] MEDS: Aspirin 81 MG TAB.CHEW PO SCH (09:56)
[2018-04-16] MEDS: Isosorbide MONOnitrate (24 HR) 60 MG TAB.ER.24H PO SCH (09:56)
[2018-04-16] MEDS: Nicotine 7 MG PATCH.TD24 TD SCH (10:01)
[2018-04-16 11:17] LABS: Platelet Estimate Normal (Normal)
--- NOTE | 2018-04-16 11:21 | Gastroenterology Consult Note ---
<Lenka Bal - Last Filed: 04/16/18 11:17> Date of Encounter: 04/16/18 Time of Encounter: 09:20 - Assessment and plan (1) Weakness Status: Acute (2) Constipation Status: Chronic Qualifiers: Constipation type: slow transit constipation Qualified Code(s): K59.01 - Slow transit constipation (3) Rectal bleeding Status: Acute Assessment and plan: Pt has abdominal distention and rectal bleeding. She reports diarrhea, but CT abdomen shows moderate stool burden. Will prep for colonoscopy tomorrow. She may have ischemic colitis from recent AAA repair. Montior H&H, transfuse as needed (4) Iron deficiency anemia Status: Acute Qualifiers: Iron deficiency anemia type: other iron deficiency Qualified Code(s): D50.8 - Other iron deficiency anemias - Time Spent With Patient Total time spent is greater than 50% in coordination of care (as documented) at patient's floor/unit and/or counseling patient: GI History of Present Illness - Data of Consult Patient: new to practice Consult date: 04/16/18 Requesting Physician: Cali Huang MD - Consult Narrative Reason for consult: rectal bleeding History of present illness: Ms. Ryan is a 77 year old female with past medical history of asthma, COPD, CAD, CVA, hypertension presents to emergency room from [facility] facility with complaint of rectal bleeding. She underwent AAA open abdominal surgery with stent placement with Dr. Holman on 03/20/18 which per chart review had complications of postoperative ileus as well as atelectasis. Patient states that her symptoms began yesterday morning although she is unable to state how much bleeding she has experienced. Her main complaint at this time is weakness starting in the same time period. She states that she has been having diarrhea but is unsure how much. She denies any fevers, chills, abdominal pain, nausea, vomiting. She is on aspirin and Plavix secondary to multiple CVAs in the past, she denies residual deficits. In the emergency department, heart rate was mildly elevated at 104 and blood pressure stable at 103/61. Laboratory results are significant for H/H of 8.9/27.1 baseline hemoglobin appears to be around 8- 9 during her admission for AAA surgery in - prior to that. PT mildly elevated at 12.7. CT of the chest and abdomen was obtained in the emergency department due to concerns for possible AAA leak or fistula formation. Results show decrease in size of aneurysm sac, no evidence of leak or abnormality. Also noted was a moderate stool burden with rectal distention and mild induration of perirectal fat. colonoscopy: October 2015 shows normal-appearing colon with polypectomy 1. NSAIDS: asa Past Med Surg Social Fam HX - Past Medical History Medical history: asthma, cancer, COPD, coronary artery disease, CVA, hypertension, other Additional medical history: BRONCHITIS, RIGHT BREAST CANCER Psychiatric history: anxiety, depression, panic disorder - Past Surgical History Surgical History: breast surgery Additional surgical history: AAA repair 03/20/2018. jaw - Social History Smoking Status: Current every day smoker Smokeless Tobacco Status: No Alcohol use: rarely Drug use: marijuana - Family History Mother Living Status: Hx Family Cancer: Yes (Colon.) Father Living Status: Hx Family Cardiac Disorders: Yes ([place]) Review of Systems: GI: as per [facility] GENERAL: denies fever, has some chills EYES: denies yellow discoloration ENT: denies pain with swallowing or difficulty swallowing CARDIO: denies chest pain, palpitations RESP: Shortness of breath with exertion : denies change in color of urine NEURO: increased weakness HEME: Denies any bruising MS: denies joint pain, joint swelling or back pain. DERM: denies rash or itching PSYCH: history of anxiety and depression - Constitutional Vitals: Temp Pulse Resp BP Pulse Ox 98.1 F 96 18 118/56 97 04/16/18 07:33 04/16/18 07:33 04/16/18 07:33 04/16/18 07:33 04/16/18 07:33 Exam: CONSTITUTIONAL:~alert, no acute distress.~HEAD:~normocephalic.~EYES:~no jaundice.~NECK:~no obvious swelling.~HEART:~regular rate and rhythm, murmur noted.~LUNGS:~bilateral fair air entry.~ABDOMEN:~ distended, soft, tender, midline incision healing, well approximated, no drainage or redness noted.~ RECTAL EXAM:~Deferred.~EXTREMITIES:~no clubbing, cyanosis, trace BLE edema.~SKIN :~pallor noted, no stigmata of chronic liver disease.~NEUROLOGIC:~no obvious focal defect.~~~~ Results - Labs CBC & Chem 7: 04/16/18 07:10 04/16/18 07:10 Labs: Last Result Calcium 7.7 mg/dL (8.6-10.3) L 04/16/18 07:10 Entire Visit Hgb 8.1 g/dL (11.5-15.4) L 04/16/18 07:10 Hct 24.5 % (35.3-44.9) L 04/16/18 07:10 PT 12.7 Seconds (9.4-12.1) H 04/15/18 18:15 - ABG ABG results: PT/INR, D-dimer PT 12.7 Seconds (9.4-12.1) H 04/15/18 18:15 Consult Discharge Plan - Plan Additional Instructions: General Surgical Discharge Instructions 1. No pushing, pulling, or lifting greater than 15 lbs for 6 weeks 2. You may shower, but no tub baths, soaking, or swimming for 2 weeks 3. Take ibuprofen every 8 hours for discomfort. If this does not relieve discomfort, you may take the as needed Percocet. Take narcotics as directed. Do not take more narcotics then directed and do not share your narcotics with any other person 4. Take stool softeners (Colace) or a water based laxative (Miralax) while taking narcotics. You may hold for loose stools. 5. Report any fevers greater than 100.5F, increase abdominal discomfort, drainage that looks like pus, increased redness or pain at the surgical site, or any vomiting. 6. Report any pain in the calves, shortness of breath, or rapid heartbeat. 7. Follow-up in the office as directed. 8. If you were prescribed antibiotics, do not stop them without talking to your provider. Referrals: Shane Leung MD [Partnered Physician] - 06/04/18 1:30 pm Andrae Holman MD [Partnered Physician] - 05/07/18 2:30 pm Gia Acosta CNP [Advanced Practice Nurse] - 05/09/18 8:15 am (surgery follow -up) Neva Gamble DO [Partnered Physician] - 05/20/18 11:30 am Prescriptions: OxyCODONE/APAP 5/325 [Percocet 5/325 MG] 1 each PO Q6HR PRN 2 Days #8 tablet PRN Reason: Postoperative pain Enoxaparin [Lovenox] 40 mg SQ 1800 20 Days #20 syringe Ergocalciferol (VITAMIN D2) [Drisdol (50,000 Unit)] 50,000 unit PO QWEEK #2 capsule Megestrol Acetate [Megace] 400 mg PO DAILY #30 udc Metoprolol [Lopressor] 25 mg PO BID #60 tablet Nicotine Patch [Nicoderm] 7 mg TD DAILY #30 patch.td24 Sodium Chloride [Sodium Chloride Tab] 1 gm PO DAILY 15 Days #15 tablet <Andre Sharma - Last Filed: 05/13/18 15:07> Date of Encounter: 04/16/18 - Time Spent With Patient Total time spent is greater than 50% in coordination of care (as documented) at patient's floor/unit and/or counseling patient: GI History of Present Illness - Data of Consult Requesting Physician: Samantha Patterson MD - Consult Narrative History of present illness: Ms. Ryan is a 78 year old female - Constitutional Vitals: Temp Pulse Resp BP Pulse Ox 97.6 F 99 18 127/64 100 05/05/18 14:21 05/05/18 14:21 05/05/18 15:37 05/05/18 14:21 05/05/18 15:37 Results - Labs CBC & Chem 7: 05/05/18 04:41 05/05/18 04:41 Labs: Last Result ESR 1 mm/hr (0-15) 04/22/18 15:51 Calcium 7.7 mg/dL (8.6-10.3) L 05/05/18 04:41 Iron 27 mcg/dL (50-170) L 04/21/18 09:45 % Saturation 16 % (15-50) 04/21/18 09:45 Transferrin 119 mg/dL (203-362) L 04/21/18 09:45 Ferritin 114 ng/mL (10-120) 04/21/18 09:45 Troponin I < 0.03 ng/mL (< 0.04) 04/29/18 18:36 C-Reactive Protein 20 mg/L (Less than 10) H 04/22/18 15:51 Triglycerides 201 mg/dL (< 150) H 04/28/18 04:35 Vitamin B12 > 1500 pg/mL (250-1100) H 04/21/18 09:45 Folate 15.1 ng/mL (3.0-16.0) 04/21/18 09:45 Stool Occult Blood Positive (Negative) A 04/17/18 12:35 Entire Visit Hgb 8.1 g/dL (11.5-15.4) L 05/05/18 04:41 Hct 24.8 % (35.3-44.9) L 05/05/18 04:41 PT 14.3 Seconds (9.4-12.1) H 04/22/18 04:43 Ferritin 114 ng/mL (10-120) 04/21/18 09:45 Total Bilirubin 0.3 mg/dL (0.3-1.0) 04/30/18 09:58 AST 39 Units/L (13-39) 04/30/18 09:58 ALT 28 Units/L (7-52) 04/30/18 09:58 Carcinoembryonic Ag 8.3 ng/mL (Less than 5.0) H 04/19/18 03:18 Folate 15.1 ng/mL (3.0-16.0) 04/21/18 09:45 S.cerevisiae IgG Ab 18.2 Units (0.0-24.9) 04/22/18 15:51 S.cerevisiae IgA Ab 8.3 Units (0.0-24.9) 04/22/18 15:51 - ABG ABG results: ABG ABG pH 7.48 pH Units (7.32-7.45) H 05/01/18 10:58 ABG pCO2 30 mmHg (35-45) L 05/01/18 10:58 ABG pO2 75 mmHg (85-104) L 05/01/18 10:58 ABG O2 Saturation 96 % (95-98) 05/01/18 10:58 PT/INR, D-dimer PT 14.3 Seconds (9.4-12.1) H 04/22/18 04:43 - Attending Attestation Ischemic colitis most likely. I have personally performed a face to face evaluation on this patient. I have reviewed and agree with the care plan. History and Exam by me shows:
[2018-04-16] MEDS: Bisacodyl 10 MG RECTAL SUPPOSITORY RC SCH (11:31)
[2018-04-16] MEDS ORDERED: Ipratropium/Albuterol Neb 3 ML IH PRN (14:35)
[2018-04-16 15:21] LABS: Hematocrit 22.6 % (35.3-44.9); Hemoglobin 7.3 g/dL (11.5-15.4)
--- NOTE | 2018-04-16 16:44 | Electrocardiograph Report ---
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
[2018-04-16] MEDS ORDERED: SODIUM CHLORIDE/NAHCO3/KCL/PEG 4,000 ML SOLN.RECON PO ONE (17:00)
[2018-04-16] MEDS: Ondansetron 4 MG/2 ML VIAL IVP PRN (17:28)
[2018-04-16] MEDS ORDERED: Polyethylene Glycol 3350 255 GM POWDER PO ONE (20:26)
--- NOTE | 2018-04-17 04:35 | Event Note ---
Date of Encounter: 04/17/18 Time of Encounter: 04:27 Was contacted by the nurse who stated that the patient was refusing blood draws for this morning. Patient's chart was reviewed. Admitted for GI bleed. Most recent hemoglobin was 7.3. Plan for endoscopy today. Of note patient also refusing bowel prep overnight. Patient was seen and examined I informed her that her hemoglobin level was critically low and that it was extremely important that we recheck her hemoglobin due to concern of further GI bleed and that not doing so may put her at risk of . Patient acknowledged that she understood the risk of not checking her blood work and continued to refuse blood draw.
[2018-04-17] MEDS: MetroNIDAZOLE 500 MG/100 ML 500 MG/100 ML BAG IVPB SCH ×3 (04:36→19:52)
[2018-04-17] MEDS: Pantoprazole 40 MG VIAL IVP SCH ×2 (04:36→17:16)
[2018-04-17] MEDS: Potassium Chloride Elixir 20 MEQ/15 ML UDC PO SCH (09:45)
[2018-04-17] MEDS: Furosemide 20 MG TABLET PO SCH (09:46)
[2018-04-17] MEDS: Aspirin 81 MG TAB.CHEW PO SCH (09:47)
[2018-04-17] MEDS: Bisacodyl 10 MG RECTAL SUPPOSITORY RC SCH (09:47)
[2018-04-17] MEDS: Isosorbide MONOnitrate (24 HR) 60 MG TAB.ER.24H PO SCH (09:47)
[2018-04-17] MEDS: Nicotine 7 MG PATCH.TD24 TD SCH (09:48)
--- NOTE | 2018-04-17 10:24 | Gastroenterology Progress Note ---
<Lenka Bal - Last Filed: 04/17/18 10:21> Date of Encounter: 04/17/18 Time of Encounter: 09:00 - Assessment and plan (1) Rectal bleeding Status: Acute Assessment and plan: Likely due to ischemic colitis from recent AAA repair. She was advised that she needs colonoscopy and is refusing all prep. Hemoglobin dropped to 7.3 yesterday and per hospitalist is going to be transfused 1 unit packed red blood cells. She was advised that hemoglobin may continue to drop and her condition may worsen if colonoscopy is not done and source of bleeding is not found. She continues to refuse colonoscopy. Will discuss with Dr. Sharma. (2) Weakness Status: Acute (3) Constipation Status: Chronic Qualifiers: Constipation type: slow transit constipation Qualified Code(s): K59.01 - Slow transit constipation (4) Iron deficiency anemia Status: Acute Qualifiers: Iron deficiency anemia type: other iron deficiency Qualified Code(s): D50.8 - Other iron deficiency anemias - Time Spent With Patient Total time spent is greater than 50% in coordination of care (as documented) at patient's floor/unit and/or counseling patient: - Subjective Interval history: 77-year-old female with anemia and rectal bleeding. Prep was ordered for colonoscopy yesterday but patient refused to drink GoLYTELY or MiraLAX. She was advised that we could mix the MiraLAX with something to help with the taste but she continues to refuse. - Constitutional Vitals: Temp Pulse Resp BP Pulse Ox 98.2 F 86 14 119/70 96 04/17/18 07:44 04/17/18 07:44 04/17/18 07:44 04/17/18 07:44 04/17/18 07:44 Exam: CONSTITUTIONAL:~alert, no acute distress.~HEAD:~normocephalic.~EYES:~no jaundice.~NECK:~no obvious swelling.~HEART:~regular rate and rhythm, murmur.~ LUNGS:~bilateral good air entry.~ABDOMEN:~ distended, soft, tender, midline incision healing well.~RECTAL EXAM:~Deferred.~EXTREMITIES:~no clubbing, cyanosis or edema.~SKIN:~pallor noted, no stigmata of chronic liver disease.~ NEUROLOGIC:~no obvious focal defect.~~~~ Results - Labs CBC & Chem 7: 04/16/18 14:43 04/16/18 07:10 Labs: Last Result Calcium 7.7 mg/dL (8.6-10.3) L 04/16/18 07:10 Entire Visit Hgb 7.3 g/dL (11.5-15.4) L 04/16/18 14:43 Hct 22.6 % (35.3-44.9) L 04/16/18 14:43 PT 12.7 Seconds (9.4-12.1) H 04/15/18 18:15 - ABG ABG results: PT/INR, D-dimer PT 12.7 Seconds (9.4-12.1) H 04/15/18 18:15 - VTE Documentation of Mechanical Device: Intermittent pneumatic compression device Consult Discharge Plan - Plan Additional Instructions: General Surgical Discharge Instructions 1. No pushing, pulling, or lifting greater than 15 lbs for 6 weeks 2. You may shower, but no tub baths, soaking, or swimming for 2 weeks 3. Take ibuprofen every 8 hours for discomfort. If this does not relieve discomfort, you may take the as needed Percocet. Take narcotics as directed. Do not take more narcotics then directed and do not share your narcotics with any other person 4. Take stool softeners (Colace) or a water based laxative (Miralax) while taking narcotics. You may hold for loose stools. 5. Report any fevers greater than 100.5F, increase abdominal discomfort, drainage that looks like pus, increased redness or pain at the surgical site, or any vomiting. 6. Report any pain in the calves, shortness of breath, or rapid heartbeat. 7. Follow-up in the office as directed. 8. If you were prescribed antibiotics, do not stop them without talking to your provider. Referrals: Shane Leung MD [Partnered Physician] - 06/04/18 1:30 pm Andrae Holman MD [Partnered Physician] - 05/07/18 2:30 pm Gia Acosta CNP [Advanced Practice Nurse] - 05/09/18 8:15 am (surgery follow -up) Neva Gamble DO [Partnered Physician] - 05/20/18 11:30 am Prescriptions: OxyCODONE/APAP 5/325 [Percocet 5/325 MG] 1 each PO Q6HR PRN 2 Days #8 tablet PRN Reason: Postoperative pain Enoxaparin [Lovenox] 40 mg SQ 1800 20 Days #20 syringe Ergocalciferol (VITAMIN D2) [Drisdol (50,000 Unit)] 50,000 unit PO QWEEK #2 capsule Megestrol Acetate [Megace] 400 mg PO DAILY #30 udc Metoprolol [Lopressor] 25 mg PO BID #60 tablet Nicotine Patch [Nicoderm] 7 mg TD DAILY #30 patch.td24 Sodium Chloride [Sodium Chloride Tab] 1 gm PO DAILY 15 Days #15 tablet <Andre Sharma - Last Filed: 05/13/18 15:25> Date of Encounter: 04/17/18 - Time Spent With Patient Total time spent is greater than 50% in coordination of care (as documented) at patient's floor/unit and/or counseling patient: - Constitutional Vitals: Temp Pulse Resp BP Pulse Ox 97.6 F 99 18 127/64 100 05/05/18 14:21 05/05/18 14:21 05/05/18 15:37 05/05/18 14:21 05/05/18 15:37 Results - Labs CBC & Chem 7: 05/05/18 04:41 05/05/18 04:41 Labs: Last Result ESR 1 mm/hr (0-15) 04/22/18 15:51 Calcium 7.7 mg/dL (8.6-10.3) L 05/05/18 04:41 Iron 27 mcg/dL (50-170) L 04/21/18 09:45 % Saturation 16 % (15-50) 04/21/18 09:45 Transferrin 119 mg/dL (203-362) L 04/21/18 09:45 Ferritin 114 ng/mL (10-120) 04/21/18 09:45 Troponin I < 0.03 ng/mL (< 0.04) 04/29/18 18:36 C-Reactive Protein 20 mg/L (Less than 10) H 04/22/18 15:51 Triglycerides 201 mg/dL (< 150) H 04/28/18 04:35 Vitamin B12 > 1500 pg/mL (250-1100) H 04/21/18 09:45 Folate 15.1 ng/mL (3.0-16.0) 04/21/18 09:45 Stool Occult Blood Positive (Negative) A 04/17/18 12:35 Entire Visit Hgb 8.1 g/dL (11.5-15.4) L 05/05/18 04:41 Hct 24.8 % (35.3-44.9) L 05/05/18 04:41 PT 14.3 Seconds (9.4-12.1) H 04/22/18 04:43 Ferritin 114 ng/mL (10-120) 04/21/18 09:45 Total Bilirubin 0.3 mg/dL (0.3-1.0) 04/30/18 09:58 AST 39 Units/L (13-39) 04/30/18 09:58 ALT 28 Units/L (7-52) 04/30/18 09:58 Carcinoembryonic Ag 8.3 ng/mL (Less than 5.0) H 04/19/18 03:18 Folate 15.1 ng/mL (3.0-16.0) 04/21/18 09:45 S.cerevisiae IgG Ab 18.2 Units (0.0-24.9) 04/22/18 15:51 S.cerevisiae IgA Ab 8.3 Units (0.0-24.9) 04/22/18 15:51 - ABG ABG results: ABG ABG pH 7.48 pH Units (7.32-7.45) H 05/01/18 10:58 ABG pCO2 30 mmHg (35-45) L 05/01/18 10:58 ABG pO2 75 mmHg (85-104) L 05/01/18 10:58 ABG O2 Saturation 96 % (95-98) 05/01/18 10:58 PT/INR, D-dimer PT 14.3 Seconds (9.4-12.1) H 04/22/18 04:43 - Attending Attestation Probable ischemic colitis. I have personally performed a face to face evaluation on this patient. I have reviewed and agree with the care plan. History and Exam by me shows:
--- NOTE | 2018-04-17 12:18 | Event Note ---
Date of Encounter: 04/17/18 Time of Encounter: 12:00 Met with patient after she is refusing labs/testing r/t GI bleed. I spent about 45 min with her discussing her desires. She seems to have limited understanding of why we need to continue lab draws, and she verbalizes she cannot tolerate the large volume of bowel prep. However, she does want to improve and wants the bleeding to stop, and her goal would be to get back to rehab. States she does not want to . Explained in detail why the healthcare team needs to know her labwork and why colonscopy/other testing may be needed. She verbalizes understanding, states "I just can't drink any more prep". I discussed with GI PROFESSOR OF BUSINESS Lenka to see if any oral tab prep she could do. Patient does state she thinks she could drink water needed for that. She is willing to have labwork done at this time, and have blood transfusion if needed. I notified lab who will come and draw soon. This patient does not want her daughters involved with her care, states one stole from her (Lien) and the other in [place] ([place]aya). Did give permission for her daughter Kita Obrien to be contacted if needed, and would desire her to make medical decisions if necessary. D/W Lien Villa NP. If labs could be limited as much as possible, she may continue to be agreeable.
[2018-04-17 13:29] LABS: Hematocrit 24.8 % (35.3-44.9); Hemoglobin 8.1 g/dL (11.5-15.4); Mean Corpuscular HGB Conc 32.7 g/dL (31.6-35.5); Mean Corpuscular Hemoglobin 30.6 pg (28.0-33.3); Mean Corpuscular Volume 93.6 fL (83.0-100.0); Mean Platelet Volume 8.5 fL (9.4-12.4); Platelet Count 281 K/mcL (140-400); Red Blood Count 2.65 M/mcL (3.82-4.97); Red Cell Distribution Width 15.1 % (11.5-14.5)
[2018-04-17 13:53] LABS: BUN/Creatinine Ratio 27 (6-26); Blood Urea Nitrogen 12 mg/dL (8-23); Calcium 7.7 mg/dL (8.6-10.3); Carbon Dioxide 23 mEq/L (23-29); Chloride 103 mEq/L (98-107); Glucose 104 mg/dL (70-105); Osmolality,Calculated 256 (280-300); Potassium 3.4 mEq/L (3.5-5.1); Sodium 123 mEq/L (136-145); eGFR For Non-African Americans > 60 (> 60)
--- NOTE | 2018-04-17 14:23 | Internal Med Progress Note ---
Hospitalist Progress Note - Encounter Date of Encounter: 04/17/18 Time of Encounter: 14:20 - Subjective Interval History: Seen and examined at bedside. Discussed with RN and patient is refusing all medications, lab draws and procedures at this time. Discussed with patient at length this morning and she initially said she did not want to pursue any further treatment; she specifically did not wear any blood drawn, she said she cannot tolerate the prep and did not want to do colonoscopy. Expressed concern for possible GI bleed with need for likely intervention and patient refused. Says she just wanted to be sent back to the [facility] be Comfortable. Palliative care was consult and she is now agreeable for lab draws and she is considering another bowel prep for possible colonoscopy. She is agreeable to 1 unit PRBC - Exam Vitals: Temp Pulse Resp BP Pulse Ox 98.2 F 86 14 119/70 96 04/17/18 07:44 04/17/18 07:44 04/17/18 07:44 04/17/18 07:44 04/17/18 07:44 Exam: General appearance: Present: A&O X 3, pleasant, no acute distress - Head Head exam: Present: atraumatic, normocephalic - Eye Eye exam: Present: PERRL, conjuntiva pink, sclera anicteric Pupils: Present: PERRL - Neck Neck exam general surgery: Present: supple, trachea midline. Absent: lymphadenopathy - Respiratory Respiratory exam: Present: chest wall tenderness, CTAB. Absent: accessory muscle use, rales, rhonchi, wheezes - Cardiovascular Cardiovascular exam: Present: RRR, +S1, +S2. Absent: diastolic murmur, gallop, rubs, systolic murmur - GI/Abdominal GI/Abdominal exam: Soft, bloated, no distesnion. Healing midline surgical incision. BS + X 4 quad - Extremities Exam Extremities exam: Present: warm, radial pulses palpable and symmetrical. Absent : calf tenderness, cyanotic, pedal edema - Neurological Exam Neurological exam: Present: CN II-XII intact, oriented X3, no focal deficits. Absent: pronater drift, facial droop, speech deficit - Skin Skin exam: Present: dry, intact - Assessment and Plan (1) Anemia Current Visit: Yes Status: Acute Assessment and Plan: acute on chronic anemia likely secondary to rectal bleeding and recent AAA surgery. Baseline hemoglobin within the last month appears to be around 8-10, however prior to AAA surgery Hgb was noted to be 13's. No active bleeding. External hemorrhoid noted on exam. Continue to monitor H&H, continue IV PPI, clear liquid diet and home iron supplements. Hgb 8.1 on 04/17. Monitor. GI following and planning possible C-scope in the morning. Holding home ASA, Plavix (2) Rectal bleeding Current Visit: Yes Status: Acute Assessment and Plan: plan as noted above (3) Constipation Current Visit: Yes Status: Chronic Assessment and Plan: ABD CT showed moderate stool burden with rectal distentionon concerning for possible impaction. Cont home laxatives. Add rectal supp (4) AAA (abdominal aortic aneurysm) Current Visit: Yes Status: Chronic Assessment and Plan: Status post AAA repair on 03/20/[address] showed interval decrease in size of aneurysm, no complications or evidence of leak. (5) Colitis Current Visit: Yes Status: Acute Assessment and Plan: ABD CT with antonino-rectal inflammation and induration concerning for colitis especially with reported loose stool. Of note, patient was recently hospitalized 02/2018 and received IV vancomycin and Zosyn at that time therefore she is considered to be at risk for Clostridium difficile despite impaction noted on CT. Stool panel was ordered however discontinued as patient did not have a bowel movement in 24 hours. Continue IV Cipro and Flagyl for now. (6) Hyponatremia Current Visit: Yes Status: Acute Assessment and Plan: Na 127; neurologically intact. Suspect multifactorial secondary to loose stool , lasix and SSRI. Na 123 on 04/17. Stop SSRI, lasix. Nephrology consulted (7) Hypokalemia Current Visit: No Status: Acute Assessment and Plan: Secondary to frequent loose stool. Monitor and replace PRN (8) Weakness Current Visit: Yes Status: Acute Assessment and Plan: Likely secondary to rectal bleeding and anemia as above. Continue to monitor, may benefit from PT/OT while admitted (9) HTN (hypertension) Current Visit: Yes Status: Chronic Assessment and Plan: per hx. BP controlled. Cont home BP medication (10) Coronary artery disease Current Visit: Yes Status: Chronic Assessment and Plan: per hx. symptomatic, denied chest pain. Continue ASA, Plavix, BB (11) Hyperlipidemia Current Visit: Yes Status: Chronic Assessment and Plan: Continue home statin (12) Tobacco abuse Current Visit: Yes Status: Chronic Assessment and Plan: current smoker; cessation advised. DVT Prophylaxis: SCDs - Time Spent with Patient Total time spent is greater than 50% in coordination of care (as documented) at patient's floor/unit and/or counseling patient: Internal Medicine: Result - Labs CBC & Chem 7: 04/17/18 12:46 04/17/18 12:46 Labs: Short CBC 04/16/18 04/17/18 Range/Units 14:43 12:46 WBC 6.1 (4.3-11.1) K/mcL Hgb 7.3 L 8.1 L (11.5-15.4) g/dL Hct 22.6 L 24.8 L (35.3-44.9) % Plt Count 281 (140-400) K/mcL BMP 04/17/18 12:46 Sodium 123 L Potassium 3.4 L Chloride 103 Carbon Dioxide 23 BUN 12 Creatinine 0.44 L Glucose 104 Calcium 7.7 L - ABG Interpretation ABG results: PT/INR, D-dimer PT 12.7 Seconds (9.4-12.1) H 04/15/18 18:15 - VTE Documentation of Mechanical Device: Intermittent pneumatic compression device Consult Discharge Plan - Plan Referrals: NONE,PCP [Primary Care Provider] - (1) Anemia Qualifiers: Anemia type: other cause Other causes of anemia: acute posthemorrhagic Qualified Code(s): D62 - Acute posthemorrhagic anemia (3) Constipation Qualifiers: Constipation type: slow transit constipation Qualified Code(s): K59.01 - Slow transit constipation (4) AAA (abdominal aortic aneurysm) Qualifiers: Presence of rupture: without rupture Qualified Code(s): I71.4 - Abdominal aortic aneurysm, without rupture (9) HTN (hypertension) Qualifiers: Hypertension type: essential hypertension Qualified Code(s): I10 - Essential (primary) hypertension (10) Coronary artery disease Qualifiers: Coronary Disease-Associated Artery/Lesion type: [place] artery [place] vs. transplanted heart: [place] heart Associated angina: without angina Qualified Code(s): I25.10 - Atherosclerotic heart disease of [place] coronary artery without angina pectoris (11) Hyperlipidemia Qualifiers: Hyperlipidemia type: mixed hyperlipidemia Qualified Code(s): E78.2 - Mixed hyperlipidemia
--- NOTE | 2018-04-17 15:27 | Nephrology Consult Note ---
Date of Encounter: 04/17/18 Time of Encounter: 15:14 Assessment and Plan (1) Hyponatremia Current Visit: Yes Status: Acute Initial NA was 127 is 123 now. NS x 1 Liter ordered. 1.5 Liter fluid restriction. Lab and urine studies ordered. If NA at 2000 is less than 123, please call Dr. Paulson. Order for straight cath placed to obtain urine studies if needed. (2) Anemia Current Visit: Yes Status: Acute Hgb is 8.1. 1 U PRBC ordered. Qualifiers: Anemia type: other cause Other causes of anemia: acute posthemorrhagic Qualified Code(s): D62 - Acute posthemorrhagic anemia (3) Rectal bleeding Current Visit: Yes Status: Acute Per primary. History of Present Illness - Reason for Consult Consult date: 04/17/18 hyponatremia - Chief Complaint rectal bleeding and LLQ pain. - History of Present Illness Ms. Ryan is a 77 year old female that presented to ED with rectal bleeding and LLQ pain. PMH: asthma,COPD, coronary artery disease, CVA, hypertension. She lives in an ECF and the caregivers called when they saw bright red blood from rectum. She denied fever, chills, nausea,vomiting or diarrhea. Is incontinent of urine but also denies any dysuria, frequency, or hematuria. We have been consulted for Hyponatremia. Initial NA was 127. No neurological symptoms. Home list reviewed. Will order hyponatremia workup to rule out other causes. Most likely it is related to loose stool and nausea she is complaining now. Apparently she has been refusing a lot of lab draws and procedures. Per the last palliative note, she is a full code. Past Med Surg Social Fam HX - Past Medical History Medical history: asthma, cancer, COPD, coronary artery disease, CVA, hypertension, other Additional medical history: BRONCHITIS, RIGHT BREAST CANCER Psychiatric history: anxiety, depression, panic disorder - Past Surgical History Surgical History: breast surgery Additional surgical history: AAA repair 03/20/2018. jaw - Social History Smoking Status: Current every day smoker Smokeless Tobacco Status: No Alcohol use: rarely Drug use: marijuana - Family History Mother Living Status: Hx Family Cancer: Yes (Colon.) Father Living Status: Hx Family Cardiac Disorders: Yes (NH) Medications and Allergies Aspirin 81 mg PO DAILY 06/26/15 [History] Citalopram [CeleXA] 10 mg PO DAILY 10/19/15 [History] Docusate [Colace] 100 mg PO BID PRN 07/23/16 [History] Ipratropium/Albuterol Sulfate [Combivent Respimat Inhal [place]] 4 gm IH QID PRN 07/23/16 [History] Multivit-Min/FA/Lycopen/Lutein [Centrum Silver Tablet] 1 tab PO DAILY 07/23/16 [ History] Ferrous Sulfate 325 mg PO BIDWM tablet 08/11/16 [Rx] Metoprolol [Lopressor] 12.5 mg PO BID tablet 08/11/16 [Rx] Ondansetron ODT [Zofran ODT] 4 mg SL Q6HR PRN #0 tab.rapdis 08/11/16 [Rx] Pantoprazole Sodium [Protonix] 20 mg PO DAILY 03/20/18 [History] Sennosides/Docusate Sodium [Senna Plus] 2 tab PO DAILY PRN 03/20/18 [History] Atorvastatin Calcium [Lipitor] 20 mg PO HS 03/27/18 [History] Clopidogrel [Plavix] 75 mg PO DAILY 03/27/18 [History] Polyethylene Glycol 3350 [MiraLAX] 17 gm PO DAILY 03/27/18 [History] Furosemide [Lasix] 20 mg PO DAILY #14 tablet 04/01/18 [Rx] Isosorbide MONOnitrate (24 HR) [Imdur] 60 mg PO DAILY tab.er.24h 04/01/18 [Rx] OxyCODONE/APAP 5/325 [Percocet 5/325 MG] 1 each PO Q6HR PRN 7 Days #25 tablet [Rx] Potassium Chloride 20 meq PO DAILY #14 tab.er.prt 04/01/18 [Rx] Oxybutynin Chloride [Ditropan Xl] 10 mg PO DAILY 04/15/18 [History] 3 Allergy/AdvReac Type Severity Reaction Status Date / Time codeine Allergy Severe Anaphylaxis Verified 03/27/18 16:39 Review of Systems ROS unobtainable: other (as per HPI) Exam - Vital Signs Vital signs: Initial Vital Signs Temp Pulse Resp BP Pulse Ox 97.6 F 104 18 103/61 96 04/15/18 16:37 04/15/18 16:37 04/15/18 16:37 04/15/18 16:37 04/15/18 16:37 Vital Signs - Last 8 Hours Temp Pulse Resp BP Pulse Ox 04/17/18 12:15 97.7 F 82 15 100/54 97 04/17/18 07:44 98.2 F 86 14 119/70 96 Intake and Output 04/16/18 04/17/18 04/17/18 23:59 07:59 15:59 Intake Total 300 / 300 0 / 0 0 / 0 Output Total 0 / 0 0 / 0 Balance 300 / 300 0 / 0 0 / 0 Intake: IV Fluids 300 / 300 Cipro Premix 400 MG/200 ML 400 200 / 200 mg In 200 ml @ 200 mls/hr IVPB Q12HR [facility] Rx#:[id number] Flagyl Premix 500 MG/100 ML 500 100 / 100 mg In 100 ml @ 100 mls/hr IVPB Q8H [facility] Rx#:[id number] Oral 0 / 0 0 / 0 0 / 0 Output: Urine 0 / 0 0 / 0 Other: Meal NPO Percent of Meal Consumed 0% Stool Size Large Stool Consistency liquid Stool Color Black # Urine Diapers 1 1 Weight 48.8 kg Blood Glucose* 110 Patient Weight 04/17/18 23:59 Weight 48.8 kg - General Appearance General appearance: well-developed, well-nourished EENT: ATNC, hearing intact, vision intact Neck: supple Cardiology: no edema, normal S1, normal S2 Gastrointestinal: normoactive bowel sounds, no tenderness, no guarding Integumentary: no rash, warm and dry Neurologic: alert and oriented x3 Psychiatric: mood/affect appropriate, cooperative Results - Lab Results 04/17/18 12:46 04/17/18 12:46 Most recent lab results Calcium 7.7 mg/dL (8.6-10.3) L 04/17/18 12:46 Consult Discharge Plan - Plan Referrals: NONE,PCP [Primary Care Provider] -
[2018-04-17] MEDS ORDERED: 0.9 % Sodium Chloride 1,000 ML IVC SCH (15:30)
[2018-04-17 16:57] LABS: Uric Acid 2.4 mg/dL (2.3-7.6)
[2018-04-17 17:10] LABS: Thyroid Stimulating Hormone 3.859 mcIU/mL (0.340-5.600)
--- NOTE | 2018-04-17 17:33 | Vascular/[facility] Progress Note ---
Date of Encounter: 04/17/18 Time of Encounter: 17:00 - Assessment and plan (1) AAA (abdominal aortic aneurysm) Current Visit: Yes Status: Chronic The patient is recently undergone an open repair of her abdominal aortic aneurysm. She denies any acute onset abdominal, flank or back pain. Her incision is healing well and she has no hernia. She states she is able to tolerate a diet. She has no significant pain or tenderness of the abdomen. Her CT scan does not appear to consistent with ischemic colitis. She does not currently appear to have any signs or symptoms of acute ischemic colitis. Her recent gastric intestinal bleeding she has been scheduled for a colonoscopy. She is agreeable to have this procedure done tomorrow. She may follow-up in vascular clinic after discharge. Qualifiers: Presence of rupture: without rupture Qualified Code(s): I71.4 - Abdominal aortic aneurysm, without rupture - Subjective Interval history: The patient is previously undergone a an open repair of an abdominal aortic aneurysm. She denies any abdominal, flank or back pain. She reports that she was admitted with the left lower quadrant pain. He reported some bleeding per rectum. She denies any nausea or vomiting. She denies any chest pain or shortness of breath. - Physical Examination General: Present: Conversant, No Apparent Distress Cardiac: Present: Reg Rate and Rhythm Lungs: Present: Normal Breath Sounds Neuro: Present: Alert and responsive, No focal deficits noted Vascular: Present: Normal capillary refill, Surgical incisions (Abdominal incision is well-healed, no hernia appreciated). Absent: Cyanosis, Edema Abdomen: Present: Soft, Non-tender. Absent: Masses Skin: Present: No rashes noted on visualized skin - VTE Documentation of Mechanical Device: Intermittent pneumatic compression device Results 04/17/18 12:46 04/17/18 20:32 Lab Results, Last 24 hours 04/17/18 04/17/18 04/17/18 12:46 12:46 16:23 WBC 6.1 Hgb 8.1 L Hct 24.8 L Plt Count 281 Sodium 123 L Potassium 3.4 L Chloride 103 Carbon Dioxide 23 BUN 12 Creatinine 0.44 L Glucose 104 Calcium 7.7 L TSH 3.859 Consult Discharge Plan - Plan Referrals: NONE,PCP [Primary Care Provider] -
[2018-04-17 21:02] LABS: BUN/Creatinine Ratio 22 (6-26); Blood Urea Nitrogen 10 mg/dL (8-23); Calcium 7.9 mg/dL (8.6-10.3); Carbon Dioxide 22 mEq/L (23-29); Chloride 97 mEq/L (98-107); Glucose 107 mg/dL (70-105); Osmolality,Calculated 262 (280-300); Potassium 3.2 mEq/L (3.5-5.1); Sodium 126 mEq/L (136-145); eGFR For Non-African Americans > 60 (> 60)
--- NOTE | 2018-04-17 22:50 | Anesthesia Evaluation PreOp ---
Date of Encounter: 04/17/18 Time of Encounter: 22:49 - Past History Planned Operation: Colonoscopy re: rectal bleeding Cardiac History: CO (Post-op NSTEMI 03/27/2018), HTN, Hyperlipidemia, Other (CAD. 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 BLE weakness - on ASA /Plavix), Other (Anxiety/Depression/Panic disorder) Other Medical History: Renal (Frequent UTIs), Other (Hx R-breast Ca) Anesthesia History: No Prior Anesthetic Complications, Past Anesthesia (Open AAA repair 03/20/2018, jaw surgery, lumpectomy) Alcohol Use: rarely (formerly Heavy drinker) Drug use: marijuana Medications and Allergies Aspirin 81 mg PO DAILY 06/26/15 [History] Citalopram [CeleXA] 10 mg PO DAILY 10/19/15 [History] Docusate [Colace] 100 mg PO BID PRN 07/23/16 [History] Ipratropium/Albuterol Sulfate [Combivent Respimat Inhal [place]] 4 gm IH QID PRN 07/23/16 [History] Multivit-Min/FA/Lycopen/Lutein [Centrum Silver Tablet] 1 tab PO DAILY 07/23/16 [ History] Ferrous Sulfate 325 mg PO BIDWM tablet 08/11/16 [Rx] Metoprolol [Lopressor] 12.5 mg PO BID tablet 08/11/16 [Rx] Ondansetron ODT [Zofran ODT] 4 mg SL Q6HR PRN #0 tab.rapdis 08/11/16 [Rx] Pantoprazole Sodium [Protonix] 20 mg PO DAILY 03/20/18 [History] Sennosides/Docusate Sodium [Senna Plus] 2 tab PO DAILY PRN 03/20/18 [History] Atorvastatin Calcium [Lipitor] 20 mg PO HS 03/27/18 [History] Clopidogrel [Plavix] 75 mg PO DAILY 03/27/18 [History] Polyethylene Glycol 3350 [MiraLAX] 17 gm PO DAILY 03/27/18 [History] Furosemide [Lasix] 20 mg PO DAILY #14 tablet 04/01/18 [Rx] Isosorbide MONOnitrate (24 HR) [Imdur] 60 mg PO DAILY tab.er.24h 04/01/18 [Rx] OxyCODONE/APAP 5/325 [Percocet 5/325 MG] 1 each PO Q6HR PRN 7 Days #25 tablet [Rx] Potassium Chloride 20 meq PO DAILY #14 tab.er.prt 04/01/18 [Rx] Oxybutynin Chloride [Ditropan Xl] 10 mg PO DAILY 04/15/18 [History] 3 Allergy/AdvReac Type Severity Reaction Status Date / Time codeine Allergy Severe Anaphylaxis Verified 03/27/18 16:39 - Meds/Allergy Pre-op Review Medications Reviewed: Yes Allergies Reviewed: Yes Beta Blockers on Current Med List: Yes (Metoprolol) If Beta Blockers taken, Date/Time (Last Dose taken): 04/17/2018 @ 20:55 Anesthesia Results - Labs 04/17/18 12:46 04/17/18 20:32 Laboratory Results Impressions Abdomen/Pelvis CTA 04/15/18 17:18 IMPRESSION: Status post abdominal aortic aneurysm repair with interval decrease in size of the aneurysm sac. No evidence for leak or acute aortic abnormality. Findings consistent with postoperative fluid, which is likely resolving blood products, near the left side of the aorta. Attention to on follow-up is recommended. Moderate stool burden with rectal distention and mild induration of the perirectal fat. Fecal impaction or local inflammation should be considered in the appropriate clinical setting. D/ / Koko Holland / Koko Holland Interpreting Provider: Koko Holland - Imaging EKG: report reviewed (103bpm - Sinus tachycardia Consider right atrial enlargement Left axis deviation Borderline T wave abnormalities Electronically Signed On 04-16-2018 16:43:29 EDT by Neva Gamble) Additional studies: Left Heart Cath 03/27/2018 Indications: Non-Stemi Suspected CAD Impressions: There is severe three vessel coronary artery disease. LV- Lower limits of normal, EF45% There is good quality collateral vessel/vessels from the Distal LAD to the Mid Circumflex, RCA that are visualized. ECHO 03/27/2018 EV/EV echocardiogram Impressions: Rhythm not clear- frequent atrial ectopy noted. Grossly normal appearing LV systolic function. However, due to rhythm disturbance, exact estimate cannot be obtained. Consider repeat study once clinical status improves. Indeterminate diastolic function. Normal right ventricular structure and function. Moderately dilated left atrium. No aortic stenosis, although Doppler may not have been well obtained. There does not appear to be thickening, calcification and reduced leaflet excursion. Moderate mitral regurgitation. Mild tricuspid regurgitation. No pulmonary hypertension. Anesthesia Exam Vital Signs Temp Pulse Resp BP Pulse Ox 04/17/18 19:44 98.9 F 98 15 106/62 95 04/17/18 12:15 97.7 F 82 15 100/54 97 04/17/18 07:44 98.2 F 86 14 119/70 96 04/17/18 04:59 98.4 F 96 15 113/71 95 04/17/18 00:17 99.3 F 94 15 110/61 95 Intake and Output 04/17/18 04/17/18 04/17/18 07:59 15:59 23:59 Intake Total 0 / 0 100 / 100 300 / 300 Output Total 0 / 0 680 / 680 0 / 0 Balance 0 / 0 -580 / -580 300 / 300 Intake: IV Fluids 100 / 100 300 / 300 Cipro Premix 400 MG/200 ML 400 200 / 200 mg In 200 ml @ 200 mls/hr IVPB Q12HR [facility] Rx#:[id number] Flagyl Premix 500 MG/100 ML 500 100 / 100 100 / 100 mg In 100 ml @ 100 mls/hr IVPB Q8H [facility] Rx#:[id number] Oral 0 / 0 0 / 0 0 / 0 Output: Urine 0 / 0 0 / 0 Straight Cath 680 / 680 Other: Meal NPO Percent of Meal Consumed 0% Stool Size Large Stool Consistency liquid liquid Stool Color Black Black # Urine Diapers 1 1 # Bowel Movement Diapers 1 Weight 48.8 kg Blood Glucose* 110 Patient Weight 04/17/18 23:59 Weight 48.8 kg Height: 5'4" Weight: 207# BMI = 18.5 NPO (# of Hours): MNoc Pain Scale Used: Numeric (1 - 10) - HEENT Pupil (Motor): Pupils equal, EOMI Mallampati: II Teeth: Missing, Edentulous Denture Type: Upper: Complete Oral Opening: Greater than 3 - MANUFACTURING TECHNICIAN LOC: Oriented MANUFACTURING TECHNICIAN Motor: Normal RUE, Normal LUE, Normal RLE, Normal LLE, Normal Face MANUFACTURING TECHNICIAN Sensory: Normal: RUE, LUE, RLE, LLE, Face - Cardiac Rhythm: Regular - Pulmonary Breath Sounds: bilateral Clear Respiratory Effort: Symmetrical Anesthesia Assess/Plan ASA Score: 4 (CAD, PVDz, HTN, Chol, CVAs, COPD/Asthma, Smoker) Modified Noemi Scale for Level of Consciousness: Cooperative, oriented, and tranquil Anesthetic Plan: MAC Monitoring Plan: Standard Monitors Recovery Plan: Other
[2018-04-18] MEDS: MetroNIDAZOLE 500 MG/100 ML 500 MG/100 ML BAG IVPB SCH ×3 (03:56→21:54)
[2018-04-18] MEDS: Pantoprazole 40 MG VIAL IVP SCH ×2 (06:31→19:28)
[2018-04-18] MEDS: Bisacodyl 10 MG RECTAL SUPPOSITORY RC SCH (08:38)
[2018-04-18] MEDS: Potassium Chloride Elixir 20 MEQ/15 ML UDC PO SCH (09:22)
[2018-04-18] MEDS: Nicotine 7 MG PATCH.TD24 TD SCH (09:23)
[2018-04-18] MEDS: Isosorbide MONOnitrate (24 HR) 60 MG TAB.ER.24H PO SCH (09:23)
--- NOTE | 2018-04-18 17:49 | Internal Med Progress Note ---
Hospitalist Progress Note - Encounter Date of Encounter: 04/18/18 Time of Encounter: 17:45 - Subjective Interval History: ,,, 77-year-old female evaluated at bedside, reports feeling a little better, patient reports feeling light headed when walking to the restroom, denies chest pain . She denies blood per rectum today. Denies Abdominal pain, nausea, vomiting, fever or chills but reports feeling cold. - Exam Vitals: Temp Pulse Resp BP Pulse Ox 97.6 F 83 14 100/52 95 04/18/18 14:27 04/18/18 14:27 04/18/18 14:27 04/18/18 14:27 04/18/18 14:27 Exam: General: Alert and oriented Skin: Normal color, no rash, no lesions. HEENT:EOM, pupils equal, round and reactive. Cardiovascular: Normal S1 & S2, no rubs, murmurs or gallops. No JVD. Pulse regular. Lungs: Clear to auscultation, no wheezes or crackles. Abdomen:Soft, non-tender, no rigidity, healed abdominal scar. Extremities: No deformity, no edema or tenderness, no joint swelling or clubbing. Neurological: Normal cognition and motor skills. Rest of the physical exam is non contributory - Assessment and Plan (1) Rectal bleeding Current Visit: Yes Status: Acute Assessment and Plan: Possible due to ischaemic colitis? Plan: - GI consulted will follow recommendations (2) Colitis Current Visit: Yes Status: Acute Assessment and Plan: Possible ischemic in the setting of a resent AAA repair. Plan: - Will continue IV antibiotics, Flaggyl and Cipro - GI has been consulted - Patient is on agreement for colonoscopy if needed (3) HTN (hypertension) Current Visit: Yes Status: Chronic Assessment and Plan: BP in the 110-120 range Plan: - Continue current antihypertensive medications (4) Weakness Current Visit: Yes Status: Acute Assessment and Plan: Plan: - Pt/OT (5) AAA (abdominal aortic aneurysm) Current Visit: Yes Status: Chronic Assessment and Plan: CT abd/pelvis with IV contrast; Ruled out leak Plan: - Plan of care as per vascular surgery (6) Constipation Current Visit: Yes Status: Chronic Assessment and Plan: Plan: - Continue with stool softener (7) Anemia Current Visit: Yes Status: Acute Assessment and Plan: Possible due to acute blood loss Plan: - CBC in the morning - no need for transfusing at this time - Continue ferrous sulfate - Continue pantoprazole (8) Hypokalemia Current Visit: No Status: Acute Assessment and Plan: Plan: - Electrolyte replaced (9) Coronary artery disease Current Visit: Yes Status: Chronic (10) Hyperlipidemia Current Visit: Yes Status: Chronic Assessment and Plan: Plan: - On statin (11) Hyponatremia Current Visit: Yes Status: Acute Assessment and Plan: Plan: - Will start patient on D5NS@50mls/hr - Nephrology has been consulted will follow recommendation DVT Prophylaxis: No chemical DVT prophylaxis due to rectal bleed - Mechanical DVT prophylaxis - Time Spent with Patient Total time spent is greater than 50% in coordination of care (as documented) at patient's floor/unit and/or counseling patient: Greater than 35 minutes Plan of Care Discussed with: patient Internal Medicine: Result - Labs CBC & Chem 7: 04/17/18 12:46 04/17/18 20:32 Labs: BMP 04/17/18 20:32 Sodium 126 L Potassium 3.2 L Chloride 97 L Carbon Dioxide 22 L BUN 10 Creatinine 0.46 L Glucose 107 H Calcium 7.9 L - ABG Interpretation ABG results: PT/INR, D-dimer PT 12.7 Seconds (9.4-12.1) H 04/15/18 18:15 - VTE Documentation of Mechanical Device: Intermittent pneumatic compression device Consult Discharge Plan - Plan Referrals: NONE,PCP [Primary Care Provider] - (3) HTN (hypertension) Qualifiers: Hypertension type: essential hypertension Qualified Code(s): I10 - Essential (primary) hypertension (5) AAA (abdominal aortic aneurysm) Qualifiers: Presence of rupture: without rupture Qualified Code(s): I71.4 - Abdominal aortic aneurysm, without rupture (6) Constipation Qualifiers: Constipation type: slow transit constipation Qualified Code(s): K59.01 - Slow transit constipation (7) Anemia Qualifiers: Anemia type: other cause Other causes of anemia: acute posthemorrhagic Qualified Code(s): D62 - Acute posthemorrhagic anemia (9) Coronary artery disease Qualifiers: Coronary Disease-Associated Artery/Lesion type: [place] artery [place] vs. transplanted heart: [place] heart Associated angina: without angina Qualified Code(s): I25.10 - Atherosclerotic heart disease of [place] coronary artery without angina pectoris (10) Hyperlipidemia Qualifiers: Hyperlipidemia type: mixed hyperlipidemia Qualified Code(s): E78.2 - Mixed hyperlipidemia
[2018-04-18] MEDS ORDERED: D5% in 0.9% NACL 1,000 ML IVC SCH (18:00)
[2018-04-18] MEDS: Potassium Chloride Elixir 20 MEQ/15 ML UDC PO ONE ×2 (18:58→20:24)
[2018-04-18] MEDS: D5% in 0.9% NACL 1,000 ML IVC SCH (19:28)
[2018-04-19 03:38] LABS: Basophils % 0.6 %; Eosinophils # 0.1 K/mcL (0.0-0.6); Eosinophils % 1.8 %; Hematocrit 24.3 % (35.3-44.9); Hemoglobin 8.3 g/dL (11.5-15.4); Immature Granulocytes % 3.7 % (0-4); Lymphocytes # 1.2 K/mcL (0.6-4.6); Lymphocytes % 22.8 %; Mean Corpuscular HGB Conc 34.2 g/dL (31.6-35.5); Mean Corpuscular Hemoglobin 30.3 pg (28.0-33.3); Mean Corpuscular Volume 88.7 fL (83.0-100.0); Mean Platelet Volume 8.4 fL (9.4-12.4); Monocytes # 0.7 K/mcL (0.0-1.3); Monocytes % 13.4 %; Neutrophils # 3.2 K/mcL (1.6-8.9); Platelet Count 320 K/mcL (140-400); Red Blood Count 2.74 M/mcL (3.82-4.97); Red Cell Distribution Width 15.2 % (11.5-14.5); Segmented Neutrophils % 57.7 %
[2018-04-19 03:42] LABS: BUN/Creatinine Ratio 15 (6-26); Blood Urea Nitrogen 7 mg/dL (8-23); Calcium 7.7 mg/dL (8.6-10.3); Carbon Dioxide 24 mEq/L (23-29); Chloride 103 mEq/L (98-107); Glucose 124 mg/dL (70-105); Magnesium 2.3 mg/dL (1.6-2.6); Osmolality,Calculated 273 (280-300); Potassium 2.9 mEq/L (3.5-5.1); Sodium 132 mEq/L (136-145); eGFR For Non-African Americans > 60 (> 60)
[2018-04-19] MEDS: MetroNIDAZOLE 500 MG/100 ML 500 MG/100 ML BAG IVPB SCH ×3 (04:40→20:45)
[2018-04-19] MEDS: Pantoprazole 40 MG VIAL IVP SCH (05:11)
[2018-04-19] MEDS ORDERED: Potassium Chloride 40 MEQ, Lidocaine 1% 2 ML in D5% in Water 500 ML IVPB ONE (05:30)
--- NOTE | 2018-04-19 07:31 | Anesthesia Evaluation PreOp ---
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 History: CVA (denies residual effect), Other (anxiety depression) Other Medical History: Renal (frequent UTI) Anesthesia History: No Prior Anesthetic Complications, Past Anesthesia (open AAA 03/20/2018, jaw surgery, lumpectomy) : No Alcohol Use: rarely (formerly Heavy drinker) Drug use: marijuana Medications and Allergies Aspirin 81 mg PO DAILY 06/26/15 [History] Citalopram [CeleXA] 10 mg PO DAILY 10/19/15 [History] Docusate [Colace] 100 mg PO BID PRN 07/23/16 [History] Ipratropium/Albuterol Sulfate [Combivent Respimat Inhal [place]] 4 gm IH QID PRN 07/23/16 [History] Multivit-Min/FA/Lycopen/Lutein [Centrum Silver Tablet] 1 tab PO DAILY 07/23/16 [ History] Ferrous Sulfate 325 mg PO BIDWM tablet 08/11/16 [Rx] Metoprolol [Lopressor] 12.5 mg PO BID tablet 08/11/16 [Rx] Ondansetron ODT [Zofran ODT] 4 mg SL Q6HR PRN #0 tab.rapdis 08/11/16 [Rx] Pantoprazole Sodium [Protonix] 20 mg PO DAILY 03/20/18 [History] Sennosides/Docusate Sodium [Senna Plus] 2 tab PO DAILY PRN 03/20/18 [History] Atorvastatin Calcium [Lipitor] 20 mg PO HS 03/27/18 [History] Clopidogrel [Plavix] 75 mg PO DAILY 03/27/18 [History] Polyethylene Glycol 3350 [MiraLAX] 17 gm PO DAILY 03/27/18 [History] Furosemide [Lasix] 20 mg PO DAILY #14 tablet 04/01/18 [Rx] Isosorbide MONOnitrate (24 HR) [Imdur] 60 mg PO DAILY tab.er.24h 04/01/18 [Rx] OxyCODONE/APAP 5/325 [Percocet 5/325 MG] 1 each PO Q6HR PRN 7 Days #25 tablet [Rx] Potassium Chloride 20 meq PO DAILY #14 tab.er.prt 04/01/18 [Rx] Oxybutynin Chloride [Ditropan Xl] 10 mg PO DAILY 04/15/18 [History] 3 Allergy/AdvReac Type Severity Reaction Status Date / Time codeine Allergy Severe Anaphylaxis Verified 03/27/18 16:39 - Meds/Allergy Pre-op Review Medications Reviewed: Yes Allergies Reviewed: Yes Beta Blockers on Current Med List: Yes Anesthesia Results - Labs 04/19/18 03:18 04/19/18 03:18 - Imaging Additional studies: LEFT HEART CATH 03/27/2018 Indications: Non-Stemi Suspected CAD Impressions: There is severe three vessel coronary artery disease. LV- Lower limits of normal, EF45% There is good quality collateral vessel/vessels from the Distal LAD to the Mid Circumflex, RCA that are visualized. Recommendations: Optimal medical therapy of patient's disease. Aggressive risk factor modification. History/Risk Factors: hypercholesterolemia CAD CVA Rt Breast CA AAA repair Hypertension Current/Recent Smoker Chronic Lung Disease Access obtained in the right Brachial artery by percutaneous puncture LV Ventriculography Ejection Method: LV Gram Ejection Fraction: 45% Wall Motion: GRIJALVA Anterobasal Normal Anterolateral Normal Apical: Normal Inferoapical Moderate Hypokinesis Inferobasal Normal Coronary Dominance: Right Lesion Findings/Interventions * Left Main Coronary Artery The LMCA is angiographically free of disease. * Left Anterior Descending There is a 90% stenosis in the Proximal LAD. The lesion has a PINEDA flow of 3 and has no thrombus present. There is a 90% stenosis in the Mid LAD. The lesion has a PINEDA flow of 3 and has no thrombus present. * Circumflex There is a 80% stenosis in the Proximal Circumflex. The lesion has a PINEDA flow of 3 and has no thrombus present. There is a 90% stenosis in the Mid Circumflex. The lesion has a PINEDA flow of 3. * Right Coronary Artery There is a 100% stenosis in the Proximal RCA. The lesion has a PINEDA flow of 0 and has no thrombus present. Anesthesia Exam Vital Signs/O2 Sat/Glucose, Most Recent Temp Pulse Resp BP Pulse Ox 98.3 F 89 18 137/60 97 04/19/18 08:53 04/19/18 08:53 04/19/18 08:53 04/19/18 08:53 04/19/18 08:53 Blood Glucose* 123 Height: 1.63 Weight: 50.5 kg NPO (# of Hours): > 8 hr - HEENT Pupil (Motor): Pupils equal Mallampati: II Teeth: Missing Denture Type: Upper: Complete Oral Opening: Greater than 3 - MICROPALEONTOLOGIST LOC: Oriented MICROPALEONTOLOGIST Motor: Normal RUE, Normal LUE, Normal RLE, Normal LLE, Normal Face MICROPALEONTOLOGIST Sensory: Normal: RUE, LUE, RLE, LLE, Face - Cardiac Rhythm: Regular Murmur: None - Pulmonary Breath Sounds: bilateral Clear Respiratory Effort: Symmetrical Anesthesia Assess/Plan ASA Score: 4 Modified [place] Scale for Level of Consciousness: Cooperative, oriented, and tranquil Anesthetic Plan: MAC Monitoring Plan: Standard Monitors Recovery Plan: PACU
[2018-04-19] MEDS ORDERED: Lidocaine -MPF 2% 2 ML VIAL ONE (08:33)
[2018-04-19] MEDS ORDERED: Propofol 500 MG/50 ML INFUS..BTL ONE (08:33)
[2018-04-19 10:37] LABS: Carcinoembryonic Antigen 8.3 ng/mL (Less than 5.0)
[2018-04-19] MEDS: Isosorbide MONOnitrate (24 HR) 60 MG TAB.ER.24H PO SCH (11:44)
--- NOTE | 2018-04-19 11:44 | Nephrology Progress Note ---
Date of Encounter: 04/19/18 Time of Encounter: 11:44 - Assessment and Plan (1) Hyponatremia Current Visit: Yes Status: Acute I'mproved with iv saline. Continue with saline as needed. Replace potassium. (2) Anemia Current Visit: Yes Status: Acute Transfuse as needed Qualifiers: Anemia type: other cause Other causes of anemia: acute posthemorrhagic Qualified Code(s): D62 - Acute posthemorrhagic anemia (3) Rectal bleeding Current Visit: Yes Status: Acute Per primary. Subjective Principal diagnosis: hyponatremia Interval history: Patient seen. no new complaint. Objective - Vital Signs Vital signs: Vital Signs Temp Pulse Resp BP Pulse Ox 04/19/18 11:22 97.5 F L 18 135/67 99 04/19/18 08:53 98.3 F 89 18 137/60 97 04/19/18 06:41 98.3 F 90 18 117/66 96 04/19/18 04:40 98.0 F 91 16 119/61 94 04/18/18 21:08 97.9 F 101 15 118/69 97 04/18/18 14:27 97.6 F 83 14 100/52 95 Intake and Output 04/18/18 04/19/18 04/19/18 23:59 07:59 15:59 Intake Total 200 / 200 300 / 300 Output Total 0 / 0 0 / 0 Balance 200 / 200 300 / 300 Intake: IV Fluids 200 / 200 300 / 300 Cipro Premix 400 MG/200 ML 400 200 / 200 200 / 200 mg In 200 ml @ 200 mls/hr IVPB Q12HR [facility] Rx#:[id number] Flagyl Premix 500 MG/100 ML 500 100 / 100 mg In 100 ml @ 100 mls/hr IVPB Q8H [facility] Rx#:[id number] Oral 0 / 0 0 / 0 Output: Urine 0 / 0 0 / 0 Other: Meal NPO DINNER Stool Size Small Stool Consistency soft Stool Characteristics Pasty Stool Color Brown # Urine Diapers 1 # Bowel Movement Diapers 1 Blood Glucose* 123 141 - General Appearance General appearance: Present: well-developed, well-nourished EENT: Present: ATNC Cardiology: Present: regular rate - Lab 04/19/18 03:18 04/19/18 03:18 Most recent lab results Calcium 7.7 mg/dL (8.6-10.3) L 04/19/18 03:18 Magnesium 2.3 mg/dL (1.6-2.6) 04/19/18 03:18 Urine Sodium 62.9 mEq/L 04/17/18 17:05 - VTE Documentation of Mechanical Device: Intermittent pneumatic compression device Consult Discharge Plan - Plan Referrals: NONE,PCP [Primary Care Provider] -
--- NOTE | 2018-04-19 11:44 | Nephrology Progress Note ---
Date of Encounter: 04/18/18 Time of Encounter: 11:05 - Assessment and Plan (1) Anemia Status: Acute Transfuse as needed Qualifiers: Anemia type: other cause Other causes of anemia: acute posthemorrhagic Qualified Code(s): D62 - Acute posthemorrhagic anemia (2) Rectal bleeding Status: Suspected Per primary. (3) Hyponatremia Status: Acute Continue with saline as needed. Replace potassium. Subjective Principal diagnosis: hyponatremia Interval history: Patient without new complaint Objective - Vital Signs Vital signs: Vital Signs Temp Pulse Resp BP Pulse Ox 04/19/18 11:22 97.5 F L 18 135/67 99 04/19/18 08:53 98.3 F 89 18 137/60 97 04/19/18 06:41 98.3 F 90 18 117/66 96 04/19/18 04:40 98.0 F 91 16 119/61 94 04/18/18 21:08 97.9 F 101 15 118/69 97 04/18/18 14:27 97.6 F 83 14 100/52 95 Intake and Output 04/18/18 04/19/18 04/19/18 23:59 07:59 15:59 Intake Total 200 / 200 300 / 300 Output Total 0 / 0 0 / 0 Balance 200 / 200 300 / 300 Intake: IV Fluids 200 / 200 300 / 300 Cipro Premix 400 MG/200 ML 400 200 / 200 200 / 200 mg In 200 ml @ 200 mls/hr IVPB Q12HR [facility] Rx#:[id number] Flagyl Premix 500 MG/100 ML 500 100 / 100 mg In 100 ml @ 100 mls/hr IVPB Q8H [facility] Rx#:[id number] Oral 0 / 0 0 / 0 Output: Urine 0 / 0 0 / 0 Other: Meal NPO DINNER Stool Size Small Stool Consistency soft Stool Characteristics Pasty Stool Color Brown # Urine Diapers 1 # Bowel Movement Diapers 1 Blood Glucose* 123 141 - General Appearance General appearance: Present: well-developed, well-nourished - Lab 05/05/18 04:41 05/05/18 04:41 Most recent lab results Calcium 7.7 mg/dL (8.6-10.3) L 04/19/18 03:18 Magnesium 2.3 mg/dL (1.6-2.6) 04/19/18 03:18 Urine Sodium 62.9 mEq/L 04/17/18 17:05 - VTE Documentation of Mechanical Device: Intermittent pneumatic compression device Consult Discharge Plan - Plan Additional Instructions: General Surgical Discharge Instructions 1. No pushing, pulling, or lifting greater than 15 lbs for 6 weeks 2. You may shower, but no tub baths, soaking, or swimming for 2 weeks 3. Take ibuprofen every 8 hours for discomfort. If this does not relieve discomfort, you may take the as needed Percocet. Take narcotics as directed. Do not take more narcotics then directed and do not share your narcotics with any other person 4. Take stool softeners (Colace) or a water based laxative (Miralax) while taking narcotics. You may hold for loose stools. 5. Report any fevers greater than 100.5F, increase abdominal discomfort, drainage that looks like pus, increased redness or pain at the surgical site, or any vomiting. 6. Report any pain in the calves, shortness of breath, or rapid heartbeat. 7. Follow-up in the office as directed. 8. If you were prescribed antibiotics, do not stop them without talking to your provider. Referrals: Shane Leung MD [Partnered Physician] - 06/04/18 1:30 pm Andrae Holman MD [Partnered Physician] - 05/07/18 2:30 pm Gia Acosta CNP [Advanced Practice Nurse] - 05/09/18 8:15 am (surgery follow -up) Neva Gamble DO [Partnered Physician] - 05/20/18 11:30 am Prescriptions: OxyCODONE/APAP 5/325 [Percocet 5/325 MG] 1 each PO Q6HR PRN 2 Days #8 tablet PRN Reason: Postoperative pain Enoxaparin [Lovenox] 40 mg SQ 1800 20 Days #20 syringe Ergocalciferol (VITAMIN D2) [Drisdol (50,000 Unit)] 50,000 unit PO QWEEK #2 capsule Megestrol Acetate [Megace] 400 mg PO DAILY #30 udc Metoprolol [Lopressor] 25 mg PO BID #60 tablet Nicotine Patch [Nicoderm] 7 mg TD DAILY #30 patch.[id number] Sodium Chloride [Sodium Chloride Tab] 1 gm PO DAILY 15 Days #15 tablet
[2018-04-19] MEDS: Nicotine 7 MG PATCH.TD24 TD SCH (11:45)
[2018-04-19] MEDS: Bisacodyl 10 MG RECTAL SUPPOSITORY RC SCH (11:46)
[2018-04-19] MEDS: Potassium Chloride Elixir 20 MEQ/15 ML UDC PO ONE (11:46)
[2018-04-19] MEDS: Potassium Chloride Elixir 20 MEQ/15 ML UDC PO SCH (11:47)
[2018-04-19] MEDS: Ondansetron 4 MG/2 ML VIAL IVP PRN (12:04)
[2018-04-19] MEDS ORDERED: Isovue-370 500 ML INFUS..BTL PO ONE (13:20)
[2018-04-19] MEDS: D5% in 0.9% NACL 1,000 ML IVC SCH (15:51)
--- NOTE | 2018-04-19 16:33 | Internal Med Progress Note ---
Hospitalist Progress Note - Encounter Date of Encounter: 04/19/18 Time of Encounter: 16:31 - Subjective Interval History: Patient evaluated at bedside. Reports feeling better, denies blood in her stool , denies nausea, vomiting. No fever, chills. - Exam Vitals: Temp Pulse Resp BP Pulse Ox 98.3 F 83 15 112/67 100 04/19/18 15:03 04/19/18 15:03 04/19/18 15:03 04/19/18 15:03 04/19/18 15:03 Exam: General: Alert and oriented. No distress. Skin: Normal color, no rash, no lesions. Cardiovascular: Normal S1 & S2, no rubs, murmurs or gallops. No JVD. Pulse regular. Lungs: Clear to auscultation, no wheezes or crackles. Abdomen: Soft, non-tender, no rigidity, healed abdominal scar. NABS Extremities: No deformity, no edema or tenderness, no joint swelling or clubbing. Neurological: Normal cognition and motor skills. Rest of the physical exam is non contributory - Assessment and Plan (1) Neoplasm of sigmoid colon Current Visit: Yes Status: Acute Assessment and Plan: Coloscopy report: ulcerated, large obstructing mass in the sigmoid colon. Plan: - Surgery has been consulted - CT abd/pelvis with oral contrast. - patient recently had an CT abd/pelvis with iv contrast - f/u biopsy report (2) Colitis Current Visit: Yes Status: Acute Assessment and Plan: No blood in the stool, improved abdominal pain Plan: - will start de-escalating on the antibiotic, as patient afebrile for the past 78 hours, and no leukocytosis. - discontinue cipro - Continue Flagyl (3) HTN (hypertension) Current Visit: Yes Status: Chronic Assessment and Plan: Blood pressure well controlled Plan: - No adjustment needed at this time (4) Constipation Current Visit: Yes Status: Chronic Assessment and Plan: Possibly due to sigmoid mass Plan: - Continue stool softener (5) Anemia Current Visit: Yes Status: Acute Assessment and Plan: Possibly due to blood loss, in the setting of ulcerated sigmoid mass Plan: - Continue Ferrous sulfate - Will change PPi to once a day PO (6) Hypokalemia Current Visit: No Status: Acute Assessment and Plan: Plan: - Electrolyte replacement accordingly (7) Coronary artery disease Current Visit: Yes Status: Chronic Assessment and Plan: Plan: - Continue ASA, Plavix, BB (8) Hyperlipidemia Current Visit: Yes Status: Chronic Assessment and Plan: Plan: - Continue statin (9) Hyponatremia Current Visit: Yes Status: Acute Assessment and Plan: Plan: - Continue on D5NS@50mls/hr - Nephrology has been consulted will follow recommendation (10) Rectal bleeding Current Visit: Yes Status: Acute Assessment and Plan: No episode of rectal bleeding for the past 48 hours. Rectal bleeding likely due to sigmoid ulcerated sigmoid mass. Plan: - will follow GI and surgery recommendation. (11) AAA (abdominal aortic aneurysm) Current Visit: Yes Status: Chronic Assessment and Plan: CT abd/pelvis with IV contrast; Ruled out leak Plan: - Plan of care as per vascular surgery DVT Prophylaxis: Mechanical DVT prophylaxis No chemical DVT prophylaxis due to rectal bleeding - Time Spent with Patient Total time spent is greater than 50% in coordination of care (as documented) at patient's floor/unit and/or counseling patient: Greater than 35 minutes Plan of Care Discussed with: patient Internal Medicine: Result - Labs CBC & Chem 7: 04/19/18 03:18 04/19/18 03:18 Labs: Short CBC 04/19/18 Range/Units 03:18 WBC 5.5 (4.3-11.1) K/mcL Hgb 8.3 L (11.5-15.4) g/dL Hct 24.3 L (35.3-44.9) % Plt Count 320 (140-400) K/mcL Neutrophils # 3.2 (1.6-8.9) K/mcL BMP 04/19/18 03:18 Sodium 132 L Potassium 2.9 L Chloride 103 Carbon Dioxide 24 BUN 7 L Creatinine 0.47 L Glucose 124 H Calcium 7.7 L - ABG Interpretation ABG results: PT/INR, D-dimer PT 12.7 Seconds (9.4-12.1) H 04/15/18 18:15 - Impressions Impressions Abdomen/Pelvis CT 04/19/18 13:00 IMPRESSION: 1. New mild bilateral pleural effusions and basilar atelectasis. 2. Atherosclerosis with infrarenal abdominal aortic aneurysm stent graft repair with a stable 4.4 cm aortic sac. 3. Stable retroperitoneal and pelvic edema/hemorrhage with no abscess or acute hematoma. Stable left periaortic retroperitoneal 4.4 cm loculated fluid collection which may represent postsurgical seroma. 4. Nonspecific mild colonic wall thickening which may relate to postsurgical change. There is no evidence of a focal colonic mass, obstruction, or perforation. 5. New indeterminate nodular hyperdensities at the dependent aspect of the bladder. This could represent debris or mild blood clots. This unlikely represents neoplasm as the finding was not present on the prior 04/15/2018 exam. D/ / 04/19/2018 14:32:25 Branden Pa MD / [facility] Interpreting Provider: Branden Pa MD - VTE Documentation of Mechanical Device: Intermittent pneumatic compression device Consult Discharge Plan - Plan Referrals: NONE,PCP [Primary Care Provider] - (3) HTN (hypertension) Qualifiers: Hypertension type: essential hypertension Qualified Code(s): I10 - Essential (primary) hypertension (4) Constipation Qualifiers: Constipation type: slow transit constipation Qualified Code(s): K59.01 - Slow transit constipation (5) Anemia Qualifiers: Anemia type: other cause Other causes of anemia: acute posthemorrhagic Qualified Code(s): D62 - Acute posthemorrhagic anemia (7) Coronary artery disease Qualifiers: Coronary Disease-Associated Artery/Lesion type: [place] artery [place] vs. transplanted heart: [place] heart Associated angina: without angina Qualified Code(s): I25.10 - Atherosclerotic heart disease of [place] coronary artery without angina pectoris (8) Hyperlipidemia Qualifiers: Hyperlipidemia type: mixed hyperlipidemia Qualified Code(s): E78.2 - Mixed hyperlipidemia (11) AAA (abdominal aortic aneurysm) Qualifiers: Presence of rupture: without rupture Qualified Code(s): I71.4 - Abdominal aortic aneurysm, without rupture
[2018-04-20] MEDS: MetroNIDAZOLE 500 MG/100 ML 500 MG/100 ML BAG IVPB SCH (04:10)
[2018-04-20 07:23] LABS: Basophils % 0.2 %; Eosinophils # 0.2 K/mcL (0.0-0.6); Eosinophils % 3.6 %; Hematocrit 24.1 % (35.3-44.9); Hemoglobin 7.6 g/dL (11.5-15.4); Immature Granulocytes % 3.6 % (0-4); Lymphocytes % 22.7 %; Mean Corpuscular HGB Conc 31.5 g/dL (31.6-35.5); Mean Corpuscular Hemoglobin 29.8 pg (28.0-33.3); Mean Corpuscular Volume 94.5 fL (83.0-100.0); Mean Platelet Volume 8.4 fL (9.4-12.4); Monocytes # 0.6 K/mcL (0.0-1.3); Monocytes % 13.4 %; Neutrophils # 2.4 K/mcL (1.6-8.9); Platelet Count 367 K/mcL (140-400); Red Blood Count 2.55 M/mcL (3.82-4.97); Red Cell Distribution Width 15.8 % (11.5-14.5); Segmented Neutrophils % 56.5 %
[2018-04-20 09:08] LABS: BUN/Creatinine Ratio 14 (6-26); Blood Urea Nitrogen 6 mg/dL (8-23); Calcium 7.5 mg/dL (8.6-10.3); Carbon Dioxide 22 mEq/L (23-29); Chloride 104 mEq/L (98-107); Glucose 102 mg/dL (70-105); Osmolality,Calculated 268 (280-300); Potassium 3.7 mEq/L (3.5-5.1); Sodium 130 mEq/L (136-145); eGFR For Non-African Americans > 60 (> 60)
--- NOTE | 2018-04-20 09:29 | Nephrology Progress Note ---
Date of Encounter: 04/20/18 Time of Encounter: 09:29 - Assessment and Plan (1) Hyponatremia Current Visit: Yes Status: Acute I'mproved with iv saline. Continue with saline as needed. Replace potassium. Start salt tablet. (2) Anemia Current Visit: Yes Status: Acute Transfuse as needed Qualifiers: Anemia type: other cause Other causes of anemia: acute posthemorrhagic Qualified Code(s): D62 - Acute posthemorrhagic anemia (3) Rectal bleeding Current Visit: Yes Status: Suspected Per primary. Subjective Principal diagnosis: hyponatremia Interval history: Patient seen. no new complaint. Objective - Vital Signs Vital signs: Vital Signs Temp Pulse Resp BP Pulse Ox 04/20/18 07:15 98.6 F 77 16 105/57 99 04/19/18 19:06 97.5 F L 83 15 112/62 99 04/19/18 15:03 98.3 F 83 15 112/67 100 04/19/18 11:22 97.5 F L 18 135/67 99 Intake and Output 04/19/18 04/20/18 04/20/18 23:59 07:59 15:59 Intake Total 200 / 200 0 / 0 Balance 200 / 200 0 / 0 Intake: IV Fluids 200 / 200 Flagyl Premix 500 MG/100 ML 500 200 / 200 mg In 100 ml @ 100 mls/hr IVPB Q8H [facility] Rx#:[id number] Oral 0 / 0 0 / 0 Other: Stool Size Large Stool Consistency liquid Stool Color Brown Dark Red Blood # Urine Diapers 0 0 # Bowel Movements 0 # Bowel Movement Diapers 2 0 Weight 50.7 kg - General Appearance General appearance: Present: well-developed, well-nourished EENT: Present: ATNC Neck: Present: supple Cardiology: Present: regular rate - Lab 04/20/18 06:29 04/20/18 06:29 Most recent lab results Calcium 7.5 mg/dL (8.6-10.3) L 04/20/18 06:29 Magnesium 2.0 mg/dL (1.6-2.6) 04/20/18 06:29 Urine Sodium 62.9 mEq/L 04/17/18 17:05 - VTE Documentation of Mechanical Device: Intermittent pneumatic compression device Consult Discharge Plan - Plan Referrals: NONE,PCP [Primary Care Provider] -
--- NOTE | 2018-04-20 09:37 | Internal Med Progress Note ---
Hospitalist Progress Note - Encounter Date of Encounter: 04/20/18 Time of Encounter: 09:34 - Subjective Interval History: Patient evaluated at bedside. Reports generalized weakness, denies abdominal pain, but report no appetite. No blood in her stool, no fever or chills. - Exam Vitals: Temp Pulse Resp BP Pulse Ox 98.6 F 77 16 105/57 99 04/20/18 07:15 04/20/18 07:15 04/20/18 07:15 04/20/18 07:15 04/20/18 07:15 Exam: General: Alert and oriented. No distress. Temporal wasting Skin: Normal color, no rash, no lesions. Cardiovascular: Normal S1 & S2, no rubs, murmurs or gallops. No JVD. Pulse regular. Lungs: Clear to auscultation, no wheezes or crackles. Abdomen: Soft, non-tender, no rigidity, healed abdominal scar. Decreased bowel sounds. Extremities: no edema or tenderness, no joint swelling or clubbing. Neurological: Normal cognition and motor skills. Rest of the physical exam is non contributory - Assessment and Plan (1) Neoplasm of sigmoid colon Current Visit: Yes Status: Acute Assessment and Plan: Coloscopy report: ulcerated, large obstructing mass in the sigmoid colon. Plan: - Surgery consulted. - As per my discussion with Surgery today, Patient will be scheduled surgery possible open resection of the sigmoid mass. - f/u biopsy report - Clear liquid diet - Cardiology consulted for preop evaluation (2) Colitis Current Visit: Yes Status: Resolved Assessment and Plan: No abdominal pain. No fever, chills. No signs of active infection. Plan: - Discontinue Flagyl, patient has completed 5 days of IV antibiotics. (3) HTN (hypertension) Current Visit: Yes Status: Chronic Assessment and Plan: Blood pressure in the lower side, ranging 110 over 105. Plan: - Will decrease Isosorbide to 30mg PO daily to target a BP >130 but <190. - Continue metoprolol 12.5mg daily with Holding parameters for SBP <110 or HR < 55. (4) Constipation Current Visit: Yes Status: Chronic Assessment and Plan: Possibly due to sigmoid mass Plan: - On docusate/senna (5) Anemia Current Visit: Yes Status: Acute Assessment and Plan: Possibly due to blood loss. Plan: - Monitor for now - Will transfused if Hb <7 or Hct <23 or patient becomes hemodynamically unstable. - Will discuss with surgery target H&H for surgery prep. . - Continue omeprazole 40 mg daily - On ferrous sulfate (6) Coronary artery disease Current Visit: Yes Status: Chronic Assessment and Plan: Plan: - Not on aspirin or Plavix due to GI bleed (7) Hyperlipidemia Current Visit: Yes Status: Chronic Assessment and Plan: Plan: - - Continue statin (8) Hyponatremia Current Visit: Yes Status: Acute Assessment and Plan: No lightheadedness, dizziness or change in mental status. Plan: - Continue normal saline at 50 mls/hr - Nephrology involved, will follow new recommendations (9) Rectal bleeding Current Visit: Yes Status: Suspected Assessment and Plan: No episode of rectal bleeding for the past 78 hours. Rectal bleeding likely due to sigmoid ulcerated sigmoid mass. Plan: - Patient is scheduled for surgery. (10) AAA (abdominal aortic aneurysm) Current Visit: Yes Status: Chronic Assessment and Plan: CT abd/pelvis with IV contrast; Ruled out leak Plan: - Plan of care as per vascular surgery (11) Weakness Current Visit: Yes Status: Acute Assessment and Plan: Plan: - Physical therapy DVT Prophylaxis: Mechanical DVT prophylaxis - No chemical DVT prophylaxis due to GI bleed. - Time Spent with Patient Total time spent is greater than 50% in coordination of care (as documented) at patient's floor/unit and/or counseling patient: Greater than 35 minutes Plan of Care Discussed with: patient Internal Medicine: Result - Labs CBC & Chem 7: 04/20/18 06:29 04/20/18 06:29 Labs: Short CBC 04/20/18 Range/Units 06:29 WBC 4.2 L (4.3-11.1) K/mcL Hgb 7.6 L (11.5-15.4) g/dL Hct 24.1 L (35.3-44.9) % Plt Count 367 (140-400) K/mcL Neutrophils # 2.4 (1.6-8.9) K/mcL BMP 04/19/18 04/20/18 03:18 06:29 Sodium 132 L 130 L Potassium 2.9 L 3.7 Chloride 103 104 Carbon Dioxide 24 22 L BUN 7 L 6 L Creatinine 0.47 L 0.44 L Glucose 124 H 102 Calcium 7.7 L 7.5 L - ABG Interpretation ABG results: PT/INR, D-dimer PT 12.7 Seconds (9.4-12.1) H 04/15/18 18:15 - Impressions Impressions Abdomen/Pelvis CT 04/19/18 13:00 IMPRESSION: 1. New mild bilateral pleural effusions and basilar atelectasis. 2. Atherosclerosis with infrarenal abdominal aortic aneurysm stent graft repair with a stable 4.4 cm aortic sac. 3. Stable retroperitoneal and pelvic edema/hemorrhage with no abscess or acute hematoma. Stable left periaortic retroperitoneal 4.4 cm loculated fluid collection which may represent postsurgical seroma. 4. Nonspecific mild colonic wall thickening which may relate to postsurgical change. There is no evidence of a focal colonic mass, obstruction, or perforation. 5. New indeterminate nodular hyperdensities at the dependent aspect of the bladder. This could represent debris or mild blood clots. This unlikely represents neoplasm as the finding was not present on the prior 04/15/2018 exam. D/ / 04/19/2018 14:32:25 Branden Pa MD / [facility] Interpreting Provider: Branden Pa MD - VTE Documentation of Mechanical Device: Intermittent pneumatic compression device Consult Discharge Plan - Plan Referrals: NONE,PCP [Primary Care Provider] - (3) HTN (hypertension) Qualifiers: Hypertension type: essential hypertension Qualified Code(s): I10 - Essential (primary) hypertension (4) Constipation Qualifiers: Constipation type: slow transit constipation Qualified Code(s): K59.01 - Slow transit constipation (5) Anemia Qualifiers: Anemia type: other cause Other causes of anemia: acute posthemorrhagic Qualified Code(s): D62 - Acute posthemorrhagic anemia (6) Coronary artery disease Qualifiers: Coronary Disease-Associated Artery/Lesion type: [place] artery [place] vs. transplanted heart: [place] heart Associated angina: without angina Qualified Code(s): I25.10 - Atherosclerotic heart disease of [place] coronary artery without angina pectoris (7) Hyperlipidemia Qualifiers: Hyperlipidemia type: mixed hyperlipidemia Qualified Code(s): E78.2 - Mixed hyperlipidemia (10) AAA (abdominal aortic aneurysm) Qualifiers: Presence of rupture: without rupture Qualified Code(s): I71.4 - Abdominal aortic aneurysm, without rupture
[2018-04-20] MEDS: Bisacodyl 10 MG RECTAL SUPPOSITORY RC SCH (10:13)
[2018-04-20] MEDS: Nicotine 7 MG PATCH.TD24 TD SCH (10:13)
[2018-04-20] MEDS: Potassium Chloride Elixir 20 MEQ/15 ML UDC PO SCH (10:13)
--- NOTE | 2018-04-20 11:39 | Cardiology Consult Note ---
Date of Encounter: 04/20/18 Time of Encounter: 10:30 Assessment and Plan (1) Pre-op evaluation Current Visit: Yes Status: Acute Ms. Ryan has a large obstructing mass in the sigmoid colon concerning for malignancy. We have been asked to provide a cardiac risk assessment prior to surgery. Patient has a recent complicated medical course having undergone open repair of an abdominal aortic aneurysm complicated postoperatively by NSTEMI where patient underwent LHC demonstrating severe diffuse CAD recommending medical management. An echo performed at that time demonstrated suboptimal image quality for exact assessment of LVEF although grossly it appeared normal. Presently, the patient is denying chest pain. It may be reasonable to obtain a limited echo for assessment of LV systolic function to help guide risk assessment. However, given the extent of her diffuse CAD, she will be at high risk for surgery under general anesthesia. Further cardiac testing would not decrease this risk and would ultimately delay surgical removal of her colon cancer. This was discussed with the patient at the bedside. Discussion w patient/family: The assessment and plan as outlined above was discussed with the patient and/or family members who expressed understanding and agreement. All questions were answered. Thank you for involving us in the care of your patient. Please call with any questions. History of Present Illness Consult date: 04/20/18 Requesting physician: Apolinar Jesus Consult reason: Pre Op Chief complaint: Rectal Bleeding History of present illness: Ms. Ryan is a 78 year old female presenting to [facility] from [facility] on 04/15/2018 with rectal bleeding. Reviewed hospitalized records and recent admit notes. Patient recently underwent open repair of an AAA with Dr. Holman February 2018. She underwent a LHC post procedurally due to NSTEMI demonstrating severe CAD recommending medical management. At the bedside, the patient reports some abdominal discomfort. She denies recent chest pain, palpitations, dyspnea. She understands that she has "cancer " that is being considered for surgery. Past Med Surg Social Fam HX - Past Medical History Source: old records reviewed Medical history: asthma, cancer, COPD, coronary artery disease, CVA, hypertension, other Additional medical history: BRONCHITIS, RIGHT BREAST CANCER Psychiatric history: anxiety, depression, panic disorder - Past Surgical History Surgical History: breast surgery Additional surgical history: AAA repair 03/20/2018. jaw - Social History Smoking Status: Current every day smoker Smokeless Tobacco Status: No Alcohol use: rarely (formerly Heavy drinker) Drug use: marijuana - Family History Mother Living Status: Hx Family Cancer: Yes (Colon.) Father Living Status: Hx Family Cardiac Disorders: Yes (CO) Medications and Allergies Aspirin 81 mg PO DAILY 06/26/15 [History] Citalopram [CeleXA] 10 mg PO DAILY 10/19/15 [History] Docusate [Colace] 100 mg PO BID PRN 07/23/16 [History] Ipratropium/Albuterol Sulfate [Combivent Respimat Inhal [place]] 4 gm IH QID PRN 07/23/16 [History] Multivit-Min/FA/Lycopen/Lutein [Centrum Silver Tablet] 1 tab PO DAILY 07/23/16 [ History] Ferrous Sulfate 325 mg PO BIDWM tablet 08/11/16 [Rx] Metoprolol [Lopressor] 12.5 mg PO BID tablet 08/11/16 [Rx] Ondansetron ODT [Zofran ODT] 4 mg SL Q6HR PRN #0 tab.rapdis 08/11/16 [Rx] Pantoprazole Sodium [Protonix] 20 mg PO DAILY 03/20/18 [History] Sennosides/Docusate Sodium [Senna Plus] 2 tab PO DAILY PRN 03/20/18 [History] Atorvastatin Calcium [Lipitor] 20 mg PO HS 03/27/18 [History] Clopidogrel [Plavix] 75 mg PO DAILY 03/27/18 [History] Polyethylene Glycol 3350 [MiraLAX] 17 gm PO DAILY 03/27/18 [History] Furosemide [Lasix] 20 mg PO DAILY #14 tablet 04/01/18 [Rx] Isosorbide MONOnitrate (24 HR) [Imdur] 60 mg PO DAILY tab.er.24h 04/01/18 [Rx] OxyCODONE/APAP 5/325 [Percocet 5/325 MG] 1 each PO Q6HR PRN 7 Days #25 tablet [Rx] Potassium Chloride 20 meq PO DAILY #14 tab.er.prt 04/01/18 [Rx] Oxybutynin Chloride [Ditropan Xl] 10 mg PO DAILY 04/15/18 [History] 3 Allergy/AdvReac Type Severity Reaction Status Date / Time codeine Allergy Severe Anaphylaxis Verified 03/27/18 16:39 All Systems Review: The remainder of the systems were reviewed and are negative except as noted. - Cardiovascular Cardiovascular: as per HPI Physical Examination Vital Signs, Last 4 Hours Temp Pulse Resp BP Pulse Ox 04/20/18 10:56 97.7 F 79 19 98/59 98 04/20/18 10:50 97.4 F L 79 18 119/68 99 General: Conversant, No Apparent Distress HEENT: Atraumatic, Normocephaly, Mucus Membranes Moist Neck: No JVD Cardiac: Reg Rate and Rhythm, Normal S1 and S2, Other (2/6 systolic murmur LSB) Lungs: Other (poor inspiratory effort, no apparent rales wheeze or rhonchi) Neuro: Alert and responsive, No focal deficits noted Abdomen: Soft, Other (mildly tender to palpation, bowel sounds audible) Extremities: No Edema Results 04/20/18 06:29 04/20/18 06:29 Lab Results 04/20/18 04/20/18 04/20/18 06:29 06:29 06:29 WBC 4.2 L Hgb 7.6 L Hct 24.1 L Plt Count 367 Sodium 130 L Potassium 3.7 Chloride 104 Carbon Dioxide 22 L BUN 6 L Creatinine 0.44 L Glucose 102 Calcium 7.5 L Magnesium 2.0 - Imaging and Cardiology Echo: report reviewed (03/27/18) Cardiac cath: report reviewed (03/27/18) Other Results: CT ab/p 04/15/18 report reviewed - EKG Interpretation EKG results cardiology: personally reviewed (Admitting ECG demonstrates sinus tachycardia HR 103 bpm, possible JOHN, poor R wave progression, LAD, no acute ischemic findings), other (telemetry demonstrates average HR 79 bpm, artifact, no obvious rhythm disturbance) Consult Discharge Plan - Plan Referrals: NONE,PCP [Primary Care Provider] -
[2018-04-20] MEDS: D5% in 0.9% NACL 1,000 ML IVC SCH (12:41)
[2018-04-21] MEDS: MetroNIDAZOLE 500 MG/100 ML 500 MG/100 ML BAG IVPB SCH ×2 (00:53→09:36)
--- NOTE | 2018-04-21 07:11 | Anesthesia Evaluation Post Op ---
Date of Encounter: 04/19/18 Time of Encounter: 08:45 - Vital Signs Vital Signs: Vital Signs/O2 Sat/Glucose, Most Recent Temp Pulse Resp BP Pulse Ox 98.6 F 80 14 115/58 100 04/21/18 05:25 04/21/18 05:25 04/21/18 05:25 04/21/18 05:04/21/18 05:25 Blood Glucose* 141 - Lungs Lungs: Clear Ascult./Percussion - Airway Airway: Non-obstructed - Cardiovascular Regular Rate - Mental Status Mental Status: Alert & Oriented, Answers Appropriately - Pain Pain Scale used: Margarette (Faces) - Nausea Vomiting Nausea Vomiting: Not Present - Hydration Hydration: NPO - Discharge PostOp Status: Transfer Patient to floor
--- NOTE | 2018-04-21 09:10 | Event Note ---
Date of Encounter: 04/21/18 Time of Encounter: 09:08 Nephrology Chart Review I reviewed the pt's chart and the sign-out from Dr. Paulson. The PNa was better than admission yesterday, but no new labs today. Nevertheless seeing only mild hyponatremia at last check, I will sign-off. Please call if needing further Nephrology specialty consultation or re-consult if needed. Thank you.
[2018-04-21] MEDS: Nicotine 7 MG PATCH.TD24 TD SCH (09:36)
[2018-04-21] MEDS: Bisacodyl 10 MG RECTAL SUPPOSITORY RC SCH (09:36)
[2018-04-21] MEDS: Isosorbide MONOnitrate (24 HR) 30 MG TAB.ER.24H PO SCH (09:36)
[2018-04-21] MEDS: Potassium Chloride Elixir 20 MEQ/15 ML UDC PO SCH (09:36)
--- NOTE | 2018-04-21 09:53 | Event Note ---
Date of Encounter: 04/21/18 Time of Encounter: 09:40 Weekend notes reviewed. Patient with colon mass - surgical consult pending. She will be high risk for surgical intervention with cardiac history. Has not had any further issues with refusing care. D/W Gia Acosta, surgical EQUIPMENT OPERATION INSTRUCTOR briefly. Discussion has not yet occurred for consult, so they have not seen. Palliative will sign off. If she does poorly following surgery, or has other issues palliative care can address, please reconsult.
[2018-04-21 09:54] LABS: Basophils % 0.6 %; Eosinophils # 0.1 K/mcL (0.0-0.6); Eosinophils % 1.3 %; Hematocrit 26.1 % (35.3-44.9); Hemoglobin 8.3 g/dL (11.5-15.4); Immature Granulocytes % 1.6 % (0-4); Lymphocytes # 1.4 K/mcL (0.6-4.6); Lymphocytes % 21.2 %; Mean Corpuscular HGB Conc 31.8 g/dL (31.6-35.5); Mean Corpuscular Hemoglobin 30.2 pg (28.0-33.3); Mean Corpuscular Volume 94.9 fL (83.0-100.0); Monocytes # 0.6 K/mcL (0.0-1.3); Monocytes % 9.7 %; Neutrophils # 4.2 K/mcL (1.6-8.9); Platelet Count 344 K/mcL (140-400); Red Blood Count 2.75 M/mcL (3.82-4.97); Red Cell Distribution Width 15.9 % (11.5-14.5); Segmented Neutrophils % 65.6 %
[2018-04-21 09:59] LABS: VBG Ionized Calcium 1.14 mmol/L (1.15-1.35)
[2018-04-21] MEDS: D5% in 0.9% NACL 1,000 ML IVC SCH (10:10)
[2018-04-21 10:14] LABS: % Iron Saturation 16 % (15-50); BUN/Creatinine Ratio 13 (6-26); Blood Urea Nitrogen 6 mg/dL (8-23); Calcium 7.6 mg/dL (8.6-10.3); Carbon Dioxide 23 mEq/L (23-29); Chloride 102 mEq/L (98-107); Glucose 103 mg/dL (70-105); Iron 27 mcg/dL (50-170); Magnesium 1.7 mg/dL (1.6-2.6); Osmolality,Calculated 262 (280-300); Potassium 3.3 mEq/L (3.5-5.1); Sodium 127 mEq/L (136-145); Transferrin 119 mg/dL (203-362); eGFR For Non-African Americans > 60 (> 60)
[2018-04-21 10:32] LABS: Ferritin 114 ng/mL (10-120)
[2018-04-21 10:38] LABS: Folate 15.1 ng/mL (3.0-16.0)
[2018-04-21 10:42] LABS: Vitamin B12 > 1500 pg/mL (250-1100)
--- NOTE | 2018-04-21 11:05 | Cardiology Progress Note ---
Date of Encounter: 04/21/18 Time of Encounter: 11:03 Assessment and Plan (1) Pre-op evaluation Current Visit: Yes Status: Acute Cardiology consulted for pre-operative cardiovascular risk assessment. She was found to have a large obstructing mass in the sigmoid colon concerning for malignancy. She is s/p HI 02/2018 after undergoing AAA repair. LHC at that time showed severe diffuse CAD. Medical management was recommended. TTE at that time with sub-optimal quality images and LVEF was not determined. She is chest pain free and denies SOB. No overt fluid overload on exam. Due to known severe CAD and recent HI she is high risk for surgery under general anesthesia. No cardiac testing will lessen her risk and delay needed surgery. A repeat TTE was ordered to assess her LV function. Continue statin and bb antonino-operatively. Asa on hold due to rectal bleed. (2) Coronary artery disease Current Visit: Yes Status: Chronic [facility] 02/2018- Severe diffuse 3V CAD. EF 45%. 90% stenosis in the pLAD, 90% stenosis in the mLAD. 80% stenosis in the Proximal Circumflex, 90% stenosis in the Mid Circumflex. 100% stenosis in the pRCA. There was collaterals from the distal LAD to the LCx and RCA. Out-pt cardiology note reviewed, she was not a candidate for revascularization due small vessels and diffuse disease. Continue statin and bb. Ideally she should be on asa. Unable to tolerate due to rectal bleeding. Qualifiers: Coronary Disease-Associated Artery/Lesion type: [place] artery [place] vs. transplanted heart: [place] heart Associated angina: without angina Qualified Code(s): I25.10 - Atherosclerotic heart disease of [place] coronary artery without angina pectoris Discussion w patient/family: The assessment and plan as outlined above was discussed with the patient and/or family members who expressed understanding and agreement. All questions were answered. Thank you for involving us in the care of your patient. Please call with any questions. Subjective Principal diagnosis: hyponatremia Interval history: Ms. Ryan denies chest pain or SOB. States that she would get SOB with activity. Awaiting surgery evaluation. Objective Vital Signs, Last 4 Hours Temp Pulse Resp BP Pulse Ox 04/21/18 10:00 97.6 F 77 14 116/71 99 General: Conversant, No Apparent Distress HEENT: Atraumatic, Normocephaly, Mucus Membranes Moist Neck: No JVD, Normal carotid pulses Cardiac: Reg Rate and Rhythm, Normal S1 and S2, No Murmur Lungs: Normal Breath Sounds, No Wheeze, Rales, Rhonchi Neuro: Alert and responsive, No focal deficits noted Abdomen: Soft Skin: No rashes noted on visualized skin Musculoskeletal: No Chest Wall Tenderness Extremities: No Clubbing, No Cyanosis, No Edema, Normal Pulses Results 04/21/18 09:45 04/21/18 09:45 Lab Results 04/21/18 04/21/18 09:45 09:45 WBC 6.4 D Hgb 8.3 L Hct 26.1 L Plt Count 344 Sodium 127 L Potassium 3.3 L Chloride 102 Carbon Dioxide 23 BUN 6 L Creatinine 0.47 L Glucose 103 Calcium 7.6 L Magnesium 1.7 - Imaging and Cardiology Echo: pending - EKG Interpretation EKG results cardiology: personally reviewed - VTE Documentation of Mechanical Device: Intermittent pneumatic compression device Consult Discharge Plan - Plan Referrals: NONE,PCP [Primary Care Provider] -
--- NOTE | 2018-04-21 13:28 | Internal Med Progress Note ---
Hospitalist Progress Note - Encounter Date of Encounter: 04/21/18 Time of Encounter: 13:24 - Subjective Interval History: Patient evaluated at bedside. John reports generalized weakness, Wants to eat , denies abdominal pain. No blood in her stool, no fever or chills. No chest pain, lightheadedness. - Exam Vitals: Temp Pulse Resp BP Pulse Ox 97.6 F 77 14 116/71 99 04/21/18 10:00 04/21/18 10:00 04/21/18 10:00 04/21/18 10:00 04/21/18 10:00 Exam: General: Alert and oriented. No distress. Cardiovascular: Normal S1 & S2, no rubs, murmurs or gallops. No JVD. Pulse regular. Lungs: Clear to auscultation, no wheezes or crackles. Abdomen: Soft, non-tender, no rigidity, healed abdominal scar. NABS. Extremities: no edema or tenderness, no joint swelling or clubbing. Neurological: Normal cognition and motor skills. Rest of the physical exam is non contributory - Assessment and Plan (1) Neoplasm of sigmoid colon Current Visit: Yes Status: Acute Assessment and Plan: Coloscopy report: ulcerated, large obstructing mass in the sigmoid colon. Plan: - Surgery consulted, will follow final recommendations. - f/u biopsy report - Advance diet to full liquid - Preop evaluation done by tray checker and patient is high risk for the surgery due to her history of severe CAD. (2) Colitis Current Visit: Yes Status: Resolved Assessment and Plan: Patient with no significant abdomen pain for approximately 78 hours. No fever. component of her abdominal pain could be more related to the sigmoid mass than to the colitis. Plan: - Today will be last dose of antibiotics - Patient has completed 7 days of antibiotics coverage. And has no signs of active infection - Advance diet to full liquid (3) HTN (hypertension) Current Visit: Yes Status: Chronic Assessment and Plan: Plan: - Continue metoprolol and isosorbide - No medication adjustment (4) Constipation Current Visit: Yes Status: Chronic Assessment and Plan: Possibly due to sigmoid mass. Plan: - Continue docussate/senna (5) Anemia Current Visit: Yes Status: Acute Assessment and Plan: Possibly due to blood loss. Plan: - Will transfused if Hb <7 or Hct <23 or patient becomes hemodynamically unstable. - Continue omeprazole 40 mg daily - On ferrous sulfate (6) Coronary artery disease Current Visit: Yes Status: Chronic Assessment and Plan: Patient has an extensive hx of CVA. Plan: - Not on aspirin or Plavix due to GI bleed - continue statins (7) Hyponatremia Current Visit: Yes Status: Acute (8) AAA (abdominal aortic aneurysm) Current Visit: Yes Status: Resolved Assessment and Plan: Patient recently underwent AAA repair Plan: - Plan of care as per vascular surgery (9) Weakness Current Visit: Yes Status: Acute Assessment and Plan: Plan: - daily physical therapy (10) Hyponatremia Current Visit: Yes Status: Acute Assessment and Plan: No neurological symptoms. Plan: - Continue free water restriction to 1.5 litter a day - On D5NS @50mls/hrs (11) Hypokalemia Current Visit: No Status: Acute Assessment and Plan: Patient has been refusing PO replacement DVT Prophylaxis: Mechanical DVT prophylaxis - No chemical DVT prophylaxis due to rectal rectal bleed - Time Spent with Patient Total time spent is greater than 50% in coordination of care (as documented) at patient's floor/unit and/or counseling patient: Greater than 35 minutes Plan of Care Discussed with: patient Internal Medicine: Result - Labs CBC & Chem 7: 04/21/18 09:45 04/21/18 09:45 Labs: Short CBC 04/21/18 Range/Units 09:45 WBC 6.4 D (4.3-11.1) K/mcL Hgb 8.3 L (11.5-15.4) g/dL Hct 26.1 L (35.3-44.9) % Plt Count 344 (140-400) K/mcL Neutrophils # 4.2 (1.6-8.9) K/mcL BMP 04/21/18 09:45 Sodium 127 L Potassium 3.3 L Chloride 102 Carbon Dioxide 23 BUN 6 L Creatinine 0.47 L Glucose 103 Calcium 7.6 L - ABG Interpretation ABG results: PT/INR, D-dimer PT 12.7 Seconds (9.4-12.1) H 04/15/18 18:15 - VTE Documentation of Mechanical Device: Intermittent pneumatic compression device Consult Discharge Plan - Plan Referrals: NONE,PCP [Primary Care Provider] - (3) HTN (hypertension) Qualifiers: Hypertension type: essential hypertension Qualified Code(s): I10 - Essential (primary) hypertension (4) Constipation Qualifiers: Constipation type: slow transit constipation Qualified Code(s): K59.01 - Slow transit constipation (5) Anemia Qualifiers: Anemia type: other cause Other causes of anemia: acute posthemorrhagic Qualified Code(s): D62 - Acute posthemorrhagic anemia (6) Coronary artery disease Qualifiers: Coronary Disease-Associated Artery/Lesion type: [place] artery [place] vs. transplanted heart: [place] heart Associated angina: without angina Qualified Code(s): I25.10 - Atherosclerotic heart disease of [place] coronary artery without angina pectoris (8) AAA (abdominal aortic aneurysm) Qualifiers: Presence of rupture: without rupture Qualified Code(s): I71.4 - Abdominal aortic aneurysm, without rupture
--- NOTE | 2018-04-21 16:12 | General Surgery Consult Note ---
<Woo Nuñez R - Last Filed: 04/21/18 18:01> Date of Encounter: 04/21/18 Time of Encounter: 16:11 Assessment and Plan (1) Neoplasm of sigmoid colon Current Visit: Yes Status: Acute Patient does endorse significant symptoms of obstruction. She is a very high risk surgical candidate. After recent AAA repair she experienced NSTEMI and post -op ileus. Patient was subsequently found to have significant three vessel disease with significant collateral formation. Thoroughly discussed with patient the surgical plan, risks, benefits, and possible complications and outcomes. All of the patient's questions were answered at the bedside. I also spoke with Dr. Holman, her vascular surgeon. He endorses that she is a high surgical risk candidate, however he does not feel that surgery and partial colectomy will jeopardize the AAA repair or graft. Will plan to take to the OR tomorrow ~[address] abdomen and pelvis with rectal and IV contrast to identify location of mass Type and screen RBCs, 2 units on hold and available PT/INR Labs-CBC, BMP, magnesium Clear liquid diet today NPO after midnight Order for PICC line placement and nutrition consult for anticipated TPN Patient has been off aspirin and Plavix since 04/17/2018 Begin heparin prophylaxis Consent placed in patient chart to be signed tomorrow History of Present Illness Consult date: 04/21/18 (april escalante) Reason for consult: other (Sigmoid mass on colonoscopy) History of present illness: Patient is a 78 year old female with a past medical history of CAD, COPD, CVA, hypertension and open AAA repair and NSTEMI 1 month ago. History is obtained from the chart and patient at the bedside, no family present during exam. [facility] for bright red blood per rectum on 04/15. Blood was noticed by nursing staff. Reported to be significant and patient was transported to ED. Patient states that she has a history of constipation and hemorrhoids. States it is not uncommon for her to go 1-2 weeks between bowel movements. No prior history of blood in stool or colon cancer. At presentation she was on aspirin and plavix, has been held since . She denies experiencing fevers, nausea, vomiting, chills, chest pain. CT scan revealed moderate stool burden and induration of perirectal fat. Patient's H/H have been stable at 8 and 24 respectively since admission. Colonoscopy was performed with concern for mass vs ischemic colitis on 04/19/2018, finding obstructive circumferential mass of the proximal sigmoid colon, biopsy was taken and is not back at this time. CEA elevated at 8.1, patient's mother did have colon cancer. Patient denies blood from rectum today, nurse reports dark red stool yesterday. Patient reports feeling improvement in fatigue today. Past Med Surg Social Fam HX - Past Medical History Medical history: asthma, cancer, COPD, coronary artery disease, CVA, hypertension, other Additional medical history: BRONCHITIS, RIGHT BREAST CANCER Psychiatric history: anxiety, depression, panic disorder - Past Surgical History Surgical History: breast surgery Additional surgical history: AAA repair 03/20/2018. jaw - Social History Smoking Status: Current every day smoker Smokeless Tobacco Status: No Alcohol use: rarely (formerly Heavy drinker) Drug use: marijuana - Family History Mother Living Status: Hx Family Cancer: Yes (Colon.) Father Living Status: Hx Family Cardiac Disorders: Yes ([place]) Medications and Allergies Aspirin 81 mg PO DAILY 06/26/15 [History] Citalopram [CeleXA] 10 mg PO DAILY 10/19/15 [History] Docusate [Colace] 100 mg PO BID PRN 07/23/16 [History] Ipratropium/Albuterol Sulfate [Combivent Respimat Inhal [place]] 4 gm IH QID PRN 07/23/16 [History] Multivit-Min/FA/Lycopen/Lutein [Centrum Silver Tablet] 1 tab PO DAILY 07/23/16 [ History] Ferrous Sulfate 325 mg PO BIDWM tablet 08/11/16 [Rx] Metoprolol [Lopressor] 12.5 mg PO BID tablet 08/11/16 [Rx] Ondansetron ODT [Zofran ODT] 4 mg SL Q6HR PRN #0 tab.rapdis 08/11/16 [Rx] Pantoprazole Sodium [Protonix] 20 mg PO DAILY 03/20/18 [History] Sennosides/Docusate Sodium [Senna Plus] 2 tab PO DAILY PRN 03/20/18 [History] Atorvastatin Calcium [Lipitor] 20 mg PO HS 03/27/18 [History] Clopidogrel [Plavix] 75 mg PO DAILY 03/27/18 [History] Polyethylene Glycol 3350 [MiraLAX] 17 gm PO DAILY 03/27/18 [History] Furosemide [Lasix] 20 mg PO DAILY #14 tablet 04/01/18 [Rx] Isosorbide MONOnitrate (24 HR) [Imdur] 60 mg PO DAILY tab.er.24h 04/01/18 [Rx] OxyCODONE/APAP 5/325 [Percocet 5/325 MG] 1 each PO Q6HR PRN 7 Days #25 tablet [Rx] Potassium Chloride 20 meq PO DAILY #14 tab.er.prt 04/01/18 [Rx] Oxybutynin Chloride [Ditropan Xl] 10 mg PO DAILY 04/15/18 [History] 3 Allergy/AdvReac Type Severity Reaction Status Date / Time codeine Allergy Severe Anaphylaxis Verified 03/27/18 16:39 Review of Systems All systems PM: The remainder of the systems were reviewed and are negative - Constitutional fatigue, lethargy - EENT Nose, mouth and throat: dry mouth - Gastrointestinal abdominal pain, constipation, hematochezia General Surgery Exam Initial Vital Signs Temp Pulse Resp BP Pulse Ox 97.6 F 104 18 103/61 96 04/15/18 16:37 04/15/18 16:37 04/15/18 16:37 04/15/18 16:37 04/15/18 16:37 - General physical appearance no distress, no pain - Eyes PERRL, normal ocular movement - ENT dry mucosa, atraumatic, normocephalic - Neck trachea midline - Respiratory normal respiratory effort, clear to auscultation - Cardiovascular Cardiovascular exam: Present: RRR - Abdomen Abdomen general surgery: Present: bowel sounds present, soft Abdominal Tenderness: Present: LLQ (to deep palpation, no rebound or gaurding. ) - Incision Incision: Present: clean and dry, intact (Healing midline incision from open AAA repair) - Neurologic Present: CN 2-12 grossly intact - Psychiatric Psychiatric general surgery: Present: A&Ox3, speech is normal Exam Initial Vital Signs Temp Pulse Resp BP Pulse Ox 97.6 F 104 18 103/61 96 04/15/18 16:37 04/15/18 16:37 04/15/18 16:37 04/15/18 16:37 04/15/18 16:37 Results - Labs 04/21/18 09:45 04/21/18 09:45 Abnormal lab results RBC 2.75 M/mcL (3.82-4.97) L 04/21/18 09:45 Hgb 8.3 g/dL (11.5-15.4) L 04/21/18 09:45 Hct 26.1 % (35.3-44.9) L 04/21/18 09:45 RDW 15.9 % (11.5-14.5) H 04/21/18 09:45 MPV 8.0 fL (9.4-12.4) L 04/21/18 09:45 PT 12.7 Seconds (9.4-12.1) H 04/15/18 18:15 Sodium 127 mEq/L (136-145) L 04/21/18 09:45 Potassium 3.3 mEq/L (3.5-5.1) L 04/21/18 09:45 BUN 6 mg/dL (8-23) L 04/21/18 09:45 Creatinine 0.47 mg/dL (0.60-1.20) L 04/21/18 09:45 POC Glucose 141 mg/dL (70-99) H 04/19/18 11:29 Serum Osmolality 262 mOsm/kg (280-300) L 04/21/18 09:45 Calculated Osmolality 262 (280-300) L 04/21/18 09:45 Calcium 7.6 mg/dL (8.6-10.3) L 04/21/18 09:45 Venous Ioniz Calcium 1.14 mmol/L (1.15-1.35) L 04/21/18 09:56 Iron 27 mcg/dL (50-170) L 04/21/18 09:45 Transferrin 119 mg/dL (203-362) L 04/21/18 09:45 Carcinoembryonic Ag 8.3 ng/mL (Less than 5.0) H 04/19/18 03:18 Vitamin B12 > 1500 pg/mL (250-1100) H 04/21/18 09:45 Stool Occult Blood Positive (Negative) A 04/17/18 12:35 Diabetes panel 04/21/18 Range/Units 09:45 Sodium 127 L (136-145) mEq/L Potassium 3.3 L (3.5-5.1) mEq/L Chloride 102 (98-107) mEq/L Carbon Dioxide 23 (23-29) mEq/L BUN 6 L (8-23) mg/dL Creatinine 0.47 L (0.60-1.20) mg/dL Glucose 103 (70-105) mg/dL Calcium 7.6 L (8.6-10.3) mg/dL Calcium panel 04/21/18 Range/Units 09:45 Calcium 7.6 L (8.6-10.3) mg/dL Pituitary panel 04/21/18 Range/Units 09:45 Sodium 127 L (136-145) mEq/L Potassium 3.3 L (3.5-5.1) mEq/L Chloride 102 (98-107) mEq/L Carbon Dioxide 23 (23-29) mEq/L BUN 6 L (8-23) mg/dL Creatinine 0.47 L (0.60-1.20) mg/dL Glucose 103 (70-105) mg/dL Calcium 7.6 L (8.6-10.3) mg/dL Adrenal panel 04/21/18 Range/Units 09:45 Sodium 127 L (136-145) mEq/L Potassium 3.3 L (3.5-5.1) mEq/L Chloride 102 (98-107) mEq/L Carbon Dioxide 23 (23-29) mEq/L BUN 6 L (8-23) mg/dL Creatinine 0.47 L (0.60-1.20) mg/dL Glucose 103 (70-105) mg/dL Calcium 7.6 L (8.6-10.3) mg/dL All other labs normal. Consult Discharge Plan - Plan Referrals: NONE,PCP [Primary Care Provider] - <April Escalante - Last Filed: 04/22/18 15:51> Date of Encounter: 04/21/18 Assessment and Plan (1) Colon obstruction Current Visit: Yes Status: Acute discussed with patient concerns for colon cancer, obstructing sigmoid mass seen by Dr Sharma on colonoscopy, pathology pending, CEA 8.1, mothers history colon cancer will obtain CT abd/pelvis with iv contrast and rectal contrast to evaluate for liver mets and see exactly where this obstruction is and how severe, previous CT on 04/19 shows inflammation and wall thicking of sigmoid discussed that she is high risk for surgery from several standpoints - recent [place] , recent abdominal open AAA repair, calorie malnutrition will get CT and see what it shows, no urgent surgical intervention (2) AAA (abdominal aortic aneurysm) Current Visit: Yes Status: Resolved s/p open AAA repair Qualifiers: Presence of rupture: without rupture Qualified Code(s): I71.4 - Abdominal aortic aneurysm, without rupture (3) Severe protein-calorie malnutrition Current Visit: No Status: Chronic consult picc team and start TPN (4) Cigarette smoker Current Visit: No Status: Chronic nicotine patch History of Present Illness Requesting physician: Apolinar Jesus History of present illness: Patient with complex medical history. She had an open AAA repair on 03/20/18 and a NSTEMI after surgery. She was on aspirin and plavix and was having rectal bleeding and reported to ED. She underwent last saturday a colonoscopy which showed an obstructing sigmoid mass. Patient reports tolerating the bowel prep and denies nausea or emesis. Patient is a poor historian and states she has been having issue with constipation but is unsure what medication for it she has been taking. She thinks she may have a bm once a week to once every two weeks but cannot say how long that has been occuring. She denies abdominal pain. She denies feeling bloated or having pain after eating. She states her bm' s are soft. She has never previously had a colonoscopy. Her mother had colon cancer in her 70's. biopsy results pending, ct scan abd/pelvis with po only done after colonoscopy show no obvious mass. CEA 8.1 Past Med Surg Social Fam HX - Past Medical History Source: patient Medical history: cancer (breast) - Past Surgical History Surgical History: breast surgery (lumpectomy/?slnb) Review of Systems All systems PM: reviewed and no additional remarkable complaints except as stated All systems PM: The remainder of the systems were reviewed and are negative General Surgery Exam Initial Vital Signs Temp Pulse Resp BP Pulse Ox 97.6 F 104 18 103/61 96 04/15/18 16:37 04/15/18 16:37 04/15/18 16:37 04/15/18 16:37 04/15/18 16:37 - General physical appearance no distress, no pain, other (pale) - Eyes PERRL, normal ocular movement - ENT normal mucosa, normocephalic - Neck trachea midline - Respiratory normal expansion, normal respiratory effort - Cardiovascular Cardiovascular exam: Present: RRR - Abdomen Abdomen general surgery: Present: bowel sounds present, distended. Absent: tender, guarding, rebound - Integumentary Integumentary general surgery: Present: warm and dry - Neurologic Present: CN 2-12 grossly intact - Musculoskeletal Present: normal posture - Psychiatric Psychiatric general surgery: Present: A&Ox3, speech is normal Exam Initial Vital Signs Temp Pulse Resp BP Pulse Ox 97.6 F 104 18 103/61 96 04/15/18 16:37 04/15/18 16:37 04/15/18 16:37 04/15/18 16:37 04/15/18 16:37 Results - Labs 04/22/18 04:43 04/22/18 04:43 Abnormal lab results RBC 2.76 M/mcL (3.82-4.97) L 04/22/18 04:43 Hgb 8.0 g/dL (11.5-15.4) L 04/22/18 04:43 Hct 25.0 % (35.3-44.9) L 04/22/18 04:43 RDW 16.1 % (11.5-14.5) H 04/22/18 04:43 MPV 8.2 fL (9.4-12.4) L 04/22/18 04:43 PT 14.3 Seconds (9.4-12.1) H 04/22/18 04:43 Sodium 129 mEq/L (136-145) L 04/22/18 04:43 Potassium 2.9 mEq/L (3.5-5.1) L 04/22/18 04:43 BUN 6 mg/dL (8-23) L 04/22/18 04:43 Creatinine 0.44 mg/dL (0.60-1.20) L 04/22/18 04:43 POC Glucose 104 mg/dL (70-99) H 04/22/18 06:21 Serum Osmolality 262 mOsm/kg (280-300) L 04/21/18 09:45 Calculated Osmolality 266 (280-300) L 04/22/18 04:43 Calcium 7.6 mg/dL (8.6-10.3) L 04/22/18 04:43 Venous Ioniz Calcium 1.14 mmol/L (1.15-1.35) L 04/21/18 09:56 Phosphorus 2.6 mg/dL (2.7-4.5) L 04/22/18 04:43 Iron 27 mcg/dL (50-170) L 04/21/18 09:45 Transferrin 119 mg/dL (203-362) L 04/21/18 09:45 Carcinoembryonic Ag 8.3 ng/mL (Less than 5.0) H 04/19/18 03:18 Vitamin B12 > 1500 pg/mL (250-1100) H 04/21/18 09:45 Stool Occult Blood Positive (Negative) A 04/17/18 12:35 Diabetes panel 04/22/18 Range/Units 04:43 Sodium 129 L (136-145) mEq/L Potassium 2.9 L (3.5-5.1) mEq/L Chloride 102 (98-107) mEq/L Carbon Dioxide 23 (23-29) mEq/L BUN 6 L (8-23) mg/dL Creatinine 0.44 L (0.60-1.20) mg/dL Glucose 97 (70-105) mg/dL Calcium 7.6 L (8.6-10.3) mg/dL Triglycerides 72 (< 150) mg/dL Calcium panel 04/22/18 Range/Units 04:43 Calcium 7.6 L (8.6-10.3) mg/dL Phosphorus 2.6 L (2.7-4.5) mg/dL Pituitary panel 04/22/18 Range/Units 04:43 Sodium 129 L (136-145) mEq/L Potassium 2.9 L (3.5-5.1) mEq/L Chloride 102 (98-107) mEq/L Carbon Dioxide 23 (23-29) mEq/L BUN 6 L (8-23) mg/dL Creatinine 0.44 L (0.60-1.20) mg/dL Glucose 97 (70-105) mg/dL Calcium 7.6 L (8.6-10.3) mg/dL Adrenal panel 04/22/18 Range/Units 04:43 Sodium 129 L (136-145) mEq/L Potassium 2.9 L (3.5-5.1) mEq/L Chloride 102 (98-107) mEq/L Carbon Dioxide 23 (23-29) mEq/L BUN 6 L (8-23) mg/dL Creatinine 0.44 L (0.60-1.20) mg/dL Glucose 97 (70-105) mg/dL Calcium 7.6 L (8.6-10.3) mg/dL All other labs normal. - Imaging CT scan - abdomen: report reviewed, image reviewed CT scan - pelvis: report reviewed, image reviewed
[2018-04-21] MEDS ORDERED: Isovue-370 500 ML INFUS..BTL IV ONE (17:45)
--- NOTE | 2018-04-21 19:58 | Anesthesia Evaluation PreOp ---
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: CVA (no residual weakness), Other (Anxiety Depression) Other Medical History: Renal (UTI) Anesthesia History: No Prior Anesthetic Complications, Past Anesthesia (Jaw Surgery) : No Alcohol Use: rarely (formerly Heavy drinker) Drug use: marijuana Medications and Allergies Aspirin 81 mg PO DAILY 06/26/15 [History] Citalopram [CeleXA] 10 mg PO DAILY 10/19/15 [History] Docusate [Colace] 100 mg PO BID PRN 07/23/16 [History] Ipratropium/Albuterol Sulfate [Combivent Respimat Inhal [place]] 4 gm IH QID PRN 07/23/16 [History] Multivit-Min/FA/Lycopen/Lutein [Centrum Silver Tablet] 1 tab PO DAILY 07/23/16 [ History] Ferrous Sulfate 325 mg PO BIDWM tablet 08/11/16 [Rx] Metoprolol [Lopressor] 12.5 mg PO BID tablet 08/11/16 [Rx] Ondansetron ODT [Zofran ODT] 4 mg SL Q6HR PRN #0 tab.rapdis 08/11/16 [Rx] Pantoprazole Sodium [Protonix] 20 mg PO DAILY 03/20/18 [History] Sennosides/Docusate Sodium [Senna Plus] 2 tab PO DAILY PRN 03/20/18 [History] Atorvastatin Calcium [Lipitor] 20 mg PO HS 03/27/18 [History] Clopidogrel [Plavix] 75 mg PO DAILY 03/27/18 [History] Polyethylene Glycol 3350 [MiraLAX] 17 gm PO DAILY 03/27/18 [History] Furosemide [Lasix] 20 mg PO DAILY #14 tablet 04/01/18 [Rx] Isosorbide MONOnitrate (24 HR) [Imdur] 60 mg PO DAILY tab.er.24h 04/01/18 [Rx] OxyCODONE/APAP 5/325 [Percocet 5/325 MG] 1 each PO Q6HR PRN 7 Days #25 tablet [Rx] Potassium Chloride 20 meq PO DAILY #14 tab.er.prt 04/01/18 [Rx] Oxybutynin Chloride [Ditropan Xl] 10 mg PO DAILY 04/15/18 [History] 3 Allergy/AdvReac Type Severity Reaction Status Date / Time codeine Allergy Severe Anaphylaxis Verified 03/27/18 16:39 - Meds/Allergy Pre-op Review Medications Reviewed: Yes Allergies Reviewed: Yes Beta Blockers on Current Med List: Yes (Metoprolol BID) Anesthesia Results - Labs 04/21/18 09:45 04/21/18 09:45 - Imaging EKG: report reviewed (Sinus Tach) Additional studies: [facility] Severe three vessel CAD, EF 45% There is good quality collateral from LAD to mid circumflex medical treatment wit beta blockers/statins, off ASA due to GI bleed Anesthesia Exam O2 Sat Weight 52.3 kg O2 Sat by Pulse Oximetry 100 O2 Sat by Pulse Oximetry 100 O2 Sat by Pulse Oximetry 99 O2 Sat by Pulse Oximetry 100 O2 Sat by Pulse Oximetry 98 Vital Signs Temp Pulse Resp BP Pulse Ox 97.6 F 104 18 103/61 96 04/15/18 16:37 04/15/18 16:37 04/15/18 16:37 04/15/18 16:37 04/15/18 16:37 Height: 5'4 Weight: 115 lbs NPO (# of Hours): MN Pain Scale: 0 - HEENT Pupil (Motor): Pupils equal, EOMI Mallampati: III Denture Type: Upper: Complete Oral Opening: Greater than 3 - 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 LOC: Oriented 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 Motor: Normal RUE, Normal LUE, Normal RLE, Normal LLE, Normal Face 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
[2018-04-21] MEDS: *HR* Heparin 5,000 UNIT/ML VIAL SQ SCH (21:08)
[2018-04-22 06:01] LABS: Basophils % 0.7 %; Eosinophils # 0.1 K/mcL (0.0-0.6); Eosinophils % 1.7 %; Immature Granulocytes % 2.3 % (0-4); Lymphocytes # 1.4 K/mcL (0.6-4.6); Lymphocytes % 23.8 %; Mean Corpuscular Volume 90.6 fL (83.0-100.0); Mean Platelet Volume 8.2 fL (9.4-12.4); Monocytes # 0.6 K/mcL (0.0-1.3); Monocytes % 11.2 %; Neutrophils # 3.5 K/mcL (1.6-8.9); Platelet Count 386 K/mcL (140-400); Red Blood Count 2.76 M/mcL (3.82-4.97); Red Cell Distribution Width 16.1 % (11.5-14.5); Segmented Neutrophils % 60.3 %
[2018-04-22 06:04] LABS: INR 1.3; Prothrombin Time 14.3 Seconds (9.4-12.1)
[2018-04-22 06:18] LABS: BUN/Creatinine Ratio 14 (6-26); Blood Urea Nitrogen 6 mg/dL (8-23); Calcium 7.6 mg/dL (8.6-10.3); Carbon Dioxide 23 mEq/L (23-29); Chloride 102 mEq/L (98-107); Glucose 97 mg/dL (70-105); Magnesium 1.8 mg/dL (1.6-2.6); Osmolality,Calculated 266 (280-300); Potassium 2.9 mEq/L (3.5-5.1); Sodium 129 mEq/L (136-145); eGFR For Non-African Americans > 60 (> 60)
[2018-04-22] MEDS: *HR* Heparin 5,000 UNIT/ML VIAL SQ SCH ×2 (06:35→18:24)
[2018-04-22] MEDS: Isosorbide MONOnitrate (24 HR) 30 MG TAB.ER.24H PO SCH (09:02)
[2018-04-22] MEDS: Bisacodyl 10 MG RECTAL SUPPOSITORY RC SCH (09:03)
[2018-04-22] MEDS: Potassium Chloride Elixir 20 MEQ/15 ML UDC PO SCH ×2 (09:03→09:07)
[2018-04-22] MEDS: Nicotine 7 MG PATCH.TD24 TD SCH (09:03)
[2018-04-22 09:15] LABS: Phosphorous 2.6 mg/dL (2.7-4.5); Triglycerides 72 mg/dL (< 150)
[2018-04-22] MEDS ORDERED: D10% in Water 500 ML IVC PRN (11:36)
[2018-04-22] MEDS ORDERED: Lidocaine -MPF 1% 5 ML AMPUL INFILT ONE (12:32)
[2018-04-22] MEDS ORDERED: Simethicone 40 MG/0.6 ML MLS IR ONE (12:53)
[2018-04-22] MEDS ORDERED: Tetracaine/Benzocaine/Butamben 200MG/SPRAY (100SPY/BOT) MM ONE (12:53)
[2018-04-22] MEDS: D5% in 0.9% NACL 1,000 ML IVC SCH (12:55)
--- NOTE | 2018-04-22 13:44 | Internal Med Progress Note ---
Hospitalist Progress Note - Encounter Date of Encounter: 04/22/18 Time of Encounter: 08:40 - Subjective Interval History: she has no complaints, is anxious about her surgery today. denies N/v/D, abdominal pain. has no complaints, pain is controlled - Exam Vitals: Temp Pulse Resp BP Pulse Ox 97.2 F L 74 15 116/70 99 04/22/18 10:29 04/22/18 10:29 04/22/18 10:29 04/22/18 10:29 04/22/18 10:29 Exam: General: Patient is alert, oriented, no acute distress, underweight, looks ill Head: atraumatic, normocephalic, Eye: normal appearance, PERRL, no scleral icterus, no conjunctival injection ENT: mucous membranes moist, normal external ear exam Neck: normal inspection, trachea midline, full ROM, no carotid bruits Chest: normal inspection, symmetric chest rise Respiratory: Good respiratory effort. Bilateral breath sounds are clear without wheezing, crackles, or rhonchi. Cardiovascular: Regular rate and rhythm. s1 and s2 No clicks, rubs, gallops, or murmors. Abdomen: Bowel sounds present normoactive x-4 quadrants. Abdomen is soft, nondistended. no Epigastric tenderness. has LLQ abdominal pain on deep palpation , musculoskeletal: Spontaneously moving all extremities. no edema, no calf tenderness Skin: warm, dry, intact. Neuro: Alert and oriented x4. Sensation light touch intact. Cranial nerves 2- 12 is intact. no focal deficit Psych: Patient's affect is normal - Assessment and Plan (1) Neoplasm of sigmoid colon Current Visit: Yes Status: Acute Assessment and Plan: Coloscopy report: ulcerated, large obstructing mass in the sigmoid colon. Surgery on board for surgery 04/22/18 f/u biopsy report Preop evaluation done by game agent and patient is high risk for the surgery due to her history of severe CAD. (2) Weakness Current Visit: Yes Status: Acute Assessment and Plan: daily physical therapy (3) HTN (hypertension) Current Visit: Yes Status: Chronic Assessment and Plan: Continue metoprolol and isosorbide No medication adjustment (4) Hypokalemia Current Visit: No Status: Acute Assessment and Plan: 2.9 on 04/22/18- repalced with 40 Meq IV magnesium WNL (5) Anemia Current Visit: Yes Status: Acute Assessment and Plan: stable Will transfused if Hb <7 or Hct <23 or patient becomes hemodynamically unstable. Continue omeprazole 40 mg daily On ferrous sulfate (6) Hyponatremia Current Visit: Yes Status: Acute Assessment and Plan: No lightheadedness, dizziness or change in mental status. Plan: will continue IVF will follow BMP in the AM (7) Colitis Current Visit: Yes Status: Resolved Assessment and Plan: Afebrile, component of her abdominal pain could be more related to the sigmoid mass than to the colitis. Patient has completed 7 days of antibiotics coverage. NPO for sugery (8) Coronary artery disease Current Visit: Yes Status: Chronic Assessment and Plan: Patient has an extensive hx . Not on aspirin or Plavix due to GI bleed- is for surgery today will restart DAPT as per surgery recommendations continue statins (9) Constipation Current Visit: Yes Status: Chronic Assessment and Plan: Possibly due to sigmoid mass. surgery on board Continue docussate/senna (10) AAA (abdominal aortic aneurysm) Current Visit: Yes Status: Resolved Assessment and Plan: Patient recently underwent AAA repair Plan of care as per vascular surgery (11) Underweight Current Visit: Yes Status: Acute Assessment and Plan: will get nutrition consult once she is not NPO BMI 19 (12) DVT prophylaxis Current Visit: No Status: Acute Assessment and Plan: heparin SC - Time Spent with Patient Total time spent is greater than 50% in coordination of care (as documented) at patient's floor/unit and/or counseling patient: Internal Medicine: Result - Labs CBC & Chem 7: 04/22/18 04:43 04/22/18 04:43 Labs: Short CBC 04/22/18 Range/Units 04:43 WBC 5.7 (4.3-11.1) K/mcL Hgb 8.0 L (11.5-15.4) g/dL Hct 25.0 L (35.3-44.9) % Plt Count 386 (140-400) K/mcL Neutrophils # 3.5 (1.6-8.9) K/mcL BMP 04/22/18 04:43 Sodium 129 L Potassium 2.9 L Chloride 102 Carbon Dioxide 23 BUN 6 L Creatinine 0.44 L Glucose 97 Calcium 7.6 L - ABG Interpretation ABG results: PT/INR, D-dimer PT 14.3 Seconds (9.4-12.1) H 04/22/18 04:43 - Impressions Impressions Echocardiogram Limited Views 04/21/18 12:07 Impressions: LVEF 60-65%. Normal LV chamber size, wall thickness and function. Limited study, valves were not assessed. Left Ventricular Wall Motion: Rest Echo Findings All wall segments showed normal motion. Findings: Study Quality * Technically adequate exam. ECG Findings * Normal sinus rhythm. Left Ventricle * LVEF 60-65%. * Normal LV chamber size, wall thickness and function. Right Ventricle * Normal right ventricular structure and function. Aorta * Normally sized aortic root. Pericardium * There is a trivial pericardial effusion present. IVC * Normal IVC dimensions and inspiratory collapse. Abdomen/Pelvis CT 04/21/18 17:45 IMPRESSION: Slight increase in size of left pleural effusions with associated bibasilar dependent airspace disease/consolidation, greater on the left, atelectasis or pneumonia. Wall thickening of a long segment of rectosigmoid colon which shows adjacent mesenteric edema and increased vascularity. Inflammatory changes have increased since 04/15/2018. Findings are suspicious for rectal colitis, infectious or inflammatory. D/ / Yvonne Arias Cha, MD / Yvonne Arias Cha, MD Interpreting Provider: Yvonne Arias Cha, MD - VTE Documentation of Mechanical Device: Intermittent pneumatic compression device Consult Discharge Plan - Plan Referrals: NONE,PCP [Primary Care Provider] - (3) HTN (hypertension) Qualifiers: Hypertension type: essential hypertension Qualified Code(s): I10 - Essential (primary) hypertension (5) Anemia Qualifiers: Anemia type: other cause Other causes of anemia: acute posthemorrhagic Qualified Code(s): D62 - Acute posthemorrhagic anemia (8) Coronary artery disease Qualifiers: Coronary Disease-Associated Artery/Lesion type: [place] artery [place] vs. transplanted heart: [place] heart Associated angina: without angina Qualified Code(s): I25.10 - Atherosclerotic heart disease of [place] coronary artery without angina pectoris (9) Constipation Qualifiers: Constipation type: slow transit constipation Qualified Code(s): K59.01 - Slow transit constipation (10) AAA (abdominal aortic aneurysm) Qualifiers: Presence of rupture: without rupture Qualified Code(s): I71.4 - Abdominal aortic aneurysm, without rupture
--- NOTE | 2018-04-22 14:49 | Event Note ---
Date of Encounter: 04/22/18 Time of Encounter: 14:47 - Cardiology Event Note Patient going to surgery today. She is aware of her surgical risk from cardiovascular standpoint. She denies chest pain and there is no overt CHF seen. TTE was completed. EF is preserved. Please call with any questions or concerns. Start asa after surgery if able.
--- NOTE | 2018-04-22 15:18 | Anesthesia Evaluation Post Op ---
Date of Encounter: 04/22/18 Time of Encounter: 15:30 - Vital Signs Vital Signs: Vital Signs/O2 Sat, Most Current Temp Pulse Resp BP Pulse Ox 97.6 F 74 15 116/70 99 04/22/18 14:32 04/22/18 14:32 04/22/18 14:32 04/22/18 14:32 04/22/18 14:32 - Lungs Lungs: Clear Ascult./Percussion - Airway Airway: Non-obstructed - Cardiovascular Regular Rate - Mental Status Mental Status: Asleep with brisk response to light stimulation, Sedated - Pain Pain Scale: 0 Pain Scale used: Numeric (1 - 10) - Nausea Vomiting Nausea Vomiting: Not Present - Hydration Hydration: NPO, Has not voided - Discharge PostOp Status: Transfer Patient to floor (awake @ pre op level, VSS, no anesthetic complications)
[2018-04-22] MEDS: MetroNIDAZOLE 500 MG/100 ML 500 MG/100 ML BAG IVPB SCH (16:43)
[2018-04-22] MEDS ORDERED: Clinimix E 5%-15% SOLUTION 2,000 ML with MVI, adult with vitamin K 10 ML IVC SCH (17:00)
[2018-04-22 17:01] LABS: Hemoglobin 7.4 g/dL (11.5-15.4)
[2018-04-22 23:24] LABS: Hematocrit 21.4 % (35.3-44.9); Hemoglobin 7.6 g/dL (11.5-15.4)
[2018-04-23] MEDS: MetroNIDAZOLE 500 MG/100 ML 500 MG/100 ML BAG IVPB SCH ×3 (00:08→17:58)
[2018-04-23 05:11] LABS: Hematocrit 23.3 % (35.3-44.9); Hemoglobin 7.7 g/dL (11.5-15.4)
[2018-04-23] MEDS: *HR* Heparin 5,000 UNIT/ML VIAL SQ SCH ×3 (05:16→18:04)
[2018-04-23 05:31] LABS: BUN/Creatinine Ratio 19 (6-26); Blood Urea Nitrogen 6 mg/dL (8-23); Calcium 7.1 mg/dL (8.6-10.3); Carbon Dioxide 23 mEq/L (23-29); Chloride 102 mEq/L (98-107); Glucose 128 mg/dL (70-105); Magnesium 1.5 mg/dL (1.6-2.6); Osmolality,Calculated 265 (280-300); Phosphorous 2.3 mg/dL (2.7-4.5); Sodium 128 mEq/L (136-145); eGFR For Non-African Americans > 60 (> 60)
[2018-04-23] MEDS: D5% in 0.9% NACL 1,000 ML IVC SCH (06:58)
[2018-04-23] MEDS: Isosorbide MONOnitrate (24 HR) 30 MG TAB.ER.24H PO SCH (08:34)
[2018-04-23] MEDS: Nicotine 7 MG PATCH.TD24 TD SCH (08:37)
[2018-04-23] MEDS: Bisacodyl 10 MG RECTAL SUPPOSITORY RC SCH (08:37)
[2018-04-23] MEDS ORDERED: 0.9 % Sodium Chloride 250 ML ONE ×2 (12:02→17:40)
--- NOTE | 2018-04-23 13:32 | General Surgery Progress Note ---
Date of Encounter: 04/23/18 Time of Encounter: 13:29 - Assessment and Plan (1) Colon obstruction Current Visit: Yes Status: Acute Colonoscopy was done yesterday by Dr. Anguiano and biopsies taken. Plan: -Will plan to take to operating room tomorrow for resection -Giving 2 units PRBCs now -Lasix ordered between blood units -Clear liquid diet today -NPO after midnight -2 units PRBCs on hold -Consent patient for surgery in the a.m. Subjective Patient reports: no new complaints, tolerating liquids well, voiding w/o difficulty, no bowel movement Narrative: Patient was seen at bedside this afternoon. She reports that she still has decreased appetite, has been tolerating clear liquid diet today. Denies bowel movement since colonoscopy yesterday. Reports pain is adequately controlled. Denies nausea, vomiting, diarrhea. Denies blood per rectum. Objective Vital Signs - Last 8 Hours Temp Pulse Resp BP Pulse Ox 04/23/18 12:33 97.9 F 78 12 109/67 99 04/23/18 12:20 97.6 F 78 12 115/68 99 04/23/18 08:06 98.1 F 88 16 131/75 98 04/23/18 08:05 98 Intake and Output 04/22/18 04/23/18 04/23/18 23:59 07:59 15:59 Intake Total 300 / 300 550 / 550 402 / 402 Balance 300 / 300 550 / 550 402 / 402 Intake: IV Fluids 300 / 300 550 / 550 402 / 402 Cipro Premix 400 MG/200 ML 400 200 / 200 200 / 200 mg In 200 ml @ 200 mls/hr IVPB Q12HR [facility] Rx#:[id number] Intralipid 20% 250 ML @ 21 mls/ 250 / 250 hr IVPB DAILY@1700 [facility] Rx#: [id number] Magnesium Sulfate 1 GM In 0.9 % 102 / 102 Sodium Chloride 100 ML @ 100 mls/hr IVPB ONCE ONE Rx#: [id number] Flagyl Premix 500 MG/100 ML 500 100 / 100 100 / 100 100 / 100 mg In 100 ml @ 100 mls/hr IVPB Q8HR [facility] Rx#:[id number] Potassium Chloride 10 mEq/100mL 200 / 200 10 meq In 100 ml @ 100 mls/hr IVPB Q1H [facility] Rx#:[id number] Blood Product 0 / 0 Rbcs Leuko Poor As-1 Unit 0 / 0 [id number] Other: # Urine Diapers 1 1 Weight 49.2 kg Blood Glucose* 148 158 Patient Weight 04/23/18 23:59 Weight 49.2 kg - General physical appearance no distress, no pain - Eyes PERRL, normal ocular movement - ENT atraumatic, normocephalic - Neck Neck exam: trachea midline - Respiratory normal respiratory effort, clear to auscultation - Cardiovascular Cardiovascular exam: Present: RRR - Abdomen Abdomen: Present: bowel sounds present, soft Abdominal Tenderness: LLQ (tender to deep palpation) - Integumentary no rash - Neurologic CN 2-12 grossly intact - Psychiatric oriented to time, oriented to person, oriented to place, speech is normal - Labs 04/23/18 04:40 04/23/18 04:40 Diabetes panel 04/23/18 Range/Units 04:40 Sodium 128 L (136-145) mEq/L Potassium 3.0 L (3.5-5.1) mEq/L Chloride 102 (98-107) mEq/L Carbon Dioxide 23 (23-29) mEq/L BUN 6 L (8-23) mg/dL Creatinine 0.32 L (0.60-1.20) mg/dL Glucose 128 H (70-105) mg/dL Calcium 7.1 L (8.6-10.3) mg/dL Calcium panel 04/23/18 Range/Units 04:40 Calcium 7.1 L (8.6-10.3) mg/dL Phosphorus 2.3 L (2.7-4.5) mg/dL Pituitary panel 04/23/18 Range/Units 04:40 Sodium 128 L (136-145) mEq/L Potassium 3.0 L (3.5-5.1) mEq/L Chloride 102 (98-107) mEq/L Carbon Dioxide 23 (23-29) mEq/L BUN 6 L (8-23) mg/dL Creatinine 0.32 L (0.60-1.20) mg/dL Glucose 128 H (70-105) mg/dL Calcium 7.1 L (8.6-10.3) mg/dL Adrenal panel 04/23/18 Range/Units 04:40 Sodium 128 L (136-145) mEq/L Potassium 3.0 L (3.5-5.1) mEq/L Chloride 102 (98-107) mEq/L Carbon Dioxide 23 (23-29) mEq/L BUN 6 L (8-23) mg/dL Creatinine 0.32 L (0.60-1.20) mg/dL Glucose 128 H (70-105) mg/dL Calcium 7.1 L (8.6-10.3) mg/dL - VTE Documentation of Mechanical Device: Intermittent pneumatic compression device Consult Discharge Plan - Plan Referrals: NONE,PCP [Primary Care Provider] -
[2018-04-23] MEDS: Furosemide 20 MG/2 ML VIAL IVP PRN ×2 (16:09→20:22)
--- NOTE | 2018-04-23 16:41 | Internal Med Progress Note ---
Hospitalist Progress Note - Encounter Date of Encounter: 04/23/18 Time of Encounter: 09:00 - Subjective Interval History: she has no complaints denies N/v/D, abdominal pain. has no complaints, pain is controlled - Exam Vitals: Temp Pulse Resp BP Pulse Ox 97.7 F 83 16 125/70 98 04/23/18 16:04 04/23/18 16:04 04/23/18 16:04 04/23/18 16:04 04/23/18 16:04 Exam: General: Patient is alert, oriented, no acute distress, underweight, looks ill Head: atraumatic, normocephalic, Eye: normal appearance, PERRL, no scleral icterus, no conjunctival injection ENT: mucous membranes moist, normal external ear exam Neck: normal inspection, trachea midline, full ROM, no carotid bruits Chest: normal inspection, symmetric chest rise Respiratory: Good respiratory effort. Bilateral breath sounds are clear without wheezing, crackles, or rhonchi. Cardiovascular: Regular rate and rhythm. s1 and s2 No clicks, rubs, gallops, or murmors. Abdomen: Bowel sounds present normoactive x-4 quadrants. Abdomen is soft, nondistended. no Epigastric tenderness. has LLQ abdominal pain on deep palpation , musculoskeletal: Spontaneously moving all extremities. no edema, no calf tenderness Skin: warm, dry, intact. Neuro: Alert and oriented x4. Sensation light touch intact. Cranial nerves 2- 12 is intact. no focal deficit Psych: Patient's affect is normal - Assessment and Plan (1) Neoplasm of sigmoid colon Current Visit: Yes Status: Acute Assessment and Plan: Coloscopy report: ulcerated, large obstructing mass in the sigmoid colon. Surgery on board for surgery on 04/24 f/u biopsy report Preop evaluation done by pressure steamer tender and patient is high risk for the surgery due to her history of severe CAD. 2 PrBC was ordered by surgery before surgery and 2 prbc is prepared by surgery NPO at midnight (2) Weakness Current Visit: Yes Status: Acute Assessment and Plan: daily physical therapy (3) HTN (hypertension) Current Visit: Yes Status: Chronic Assessment and Plan: Continue metoprolol and isosorbide (4) Hypokalemia Current Visit: No Status: Acute Assessment and Plan: repalced with 40 Meq IV magnesium replaced (5) Anemia Current Visit: Yes Status: Acute Assessment and Plan: to be transfused 2 PRBC t roseann - ordered by surgery and another 2 PRBC prepared will continue to follow CBC Continue omeprazole 40 mg daily On ferrous sulfate (6) Hyponatremia Current Visit: Yes Status: Acute Assessment and Plan: No lightheadedness, dizziness or change in mental status. on salt tablets is receiving IVF with Abx piggypacks will follow BMP in the AM (7) Colitis Current Visit: Yes Status: Resolved Assessment and Plan: Afebrile, component of her abdominal pain could be more related to the sigmoid mass than to the colitis. was started on cipro and flagyl by surgery team will continue NPO for surgery in the AM (8) Coronary artery disease Current Visit: Yes Status: Chronic Assessment and Plan: Patient has an extensive hx . Not on aspirin or Plavix due to GI bleed- is for surgery today will restart DAPT as per surgery recommendations continue statins (9) Constipation Current Visit: Yes Status: Chronic Assessment and Plan: Possibly due to sigmoid mass. surgery on board for surgery in the AM (10) AAA (abdominal aortic aneurysm) Current Visit: Yes Status: Resolved Assessment and Plan: Patient recently underwent AAA repair Plan of care as per vascular surgery (11) Underweight Current Visit: Yes Status: Acute Assessment and Plan: will get nutrition consult once she is not NPO BMI 19 vurrently receiving TPN (12) DVT prophylaxis Current Visit: No Status: Acute Assessment and Plan: heparin SC - Time Spent with Patient Total time spent is greater than 50% in coordination of care (as documented) at patient's floor/unit and/or counseling patient: Internal Medicine: Result - Labs CBC & Chem 7: 04/23/18 04:40 04/23/18 04:40 Labs: Short CBC 04/22/18 04/22/18 04/23/18 Range/Units 16:34 22:12 04:40 Hgb 7.4 L 7.6 L 7.7 L (11.5-15.4) g/dL Hct 23.0 L 21.4 L 23.3 L (35.3-44.9) % BMP 04/23/18 04:40 Sodium 128 L Potassium 3.0 L Chloride 102 Carbon Dioxide 23 BUN 6 L Creatinine 0.32 L Glucose 128 H Calcium 7.1 L - ABG Interpretation ABG results: PT/INR, D-dimer PT 14.3 Seconds (9.4-12.1) H 04/22/18 04:43 - VTE Documentation of Mechanical Device: Intermittent pneumatic compression device Consult Discharge Plan - Plan Referrals: NONE,PCP [Primary Care Provider] - (3) HTN (hypertension) Qualifiers: Hypertension type: essential hypertension Qualified Code(s): I10 - Essential (primary) hypertension (5) Anemia Qualifiers: Anemia type: other cause Other causes of anemia: acute posthemorrhagic Qualified Code(s): D62 - Acute posthemorrhagic anemia (8) Coronary artery disease Qualifiers: Coronary Disease-Associated Artery/Lesion type: [place] artery [place] vs. transplanted heart: [place] heart Associated angina: without angina Qualified Code(s): I25.10 - Atherosclerotic heart disease of [place] coronary artery without angina pectoris (9) Constipation Qualifiers: Constipation type: slow transit constipation Qualified Code(s): K59.01 - Slow transit constipation (10) AAA (abdominal aortic aneurysm) Qualifiers: Presence of rupture: without rupture Qualified Code(s): I71.4 - Abdominal aortic aneurysm, without rupture
[2018-04-23] MEDS ORDERED: Clinimix E 5%-15% SOLUTION 2,000 ML with MVI, adult with vitamin K 10 ML IVC SCH (17:00)
[2018-04-24] MEDS: MetroNIDAZOLE 500 MG/100 ML 500 MG/100 ML BAG IVPB SCH ×3 (00:09→22:53)
[2018-04-24 04:03] LABS: Hematocrit 34.8 % (35.3-44.9); Mean Corpuscular HGB Conc 33.9 g/dL (31.6-35.5); Mean Corpuscular Hemoglobin 29.4 pg (28.0-33.3); Mean Corpuscular Volume 86.8 fL (83.0-100.0); Mean Platelet Volume 7.9 fL (9.4-12.4); Platelet Count 351 K/mcL (140-400); Red Blood Count 4.01 M/mcL (3.82-4.97); Red Cell Distribution Width 15.2 % (11.5-14.5)
[2018-04-24 04:04] LABS: Hemoglobin 11.8 g/dL (11.5-15.4)
[2018-04-24 04:19] LABS: BUN/Creatinine Ratio 22 (6-26); Blood Urea Nitrogen 8 mg/dL (8-23); Calcium 7.3 mg/dL (8.6-10.3); Carbon Dioxide 25 mEq/L (23-29); Chloride 95 mEq/L (98-107); Glucose 117 mg/dL (70-105); Magnesium 1.6 mg/dL (1.6-2.6); Osmolality,Calculated 263 (280-300); Phosphorous 2.7 mg/dL (2.7-4.5); Potassium 2.8 mEq/L (3.5-5.1); Sodium 127 mEq/L (136-145); eGFR For Non-African Americans > 60 (> 60)
[2018-04-24] MEDS: *HR* Heparin 5,000 UNIT/ML VIAL SQ SCH (05:38)
[2018-04-24] MEDS ORDERED: *HR* FentaNYL (PF) 100 MCG/2 ML VIAL ONE ×4 (07:25→14:28)
[2018-04-24] MEDS ORDERED: *HR* Propofol 200 MG/20 ML VIAL IVP ONE ×2 (07:26→09:57)
[2018-04-24] MEDS ORDERED: *HR* Rocuronium Bromide 50 MG/5 ML VIAL ONE ×2 (07:28→10:00)
[2018-04-24] MEDS ORDERED: Lidocaine -MPF 2% 2 ML VIAL ONE ×3 (07:28→10:38)
[2018-04-24] MEDS: Bisacodyl 10 MG RECTAL SUPPOSITORY RC SCH (08:39)
[2018-04-24] MEDS: Isosorbide MONOnitrate (24 HR) 30 MG TAB.ER.24H PO SCH (08:39)
[2018-04-24] MEDS ORDERED: Heparin 1,000 UNITS/500 mL 500 ML ONE (10:22)
--- NOTE | 2018-04-24 10:24 | Anesthesia Evaluation PreOp ---
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) Other Medical History: Other (anxiety/depression) Anesthesia History: No Prior Anesthetic Complications, Past Anesthesia Alcohol Use: rarely (formerly heavy drinker) Drug use: marijuana Medications and Allergies Aspirin 81 mg PO DAILY 06/26/15 [History] Citalopram [CeleXA] 10 mg PO DAILY 10/19/15 [History] Docusate [Colace] 100 mg PO BID PRN 07/23/16 [History] Ipratropium/Albuterol Sulfate [Combivent Respimat Inhal [place]] 4 gm IH QID PRN 07/23/16 [History] Multivit-Min/FA/Lycopen/Lutein [Centrum Silver Tablet] 1 tab PO DAILY 07/23/16 [ History] Ferrous Sulfate 325 mg PO BIDWM tablet 08/11/16 [Rx] Metoprolol [Lopressor] 12.5 mg PO BID tablet 08/11/16 [Rx] Ondansetron ODT [Zofran ODT] 4 mg SL Q6HR PRN #0 tab.rapdis 08/11/16 [Rx] Pantoprazole Sodium [Protonix] 20 mg PO DAILY 03/20/18 [History] Sennosides/Docusate Sodium [Senna Plus] 2 tab PO DAILY PRN 03/20/18 [History] Atorvastatin Calcium [Lipitor] 20 mg PO HS 03/27/18 [History] Clopidogrel [Plavix] 75 mg PO DAILY 03/27/18 [History] Polyethylene Glycol 3350 [MiraLAX] 17 gm PO DAILY 03/27/18 [History] Furosemide [Lasix] 20 mg PO DAILY #14 tablet 04/01/18 [Rx] Isosorbide MONOnitrate (24 HR) [Imdur] 60 mg PO DAILY tab.er.24h 04/01/18 [Rx] OxyCODONE/APAP 5/325 [Percocet 5/325 MG] 1 each PO Q6HR PRN 7 Days #25 tablet [Rx] Potassium Chloride 20 meq PO DAILY #14 tab.er.prt 04/01/18 [Rx] Oxybutynin Chloride [Ditropan Xl] 10 mg PO DAILY 04/15/18 [History] 3 Allergy/AdvReac Type Severity Reaction Status Date / Time codeine Allergy Severe Anaphylaxis Verified 03/27/18 16:39 - Meds/Allergy Pre-op Review Medications Reviewed: Yes Allergies Reviewed: Yes Beta Blockers on Current Med List: Yes If Beta Blockers taken, Date/Time (Last Dose taken): 04/24/2018 at 0719 Anesthesia Results - Labs 04/24/18 03:15 04/24/18 03:15 - Imaging EKG: report reviewed (04/15/2018 Sinus tachycardia Consider right atrial enlargement Left axis deviation Borderline T wave abnormalities) Additional studies: 03/27/2018 LEFT HEART CATH Indications: Non-Stemi Suspected CAD Impressions: There is severe three vessel coronary artery disease. LV- Lower limits of normal, EF45% There is good quality collateral vessel/vessels from the Distal LAD to the Mid Circumflex, RCA that are visualized. Recommendations: Optimal medical therapy of patient's disease. Aggressive risk factor modification. 04/21/2018 Limited Echo Impressions: LVEF 60-65%. Normal LV chamber size, wall thickness and function. Limited study, valves were not assessed. 03/27/2018 Echo Impressions: Rhythm not clear- frequent atrial ectopy noted. Grossly normal appearing LV systolic function. However, due to rhythm disturbance, exact estimate cannot be obtained. Consider repeat study once clinical status improves. Indeterminate diastolic function. Normal right ventricular structure and function. Moderately dilated left atrium. No aortic stenosis, although Doppler may not have been well obtained. There does not appear to be thickening, calcification and reduced leaflet excursion. Moderate mitral regurgitation. Mild tricuspid regurgitation. No pulmonary hypertension. 12/20/2017 Stress Impression: Pharmacologic stress ECG is negative for ischemia at level of heart rate achieved. Gated EF > 70%. Perfusion imaging was negative for ischemia or infarct. 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 Patient wishes to proceed.) Modified Noemi Scale for Level of Consciousness: Cooperative, oriented, and tranquil Anesthetic Plan: General Monitoring Plan: Standard Monitors, A-Line Recovery Plan: ICU
[2018-04-24] MEDS ORDERED: Acetaminophen IV 1,000 MG/100 ML INFUS..BTL ONE (11:05)
[2018-04-24] MEDS ORDERED: ROPIVACAINE HCL/PF 0.5% 30 ML VIAL ONE (11:05)
[2018-04-24] MEDS ORDERED: KETAMINE HCL 50 MG/ML SYRINGE IV ONE (11:46)
[2018-04-24] MEDS ORDERED: *HR* PHENYLEPHRINE 1,000 MCG/10 ML SYRINGE IVP ONE (12:09)
[2018-04-24] MEDS ORDERED: Ondansetron 4 MG/2 ML VIAL ONE (12:32)
[2018-04-24] MEDS ORDERED: Dexamethasone 4 MG/ML VIAL ONE (12:32)
[2018-04-24] MEDS ORDERED: *HR* HYDROmorphone (PF) 1 MG/ML SYRINGE IVP PRN (13:17)
[2018-04-24] MEDS ORDERED: Ondansetron 4 MG/2 ML VIAL IVP PRN (13:17)
[2018-04-24] MEDS ORDERED: *HR* OxyCODONE Immed Rel 5 MG TABLET PO PRN (13:17)
[2018-04-24] MEDS ORDERED: *HR* Labetalol 20 MG/4 ML SYRINGE IVP PRN (13:17)
--- NOTE | 2018-04-24 13:20 | Anesthesia Procedures ---
Date of Encounter: 04/24/18 Time of Encounter: 11:15 Procedures: Anesthesia - Nerve Block Procedure Date: 04/24/18 Time: 11:15 Allergies/Adv Reactions: codeine Pre-op Diagnosis: sigmoid obstruction Surgical Procedure: open sigmoid colectomy Checklist: Correct Patient Identifier, Correct procedure, History checked Blood Thinner: No Monitor Applied: EKG, BP, Pulse Oximetry Supplemental Oxygen via Nasal Cannula (L/min): 2 Sedation: Fentanyl (mcg): 100 Indication: Post Op Analgesia Pre-op Neuro Deficits: No Block Type: Other (bilateral TAP) Catheter placed: No Sterile Technique: Yes Ultrasound used: Yes Anatomy identified: Yes Visual spread of Local: Yes Neuro Stimulation: No Blood on Needle Aspiration: No Smooth Injection of Local: Yes Pain with Injection of Local: No Prep: Chlorhexadine Needle: 21 x 100 mm Stimuplex (echogenic) Local: Ropivacaine (0.25%), Other (decadron 8mg x2) Volume (cc): 60 Number of Attempts: 1 Complications: None/effective block Vitals: BP 158/66, HR 95, SpO2 97%, RR 16
[2018-04-24] MEDS ORDERED: *HR* Metoprolol 5 MG/5 ML VIAL IVP ONE (13:21)
--- NOTE | 2018-04-24 13:23 | Anesthesia Procedures ---
Date of Encounter: 04/24/18 Time of Encounter: 11:30 Procedures: Anesthesia - Arterial Line Consent obtained: written consent Time out performed: Yes Local Anesthetic: Lidocaine 1% Amount of Anesthetic used (mls): 1 Size (Gauge): 20 Length (inches): 1 3/4 Technique Used: guide wire technique, direct puncture technique Post-Procedure: line taped into place, dry sterile dressing placed Patient tolerated procedure: well, no complications Complications: none Site: Radial L Vitals: VSS
[2018-04-24] MEDS ORDERED: Neostigmine Methylsulfate 3 MG/3 ML SYRINGE ONE (14:17)
--- NOTE | 2018-04-24 14:53 | Operative Note ---
Date of procedure: 04/24/18 Pre-op diagnosis: Sigmoid obstruction Post-op diagnosis: same Procedure: Open sigmoid colectomy, incidental appendectomy, takedown splenic flexure Complications: none immediate Anesthesia: GETA, local Local Anesthetics: 0.5% Sensorcaine HCL SubQ (cc) Surgeon: April Anguiano Was there an assistant bookkeeper present: Yes Evidence Custodian: Andreina Hernandez Estimated blood loss (cc): 30 Urine output (cc): 600 Specimen: sigmoid colon, anastomotic rings, appendix Condition: stable Disposition: PACU Procedure in Detail: Patient was brought to the operating suite and placed supine on the operating table. Sign in was performed and everyone was in agreement. Anesthesia was induced and patient was endotracheally intubated by anesthesia without incident. Jama catheter was placed by circulating nurse. NG tube was placed by anesthesia. Patient was positioned in lithotomy with legs in yellowfin stirrups. The abdomen was prepped and draped in the usual sterile fashion. Timeout was performed again everyone was in agreement. Midline incision through the skin into the subcutaneous tissue was made with a 10 blade. We dissected through the subcutaneous tissue to the anterior fascia with the Bovie. Okay's are placed on either side of the fascia for retraction. The abdomen was entered bluntly. The incision was elongated. Patient had a open AAA repair 1 month ago and fascial closure suture were removed. Bookwalter was placed for exposure and retraction. The small bowel was packed up into the right upper quadrant with a wet towel. The sigmoid was evaluated and the tattoos signifying the proximal and distal extent of the sigmoid inflammation and stricture were noted. The sigmoid was taken off the left lateral sidewall at the white line of Toldt. The left ureter was noted and kept out of harm's way. The peritoneum the left and right of the rectum at the site chosen for transection was opened with the Bovie. Using gentle blunt digital manipulation window behind the rectal mesentery was made. The proximal rectum was transected with a contour stapler blue load. The proximal sigmoid colon several centimeters proximal to the tattoo and obstruction was chosen for transection. An opening in the mesentery beneath this was made with the Bovie. The distal descending/proximal sigmoid was transected with a linear NANDO-75 stapler blue load. The sigmoid colon was taken off the mesentery with the impact LigaSure. Specimen was placed off to the back table for pathology. The left colon at the white line of Toldt was taken off the sidewall with gentle blunt dissection and the Bovie coming around the splenic flexure which was taken down. The left colon reach well into the pelvis. Babcocks were placed on the distal descending colon and a pursestring stapler was placed and the staple line resected. Colon dilators are placed within the descending colon and it well accommodated the 29 mm dilator. 29 mm EEA stapler was used to construct the colorectal anastomosis. The staple line circumferentially was reinforced with 3-0 silk interrupted stitches. A noncrushing bowel clamp was placed proximal to the anastomosis. A leak test was performed and no air bubbles were noted. Irrigation was suctioned free from the abdomen. A 19- [place] Eusebio drain was placed through the right lower quadrant abdominal wall and placed into the pelvis anterior and below the anastomosis. The Eusebio drain was secured to the anterior abdominal wall with a 2-0 silk stitch. The omentum was brought down over the small bowel and the distal omentum was placed into the pelvis over top of the anastomosis. Jason's are placed on either side of the fascia for retraction. The NG tube was palpated to be appropriately within the lumen of the stomach. The fascia was reapproximated with 2 separate #1 non- looped PDS running stitches. Subcutaneous tissue was copiously irrigated with sterile saline. The subcutaneous tissue was reapproximated with 3-0 Vicryl interrupted stitches. The skin was closed with vishal. A drain sponge and 4 x 4 gauze with Medipore tape were applied as a dressing. The Jama catheter and NG tube remained with the patient. All lap and ensuring counts were correct at the end of the case. The patient tolerated the procedure well. She was awoken by anesthesia in the OR and extubated without incident. She was taken to PACU in stable condition.
[2018-04-24] MEDS ORDERED: OXYCODONE Oral CONC 10 MG/0.5 ML ORAL.SYG SL PRN ×3 (15:59→16:51)
[2018-04-24] MEDS ORDERED: Ipratropium/Albuterol Neb 3 ML IH PRN (15:59)
[2018-04-24] MEDS ORDERED: Clinimix E 5%-15% SOLUTION 2,000 ML with MVI, adult with vitamin K 10 ML IVC SCH ×3 (15:59→17:00)
[2018-04-24] MEDS ORDERED: Naloxone 0.4 MG/ML INJ IVP PRN (15:59)
[2018-04-24] MEDS ORDERED: D10% in Water 500 ML IVC PRN (15:59)
--- NOTE | 2018-04-24 16:10 | Anesthesia Evaluation Post Op ---
Date of Encounter: 04/24/18 Time of Encounter: 16:09 - Vital Signs Vital Signs: Vital Signs/O2 Sat, Most Current Temp Pulse Resp BP Pulse Ox 97.6 F 93 15 130/69 94 04/24/18 15:58 04/24/18 15:58 04/24/18 15:58 04/24/18 15:58 04/24/18 15:58 - Lungs Lungs: Clear Ascult./Percussion - Airway Airway: Non-obstructed - Cardiovascular Regular Rate - Mental Status Mental Status: Asleep with brisk response to light stimulation - Nausea Vomiting Nausea Vomiting: Not Present - Hydration Hydration: NPO, Jama catheter - Discharge PostOp Status: Transfer Patient to floor
[2018-04-24] MEDS: Piperacillin/Tazobactam 3.375 GM in 0.9 % Sodium Chloride Mini Bag 100 ML IVPB SCH (17:17)
[2018-04-24] MEDS: 0.9 % Sodium Chloride 1,000 ML IVC SCH (17:17)
[2018-04-24] MEDS: *HR* Metoprolol 5 MG/5 ML VIAL IVP SCH (17:19)
[2018-04-24] MEDS: Acetaminophen IV 1,000 MG/100 ML INFUS..BTL IVPB SCH (17:41)
--- NOTE | 2018-04-24 18:29 | Internal Med Progress Note ---
Hospitalist Progress Note - Encounter Date of Encounter: 04/24/18 Time of Encounter: 07:30 - Subjective Interval History: she has no complaints denies N/v/D, abdominal pain. has no complaints, pain is controlled awaiting surgery - Exam Vitals: Temp Pulse Resp BP Pulse Ox 96.6 F L 84 20 120/75 96 04/24/18 17:48 04/24/18 17:48 04/24/18 17:48 04/24/18 17:48 04/24/18 17:48 Exam: General: Patient is alert, oriented, no acute distress, underweight, looks ill Head: atraumatic, normocephalic, Eye: normal appearance, PERRL, no scleral icterus, no conjunctival injection ENT: mucous membranes moist, normal external ear exam Neck: normal inspection, trachea midline, full ROM, no carotid bruits Chest: normal inspection, symmetric chest rise Respiratory: Good respiratory effort. Bilateral breath sounds are clear without wheezing, crackles, or rhonchi. Cardiovascular: Regular rate and rhythm. s1 and s2 No clicks, rubs, gallops, or murmors. Abdomen: Bowel sounds present normoactive x-4 quadrants. Abdomen is soft, nondistended. no Epigastric tenderness. has LLQ abdominal pain on deep palpation , musculoskeletal: Spontaneously moving all extremities. no edema, no calf tenderness Skin: warm, dry, intact. Neuro: Alert and oriented x4. Sensation light touch intact. Cranial nerves 2- 12 is intact. no focal deficit Psych: Patient's affect is normal - Assessment and Plan (1) Neoplasm of sigmoid colon Current Visit: Yes Status: Acute Assessment and Plan: Coloscopy report: ulcerated, large obstructing mass in the sigmoid colon. Surgery on board for surgery on 04/24 f/u biopsy report Preop evaluation done by ash handler and patient is high risk for the surgery due to her history of severe CAD. 2 PrBC was ordered by surgery before OR on 04/23/18- H/h improved NPO for surgery (2) Colitis Current Visit: Yes Status: Resolved Assessment and Plan: Afebrile, component of her abdominal pain could be more related to the sigmoid mass than to the colitis. was treated with IV cipro and flagyl which was discontinued by surgery team on now on zosyn IV NPO for surgery (3) Anemia Current Visit: Yes Status: Acute Assessment and Plan: was transfused 2PRBC on 04/23/18- H/h improved will continue to follow CBC Continue omeprazole 40 mg daily (4) HTN (hypertension) Current Visit: Yes Status: Chronic Assessment and Plan: on metoprolol IV hydralazine IV PRN (5) Hypokalemia Current Visit: No Status: Acute Assessment and Plan: repalced with 60 Meq IV magnesium replaced (6) Hyponatremia Current Visit: Yes Status: Acute Assessment and Plan: on IVF at 50 cc per hour will continue to monitor BMP (7) Coronary artery disease Current Visit: Yes Status: Chronic Assessment and Plan: Patient has an extensive hx . Not on aspirin or Plavix due to GI bleed will restart DAPT as per surgery recommendations - once cleared continue IV metoprolol TTE Impressions: LVEF 60-65%. Normal LV chamber size, wall thickness and function. Limited study, valves were not assessed. (8) AAA (abdominal aortic aneurysm) Current Visit: Yes Status: Resolved Assessment and Plan: Patient recently underwent AAA repair Plan of care as per vascular surgery (9) Underweight Current Visit: Yes Status: Acute Assessment and Plan: BMI 19 currently receiving TPN (10) DVT prophylaxis Current Visit: No Status: Acute Assessment and Plan: Scds (11) Weakness Current Visit: Yes Status: Acute Assessment and Plan: daily physical therapy - Time Spent with Patient Total time spent is greater than 50% in coordination of care (as documented) at patient's floor/unit and/or counseling patient: Internal Medicine: Result - Labs CBC & Chem 7: 04/24/18 03:15 04/24/18 03:15 Labs: Short CBC 04/24/18 Range/Units 03:15 WBC 8.1 (4.3-11.1) K/mcL Hgb 11.8 D (11.5-15.4) g/dL Hct 34.8 L (35.3-44.9) % Plt Count 351 (140-400) K/mcL BMP 04/24/18 03:15 Sodium 127 L Potassium 2.8 L Chloride 95 L Carbon Dioxide 25 BUN 8 Creatinine 0.36 L Glucose 117 H Calcium 7.3 L - ABG Interpretation ABG results: PT/INR, D-dimer PT 14.3 Seconds (9.4-12.1) H 04/22/18 04:43 - VTE Documentation of Mechanical Device: Intermittent pneumatic compression device Consult Discharge Plan - Plan Referrals: NONE,PCP [Primary Care Provider] - (3) Anemia Qualifiers: Anemia type: other cause Other causes of anemia: acute posthemorrhagic Qualified Code(s): D62 - Acute posthemorrhagic anemia (4) HTN (hypertension) Qualifiers: Hypertension type: essential hypertension Qualified Code(s): I10 - Essential (primary) hypertension (7) Coronary artery disease Qualifiers: Coronary Disease-Associated Artery/Lesion type: [place] artery [place] vs. transplanted heart: [place] heart Associated angina: without angina Qualified Code(s): I25.10 - Atherosclerotic heart disease of [place] coronary artery without angina pectoris (8) AAA (abdominal aortic aneurysm) Qualifiers: Presence of rupture: without rupture Qualified Code(s): I71.4 - Abdominal aortic aneurysm, without rupture
[2018-04-24] MEDS: Nicotine 7 MG PATCH.TD24 TD SCH (22:55)
[2018-04-25] MEDS: *HR* Metoprolol 5 MG/5 ML VIAL IVP SCH ×4 (01:44→18:01)
[2018-04-25] MEDS: Piperacillin/Tazobactam 3.375 GM in 0.9 % Sodium Chloride Mini Bag 100 ML IVPB SCH ×3 (01:45→17:59)
[2018-04-25] MEDS: Acetaminophen IV 1,000 MG/100 ML INFUS..BTL IVPB SCH ×4 (01:46→18:20)
[2018-04-25 05:00] LABS: Hematocrit 36.3 % (35.3-44.9); Hemoglobin 12.1 g/dL (11.5-15.4); Mean Corpuscular HGB Conc 33.3 g/dL (31.6-35.5); Mean Corpuscular Hemoglobin 29.4 pg (28.0-33.3); Mean Corpuscular Volume 88.1 fL (83.0-100.0); Mean Platelet Volume 8.1 fL (9.4-12.4); Platelet Count 338 K/mcL (140-400); Red Blood Count 4.12 M/mcL (3.82-4.97); Red Cell Distribution Width 15.3 % (11.5-14.5)
[2018-04-25 05:35] LABS: BUN/Creatinine Ratio 48 (6-26); Blood Urea Nitrogen 12 mg/dL (8-23); Calcium 7.6 mg/dL (8.6-10.3); Carbon Dioxide 25 mEq/L (23-29); Chloride 96 mEq/L (98-107); Glucose 116 mg/dL (70-105); Magnesium 1.6 mg/dL (1.6-2.6); Osmolality,Calculated 263 (280-300); Phosphorous 2.3 mg/dL (2.7-4.5); Potassium 4.4 mEq/L (3.5-5.1); Sodium 126 mEq/L (136-145); eGFR For Non-African Americans > 60 (> 60)
[2018-04-25] MEDS: OXYCODONE Oral CONC 10 MG/0.5 ML ORAL.SYG SL PRN (07:09)
--- NOTE | 2018-04-25 07:55 | General Surgery Progress Note ---
<Woo Nuñez R - Last Filed: 04/25/18 09:38> Date of Encounter: 04/25/18 Time of Encounter: 07:15 - Assessment and Plan (1) Colon obstruction Current Visit: Yes Status: Acute POD #1 Laparotomy, sigmoid resection, EEA Patient is comfortable now, will follow closely Plan: NG to LIWS NPO ice chips ok Await return of bowel function Continue antibiotic therapy - Zosyn Comfort care and pain management Monitor RLQ drain Will order wound care and dressing change for a.m. (2) Essential hypertension Current Visit: No Status: Chronic Treatment as per primary team Currently patient is on lopressor Hydralazine prn (3) Hyponatremia Current Visit: Yes Status: Acute Management per primary team (4) Severe protein-calorie malnutrition Current Visit: No Status: Chronic TPN with nutrition following Subjective Patient reports: no new complaints, no flatus, no bowel movement, afebrile Narrative: Patient was seen and evaluated at the bed side. She is comfortable and reports adequate pain control. Denies nausea, vomiting. Denies passing flatus or bowel movement. Objective Vital Signs - Last 8 Hours Temp Pulse Resp BP Pulse Ox 04/25/18 07:38 97.9 F 76 14 159/81 98 04/25/18 05:36 98.1 F 84 15 168/94 97 04/25/18 01:29 98.0 F 94 15 157/89 97 Intake and Output 04/24/18 04/24/18 04/25/18 15:59 23:59 07:59 Intake Total 300 / 300 600 / 600 200 / 200 Output Total 795 / 795 80 / 80 1440 / 1440 Balance -495 / -495 520 / 520 -1240 / -1240 Intake: IV Fluids 300 / 300 600 / 600 200 / 200 Ofirmev 1,000 mg/100 ml 1,000 100 / 100 100 / 100 mg In 100 ml @ 400 mls/hr IVPB Q6HR [facility] Rx#:[id number] Flagyl Premix 500 MG/100 ML 500 100 / 100 mg In 100 ml @ 100 mls/hr IVPB Q8HR [facility] Rx#:[id number] Zosyn 3.375 GM In 0.9 % Sodium 100 / 100 100 / 100 Chloride (Mini-Bag +) 100 ML @ 25 mls/hr IVPB Q8HR [facility] Rx#: [id number] Potassium Chloride 10 mEq/100mL 200 / 200 400 / 400 10 meq In 100 ml @ 100 mls/hr IVPB Q1H [facility] Rx#:[id number] Oral 0 / 0 Output: Urine 0 / 0 Gastric Tube Lavage Amount 0 / 0 Right Nare 0 / 0 Estimated Blood Loss 20 / 20 Urine Amount (Catheter) 675 / 675 Catheter 0 / 0 1400 / 1400 Gastric Drainage 0 / 0 Wound Drainage 100 / 100 80 / 80 40 / 40 Right Lower Abdomen 80 / 80 40 / 40 Other: Meal NPO LUNCH NPO Blood Glucose* 180 180 134 - General physical appearance no distress, no pain - Eyes PERRL, normal ocular movement - ENT dry mucosa, atraumatic, normocephalic - Neck Neck exam: trachea midline - Respiratory clear to auscultation - Cardiovascular Cardiovascular exam: Present: RRR - Abdomen Abdomen: Present: tender (post surgical tenderness). Absent: bowel sounds present - Incision Incision: Present: clean and dry, intact (Surgical vishal present and intact) - Integumentary no rash - Neurologic CN 2-12 grossly intact - Psychiatric oriented to time, oriented to person, oriented to place - Labs 04/25/18 04:00 04/25/18 04:00 Diabetes panel 04/25/18 Range/Units 04:00 Sodium 126 L (136-145) mEq/L Potassium 4.4 (3.5-5.1) mEq/L Chloride 96 L (98-107) mEq/L Carbon Dioxide 25 (23-29) mEq/L BUN 12 (8-23) mg/dL Creatinine 0.25 L (0.60-1.20) mg/dL Glucose 116 H (70-105) mg/dL Calcium 7.6 L (8.6-10.3) mg/dL Calcium panel 04/25/18 Range/Units 04:00 Calcium 7.6 L (8.6-10.3) mg/dL Phosphorus 2.3 L (2.7-4.5) mg/dL Pituitary panel 04/25/18 Range/Units 04:00 Sodium 126 L (136-145) mEq/L Potassium 4.4 (3.5-5.1) mEq/L Chloride 96 L (98-107) mEq/L Carbon Dioxide 25 (23-29) mEq/L BUN 12 (8-23) mg/dL Creatinine 0.25 L (0.60-1.20) mg/dL Glucose 116 H (70-105) mg/dL Calcium 7.6 L (8.6-10.3) mg/dL Adrenal panel 04/25/18 Range/Units 04:00 Sodium 126 L (136-145) mEq/L Potassium 4.4 (3.5-5.1) mEq/L Chloride 96 L (98-107) mEq/L Carbon Dioxide 25 (23-29) mEq/L BUN 12 (8-23) mg/dL Creatinine 0.25 L (0.60-1.20) mg/dL Glucose 116 H (70-105) mg/dL Calcium 7.6 L (8.6-10.3) mg/dL - VTE Documentation of Mechanical Device: Intermittent pneumatic compression device Consult Discharge Plan - Plan Referrals: NONE,PCP [Primary Care Provider] - <April Anguiano - Last Filed: 04/25/18 12:42> Date of Encounter: 04/25/18 - Assessment and Plan (1) Colon obstruction Current Visit: Yes Status: Acute pod 1 open sigmoid resection, incidental appendectomy continue bowel rest, await return of bowel function npo ok ice chips prn pain control continue ngt to LIWS prn pain control prn antiemetics OOB/ambulate TPN continue vazquez for accurate I/O's currently (2) AAA (abdominal aortic aneurysm) Current Visit: Yes Status: Resolved Qualifiers: Presence of rupture: without rupture Qualified Code(s): I71.4 - Abdominal aortic aneurysm, without rupture (3) Severe protein-calorie malnutrition Current Visit: No Status: Chronic (4) Cigarette smoker Current Visit: No Status: Chronic nicotine patch Subjective Patient reports: no new complaints, still having pain, no flatus, no bowel movement, afebrile Objective Vital Signs - Last 8 Hours Temp Pulse Resp BP Pulse Ox 04/25/18 10:34 97.5 F L 78 16 166/93 99 04/25/18 08:30 97.3 F L 77 18 167/89 04/25/18 07:38 97.9 F 76 14 159/81 98 04/25/18 05:36 98.1 F 84 15 168/94 97 Intake and Output 04/24/18 04/25/18 04/25/18 23:59 07:59 15:59 Intake Total 600 / 600 300 / 300 1000 / 1000 Output Total 80 / 80 1440 / 1440 250 / 250 Balance 520 / 520 -1140 / -1140 750 / 750 Intake: IV Fluids 600 / 600 300 / 300 1000 / 1000 0.9 % Sodium Chloride 1,000 ML 1000 / 1000 @ 50 mls/hr IVC .Q20H [facility] Rx#: [id number] Ofirmev 1,000 mg/100 ml 1,000 100 / 100 200 / 200 mg In 100 ml @ 400 mls/hr IVPB Q6HR [facility] Rx#:[id number] Zosyn 3.375 GM In 0.9 % Sodium 100 / 100 100 / 100 Chloride (Mini-Bag +) 100 ML @ 25 mls/hr IVPB Q8HR [facility] Rx#: [id number] Potassium Chloride 10 mEq/100mL 400 / 400 10 meq In 100 ml @ 100 mls/hr IVPB Q1H [facility] Rx#:[id number] Oral 0 / 0 Output: Urine 0 / 0 Gastric Tube Lavage Amount 0 / 0 Right Nare 0 / 0 Catheter 0 / 0 1400 / 1400 250 / 250 Gastric Drainage 0 / 0 Wound Drainage 80 / 80 40 / 40 Right Lower Abdomen 80 / 80 40 / 40 Other: Meal NPO Blood Glucose* 180 125 119 - General physical appearance well developed, well nourished, no distress - Eyes PERRL, normal ocular movement - ENT dry mucosa, atraumatic - Neck Neck exam: trachea midline - Respiratory normal expansion, clear to auscultation - Cardiovascular Cardiovascular exam: Present: RRR - Abdomen Abdomen: Present: soft, tender. Absent: bowel sounds present, guarding, rebound - Incision Incision: Present: clean and dry, intact - Integumentary no rash - Neurologic CN 2-12 grossly intact - Musculoskeletal normal posture - Psychiatric oriented to time, oriented to person, oriented to place, memory intact - Additional Exam PHU drain - serosang output - Labs 04/25/18 04:00 04/25/18 04:00 Vital Signs Temp Pulse Resp BP Pulse Ox 04/25/18 10:34 97.5 F L 78 16 166/93 99 04/25/18 08:30 97.3 F L 77 18 167/89 04/25/18 07:38 97.9 F 76 14 159/81 98 04/25/18 05:36 98.1 F 84 15 168/94 97 04/25/18 01:29 98.0 F 94 15 157/89 97 04/24/18 20:29 98 04/24/18 19:00 97.2 F L 88 20 128/78 98 04/24/18 17:48 96.6 F L 84 20 120/75 96 04/24/18 16:58 96.6 F L 98 20 115/75 95 04/24/18 16:29 96.7 F L 96 20 116/72 94 04/24/18 15:58 97.6 F 93 15 130/69 94 04/24/18 15:48 97.6 F 95 14 115/68 93 04/24/18 15:38 95 12 123/57 93 04/24/18 15:28 93 13 112/69 94 04/24/18 15:18 98.1 F 95 14 132/78 93 04/24/18 15:08 94 16 130/71 96 04/24/18 14:58 92 14 124/68 97 04/24/18 14:48 97.8 F 91 12 111/72 96 Intake and Output 04/24/18 04/25/18 04/25/18 23:59 07:59 15:59 Intake Total 600 / 600 300 / 300 1000 / 1000 Output Total 80 / 80 1440 / 1440 250 / 250 Balance 520 / 520 -1140 / -1140 750 / 750 Intake: IV Fluids 600 / 600 300 / 300 1000 / 1000 0.9 % Sodium Chloride 1,000 ML 1000 / 1000 @ 50 mls/hr IVC .Q20H [facility] Rx#: [id number] Ofirmev 1,000 mg/100 ml 1,000 100 / 100 200 / 200 mg In 100 ml @ 400 mls/hr IVPB Q6HR [facility] Rx#:[id number] Zosyn 3.375 GM In 0.9 % Sodium 100 / 100 100 / 100 Chloride (Mini-Bag +) 100 ML @ 25 mls/hr IVPB Q8HR [facility] Rx#: [id number] Potassium Chloride 10 mEq/100mL 400 / 400 10 meq In 100 ml @ 100 mls/hr IVPB Q1H [facility] Rx#:[id number] Oral 0 / 0 Output: Urine 0 / 0 Gastric Tube Lavage Amount 0 / 0 Right Nare 0 / 0 Catheter 0 / 0 1400 / 1400 250 / 250 Gastric Drainage 0 / 0 Wound Drainage 80 / 80 40 / 40 Right Lower Abdomen 80 / 80 40 / 40 Other: Meal NPO Blood Glucose* 180 125 119 Short CBC 04/25/18 Range/Units 04:00 WBC 8.3 (4.3-11.1) K/mcL Hgb 12.1 (11.5-15.4) g/dL Hct 36.3 (35.3-44.9) % Plt Count 338 (140-400) K/mcL BMP 04/25/18 Range/Units 04:00 Sodium 126 L (136-145) mEq/L Potassium 4.4 (3.5-5.1) mEq/L Chloride 96 L (98-107) mEq/L Carbon Dioxide 25 (23-29) mEq/L BUN 12 (8-23) mg/dL Creatinine 0.25 L (0.60-1.20) mg/dL Glucose 116 H (70-105) mg/dL Calcium 7.6 L (8.6-10.3) mg/dL - Attending Attestation I examined this patient and my medical decision-making was reviewed with the Resident Physician. I agree with the documented findings, disposition and treatment plan as described except to the extent set forth below.
[2018-04-25 07:58] LABS: Saccharomyces cerevisiae IgA 8.3 Units (0.0-24.9)
[2018-04-25] MEDS: Ondansetron 4 MG/2 ML VIAL IVP PRN ×2 (10:39→14:39)
[2018-04-25] MEDS: Pantoprazole 40 MG VIAL IVP SCH (10:41)
[2018-04-25] MEDS: Nicotine 7 MG PATCH.TD24 TD SCH (10:44)
[2018-04-25] MEDS: 0.9 % Sodium Chloride 1,000 ML IVC SCH ×2 (11:57→14:41)
--- NOTE | 2018-04-25 14:01 | Internal Med Progress Note ---
Hospitalist Progress Note - Encounter Date of Encounter: 04/25/18 Time of Encounter: 07:30 - Subjective Interval History: she has no complaints, no flatus, no BM, afebrile denies N/v/D, abdominal pain. pain is controlled - Exam Vitals: Temp Pulse Resp BP Pulse Ox 97.5 F L 78 16 166/93 99 04/25/18 10:34 04/25/18 10:34 04/25/18 10:34 04/25/18 10:34 04/25/18 10:34 Exam: General: Patient is alert, oriented, no acute distress, underweight, looks ill, NGT in place Head: atraumatic, normocephalic, Eye: normal appearance, PERRL, no scleral icterus, no conjunctival injection ENT: mucous membranes moist, normal external ear exam Neck: normal inspection, trachea midline, full ROM, no carotid bruits Chest: normal inspection, symmetric chest rise Respiratory: Good respiratory effort. Bilateral breath sounds are clear without wheezing, crackles, or rhonchi. Cardiovascular: Regular rate and rhythm. s1 and s2 No clicks, rubs, gallops, or murmors. Abdomen: abdominal binder, clean not stained with blood, Elvin drain with minimal sanguineous fluid. musculoskeletal: Spontaneously moving all extremities. no edema, no calf tenderness Skin: warm, dry, intact. Neuro: Alert and oriented x4. Sensation light touch intact. Cranial nerves 2- 12 is intact. no focal deficit Psych: Patient's affect is normal - Assessment and Plan (1) Neoplasm of sigmoid colon Current Visit: Yes Status: Acute Assessment and Plan: S/p Laparotomy, sigmoid resection, EEA on 04/24/18 f/u biopsy report Preop evaluation done by certified dental assistant and patient is high risk for the surgery due to her history of severe CAD. h/h stable NPO continue zosyn NGT to LIWS pain control (2) Colitis Current Visit: Yes Status: Resolved Assessment and Plan: Afebrile s/p Laparotomy, sigmoid resection, EEA on 04/24/18 was treated with IV cipro and flagyl which was discontinued by surgery team on now on zosyn IV (3) Anemia Current Visit: Yes Status: Acute Assessment and Plan: was transfused 2PRBC on 04/23/18- H/h improved will continue to follow CBC IV PPI (4) HTN (hypertension) Current Visit: Yes Status: Chronic Assessment and Plan: NPO tele monitoring on metoprolol IV hydralazine IV PRN (5) Hypokalemia Current Visit: No Status: Acute Assessment and Plan: resolved (6) Hyponatremia Current Visit: Yes Status: Acute Assessment and Plan: on IVF at 50 cc per hour will continue to monitor BMP (7) Coronary artery disease Current Visit: Yes Status: Chronic Assessment and Plan: Patient has an extensive hx . Not on aspirin or Plavix due to GI bleed will restart DAPT as per surgery recommendations - once cleared continue IV metoprolol TTE Impressions: LVEF 60-65%. Normal LV chamber size, wall thickness and function. Limited study, valves were not assessed. (8) AAA (abdominal aortic aneurysm) Current Visit: Yes Status: Resolved Assessment and Plan: Patient recently underwent AAA repair Plan of care as per vascular surgery (9) Underweight Current Visit: Yes Status: Acute Assessment and Plan: BMI 19 currently receiving TPN (10) DVT prophylaxis Current Visit: No Status: Acute Assessment and Plan: Scds (11) Weakness Current Visit: Yes Status: Acute Assessment and Plan: daily physical therapy (12) Hypophosphatemia Current Visit: Yes Status: Acute Assessment and Plan: replaced - Time Spent with Patient Total time spent is greater than 50% in coordination of care (as documented) at patient's floor/unit and/or counseling patient: Internal Medicine: Result - Labs CBC & Chem 7: 04/25/18 04:00 04/25/18 04:00 Labs: Short CBC 04/25/18 Range/Units 04:00 WBC 8.3 (4.3-11.1) K/mcL Hgb 12.1 (11.5-15.4) g/dL Hct 36.3 (35.3-44.9) % Plt Count 338 (140-400) K/mcL BMP 04/25/18 04:00 Sodium 126 L Potassium 4.4 Chloride 96 L Carbon Dioxide 25 BUN 12 Creatinine 0.25 L Glucose 116 H Calcium 7.6 L - ABG Interpretation ABG results: PT/INR, D-dimer PT 14.3 Seconds (9.4-12.1) H 04/22/18 04:43 - VTE Documentation of Mechanical Device: Intermittent pneumatic compression device Consult Discharge Plan - Plan Referrals: NONE,PCP [Primary Care Provider] - (3) Anemia Qualifiers: Anemia type: other cause Other causes of anemia: acute posthemorrhagic Qualified Code(s): D62 - Acute posthemorrhagic anemia (4) HTN (hypertension) Qualifiers: Hypertension type: essential hypertension Qualified Code(s): I10 - Essential (primary) hypertension (7) Coronary artery disease Qualifiers: Coronary Disease-Associated Artery/Lesion type: [place] artery [place] vs. transplanted heart: [place] heart Associated angina: without angina Qualified Code(s): I25.10 - Atherosclerotic heart disease of [place] coronary artery without angina pectoris (8) AAA (abdominal aortic aneurysm) Qualifiers: Presence of rupture: without rupture Qualified Code(s): I71.4 - Abdominal aortic aneurysm, without rupture
[2018-04-25] MEDS ORDERED: D5% in Water 1,000 ML IVC PRN (14:20)
[2018-04-25] MEDS ORDERED: *HR* Dextrose 50 % in Water (Syg) 50 ML SYRINGE IVP PRN (14:20)
[2018-04-25] MEDS ORDERED: Dextrose Gel 15 GM/37.5 ML TUBE PO PRN ×2 (14:20)
[2018-04-25] MEDS ORDERED: Clinimix E 5%-15% SOLUTION 2,000 ML with MVI, adult with vitamin K 10 ML IVC SCH (17:00)
[2018-04-25] MEDS: Insulin LISPRO 300 UNITS/3 ML VIAL SQ SCH (18:15)
[2018-04-26] MEDS: *HR* Metoprolol 5 MG/5 ML VIAL IVP SCH ×5 (01:11→23:58)
[2018-04-26] MEDS: Acetaminophen IV 1,000 MG/100 ML INFUS..BTL IVPB SCH ×5 (01:11→23:59)
[2018-04-26] MEDS: Insulin LISPRO 300 UNITS/3 ML VIAL SQ SCH ×5 (01:11→23:49)
[2018-04-26] MEDS: Piperacillin/Tazobactam 3.375 GM in 0.9 % Sodium Chloride Mini Bag 100 ML IVPB SCH ×4 (01:12→23:58)
[2018-04-26 04:16] LABS: Basophils % 0.3 %; Eosinophils # 0.1 K/mcL (0.0-0.6); Eosinophils % 1.4 %; Hematocrit 34.5 % (35.3-44.9); Hemoglobin 11.5 g/dL (11.5-15.4); Immature Granulocytes % 1.8 % (0-4); Lymphocytes # 1.1 K/mcL (0.6-4.6); Lymphocytes % 11.8 %; Mean Corpuscular HGB Conc 33.3 g/dL (31.6-35.5); Mean Corpuscular Hemoglobin 30.1 pg (28.0-33.3); Mean Corpuscular Volume 90.3 fL (83.0-100.0); Mean Platelet Volume 7.9 fL (9.4-12.4); Monocytes % 10.6 %; Neutrophils # 7.2 K/mcL (1.6-8.9); Platelet Count 346 K/mcL (140-400); Red Blood Count 3.82 M/mcL (3.82-4.97); Red Cell Distribution Width 15.3 % (11.5-14.5); Segmented Neutrophils % 74.1 %
[2018-04-26 04:37] LABS: BUN/Creatinine Ratio 38 (6-26); Blood Urea Nitrogen 11 mg/dL (8-23); Carbon Dioxide 21 mEq/L (23-29); Chloride 103 mEq/L (98-107); Glucose 82 mg/dL (70-105); Magnesium 1.6 mg/dL (1.6-2.6); Osmolality,Calculated 274 (280-300); Phosphorous 2.5 mg/dL (2.7-4.5); Potassium 3.7 mEq/L (3.5-5.1); Sodium 133 mEq/L (136-145); eGFR For Non-African Americans > 60 (> 60)
[2018-04-26 09:11] LABS: VBG Ionized Calcium 1.11 mmol/L (1.15-1.35)
[2018-04-26] MEDS: Nicotine 7 MG PATCH.TD24 TD SCH (09:37)
[2018-04-26] MEDS: Pantoprazole 40 MG VIAL IVP SCH (09:37)
--- NOTE | 2018-04-26 12:41 | General Surgery Progress Note ---
<Woo Nuñez - Last Filed: 04/26/18 12:38> Date of Encounter: 04/26/18 Time of Encounter: 09:05 - Assessment and Plan (1) Colon obstruction Current Visit: Yes Status: Acute POD #2 Laparotomy, sigmoid resection, EEA Patient remains comfortable, vital signs stable, afebrile, no leukocytosis, will follow closely Plan: Discontinue NG today Discontinue vazquez NPO ice chips and popsicles ok Await return of bowel function Continue antibiotic therapy - Zosyn Comfort care and pain management Zofran prn nausea RLQ drain management Daily wound care and dressing change. (2) Essential hypertension Current Visit: No Status: Chronic Treatment as per primary team Currently patient is on lopressor Hydralazine prn (3) Severe protein-calorie malnutrition Current Visit: No Status: Chronic TPN with nutrition following Subjective Patient reports: no new complaints, still having pain, afebrile Narrative: Patient was seen and evaluated this morning at the bedside. She reports adequate pain control. Denies nausea, vomiting, diarrhea, fever. Denies passing flatus or bowel movements Objective Vital Signs - Last 8 Hours Temp Pulse Resp BP Pulse Ox 04/26/18 12:02 97.8 F 110 16 148/93 100 04/26/18 07:06 97.4 F L 79 18 118/73 100 04/26/18 04:50 97.4 F L 85 15 149/75 99 Intake and Output 04/25/18 04/26/18 04/26/18 23:59 07:59 15:59 Intake Total 200 / 200 1103 / 1103 0 / 0 Output Total 650 / 650 1545 / 1545 235 / 235 Balance -450 / -450 -442 / -442 -235 / -235 Intake: IV Fluids 200 / 200 1043 / 1043 Clinimix E 5%-15% SOLUTION 2, 493 / 493 000 ML @ 55 mls/hr IVC .Q24H [facility] with M.v.i. Adult 10 ml Rx# :[id number] Ofirmev 1,000 mg/100 ml 1,000 100 / 100 200 / 200 mg In 100 ml @ 400 mls/hr IVPB Q6HR [facility] Rx#:[id number] Intralipid 20% 250 ML @ 21 mls/ 250 / 250 hr IVPB DAILY@1700 [facility] Rx#: [id number] Zosyn 3.375 GM In 0.9 % Sodium 100 / 100 100 / 100 Chloride (Mini-Bag +) 100 ML @ 25 mls/hr IVPB Q8HR [facility] Rx#: [id number] Oral 0 / 0 60 / 60 0 / 0 Output: Emesis 275 / 275 Catheter 650 / 650 1250 / 1250 200 / 200 Wound Drainage 0 / 0 20 / 20 35 / 35 Right Lower Abdomen 0 / 0 20 / 20 35 / 35 Other: Meal NPO Dinner NPO Percent of Meal Consumed 0% 0% # Bowel Movements 0 0 Weight 55.4 kg Blood Glucose* 114 105 112 Patient Weight 04/26/18 23:59 Weight 55.4 kg - General physical appearance no distress, other (mild pain) - Eyes PERRL, normal ocular movement - ENT dry mucosa, atraumatic, normocephalic - Neck Neck exam: trachea midline - Respiratory clear to auscultation - Cardiovascular Cardiovascular exam: Present: RRR - Abdomen Abdomen: Present: bowel sounds present (present but infrequent), soft, tender ( Post surgical tenderness), guarding, wound (PHU drain output 55ml in 24 hours) - Incision Incision: Present: clean and dry, intact (Surgical vishal present and intact), approximated - Integumentary no rash - Neurologic CN 2-12 grossly intact - Psychiatric oriented to time, oriented to person, oriented to place, speech is normal - Labs 04/26/18 04:00 04/26/18 04:00 Diabetes panel 04/26/18 Range/Units 04:00 Sodium 133 L (136-145) mEq/L Potassium 3.7 (3.5-5.1) mEq/L Chloride 103 (98-107) mEq/L Carbon Dioxide 21 L (23-29) mEq/L BUN 11 (8-23) mg/dL Creatinine 0.29 L (0.60-1.20) mg/dL Glucose 82 (70-105) mg/dL Calcium 7.0 L (8.6-10.3) mg/dL Calcium panel 04/26/18 Range/Units 04:00 Calcium 7.0 L (8.6-10.3) mg/dL Phosphorus 2.5 L (2.7-4.5) mg/dL Pituitary panel 04/26/18 Range/Units 04:00 Sodium 133 L (136-145) mEq/L Potassium 3.7 (3.5-5.1) mEq/L Chloride 103 (98-107) mEq/L Carbon Dioxide 21 L (23-29) mEq/L BUN 11 (8-23) mg/dL Creatinine 0.29 L (0.60-1.20) mg/dL Glucose 82 (70-105) mg/dL Calcium 7.0 L (8.6-10.3) mg/dL Adrenal panel 04/26/18 Range/Units 04:00 Sodium 133 L (136-145) mEq/L Potassium 3.7 (3.5-5.1) mEq/L Chloride 103 (98-107) mEq/L Carbon Dioxide 21 L (23-29) mEq/L BUN 11 (8-23) mg/dL Creatinine 0.29 L (0.60-1.20) mg/dL Glucose 82 (70-105) mg/dL Calcium 7.0 L (8.6-10.3) mg/dL - VTE Documentation of Mechanical Device: Intermittent pneumatic compression device Consult Discharge Plan - Plan Referrals: NONE,PCP [Primary Care Provider] - <Colton Contreras - Last Filed: 04/26/18 16:02> Date of Encounter: 04/26/18 Objective Vital Signs - Last 8 Hours Temp Pulse Resp BP Pulse Ox 04/26/18 12:02 97.8 F 110 16 148/93 100 Intake and Output 04/26/18 04/26/18 04/26/18 07:59 15:59 23:59 Intake Total 1103 / 1103 310 / 310 Output Total 1545 / 1545 235 / 235 Balance -442 / -442 75 / 75 Intake: IV Fluids 1043 / 1043 310 / 310 Clinimix E 5%-15% SOLUTION 2, 493 / 493 000 ML @ 55 mls/hr IVC .Q24H [facility] with M.v.i. Adult 10 ml Rx# :[id number] Ofirmev 1,000 mg/100 ml 1,000 200 / 200 100 / 100 mg In 100 ml @ 400 mls/hr IVPB Q6HR [facility] Rx#:[id number] Calcium Gluconate 1,000 MG In 0 110 / 110 .9 % Sodium Chloride 100 ML @ 220 mls/hr IVPB ONCE ONE Rx#: [id number] Intralipid 20% 250 ML @ 21 mls/ 250 / 250 hr IVPB DAILY@1700 [facility] Rx#: [id number] Zosyn 3.375 GM In 0.9 % Sodium 100 / 100 100 / 100 Chloride (Mini-Bag +) 100 ML @ 25 mls/hr IVPB Q8HR [facility] Rx#: [id number] Oral 60 / 60 0 / 0 Output: Emesis 275 / 275 Catheter 1250 / 1250 200 / 200 Wound Drainage 35 / 35 Right Lower Abdomen 35 / 35 Other: Meal NPO LUNCH Percent of Meal Consumed 0% # Bowel Movements 0 Weight 55.4 kg Blood Glucose* 105 112 Patient Weight 04/26/18 23:59 Weight 55.4 kg - Labs 04/26/18 04:00 04/26/18 04:00 Diabetes panel 04/26/18 Range/Units 04:00 Sodium 133 L (136-145) mEq/L Potassium 3.7 (3.5-5.1) mEq/L Chloride 103 (98-107) mEq/L Carbon Dioxide 21 L (23-29) mEq/L BUN 11 (8-23) mg/dL Creatinine 0.29 L (0.60-1.20) mg/dL Glucose 82 (70-105) mg/dL Calcium 7.0 L (8.6-10.3) mg/dL Calcium panel 04/26/18 Range/Units 04:00 Calcium 7.0 L (8.6-10.3) mg/dL Phosphorus 2.5 L (2.7-4.5) mg/dL Pituitary panel 04/26/18 Range/Units 04:00 Sodium 133 L (136-145) mEq/L Potassium 3.7 (3.5-5.1) mEq/L Chloride 103 (98-107) mEq/L Carbon Dioxide 21 L (23-29) mEq/L BUN 11 (8-23) mg/dL Creatinine 0.29 L (0.60-1.20) mg/dL Glucose 82 (70-105) mg/dL Calcium 7.0 L (8.6-10.3) mg/dL Adrenal panel 04/26/18 Range/Units 04:00 Sodium 133 L (136-145) mEq/L Potassium 3.7 (3.5-5.1) mEq/L Chloride 103 (98-107) mEq/L Carbon Dioxide 21 L (23-29) mEq/L BUN 11 (8-23) mg/dL Creatinine 0.29 L (0.60-1.20) mg/dL Glucose 82 (70-105) mg/dL Calcium 7.0 L (8.6-10.3) mg/dL - Attending Attestation I examined this patient and my medical decision-making was reviewed with the Resident Physician. I agree with the documented findings, disposition and treatment plan as described except to the extent set forth below. The patient is seen and evaluated on morning rounds with resident. She has bowel sounds. Nasogastric tube drainage is minimal. I think that we can remove the nasogastric tube and Vazquez catheter. She will be given ice chips for diet. I have encouraged ambulation. She is doing quite well after sigmoid colectomy Colton Contreras MD FACS
[2018-04-26] MEDS: 0.9 % Sodium Chloride 1,000 ML IVC SCH (17:19)
[2018-04-26] MEDS: Clinimix E 5%-15% SOLUTION 2,000 ML with MVI, adult with vitamin K 10 ML IVC SCH (17:47)
[2018-04-27 04:16] LABS: Hematocrit 31.1 % (35.3-44.9); Hemoglobin 10.3 g/dL (11.5-15.4); Mean Corpuscular HGB Conc 33.1 g/dL (31.6-35.5); Mean Corpuscular Hemoglobin 29.9 pg (28.0-33.3); Mean Corpuscular Volume 90.4 fL (83.0-100.0); Mean Platelet Volume 8.2 fL (9.4-12.4); Platelet Count 327 K/mcL (140-400); Red Blood Count 3.44 M/mcL (3.82-4.97); Red Cell Distribution Width 15.3 % (11.5-14.5)
[2018-04-27] MEDS: Insulin LISPRO 300 UNITS/3 ML VIAL SQ SCH ×5 (04:34→19:48)
[2018-04-27 04:38] LABS: BUN/Creatinine Ratio 48 (6-26); Blood Urea Nitrogen 15 mg/dL (8-23); Calcium 7.8 mg/dL (8.6-10.3); Carbon Dioxide 26 mEq/L (23-29); Chloride 100 mEq/L (98-107); Glucose 93 mg/dL (70-105); Magnesium 1.8 mg/dL (1.6-2.6); Osmolality,Calculated 269 (280-300); Phosphorous 3.3 mg/dL (2.7-4.5); Potassium 3.6 mEq/L (3.5-5.1); Sodium 129 mEq/L (136-145); eGFR For Non-African Americans > 60 (> 60)
[2018-04-27] MEDS: *HR* Metoprolol 5 MG/5 ML VIAL IVP SCH ×4 (05:32→23:53)
[2018-04-27] MEDS: Acetaminophen IV 1,000 MG/100 ML INFUS..BTL IVPB SCH ×4 (05:32→23:54)
--- NOTE | 2018-04-27 09:07 | General Surgery Progress Note ---
Date of Encounter: 04/27/18 Time of Encounter: 09:05 - Assessment and Plan (1) Colon obstruction Current Visit: Yes Status: Acute pod 3 open sigmoid resection, incidental appendectomy continue bowel rest, await return of bowel function npo ok ice chips prn pain control continue ngt to LIWS prn antiemetics OOB to chair BID/ambulate TPN decent uop (2) Severe protein-calorie malnutrition Current Visit: No Status: Chronic continue TPN (3) Cigarette smoker Current Visit: No Status: Chronic nicotine patch Subjective Patient reports: no new complaints, still having pain, pain is less, no flatus, no bowel movement, afebrile Objective Vital Signs - Last 8 Hours Temp Pulse Resp BP Pulse Ox 04/27/18 07:33 98.1 F 82 15 127/70 99 04/27/18 03:29 97.5 F L 88 16 128/82 96 Intake and Output 04/26/18 04/27/18 04/27/18 23:59 07:59 15:59 Intake Total 2135 / 2135 550 / 550 Output Total 15 / 15 Balance 2135 / 2135 535 / 535 Intake: IV Fluids 2074 / 2074 550 / 550 0.9 % Sodium Chloride 1,000 ML 900 / 900 @ 25 mls/hr IVC .Q24H [facility] Rx#: [id number] Clinimix E 5%-15% SOLUTION 2, 715 / 715 000 ML @ 55 mls/hr IVC .Q24H [facility] with M.v.i. Adult 10 ml Rx# :[id number] Ofirmev 1,000 mg/100 ml 1,000 100 / 100 200 / 200 mg In 100 ml @ 400 mls/hr IVPB Q6HR [facility] Rx#:[id number] Intralipid 20% 250 ML @ 21 mls/ 250 / 250 hr IVPB DAILY@1700 [facility] Rx#: [id number] Zosyn 3.375 GM In 0.9 % Sodium 100 / 100 100 / 100 Chloride (Mini-Bag +) 100 ML @ 25 mls/hr IVPB Q8HR [facility] Rx#: [id number] Sodium Phosphate 30 MMOL In 0.9 260 / 260 % Sodium Chloride 250 ML @ 42 mls/hr IVPB ONCE ONE Rx#: [id number] Oral 60 / 60 0 / 0 Output: Wound Drainage 15 / 15 Right Lower Abdomen Other: Meal NPO Dinner Percent of Meal Consumed 0% # Urine Diapers 0 2 # Bowel Movement Diapers 0 Weight 55.5 kg Blood Glucose* 103 105 Patient Weight 04/27/18 23:59 Weight 55.5 kg - General physical appearance well developed, no distress - Eyes PERRL, normal ocular movement - ENT dry mucosa, atraumatic, normocephalic - Neck Neck exam: trachea midline - Respiratory normal expansion, clear to auscultation - Cardiovascular Cardiovascular exam: Present: RRR - Abdomen Abdomen: Present: soft, tender (appropriate post op tenderness). Absent: bowel sounds present, tympanic, guarding, rebound - Incision Incision: Present: clean and dry, intact - Integumentary no rash, no growths - Neurologic CN 2-12 grossly intact, normal sensation - Musculoskeletal normal posture - Psychiatric oriented to time, oriented to person, oriented to place, speech is normal, memory intact - Labs 04/27/18 04:00 04/27/18 04:00 Short CBC 04/27/18 Range/Units 04:00 WBC 7.4 (4.3-11.1) K/mcL Hgb 10.3 L (11.5-15.4) g/dL Hct 31.1 L (35.3-44.9) % Plt Count 327 (140-400) K/mcL BMP 04/27/18 Range/Units 04:00 Sodium 129 L (136-145) mEq/L Potassium 3.6 (3.5-5.1) mEq/L Chloride 100 (98-107) mEq/L Carbon Dioxide 26 (23-29) mEq/L BUN 15 (8-23) mg/dL Creatinine 0.31 L (0.60-1.20) mg/dL Glucose 93 (70-105) mg/dL Calcium 7.8 L (8.6-10.3) mg/dL Vital Signs Temp Pulse Resp BP Pulse Ox 04/27/18 07:33 98.1 F 82 15 127/70 99 04/27/18 03:29 97.5 F L 88 16 128/82 96 04/26/18 23:47 97.8 F 90 16 130/79 98 04/26/18 19:22 97.9 F 86 15 125/75 97 04/26/18 15:59 98 F 94 16 126/77 98 04/26/18 12:02 97.8 F 110 16 148/93 100 Intake and Output 04/26/18 04/27/18 04/27/18 23:59 07:59 15:59 Intake Total 2134 / 2134 550 / 550 Output Total Balance 2134 / 2134 535 / 535 Intake: IV Fluids 2074 / 2074 550 / 550 0.9 % Sodium Chloride 1,000 ML 900 / 900 @ 25 mls/hr IVC .Q24H [facility] Rx#: [id number] Clinimix E 5%-15% SOLUTION 2, 715 / 715 000 ML @ 55 mls/hr IVC .Q24H [facility] with M.v.i. Adult 10 ml Rx# :[id number] Ofirmev 1,000 mg/100 ml 1,000 100 / 100 200 / 200 mg In 100 ml @ 400 mls/hr IVPB Q6HR [facility] Rx#:[id number] Intralipid 20% 250 ML @ 21 mls/ 250 / 250 hr IVPB DAILY@1700 [facility] Rx#: [id number] Zosyn 3.375 GM In 0.9 % Sodium 100 / 100 100 / 100 Chloride (Mini-Bag +) 100 ML @ 25 mls/hr IVPB Q8HR [facility] Rx#: [id number] Sodium Phosphate 30 MMOL In 0.9 260 / 260 % Sodium Chloride 250 ML @ 42 mls/hr IVPB ONCE ONE Rx#: [id number] Oral 60 / 60 0 / 0 Output: Wound Drainage Right Lower Abdomen Other: Meal NPO Dinner Percent of Meal Consumed 0% # Urine Diapers 0 2 # Bowel Movement Diapers 0 Weight 55.5 kg Blood Glucose* 103 105 Patient Weight 04/27/18 23:59 Weight 55.5 kg - VTE Documentation of Mechanical Device: Intermittent pneumatic compression device Consult Discharge Plan - Plan Referrals: NONE,PCP [Primary Care Provider] -
[2018-04-27] MEDS: Piperacillin/Tazobactam 3.375 GM in 0.9 % Sodium Chloride Mini Bag 100 ML IVPB SCH ×3 (10:05→23:53)
[2018-04-27] MEDS: Pantoprazole 40 MG VIAL IVP SCH (10:06)
[2018-04-27] MEDS: Nicotine 7 MG PATCH.TD24 TD SCH (10:06)
--- NOTE | 2018-04-27 13:26 | Internal Med Progress Note ---
Hospitalist Progress Note - Encounter Date of Encounter: 04/27/18 Time of Encounter: 08:30 - Subjective Interval History: she has no complaints, no flatus, no BM, afebrile denies N/v/D, abdominal pain. pain is controlled - Exam Vitals: Temp Pulse Resp BP Pulse Ox 97.5 F L 81 15 145/78 98 04/27/18 10:49 04/27/18 10:49 04/27/18 10:49 04/27/18 10:49 04/27/18 10:49 Exam: General: Patient is alert, oriented, no acute distress, underweight, Head: atraumatic, normocephalic, Eye: normal appearance, PERRL, no scleral icterus, no conjunctival injection ENT: mucous membranes moist, normal external ear exam Neck: normal inspection, trachea midline, full ROM, no carotid bruits Chest: normal inspection, symmetric chest rise Respiratory: Good respiratory effort. Bilateral breath sounds are clear without wheezing, crackles, or rhonchi. Cardiovascular: Regular rate and rhythm. s1 and s2 No clicks, rubs, gallops, or murmors. Abdomen: soft, vishal intact, BS+ve, tender to palpation secondary to recent surgery, non distended musculoskeletal: Spontaneously moving all extremities. no edema, no calf tenderness Skin: warm, dry, intact. Neuro: Alert and oriented x4. Sensation light touch intact. Cranial nerves 2- 12 is intact. 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 h/h stable NPO except ice chips continue zosyn pain control (2) Colitis Current Visit: Yes Status: Resolved Assessment and Plan: Afebrile s/p Laparotomy, sigmoid resection, EEA on 04/24/18 was treated with IV cipro and flagyl which was discontinued by surgery team on now on zosyn IV (3) Anemia Current Visit: Yes Status: Acute Assessment and Plan: was transfused 2PRBC on 04/23/18- H/h improved will continue to follow CBC IV PPI (4) HTN (hypertension) Current Visit: Yes Status: Chronic Assessment and Plan: NPO tele monitoring on metoprolol IV hydralazine IV PRN (5) Hyponatremia Current Visit: Yes Status: Acute (6) Coronary artery disease Current Visit: Yes Status: Chronic Assessment and Plan: Patient has an extensive hx . Not on aspirin or Plavix due GIB adn recent abdominal operation will restart DAPT as per surgery recommendations - once cleared continue IV metoprolol TTE Impressions: LVEF 60-65%. Normal LV chamber size, wall thickness and function. Limited study, valves were not assessed. (7) AAA (abdominal aortic aneurysm) Current Visit: Yes Status: Resolved Assessment and Plan: Patient recently underwent AAA repair Plan of care as per vascular surgery (8) Underweight Current Visit: Yes Status: Acute Assessment and Plan: BMI 19 currently receiving TPN (9) DVT prophylaxis Current Visit: No Status: Acute Assessment and Plan: Scds (10) Weakness Current Visit: Yes Status: Acute Assessment and Plan: daily physical therapy OOB to chair BID/ambulate (11) Hypocalcemia Current Visit: Yes Status: Acute Assessment and Plan: calcium 7.8 ionized calcium 1.11 replaced will follow levels - Time Spent with Patient Total time spent is greater than 50% in coordination of care (as documented) at patient's floor/unit and/or counseling patient: Internal Medicine: Result - Labs CBC & Chem 7: 04/27/18 04:00 04/27/18 04:00 Labs: Short CBC 04/27/18 Range/Units 04:00 WBC 7.4 (4.3-11.1) K/mcL Hgb 10.3 L (11.5-15.4) g/dL Hct 31.1 L (35.3-44.9) % Plt Count 327 (140-400) K/mcL BMP 04/27/18 04:00 Sodium 129 L Potassium 3.6 Chloride 100 Carbon Dioxide 26 BUN 15 Creatinine 0.31 L Glucose 93 Calcium 7.8 L - ABG Interpretation ABG results: PT/INR, D-dimer PT 14.3 Seconds (9.4-12.1) H 04/22/18 04:43 - VTE Documentation of Mechanical Device: Intermittent pneumatic compression device Consult Discharge Plan - Plan Referrals: NONE,PCP [Primary Care Provider] - (3) Anemia Qualifiers: Anemia type: other cause Other causes of anemia: acute posthemorrhagic Qualified Code(s): D62 - Acute posthemorrhagic anemia (4) HTN (hypertension) Qualifiers: Hypertension type: essential hypertension Qualified Code(s): I10 - Essential (primary) hypertension (6) Coronary artery disease Qualifiers: Coronary Disease-Associated Artery/Lesion type: [place] artery [place] vs. transplanted heart: [place] heart Associated angina: without angina Qualified Code(s): I25.10 - Atherosclerotic heart disease of [place] coronary artery without angina pectoris (7) AAA (abdominal aortic aneurysm) Qualifiers: Presence of rupture: without rupture Qualified Code(s): I71.4 - Abdominal aortic aneurysm, without rupture
[2018-04-27] MEDS: Clinimix E 5%-15% SOLUTION 2,000 ML with MVI, adult with vitamin K 10 ML IVC SCH ×2 (17:45→17:46)
[2018-04-27] MEDS: 0.9 % Sodium Chloride 1,000 ML IVC SCH (19:24)
[2018-04-28] MEDS: Insulin LISPRO 300 UNITS/3 ML VIAL SQ SCH ×6 (00:49→19:38)
[2018-04-28 05:06] LABS: Hematocrit 32.3 % (35.3-44.9); Hemoglobin 10.7 g/dL (11.5-15.4); Mean Corpuscular HGB Conc 33.1 g/dL (31.6-35.5); Mean Corpuscular Hemoglobin 30.1 pg (28.0-33.3); Mean Corpuscular Volume 90.7 fL (83.0-100.0); Mean Platelet Volume 8.1 fL (9.4-12.4); Platelet Count 357 K/mcL (140-400); Red Blood Count 3.56 M/mcL (3.82-4.97)
[2018-04-28 05:19] LABS: BUN/Creatinine Ratio 41 (6-26); Blood Urea Nitrogen 12 mg/dL (8-23); Calcium 7.7 mg/dL (8.6-10.3); Carbon Dioxide 24 mEq/L (23-29); Chloride 99 mEq/L (98-107); Glucose 93 mg/dL (70-105); Magnesium 1.8 mg/dL (1.6-2.6); Osmolality,Calculated 265 (280-300); Phosphorous 2.8 mg/dL (2.7-4.5); Potassium 3.5 mEq/L (3.5-5.1); Sodium 128 mEq/L (136-145); Triglycerides 201 mg/dL (< 150); eGFR For Non-African Americans > 60 (> 60)
[2018-04-28] MEDS: *HR* Metoprolol 5 MG/5 ML VIAL IVP SCH ×3 (05:38→17:20)
[2018-04-28] MEDS: Acetaminophen IV 1,000 MG/100 ML INFUS..BTL IVPB SCH ×3 (05:38→17:20)
[2018-04-28] MEDS: Nicotine 7 MG PATCH.TD24 TD SCH (07:21)
[2018-04-28] MEDS: Pantoprazole 40 MG VIAL IVP SCH (07:22)
[2018-04-28] MEDS: Piperacillin/Tazobactam 3.375 GM in 0.9 % Sodium Chloride Mini Bag 100 ML IVPB SCH ×2 (07:23→15:59)
[2018-04-28] MEDS: 0.9 % Sodium Chloride 1,000 ML IVC SCH (07:29)
--- NOTE | 2018-04-28 08:22 | General Surgery Progress Note ---
<Gia Acosta - Last Filed: 04/28/18 09:38> Date of Encounter: 04/28/18 Time of Encounter: 08:22 - Assessment and Plan (1) Physical deconditioning Current Visit: No Status: Acute Date of procedure: 04/24/18 Pre-op diagnosis: Sigmoid obstruction Post-op diagnosis: same Procedure: Open sigmoid colectomy, incidental appendectomy, takedown splenic flexure Complications: none immediate Anesthesia: GETA, local Local Anesthetics: 0.5% Sensorcaine HCL SubQ (cc) Surgeon: April Anguiano POD #4 as above. Bowel sounds active today. Denies appetite. Abdominal exam is as expected. Elvin with SS drainage (mostly serous). Plan: -continue sorting care and discomfort management CLD-no carbonation; Ensure clear TID -out of bed to chair at least 3 times daily. Must be out of bed to chair for all trays. Do not eat in the bed. -Continue PT and OT for mobilization and discharge planning. -Final pathology remains pending -continue G.I. and DVT prophylaxis -continue aggressive pulmonary toileting (2) Severe protein-calorie malnutrition Current Visit: Yes Status: Chronic Continue PICC and TPN (3) Cigarette smoker Current Visit: No Status: Chronic Continue aggressive pulm toileting (4) Colon obstruction Current Visit: Yes Status: Acute Subjective Patient reports: no new complaints, feels better, still having pain, pain is less, voiding w/o difficulty (Incontinent), no flatus, no bowel movement, afebrile Objective Vital Signs - Last 8 Hours Temp Pulse Resp BP Pulse Ox 04/28/18 07:34 98.3 F 93 14 154/75 92 04/28/18 04:41 97.9 F 88 14 148/70 98 04/28/18 00:40 97.5 F L 83 14 162/77 97 Intake and Output 04/27/18 04/28/18 04/28/18 23:59 07:59 15:59 Intake Total 1474 / 1474 2 / 2242 Output Total 0 / 0 50 / 50 Balance 1474 / 1474 2191 / 2 Intake: IV Fluids 1474 / 1474 2241 / 2 0.9 % Sodium Chloride 1,000 ML 1000 / 1000 @ 25 mls/hr IVC .Q24H [facility] Rx#: [id number] Clinimix E 5%-15% SOLUTION 2, 1274 / 1274 692 / 692 000 ML @ 55 mls/hr IVC .Q24H [facility] with M.v.i. Adult 10 ml Rx# :[id number] Ofirmev 1,000 mg/100 ml 1,000 100 / 100 200 / 200 mg In 100 ml @ 400 mls/hr IVPB Q6HR [facility] Rx#:[id number] Intralipid 20% 250 ML @ 21 mls/ 250 / 250 hr IVPB DAILY@1700 [facility] Rx#: [id number] Zosyn 3.375 GM In 0.9 % Sodium 100 / 100 100 / 100 Chloride (Mini-Bag +) 100 ML @ 25 mls/hr IVPB Q8HR [facility] Rx#: [id number] Oral 0 / 0 0 / 0 Output: Urine 0 / 0 Wound Drainage 50 / 50 Right Lower Abdomen 50 / 50 Other: # Urine Diapers 2 2 Weight 53.3 kg Blood Glucose* 119 104 Patient Weight 04/28/18 23:59 Weight 53.3 kg - General physical appearance well nourished, no distress, moderate pain - Eyes normal ocular movement - ENT atraumatic, normocephalic - Neck Neck exam: trachea midline - Respiratory other (decreased, clear) - Cardiovascular Cardiovascular exam: Present: RRR - Abdomen Abdomen: Present: bowel sounds present, soft, tender (Expected postoperative), wound (ELVIN is with amount of SS drainage) Hernia: none - Incision Incision: Present: clean and dry, intact - Integumentary no growths - Neurologic normal sensation - Musculoskeletal normal posture - Psychiatric oriented to time, oriented to person, oriented to place, speech is normal, memory intact - Labs 04/28/18 04:35 04/28/18 04:35 Diabetes panel 04/28/18 Range/Units 04:35 Sodium 128 L (136-145) mEq/L Potassium 3.5 (3.5-5.1) mEq/L Chloride 99 (98-107) mEq/L Carbon Dioxide 24 (23-29) mEq/L BUN 12 (8-23) mg/dL Creatinine 0.29 L (0.60-1.20) mg/dL Glucose 93 (70-105) mg/dL Calcium 7.7 L (8.6-10.3) mg/dL Triglycerides 201 H (< 150) mg/dL Calcium panel 04/28/18 Range/Units 04:35 Calcium 7.7 L (8.6-10.3) mg/dL Phosphorus 2.8 (2.7-4.5) mg/dL Pituitary panel 04/28/18 Range/Units 04:35 Sodium 128 L (136-145) mEq/L Potassium 3.5 (3.5-5.1) mEq/L Chloride 99 (98-107) mEq/L Carbon Dioxide 24 (23-29) mEq/L BUN 12 (8-23) mg/dL Creatinine 0.29 L (0.60-1.20) mg/dL Glucose 93 (70-105) mg/dL Calcium 7.7 L (8.6-10.3) mg/dL Adrenal panel 04/28/18 Range/Units 04:35 Sodium 128 L (136-145) mEq/L Potassium 3.5 (3.5-5.1) mEq/L Chloride 99 (98-107) mEq/L Carbon Dioxide 24 (23-29) mEq/L BUN 12 (8-23) mg/dL Creatinine 0.29 L (0.60-1.20) mg/dL Glucose 93 (70-105) mg/dL Calcium 7.7 L (8.6-10.3) mg/dL - VTE Documentation of Mechanical Device: Intermittent pneumatic compression device Consult Discharge Plan - Plan Referrals: NONE,PCP [Primary Care Provider] - <April Anguiano - Last Filed: 04/28/18 11:05> Date of Encounter: 04/28/18 - Assessment and Plan (1) Severe protein-calorie malnutrition Current Visit: Yes Status: Chronic (2) Cigarette smoker Current Visit: No Status: Chronic (3) S/P colectomy Current Visit: Yes Status: Acute s.p open sigmoidectomy, incidental appendectomy patient reports passing flatus, start clears ELVIN serosang ok restart aspirin and plavix OOB to chair, PT/OT prn pain control prn antiemetics continue TPN until po intake adequate Subjective Patient reports: no new complaints, feels better, still having pain, pain is less, voiding w/o difficulty, flatus, no bowel movement, afebrile Objective Vital Signs - Last 8 Hours Temp Pulse Resp BP Pulse Ox 04/28/18 08:41 92 04/28/18 07:34 98.3 F 93 14 154/75 92 04/28/18 04:41 97.9 F 88 14 148/70 98 Intake and Output 04/27/18 04/28/18 04/28/18 23:59 07:59 15:59 Intake Total 1474 / 1474 2242 / 2242 Output Total 0 / 0 50 / 50 0 / 0 Balance 1474 / 1474 2192 / 2192 0 / 0 Intake: IV Fluids 1474 / 1474 2242 / 2242 0.9 % Sodium Chloride 1,000 ML 1000 / 1000 @ 25 mls/hr IVC .Q24H [facility] Rx#: [id number] Clinimix E 5%-15% SOLUTION 2, 1274 / 1274 692 / 692 000 ML @ 55 mls/hr IVC .Q24H [facility] with M.v.i. Adult 10 ml Rx# :[id number] Ofirmev 1,000 mg/100 ml 1,000 100 / 100 200 / 200 mg In 100 ml @ 400 mls/hr IVPB Q6HR [facility] Rx#:[id number] Intralipid 20% 250 ML @ 21 mls/ 250 / 250 hr IVPB DAILY@1700 [facility] Rx#: [id number] Zosyn 3.375 GM In 0.9 % Sodium 100 / 100 100 / 100 Chloride (Mini-Bag +) 100 ML @ 25 mls/hr IVPB Q8HR [facility] Rx#: [id number] Oral 0 / 0 0 / 0 Output: Urine 0 / 0 Wound Drainage 50 / 50 0 / 0 Right Lower Abdomen 50 / 50 0 / 0 Other: Meal NPO BREAKFAST # Urine Diapers 2 3 Weight 53.3 kg Blood Glucose* 119 104 Patient Weight 04/28/18 23:59 Weight 53.3 kg - General physical appearance well developed, well nourished, no distress - Eyes normal ocular movement - ENT dry mucosa, atraumatic, normocephalic - Neck Neck exam: trachea midline - Respiratory normal expansion, normal respiratory effort - Cardiovascular Cardiovascular exam: Present: RRR - Abdomen Abdomen: Present: bowel sounds present, soft, tender. Absent: distended, guarding, rebound - Incision Incision: Present: clean and dry, intact - Integumentary no growths - Neurologic CN 2-12 grossly intact - Musculoskeletal normal posture - Psychiatric oriented to time, oriented to person, oriented to place, speech is normal, memory intact - Additional Exam Vital Signs Temp Pulse Resp BP Pulse Ox 04/28/18 08:41 92 04/28/18 07:34 98.3 F 93 14 154/75 92 04/28/18 04:41 97.9 F 88 14 148/70 98 04/28/18 00:40 97.5 F L 83 14 162/77 97 04/28/18 00:07 16 98 04/27/18 19:31 97.5 F L 82 16 171/76 97 04/27/18 15:25 98 F 84 18 154/75 98 Intake and Output 04/27/18 04/28/18 04/28/18 23:59 07:59 15:59 Intake Total 1474 / 1474 2242 / 2242 Output Total 0 / 0 50 / 50 0 / 0 Balance 1474 / 1474 2192 / 2192 0 / 0 Intake: IV Fluids 1474 / 1474 2242 / 2242 0.9 % Sodium Chloride 1,000 ML 1000 / 1000 @ 25 mls/hr IVC .Q24H [facility] Rx#: [id number] Clinimix E 5%-15% SOLUTION 2, 1274 / 1274 692 / 692 000 ML @ 55 mls/hr IVC .Q24H [facility] with M.v.i. Adult 10 ml Rx# :[id number] Ofirmev 1,000 mg/100 ml 1,000 100 / 100 200 / 200 mg In 100 ml @ 400 mls/hr IVPB Q6HR [facility] Rx#:[id number] Intralipid 20% 250 ML @ 21 mls/ 250 / 250 hr IVPB DAILY@1700 [facility] Rx#: [id number] Zosyn 3.375 GM In 0.9 % Sodium 100 / 100 100 / 100 Chloride (Mini-Bag +) 100 ML @ 25 mls/hr IVPB Q8HR [facility] Rx#: [id number] Oral 0 / 0 0 / 0 Output: Urine 0 / 0 Wound Drainage 50 / 50 0 / 0 Right Lower Abdomen 50 / 50 0 / 0 Other: Meal NPO BREAKFAST # Urine Diapers 2 3 Weight 53.3 kg Blood Glucose* 119 104 Patient Weight 04/28/18 23:59 Weight 53.3 kg - Labs 04/28/18 04:35 04/28/18 04:35 Short CBC 04/28/18 Range/Units 04:35 WBC 7.7 (4.3-11.1) K/mcL Hgb 10.7 L (11.5-15.4) g/dL Hct 32.3 L (35.3-44.9) % Plt Count 357 (140-400) K/mcL BMP 04/28/18 Range/Units 04:35 Sodium 128 L (136-145) mEq/L Potassium 3.5 (3.5-5.1) mEq/L Chloride 99 (98-107) mEq/L Carbon Dioxide 24 (23-29) mEq/L BUN 12 (8-23) mg/dL Creatinine 0.29 L (0.60-1.20) mg/dL Glucose 93 (70-105) mg/dL Calcium 7.7 L (8.6-10.3) mg/dL - Attending Attestation I have personally performed a face to face evaluation on this patient. I have reviewed and agree with the care plan. History and Exam by me shows:
--- NOTE | 2018-04-28 12:44 | Internal Med Progress Note ---
Hospitalist Progress Note - Encounter Date of Encounter: 04/28/18 Time of Encounter: 12:41 - Subjective Interval History: she has no complaints, no flatus, no BM, afebrile, has no appetite denies N/v/D, abdominal pain. pain is controlled - Exam Vitals: Temp Pulse Resp BP Pulse Ox 98.3 F 96 14 110/72 96 04/28/18 11:08 04/28/18 11:08 04/28/18 11:08 04/28/18 11:08 04/28/18 11:08 Exam: General: Patient is alert, oriented, no acute distress, underweight, Head: atraumatic, normocephalic, Eye: normal appearance, PERRL, no scleral icterus, no conjunctival injection ENT: mucous membranes moist, normal external ear exam Neck: normal inspection, trachea midline, full ROM, no carotid bruits Chest: normal inspection, symmetric chest rise Respiratory: Good respiratory effort. Bilateral breath sounds are clear without wheezing, crackles, or rhonchi. Cardiovascular: Regular rate and rhythm. s1 and s2 No clicks, rubs, gallops, or murmors. Abdomen: soft, vishal intact, BS+ve, tender to palpation secondary to recent surgery, non distended musculoskeletal: Spontaneously moving all extremities. no edema, no calf tenderness Skin: warm, dry, intact. Neuro: Alert and oriented x4. Sensation light touch intact. Cranial nerves 2- 12 is intact. no focal deficit Psych: Patient's affect is normal - Assessment and Plan (1) Neoplasm of sigmoid colon Current Visit: Yes Status: Acute Assessment and Plan: S/p Laparotomy, sigmoid resection, incidental appendectomy, EEA on 04/24/18 f/u biopsy report Preop evaluation done by [employer] and patient is high risk for the surgery due to her history of severe CAD. h/h stable CLD-no carbonation; Ensure clear TID continue zosyn pain control (2) Colitis Current Visit: Yes Status: Resolved Assessment and Plan: Afebrile s/p Laparotomy, sigmoid resection, EEA on 04/24/18 was treated with IV cipro and flagyl which was discontinued by surgery team on zosyn IV (3) Anemia Current Visit: Yes Status: Acute Assessment and Plan: was transfused 2PRBC on 8/29/18- H/h improved will continue to follow CBC IV PPI (4) HTN (hypertension) Current Visit: Yes Status: Chronic Assessment and Plan: started on ensure clear TID if she tolerates will consider restarting home medications tele monitoring on metoprolol IV hydralazine IV PRN (5) Hyponatremia Current Visit: Yes Status: Acute Assessment and Plan: on IVF at 25 cc per hour - will discotinue in fatou AM as she was started on clear ensure if she tolerates will continue to monitor BMP (6) Coronary artery disease Current Visit: Yes Status: Chronic Assessment and Plan: Patient has an extensive hx . ASA and plavix started by surgery team on 04/28/18 continue IV metoprolol - will consider switching it to PO if she tolerates clear ensure TTE Impressions: LVEF 60-65%. Normal LV chamber size, wall thickness and function. Limited study, valves were not assessed. (7) AAA (abdominal aortic aneurysm) Current Visit: Yes Status: Resolved Assessment and Plan: Patient recently underwent AAA repair Plan of care as per vascular surgery (8) Underweight Current Visit: Yes Status: Acute Assessment and Plan: BMI 19 currently receiving TPN started on clear ensure - will follow tolerance (9) DVT prophylaxis Current Visit: No Status: Acute Assessment and Plan: Scds OOB to chair physical therapy (10) Weakness Current Visit: Yes Status: Acute Assessment and Plan: daily physical therapy OOB to chair BID/ambulate (11) Hypocalcemia Current Visit: Yes Status: Acute Assessment and Plan: calcium 7.7 ionized calcium 1.11 replaced calcium vitamin D is 18 will start her on oral vitamin D will follow levels (12) Vitamin D deficiency Current Visit: Yes Status: Acute Assessment and Plan: vitamin D 18 started replacement - Time Spent with Patient Total time spent is greater than 50% in coordination of care (as documented) at patient's floor/unit and/or counseling patient: Internal Medicine: Result - Labs CBC & Chem 7: 04/28/18 04:35 04/28/18 04:35 Labs: Short CBC 04/28/18 Range/Units 04:35 WBC 7.7 (4.3-11.1) K/mcL Hgb 10.7 L (11.5-15.4) g/dL Hct 32.3 L (35.3-44.9) % Plt Count 357 (140-400) K/mcL BMP 04/28/18 04:35 Sodium 128 L Potassium 3.5 Chloride 99 Carbon Dioxide 24 BUN 12 Creatinine 0.29 L Glucose 93 Calcium 7.7 L - ABG Interpretation ABG results: PT/INR, D-dimer PT 14.3 Seconds (9.4-12.1) H 04/22/18 04:43 - VTE Documentation of Mechanical Device: Intermittent pneumatic compression device Consult Discharge Plan - Plan Referrals: NONE,PCP [Primary Care Provider] - (4) HTN (hypertension) Qualifiers: Hypertension type: essential hypertension Qualified Code(s): I10 - Essential (primary) hypertension (6) Coronary artery disease Qualifiers: Coronary Disease-Associated Artery/Lesion type: [place] artery [place] vs. transplanted heart: [place] heart Associated angina: without angina Qualified Code(s): I25.10 - Atherosclerotic heart disease of [place] coronary artery without angina pectoris (7) AAA (abdominal aortic aneurysm) Qualifiers: Presence of rupture: without rupture Qualified Code(s): I71.4 - Abdominal aortic aneurysm, without rupture
[2018-04-28 13:43] LABS: Hematocrit 33.9 % (35.3-44.9); Hemoglobin 11.1 g/dL (11.5-15.4); Mean Corpuscular HGB Conc 32.7 g/dL (31.6-35.5); Mean Corpuscular Hemoglobin 29.8 pg (28.0-33.3); Mean Corpuscular Volume 90.9 fL (83.0-100.0); Mean Platelet Volume 8.5 fL (9.4-12.4); Platelet Count 365 K/mcL (140-400); Red Blood Count 3.73 M/mcL (3.82-4.97); Red Cell Distribution Width 14.7 % (11.5-14.5)
[2018-04-28] MEDS ORDERED: 0.9 % Sodium Chloride Mini Bag 100 ML ONE (15:31)
[2018-04-28] MEDS: Clinimix E 5%-15% SOLUTION 2,000 ML with MVI, adult with vitamin K 10 ML IVC SCH ×2 (16:03→17:19)
[2018-04-29] MEDS: Insulin LISPRO 300 UNITS/3 ML VIAL SQ SCH ×6 (01:06→20:58)
[2018-04-29] MEDS: Acetaminophen IV 1,000 MG/100 ML INFUS..BTL IVPB SCH ×2 (01:24→05:11)
[2018-04-29] MEDS: Piperacillin/Tazobactam 3.375 GM in 0.9 % Sodium Chloride Mini Bag 100 ML IVPB SCH ×3 (01:25→16:16)
[2018-04-29] MEDS: *HR* Metoprolol 5 MG/5 ML VIAL IVP SCH ×2 (01:25→05:34)
[2018-04-29 04:27] LABS: Hematocrit 29.8 % (35.3-44.9); Hemoglobin 9.8 g/dL (11.5-15.4); Mean Corpuscular HGB Conc 32.9 g/dL (31.6-35.5); Mean Corpuscular Hemoglobin 30.1 pg (28.0-33.3); Mean Corpuscular Volume 91.4 fL (83.0-100.0); Mean Platelet Volume 8.4 fL (9.4-12.4); Platelet Count 370 K/mcL (140-400); Red Blood Count 3.26 M/mcL (3.82-4.97); Red Cell Distribution Width 14.8 % (11.5-14.5)
[2018-04-29 04:40] LABS: BUN/Creatinine Ratio 43 (6-26); Blood Urea Nitrogen 10 mg/dL (8-23); Carbon Dioxide 19 mEq/L (23-29); Chloride 106 mEq/L (98-107); Glucose 109 mg/dL (70-105); Magnesium 1.7 mg/dL (1.6-2.6); Osmolality,Calculated 272 (280-300); Phosphorous 2.5 mg/dL (2.7-4.5); Sodium 131 mEq/L (136-145); eGFR For Non-African Americans > 60 (> 60)
[2018-04-29] MEDS: Aspirin 81 MG TAB.CHEW PO SCH (07:48)
[2018-04-29] MEDS: Nicotine 7 MG PATCH.TD24 TD SCH (07:48)
[2018-04-29] MEDS: Pantoprazole 40 MG VIAL IVP SCH (07:49)
--- NOTE | 2018-04-29 10:46 | Internal Med Progress Note ---
Hospitalist Progress Note - Encounter Date of Encounter: 04/29/18 Time of Encounter: 08:00 - Subjective Interval History: she has no complaints, has flatus, tolerated PO clear ensure diet denies N/v/D, abdominal pain. pain is controlled - Exam Vitals: Temp Pulse Resp BP Pulse Ox 97.5 F L 84 16 139/77 97 04/29/18 04:00 04/29/18 04:00 04/29/18 04:00 04/29/18 04:00 04/29/18 04:00 Exam: General: Patient is alert, oriented, no acute distress, underweight, Head: atraumatic, normocephalic, Eye: normal appearance, PERRL, no scleral icterus, no conjunctival injection ENT: mucous membranes moist, normal external ear exam Neck: normal inspection, trachea midline, full ROM, no carotid bruits Chest: normal inspection, symmetric chest rise Respiratory: Good respiratory effort. Bilateral breath sounds are clear without wheezing, crackles, or rhonchi. Cardiovascular: Regular rate and rhythm. s1 and s2 No clicks, rubs, gallops, or murmors. Abdomen: soft, vishal intact, BS+ve, tender to palpation secondary to recent surgery, non distended musculoskeletal: Spontaneously moving all extremities. no edema, no calf tenderness Skin: warm, dry, intact. Neuro: Alert and oriented x4. Sensation light touch intact. Cranial nerves 2- 12 is intact. 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 (2) Colitis Current Visit: Yes Status: Resolved Assessment and Plan: Afebrile s/p Laparotomy, sigmoid resection, EEA on 04/24/18 was treated with IV cipro and flagyl which was discontinued by surgery team on zosyn IV (3) Anemia Current Visit: Yes Status: Acute Assessment and Plan: was transfused 2PRBC on 04/23/18- H/h improved will continue to follow CBC IV PPI (4) HTN (hypertension) Current Visit: Yes Status: Chronic Assessment and Plan: started on ensure clear TID if she tolerates will consider restarting home medications tele monitoring will start her on oral metoprolol home dose 12.5 mg BID (5) Hyponatremia Current Visit: Yes Status: Acute Assessment and Plan: IVF discontinued improved to 131 on 04/29 will continue to monitor BMP (6) Coronary artery disease Current Visit: Yes Status: Chronic Assessment and Plan: Patient has an extensive hx . ASA and plavix started by surgery team on 04/28/18 metoprolol 12.5 mg BID TTE Impressions: LVEF 60-65%. Normal LV chamber size, wall thickness and function. Limited study, valves were not assessed. (7) AAA (abdominal aortic aneurysm) Current Visit: Yes Status: Resolved Assessment and Plan: Patient recently underwent AAA repair Plan of care as per vascular surgery (8) Underweight Current Visit: Yes Status: Acute Assessment and Plan: BMI 19 currently receiving TPN started on clear ensure - will follow tolerance (9) Weakness Current Visit: Yes Status: Acute Assessment and Plan: daily physical therapy OOB to chair BID/ambulate (10) Hypocalcemia Current Visit: Yes Status: Acute Assessment and Plan: most likely secondary to vitamin D deficiency calcium 7.7 ionized calcium 1.11 replaced calcium vitamin D is 18 started her on oral vitamin D will follow levels (11) Vitamin D deficiency Current Visit: Yes Status: Acute Assessment and Plan: vitamin D 18 started replacement (12) Hypokalemia Current Visit: Yes Status: Acute Assessment and Plan: replaced (13) Hypophosphatemia Current Visit: Yes Status: Acute Assessment and Plan: replaced vitamin D deficiency- was started on replacement (14) DVT prophylaxis Current Visit: No Status: Acute Assessment and Plan: Scds OOB to chair physical therapy - Time Spent with Patient Total time spent is greater than 50% in coordination of care (as documented) at patient's floor/unit and/or counseling patient: Internal Medicine: Result - Labs CBC & Chem 7: 04/29/18 04:00 04/29/18 04:00 Labs: Short CBC 04/28/18 04/29/18 Range/Units 12:48 04:00 WBC 6.7 7.1 (4.3-11.1) K/mcL Hgb 11.1 L 9.8 L (11.5-15.4) g/dL Hct 33.9 L 29.8 L (35.3-44.9) % Plt Count 365 370 (140-400) K/mcL BMP 04/29/18 04:00 Sodium 131 L Potassium 3.0 L Chloride 106 Carbon Dioxide 19 L BUN 10 Creatinine 0.23 L Glucose 109 H Calcium 7.0 L - ABG Interpretation ABG results: PT/INR, D-dimer PT 14.3 Seconds (9.4-12.1) H 04/22/18 04:43 - VTE Documentation of Mechanical Device: Intermittent pneumatic compression device Consult Discharge Plan - Plan Referrals: NONE,PCP [Primary Care Provider] - (4) HTN (hypertension) Qualifiers: Hypertension type: essential hypertension Qualified Code(s): I10 - Essential (primary) hypertension (6) Coronary artery disease Qualifiers: Coronary Disease-Associated Artery/Lesion type: [place] artery [place] vs. transplanted heart: [place] heart Associated angina: without angina Qualified Code(s): I25.10 - Atherosclerotic heart disease of [place] coronary artery without angina pectoris (7) AAA (abdominal aortic aneurysm) Qualifiers: Presence of rupture: without rupture Qualified Code(s): I71.4 - Abdominal aortic aneurysm, without rupture
--- NOTE | 2018-04-29 11:40 | General Surgery Progress Note ---
<Cassi Espinoza - Last Filed: 04/29/18 11:38> Date of Encounter: 04/29/18 Time of Encounter: 11:20 - Assessment and Plan (1) Colon obstruction Current Visit: Yes Status: Acute POD #5 Open sigmoid colectomy, incidental appendectomy, takedown splenic flexure with Dr. Anguiano Pathology pending Clear liquids with protein supplements (continue) Continue PICC and TPN Supportive care and pain control PT/OT for mobilization PPI therapy daily IS every 1 hour while awake Daily incision care Abdominal binder ordered but not currently on- RN notified Labs- CBC and BMP, Mg, Phos in the am (2) Severe protein-calorie malnutrition Current Visit: Yes Status: Chronic Clear liquid diet with protein supplements Continue PICC and TPN (3) Physical deconditioning Current Visit: No Status: Acute Continue PT/OT for mobilization (4) Hypokalemia Current Visit: Yes Status: Acute Replace potassium per hospitalist Repeat am labs (5) Hypophosphatemia Current Visit: Yes Status: Acute Replace phos per hospitalist Repeat am labs Subjective Patient reports: no new complaints, tolerating liquids well (Patient states that she is tolerating without difficulty, 50% charted for dinner last evening) , voiding w/o difficulty (incontinent), no flatus (patient denies), bowel movement, afebrile Objective Vital Signs - Last 8 Hours Temp Pulse Resp BP Pulse Ox 04/29/18 04:00 97.5 F L 84 16 139/77 97 Intake and Output 04/28/18 04/29/18 04/29/18 23:59 07:59 15:59 Intake Total 590 / 590 1981 300 / 300 Output Total 50 / 50 0 / 0 Balance 590 / 590 1931 / 1931 300 / 300 Intake: IV Fluids 230 / 230 178 / 1782 300 / 300 0.9 % Sodium Chloride 1,000 ML 130 / 130 380 / 380 @ 25 mls/hr IVC .Q24H [facility] Rx#: [id number] Clinimix E 5%-15% SOLUTION 2, 852 / 852 000 ML @ 55 mls/hr IVC .Q24H [facility] with M.v.i. Adult 10 ml Rx# :[id number] Ofirmev 1,000 mg/100 ml 1,000 100 / 100 200 / 200 mg In 100 ml @ 400 mls/hr IVPB Q6HR [facility] Rx#:[id number] Intralipid 20% 250 ML @ 21 mls/ 250 / 250 hr IVPB DAILY@1700 [facility] Rx#: [id number] Zosyn 3.375 GM In 0.9 % Sodium 0 / 0 100 / 100 Chloride (Mini-Bag +) 100 ML @ 25 mls/hr IVPB Q8HR [facility] Rx#: [id number] Potassium Chloride 10 mEq/100mL 300 / 300 10 meq In 100 ml @ 100 mls/hr IVPB Q1H [facility] Rx#:[id number] Oral 360 / 360 200 / 200 Output: Wound Drainage 50 / 50 0 / 0 Right Lower Abdomen 50 / 50 0 / 0 Other: Meal Dinner Percent of Meal Consumed 50% Stool Size Moderate Stool Consistency liquid Stool Color Black # Urine Diapers 0 2 # Bowel Movements 0 # Bowel Movement Diapers 0 Weight 54.1 kg Blood Glucose* 115 123 Patient Weight 04/29/18 23:59 Weight 54.1 kg - General physical appearance no distress, chronically ill - Eyes PERRL, normal ocular movement - ENT normal mucosa, atraumatic, normocephalic - Neck Neck exam: trachea midline - Respiratory normal respiratory effort, other (moist cough noted) rales: bilateral - Cardiovascular Cardiovascular exam: Present: RRR - Abdomen Abdomen: Present: bowel sounds present, soft, tender (minimal, expected incisional discomfort), wound (PHU drain to bulb suction with serousang. drainage noted (60ml noted since midnight)) - Incision Incision: Present: clean and dry, intact - Neurologic CN 2-12 grossly intact - Musculoskeletal other (severe physical deconditioning noted) - Psychiatric oriented to time, oriented to person, oriented to place, speech is normal, memory intact - Labs 04/29/18 04:00 04/29/18 04:00 Diabetes panel 04/29/18 Range/Units 04:00 Sodium 131 L (136-145) mEq/L Potassium 3.0 L (3.5-5.1) mEq/L Chloride 106 (98-107) mEq/L Carbon Dioxide 19 L (23-29) mEq/L BUN 10 (8-23) mg/dL Creatinine 0.23 L (0.60-1.20) mg/dL Glucose 109 H (70-105) mg/dL Calcium 7.0 L (8.6-10.3) mg/dL Calcium panel 04/28/18 04/29/18 Range/Units 04:35 04:00 Calcium 7.0 L (8.6-10.3) mg/dL Phosphorus 2.5 L (2.7-4.5) mg/dL 25-OH Vitamin D Total 18 L (30-80) ng/mL Pituitary panel 04/29/18 Range/Units 04:00 Sodium 131 L (136-145) mEq/L Potassium 3.0 L (3.5-5.1) mEq/L Chloride 106 (98-107) mEq/L Carbon Dioxide 19 L (23-29) mEq/L BUN 10 (8-23) mg/dL Creatinine 0.23 L (0.60-1.20) mg/dL Glucose 109 H (70-105) mg/dL Calcium 7.0 L (8.6-10.3) mg/dL Adrenal panel 04/29/18 Range/Units 04:00 Sodium 131 L (136-145) mEq/L Potassium 3.0 L (3.5-5.1) mEq/L Chloride 106 (98-107) mEq/L Carbon Dioxide 19 L (23-29) mEq/L BUN 10 (8-23) mg/dL Creatinine 0.23 L (0.60-1.20) mg/dL Glucose 109 H (70-105) mg/dL Calcium 7.0 L (8.6-10.3) mg/dL - VTE Documentation of Mechanical Device: Intermittent pneumatic compression device Consult Discharge Plan - Plan Referrals: NONE,PCP [Primary Care Provider] - - Attending Attestation For this encounter, I have reviewed the DISCHARGING MACHINE OPERATOR or PA documentation, treatment plan, and medical decision making; and I have had face to face time with this patient. <April Anguiano - Last Filed: 04/29/18 18:43> Date of Encounter: 04/29/18 Time of Encounter: 17:00 - Assessment and Plan (1) Severe protein-calorie malnutrition Current Visit: Yes Status: Chronic advance to fulls continue TPN (2) Cigarette smoker Current Visit: No Status: Chronic nicotine patch ok (3) S/P colectomy Current Visit: Yes Status: Acute tolerating clears, advance to fulls OOB to chair PT/OT PHU drain serous had bm last 24 hrs (4) Tachycardia Current Visit: Yes Status: Acute new onset tacchycardia, regular history [place] a month ago check troponin she denies chest, back, jaw, arm pain, no nausea or SOB Subjective Patient reports: feels better, tolerating liquids well, voiding w/o difficulty, no flatus, bowel movement, afebrile Objective Vital Signs - Last 8 Hours Temp Pulse Resp BP Pulse Ox 04/29/18 15:55 98.2 F 100 18 158/81 98 Intake and Output 04/29/18 04/29/18 04/29/18 07:59 15:59 23:59 Intake Total 1981 / 1981 733 / 733 485 / 485 Output Total 50 / 50 40 / 40 Balance 1931 / 1931 693 / 693 485 / 485 Intake: IV Fluids 178 / 2 733 / 733 485 / 485 0.9 % Sodium Chloride 1,000 ML 380 / 380 @ 25 mls/hr IVC .Q24H [facility] Rx#: [id number] Clinimix E 5%-15% SOLUTION 2, 852 / 852 233 / 233 225 / 225 000 ML @ 55 mls/hr IVC .Q24H [facility] with M.v.i. Adult 10 ml Rx# :[id number] Ofirmev 1,000 mg/100 ml 1,000 200 / 200 mg In 100 ml @ 400 mls/hr IVPB Q6HR [facility] Rx#:[id number] Intralipid 20% 250 ML @ 21 mls/ 250 / 250 hr IVPB DAILY@1700 [facility] Rx#: [id number] Zosyn 3.375 GM In 0.9 % Sodium 100 / 100 100 / 100 Chloride (Mini-Bag +) 100 ML @ 25 mls/hr IVPB Q8HR [facility] Rx#: [id number] Potassium Chloride 10 mEq/100mL 400 / 400 10 meq In 100 ml @ 100 mls/hr IVPB Q1H [facility] Rx#:[id number] Sodium Phosphate 30 MMOL In 0.9 260 / 260 % Sodium Chloride 250 ML @ 42 mls/hr IVPB ONCE ONE Rx#: [id number] Oral 200 / 200 Output: Wound Drainage 50 / 50 40 / 40 Right Lower Abdomen 50 / 50 40 / 40 Other: Stool Size Moderate Stool Consistency liquid Stool Color Black # Urine Diapers 2 3 # Bowel Movement Diapers 0 Weight 54.1 kg Blood Glucose* 123 117 145 Patient Weight 04/29/18 23:59 Weight 54.1 kg - General physical appearance well developed, no distress - Eyes PERRL, normal ocular movement - ENT normal mucosa, normocephalic - Neck Neck exam: trachea midline - Respiratory normal expansion, normal respiratory effort - Cardiovascular Cardiovascular exam: Present: RRR - Abdomen Abdomen: Present: bowel sounds present, soft, tender, wound - Incision Incision: Present: clean and dry, intact - Integumentary no rash, no growths - Neurologic CN 2-12 grossly intact - Musculoskeletal normal posture, other - Psychiatric oriented to time, oriented to person, oriented to place, speech is normal, memory intact - Labs 04/29/18 04:00 04/29/18 04:00 Diabetes panel 04/29/18 Range/Units 04:00 Sodium 131 L (136-145) mEq/L Potassium 3.0 L (3.5-5.1) mEq/L Chloride 106 (98-107) mEq/L Carbon Dioxide 19 L (23-29) mEq/L BUN 10 (8-23) mg/dL Creatinine 0.23 L (0.60-1.20) mg/dL Glucose 109 H (70-105) mg/dL Calcium 7.0 L (8.6-10.3) mg/dL Calcium panel 04/29/18 Range/Units 04:00 Calcium 7.0 L (8.6-10.3) mg/dL Phosphorus 2.5 L (2.7-4.5) mg/dL Pituitary panel 04/29/18 Range/Units 04:00 Sodium 131 L (136-145) mEq/L Potassium 3.0 L (3.5-5.1) mEq/L Chloride 106 (98-107) mEq/L Carbon Dioxide 19 L (23-29) mEq/L BUN 10 (8-23) mg/dL Creatinine 0.23 L (0.60-1.20) mg/dL Glucose 109 H (70-105) mg/dL Calcium 7.0 L (8.6-10.3) mg/dL Adrenal panel 04/29/18 Range/Units 04:00 Sodium 131 L (136-145) mEq/L Potassium 3.0 L (3.5-5.1) mEq/L Chloride 106 (98-107) mEq/L Carbon Dioxide 19 L (23-29) mEq/L BUN 10 (8-23) mg/dL Creatinine 0.23 L (0.60-1.20) mg/dL Glucose 109 H (70-105) mg/dL Calcium 7.0 L (8.6-10.3) mg/dL - Attending Attestation I have personally performed a face to face evaluation on this patient. I have reviewed and agree with the care plan. History and Exam by me shows:
[2018-04-29] MEDS: Clinimix E 5%-15% SOLUTION 2,000 ML with MVI, adult with vitamin K 10 ML IVC SCH (17:00)
[2018-04-29] MEDS ORDERED: Clinimix E 5%-20% SOLUTION 2,000 ML with MVI, adult with vitamin K 10 ML, Magnesium S... IVC SCH (17:00)
[2018-04-30] MEDS: Insulin LISPRO 300 UNITS/3 ML VIAL SQ SCH ×6 (02:25→22:01)
[2018-04-30 04:24] LABS: Basophils # 0.1 K/mcL (0.0-0.2); Basophils % 0.8 %; Eosinophils # 0.4 K/mcL (0.0-0.6); Eosinophils % 5.5 %; Hematocrit 29.9 % (35.3-44.9); Immature Granulocytes % 1.4 % (0-4); Lymphocytes # 1.3 K/mcL (0.6-4.6); Mean Corpuscular HGB Conc 33.4 g/dL (31.6-35.5); Mean Corpuscular Hemoglobin 30.4 pg (28.0-33.3); Mean Corpuscular Volume 90.9 fL (83.0-100.0); Mean Platelet Volume 8.4 fL (9.4-12.4); Monocytes # 0.9 K/mcL (0.0-1.3); Monocytes % 11.3 %; Neutrophils # 4.9 K/mcL (1.6-8.9); Platelet Count 395 K/mcL (140-400); Red Blood Count 3.29 M/mcL (3.82-4.97); Red Cell Distribution Width 14.9 % (11.5-14.5)
[2018-04-30 04:40] LABS: Phosphorous 3.8 mg/dL (2.7-4.5)
[2018-04-30] MEDS: OXYCODONE Oral CONC 10 MG/0.5 ML ORAL.SYG SL PRN ×2 (05:38→14:40)
[2018-04-30] MEDS: Nicotine 7 MG PATCH.TD24 TD SCH (08:05)
[2018-04-30] MEDS: Aspirin 81 MG TAB.CHEW PO SCH (08:05)
[2018-04-30] MEDS: Pantoprazole 40 MG VIAL IVP SCH (08:05)
[2018-04-30 10:58] LABS: Alanine Aminotransferase 28 Units/L (7-52); Albumin 2.3 g/dL (3.5-5.7); Albumin/Globulin Ratio 0.9 (1.1-2.2); Alkaline Phosphatase 85 Units/L (34-104); Aspartate Amino Transferase 39 Units/L (13-39); BUN/Creatinine Ratio 43 (6-26); Bilirubin,Total 0.3 mg/dL (0.3-1.0); Blood Urea Nitrogen 13 mg/dL (8-23); Calcium 8.1 mg/dL (8.6-10.3); Carbon Dioxide 24 mEq/L (23-29); Chloride 100 mEq/L (98-107); Globulin 2.5 g/dL (2.4-3.5); Glucose 123 mg/dL (70-105); Osmolality,Calculated 271 (280-300); Potassium 3.9 mEq/L (3.5-5.1); Sodium 130 mEq/L (136-145); Total Protein 4.8 g/dL (6.4-8.9); eGFR For Non-African Americans > 60 (> 60)
--- NOTE | 2018-04-30 11:31 | General Surgery Progress Note ---
<Cassi Espinoza - Last Filed: 04/30/18 11:29> Date of Encounter: 04/30/18 Time of Encounter: 11:00 - Assessment and Plan (1) Colon obstruction Current Visit: Yes Status: Acute POD #6 Open sigmoid colectomy, incidental appendectomy, takedown splenic flexure with Dr. Anguiano Pathology pending Full liquids with protein supplements (continue) Calorie counts Continue PICC and TPN Supportive care and pain control PT/OT for mobilization PPI therapy daily IS every 1 hour while awake Daily incision care Abdominal binder- continue (2) Severe protein-calorie malnutrition Current Visit: Yes Status: Chronic Full liquid diet with protein supplements Calorie counts Add Megace to stimulate appetite Continue PICC and TPN (3) Physical deconditioning Current Visit: No Status: Acute Continue PT/OT for mobilization (4) Hypokalemia Current Visit: Yes Status: Resolved (5) Hypophosphatemia Current Visit: Yes Status: Resolved Subjective Patient reports: no new complaints, tolerating liquids well (full liquids), voiding w/o difficulty (incontinent), flatus, bowel movement (04/29/18), afebrile Objective Vital Signs - Last 8 Hours Temp Pulse Resp BP Pulse Ox 04/30/18 10:11 98.2 F 90 16 148/77 97 04/30/18 05:39 98.4 F 98 15 132/81 97 Intake and Output 04/29/18 04/30/18 04/30/18 23:59 07:59 15:59 Intake Total 605 / 605 0 / 0 0 / 0 Output Total 20 / 20 40 / 40 Balance 585 / 585 -40 / -40 0 / 0 Intake: IV Fluids 485 / 485 Clinimix E 5%-15% SOLUTION 2, 225 / 225 000 ML @ 55 mls/hr IVC .Q24H [facility] with M.v.i. Adult 10 ml Rx# :[id number] Sodium Phosphate 30 MMOL In 0.9 260 / 260 % Sodium Chloride 250 ML @ 42 mls/hr IVPB ONCE ONE Rx#: [id number] Oral 120 / 120 0 / 0 0 / 0 Output: Wound Drainage 20 / 20 40 / 40 Right Lower Abdomen 20 / 20 40 / 40 Other: Meal Breakfast Percent of Meal Consumed 10% 0% # Urine Diapers 1 1 1 Weight 54 kg Blood Glucose* 104 118 Patient Weight 04/30/18 23:59 Weight 54 kg - General physical appearance well developed, no distress, chronically ill - Eyes PERRL, normal ocular movement - ENT normal mucosa, atraumatic, normocephalic - Neck Neck exam: trachea midline - Respiratory normal respiratory effort, clear to auscultation, other (moist, non-productive cough; diminished bibasilar breath sounds) - Cardiovascular Cardiovascular exam: Present: RRR - Abdomen Abdomen: Present: bowel sounds present, soft, tender (expected post-operative tenderness) - Incision Incision: Present: clean and dry, intact - Neurologic CN 2-12 grossly intact - Musculoskeletal other (severe physical deconditioning noted) - Psychiatric oriented to person, oriented to place, speech is normal - Labs 04/30/18 03:58 04/30/18 09:58 Diabetes panel 04/30/18 Range/Units 09:58 Sodium 130 L (136-145) mEq/L Potassium 3.9 (3.5-5.1) mEq/L Chloride 100 (98-107) mEq/L Carbon Dioxide 24 (23-29) mEq/L BUN 13 (8-23) mg/dL Creatinine 0.30 L (0.60-1.20) mg/dL Glucose 123 H (70-105) mg/dL Calcium 8.1 L (8.6-10.3) mg/dL AST 39 (13-39) Units/L ALT 28 (7-52) Units/L Alkaline Phosphatase 85 (34-104) Units/L Albumin 2.3 L (3.5-5.7) g/dL Calcium panel 04/30/18 04/30/18 Range/Units 03:58 09:58 Calcium 8.1 L (8.6-10.3) mg/dL Phosphorus 3.8 (2.7-4.5) mg/dL Albumin 2.3 L (3.5-5.7) g/dL Pituitary panel 04/30/18 Range/Units 09:58 Sodium 130 L (136-145) mEq/L Potassium 3.9 (3.5-5.1) mEq/L Chloride 100 (98-107) mEq/L Carbon Dioxide 24 (23-29) mEq/L BUN 13 (8-23) mg/dL Creatinine 0.30 L (0.60-1.20) mg/dL Glucose 123 H (70-105) mg/dL Calcium 8.1 L (8.6-10.3) mg/dL Adrenal panel 04/30/18 Range/Units 09:58 Sodium 130 L (136-145) mEq/L Potassium 3.9 (3.5-5.1) mEq/L Chloride 100 (98-107) mEq/L Carbon Dioxide 24 (23-29) mEq/L BUN 13 (8-23) mg/dL Creatinine 0.30 L (0.60-1.20) mg/dL Glucose 123 H (70-105) mg/dL Calcium 8.1 L (8.6-10.3) mg/dL Total Bilirubin 0.3 (0.3-1.0) mg/dL AST 39 (13-39) Units/L ALT 28 (7-52) Units/L Alkaline Phosphatase 85 (34-104) Units/L Albumin 2.3 L (3.5-5.7) g/dL - VTE Documentation of Mechanical Device: Intermittent pneumatic compression device Consult Discharge Plan - Plan Referrals: NONE,PCP [Primary Care Provider] - - Attending Attestation For this encounter, I have reviewed the VEHICLE DISMANTLER or PA documentation, treatment plan, and medical decision making; and I have had face to face time with this patient. <April Anguiano - Last Filed: 05/01/18 18:27> Date of Encounter: 04/30/18 - Assessment and Plan (1) Severe protein-calorie malnutrition Current Visit: Yes Status: Chronic (2) Cigarette smoker Current Visit: No Status: Chronic (3) S/P colectomy Current Visit: Yes Status: Acute continue diet continue tpn until adequate po intake OOB to chair with all meals continue PT/OT gi/dvt prophylaxis ok home meds (4) Tachycardia Current Visit: Yes Status: Acute Subjective Patient reports: no new complaints, still having pain, pain is less, tolerating liquids well, flatus, bowel movement, afebrile Objective Vital Signs - Last 8 Hours Temp Pulse Resp BP Pulse Ox 05/01/18 15:55 16 95 05/01/18 14:57 98.4 F 111 16 133/75 96 05/01/18 14:01 107 96 05/01/18 11:48 98.1 F 110 15 121/69 94 Intake and Output 0905/01/18 05/01/18 07:59 15:59 23:59 Intake Total 250 / 250 50 / 50 Output Total 20 / 20 0 / 0 Balance 230 / 230 50 / 50 Intake: IV Fluids 250 / 250 Intralipid 20% 250 ML @ 21 mls/ 250 / 250 hr IVPB DAILY@1700 [facility] Rx#: [id number] Oral 0 / 0 50 / 50 Output: Urine 0 / 0 0 / 0 Wound Drainage 20 / 20 Right Lower Abdomen 20 20 Other: Meal Lunch Percent of Meal Consumed 75% # Urine Diapers 1 1 Blood Glucose* 112 116 - General physical appearance well developed, no distress - Eyes PERRL, normal ocular movement - ENT normal mucosa, normocephalic - Neck Neck exam: trachea midline - Respiratory normal expansion, other - Cardiovascular Cardiovascular exam: Present: RRR - Abdomen Abdomen: Present: bowel sounds present, soft, tender. Absent: distended, guarding, rebound - Incision Incision: Present: clean and dry, intact - Integumentary no rash - Neurologic CN 2-12 grossly intact - Musculoskeletal normal posture - Psychiatric oriented to time, memory intact - Labs 05/01/18 03:45 05/01/18 03:45 Diabetes panel 05/01/18 Range/Units 03:45 Sodium 129 L (136-145) mEq/L Potassium 4.2 (3.5-5.1) mEq/L Chloride 101 (98-107) mEq/L Carbon Dioxide 24 (23-29) mEq/L BUN 13 (8-23) mg/dL Creatinine 0.25 L (0.60-1.20) mg/dL Glucose 96 (70-105) mg/dL Calcium 8.2 L (8.6-10.3) mg/dL Calcium panel 05/01/18 05/01/18 Range/Units 03:45 03:45 Calcium 8.2 L (8.6-10.3) mg/dL Phosphorus 3.7 (2.7-4.5) mg/dL Pituitary panel 05/01/18 Range/Units 03:45 Sodium 129 L (136-145) mEq/L Potassium 4.2 (3.5-5.1) mEq/L Chloride 101 (98-107) mEq/L Carbon Dioxide 24 (23-29) mEq/L BUN 13 (8-23) mg/dL Creatinine 0.25 L (0.60-1.20) mg/dL Glucose 96 (70-105) mg/dL Calcium 8.2 L (8.6-10.3) mg/dL Adrenal panel 05/01/18 Range/Units 03:45 Sodium 129 L (136-145) mEq/L Potassium 4.2 (3.5-5.1) mEq/L Chloride 101 (98-107) mEq/L Carbon Dioxide 24 (23-29) mEq/L BUN 13 (8-23) mg/dL Creatinine 0.25 L (0.60-1.20) mg/dL Glucose 96 (70-105) mg/dL Calcium 8.2 L (8.6-10.3) mg/dL - Attending Attestation I have personally performed a face to face evaluation on this patient. I have reviewed and agree with the care plan. History and Exam by me shows:
[2018-04-30] MEDS: Ipratropium/Albuterol Neb 3 ML IH SCH ×3 (14:07→22:31)
[2018-04-30] MEDS: Acetylcysteine 10% 2 ML INHSOL IH SCH ×3 (14:08→22:31)
[2018-04-30] MEDS: Megestrol Acetate 400 MG/10 ML UDC PO SCH (14:40)
--- NOTE | 2018-04-30 14:58 | Internal Med Progress Note ---
Hospitalist Progress Note - Encounter Date of Encounter: 04/30/18 Time of Encounter: 07:30 - Subjective Interval History: she has no complaints, has flatus, tolerated PO diet denies N/v/D, abdominal pain. pain is controlled has had no bowel movements - Exam Vitals: Temp Pulse Resp BP Pulse Ox 98.2 F 90 16 148/77 97 04/30/18 10:11 04/30/18 10:11 04/30/18 10:11 04/30/18 10:11 04/30/18 10:11 Exam: General: Patient is alert, oriented, no acute distress, underweight, Head: atraumatic, normocephalic, Eye: normal appearance, PERRL, no scleral icterus, no conjunctival injection ENT: mucous membranes moist, normal external ear exam Neck: normal inspection, trachea midline, full ROM, no carotid bruits Chest: normal inspection, symmetric chest rise Respiratory: Good respiratory effort. Bilateral breath sounds are clear without wheezing, crackles, or rhonchi. Cardiovascular: Regular rate and rhythm. s1 and s2 No clicks, rubs, gallops, or murmors. Abdomen: soft, , BS+ve, abdominal binder musculoskeletal: Spontaneously moving all extremities. no edema, no calf tenderness Skin: warm, dry, intact. Neuro: Alert and oriented x4. Sensation light touch intact. Cranial nerves 2- 12 is intact. 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 (2) Anemia Current Visit: Yes Status: Acute Assessment and Plan: was transfused 2PRBC on 04/23/18- H/h improved will continue to follow CBC IV PPI (3) HTN (hypertension) Current Visit: Yes Status: Chronic Assessment and Plan: started on ensure clear TID if she tolerates will consider restarting home medications tele monitoring will start her on oral metoprolol home dose 12.5 mg BID (4) Hyponatremia Current Visit: Yes Status: Acute Assessment and Plan: IVF discontinued will continue to monitor BMP (5) Coronary artery disease Current Visit: Yes Status: Chronic Assessment and Plan: Patient has an extensive hx . ASA and plavix started by surgery team on 04/28/18 metoprolol 12.5 mg BID TTE Impressions: LVEF 60-65%. Normal LV chamber size, wall thickness and function. Limited study, valves were not assessed. CXR 04/30- NAD (6) AAA (abdominal aortic aneurysm) Current Visit: Yes Status: Resolved Assessment and Plan: Patient recently underwent AAA repair Plan of care as per vascular surgery (7) Underweight Current Visit: Yes Status: Acute Assessment and Plan: BMI 19 currently receiving TPN diet advance to full liquids megace added on 04/30/18 (8) Weakness Current Visit: Yes Status: Acute Assessment and Plan: daily physical therapy OOB to chair BID/ambulate (9) Hypocalcemia Current Visit: Yes Status: Acute Assessment and Plan: secondary hypoalbuminemia corrected calcium 9.5 (10) Vitamin D deficiency Current Visit: Yes Status: Acute Assessment and Plan: vitamin D 18 started replacement (11) DVT prophylaxis Current Visit: No Status: Acute Assessment and Plan: Scds OOB to chair physical therapy will start heparin SC (12) Colitis Current Visit: Yes Status: Resolved Assessment and Plan: Afebrile s/p Laparotomy, sigmoid resection, EEA on 04/24/18 was treated with IV cipro and flagyl which was discontinued by surgery team on zosyn Discontinued on 04/30/18 by surgery team - Time Spent with Patient Total time spent is greater than 50% in coordination of care (as documented) at patient's floor/unit and/or counseling patient: Internal Medicine: Result - Labs CBC & Chem 7: 04/30/18 03:58 04/30/18 09:58 Labs: Short CBC 04/30/18 Range/Units 03:58 WBC 7.6 (4.3-11.1) K/mcL Hgb 10.0 L (11.5-15.4) g/dL Hct 29.9 L (35.3-44.9) % Plt Count 395 (140-400) K/mcL Neutrophils # 4.9 (1.6-8.9) K/mcL BMP 04/30/18 09:58 Sodium 130 L Potassium 3.9 Chloride 100 Carbon Dioxide 24 BUN 13 Creatinine 0.30 L Glucose 123 H Calcium 8.1 L Cardiac Enzymes 04/29/18 Range/Units 18:36 Troponin I < 0.03 (< 0.04) ng/mL Liver Function 04/30/18 Range/Units 09:58 Total Bilirubin 0.3 (0.3-1.0) mg/dL AST 39 (13-39) Units/L ALT 28 (7-52) Units/L Alkaline Phosphatase 85 (34-104) Units/L Albumin 2.3 L (3.5-5.7) g/dL - ABG Interpretation ABG results: PT/INR, D-dimer PT 14.3 Seconds (9.4-12.1) H 04/22/18 04:43 - Impressions Impressions Chest X-Ray 04/30/18 13:07 IMPRESSION: No evidence for acute cardiopulmonary process. Interval placement of right-sided PICC line with tip in the distal SVC. No pneumothorax. D/ / 04/30/2018 13:35:06 Koko Henriquez MD / nando Interpreting Provider: Koko Henriquez MD - VTE Documentation of Mechanical Device: Intermittent pneumatic compression device Consult Discharge Plan - Plan Referrals: NONE,PCP [Primary Care Provider] - (2) Anemia Qualifiers: Anemia type: other cause Other causes of anemia: acute posthemorrhagic Qualified Code(s): D62 - Acute posthemorrhagic anemia (3) HTN (hypertension) Qualifiers: Hypertension type: essential hypertension Qualified Code(s): I10 - Essential (primary) hypertension (5) Coronary artery disease Qualifiers: Coronary Disease-Associated Artery/Lesion type: [place]omon artery [place] vs. transplanted heart: solomon heart Associated angina: without angina Qualified Code(s): I25.10 - Atherosclerotic heart disease of solomon coronary artery without angina pectoris (6) AAA (abdominal aortic aneurysm) Qualifiers: Presence of rupture: without rupture Qualified Code(s): I71.4 - Abdominal aortic aneurysm, without rupture
[2018-04-30] MEDS ORDERED: [UNRECOGNIZED DRUG - OTHER] IVC SCH (17:00)
[2018-04-30] MEDS ORDERED: VITAMIN K IVC SCH (17:00)
[2018-04-30] MEDS ORDERED: MVI IVC SCH (17:00)
[2018-04-30] MEDS ORDERED: CLINIMIX E IVC SCH (17:00)
[2018-04-30] MEDS: *HR* Heparin 5,000 UNIT/ML VIAL SQ SCH (22:50)
[2018-05-01 04:08] LABS: Hematocrit 31.3 % (35.3-44.9); Hemoglobin 10.3 g/dL (11.5-15.4); Mean Corpuscular HGB Conc 32.9 g/dL (31.6-35.5); Mean Corpuscular Hemoglobin 30.2 pg (28.0-33.3); Mean Corpuscular Volume 91.8 fL (83.0-100.0); Mean Platelet Volume 8.3 fL (9.4-12.4); Platelet Count 412 K/mcL (140-400); Red Blood Count 3.41 M/mcL (3.82-4.97); Red Cell Distribution Width 14.9 % (11.5-14.5)
[2018-05-01] MEDS: Ipratropium/Albuterol Neb 3 ML IH SCH ×4 (04:11→21:36)
[2018-05-01] MEDS: Acetylcysteine 10% 2 ML INHSOL IH SCH ×4 (04:11→21:36)
[2018-05-01 04:15] LABS: BUN/Creatinine Ratio 52 (6-26); Blood Urea Nitrogen 13 mg/dL (8-23); Calcium 8.2 mg/dL (8.6-10.3); Carbon Dioxide 24 mEq/L (23-29); Chloride 101 mEq/L (98-107); Glucose 96 mg/dL (70-105); Magnesium 2.2 mg/dL (1.6-2.6); Osmolality,Calculated 268 (280-300); Phosphorous 3.7 mg/dL (2.7-4.5); Potassium 4.2 mEq/L (3.5-5.1); Sodium 129 mEq/L (136-145); eGFR For Non-African Americans > 60 (> 60)
[2018-05-01] MEDS: Insulin LISPRO 300 UNITS/3 ML VIAL SQ SCH ×6 (05:01→21:13)
[2018-05-01] MEDS: *HR* Heparin 5,000 UNIT/ML VIAL SQ SCH (05:37)
[2018-05-01] MEDS: Nicotine 7 MG PATCH.TD24 TD SCH (08:07)
[2018-05-01] MEDS: Megestrol Acetate 400 MG/10 ML UDC PO SCH (08:07)
[2018-05-01] MEDS: Pantoprazole 40 MG VIAL IVP SCH (08:07)
[2018-05-01] MEDS: Aspirin 81 MG TAB.CHEW PO SCH (08:07)
--- NOTE | 2018-05-01 11:14 | Internal Med Progress Note ---
Hospitalist Progress Note - Encounter Date of Encounter: 05/01/18 Time of Encounter: 08:00 - Subjective Interval History: she has no complaints, has flatus, tolerated PO diet denies N/v/D, CP, SOB, palpitations, abdominal pain. pain is controlled has had no bowel movements - Exam Vitals: Temp Pulse Resp BP Pulse Ox 98.2 F 98 16 135/79 95 05/01/18 07:35 05/01/18 07:35 05/01/18 09:27 05/01/18 07:35 05/01/18 09:27 Exam: General: Patient is alert, oriented, no acute distress, underweight, Head: atraumatic, normocephalic, Eye: normal appearance, PERRL, no scleral icterus, no conjunctival injection ENT: mucous membranes moist, normal external ear exam Neck: normal inspection, trachea midline, full ROM, no carotid bruits Chest: normal inspection, symmetric chest rise Respiratory: Good respiratory effort. Bilateral breath sounds are clear without wheezing, occasional crackles infrascapularly , or rhonchi. Cardiovascular: tachycardic s1 and s2 No clicks, rubs, gallops, or murmors. Abdomen: soft, , BS+ve, abdominal binder musculoskeletal: Spontaneously moving all extremities. no edema, no calf tenderness Skin: warm, dry, intact. Neuro: Alert and oriented x4. Sensation light touch intact. Cranial nerves 2- 12 is intact. no focal deficit Psych: Patient's affect is normal - Assessment and Plan (1) Colon obstruction Current Visit: Yes Status: Acute Assessment and Plan: S/p Laparotomy, sigmoid resection, incidental appendectomy, EEA on 04/24/18 biopsy/pathology report- negative for malignancy h/h stable Full liquids with protein supplements (continue) will continue with TPN as per surgery recommendations pain control OOB to chair Pt/OT discharge planning Preop evaluation done by magazine editor and patient is high risk for the surgery due to her history of severe CAD. (2) Tachycardia Current Visit: Yes Status: Acute Assessment and Plan: Vital signs reviewed she has had HR in the 90s to low 100s she is saturating 95-96% on RA - not tachyapnic (RR 16)- although she did complain of SOb on 04/30/18- and CXR was ordered CXR obtained on 04/30/18- no acute disease she reports that her pain is controlled on physical exam - mucus membranes are moist, no skin tenting adn no physical signs of dehydration there is no calf tenderness on exam and she has SCDs and pharmacological DVT prophylaxis A-a gradient on ABG obtained on 05/01- 37.2 expected for age is 25 she does have history of COPD and is being treated with DUO-nebs- no wheezing or signs of exacerbation on exam she was counseled on continuing to use her incentive spirometry i spoke to her about ABg findings and she agrees to have CTPA to rule out PE (3) Anemia Current Visit: Yes Status: Acute Assessment and Plan: was transfused 2PRBC on 04/23/18- H/h improved and stable will continue to follow CBC IV PPI (4) HTN (hypertension) Current Visit: Yes Status: Chronic Assessment and Plan: started on ensure clear TID if she tolerates will consider restarting home medications tele monitoring metoprolol home dose 12.5 mg BID (5) Hyponatremia Current Visit: Yes Status: Acute Assessment and Plan: IVF discontinued will consider starting her on salt tablets will continue to monitor BMP (6) Coronary artery disease Current Visit: Yes Status: Chronic Assessment and Plan: Patient has an extensive hx . ASA and plavix started by surgery team on 04/28/18 metoprolol 12.5 mg BID TTE Impressions: LVEF 60-65%. Normal LV chamber size, wall thickness and function. Limited study, valves were not assessed. CXR 04/30- NAD (7) AAA (abdominal aortic aneurysm) Current Visit: Yes Status: Resolved Assessment and Plan: Patient recently underwent AAA repair Plan of care as per vascular surgery (8) Underweight Current Visit: Yes Status: Acute Assessment and Plan: BMI 19 currently receiving TPN diet advance to full liquids megace added on 04/30/18 (9) Weakness Current Visit: Yes Status: Acute Assessment and Plan: daily physical therapy OOB to chair BID/ambulate (10) Vitamin D deficiency Current Visit: Yes Status: Acute Assessment and Plan: vitamin D 18 started replacement (11) DVT prophylaxis Current Visit: No Status: Acute Assessment and Plan: Scds / lovenox OOB to chair physical therapy (12) Colitis Current Visit: Yes Status: Resolved (13) Hypocalcemia Current Visit: Yes Status: Resolved Assessment and Plan: secondary hypoalbuminemia corrected calcium 9.5 - Time Spent with Patient Total time spent is greater than 50% in coordination of care (as documented) at patient's floor/unit and/or counseling patient: Internal Medicine: Result - Labs CBC & Chem 7: 05/01/18 03:45 05/01/18 03:45 Labs: Short CBC 05/01/18 Range/Units 03:45 WBC 7.8 (4.3-11.1) K/mcL Hgb 10.3 L (11.5-15.4) g/dL Hct 31.3 L (35.3-44.9) % Plt Count 412 H (140-400) K/mcL BMP 05/01/18 03:45 Sodium 129 L Potassium 4.2 Chloride 101 Carbon Dioxide 24 BUN 13 Creatinine 0.25 L Glucose 96 Calcium 8.2 L - ABG Interpretation ABG results: PT/INR, D-dimer PT 14.3 Seconds (9.4-12.1) H 04/22/18 04:43 - Impressions Impressions Chest X-Ray 04/30/18 13:07 IMPRESSION: No evidence for acute cardiopulmonary process. Interval placement of right-sided PICC line with tip in the distal SVC. No pneumothorax. D/ / 04/30/2018 13:35:06 Koko Henriquez MD / nando Interpreting Provider: Koko Henriquez MD - VTE Documentation of Mechanical Device: Intermittent pneumatic compression device Consult Discharge Plan - Plan Referrals: NONE,PCP [Primary Care Provider] - (3) Anemia Qualifiers: Anemia type: other cause Other causes of anemia: acute posthemorrhagic Qualified Code(s): D62 - Acute posthemorrhagic anemia (4) HTN (hypertension) Qualifiers: Hypertension type: essential hypertension Qualified Code(s): I10 - Essential (primary) hypertension (6) Coronary artery disease Qualifiers: Coronary Disease-Associated Artery/Lesion type: [place] artery [place] vs. transplanted heart: [place] heart Associated angina: without angina Qualified Code(s): I25.10 - Atherosclerotic heart disease of [place] coronary artery without angina pectoris (7) AAA (abdominal aortic aneurysm) Qualifiers: Presence of rupture: without rupture Qualified Code(s): I71.4 - Abdominal aortic aneurysm, without rupture
[2018-05-01 11:16] LABS: ABG Base Excess -1 mEq/L (-2 to 3); ABG HCO3 22 mEq/L (21-27); ABG Oxygen Saturation 96 % (95-98); ABG PCO2 30 mmHg (35-45); ABG PH 7.48 pH Units (7.32-7.45); ABG PO2 75 mmHg (85-104); ABG TCO2 23 mEq/L (20-26)
[2018-05-01] MEDS ORDERED: Isovue-370 500 ML INFUS..BTL IV ONE (11:35)
--- NOTE | 2018-05-01 12:41 | General Surgery Progress Note ---
<Cassi Espinoza - Last Filed: 05/01/18 12:38> Date of Encounter: 05/01/18 Time of Encounter: 12:30 - Assessment and Plan (1) Colon obstruction Current Visit: Yes Status: Acute POD #7 Open sigmoid colectomy, incidental appendectomy, takedown splenic flexure with Dr. Anguiano Pathology- A. Sigmoid colon resection: Multiple active mucosal ulcers with marked acute/chronic inflammation, granulation tissue, necrosis and prominent reactive/inflammatory lamina propria stromal cells and endothelial cells Adjacent intact mucosa shows reactive/regenerative epithelial atypia Inflammatory process extends into the muscularis propria. Resection margins are viable Negative for malignancy Benign pericolic lymph nodes (5) B. Anastomotic rings: Colonic anastomotic rings with no significant abnormality C. Appendix; appendectomy: Benign vermiform appendix with no significant abnormality Advance to soft diet with protein supplements (continue) Calorie counts- continue Wean TPN when taking in appopriate calories by mouth Supportive care and pain control PT/OT for mobilization PPI therapy daily IS every 1 hour while awake Daily incision care Abdominal binder- continue (2) Severe protein-calorie malnutrition Current Visit: Yes Status: Chronic Advance to soft diet with protein supplements Calorie counts- continue Continue Megace to stimulate appetite Continue PICC and TPN until taking appropriate calories by mouth (3) Physical deconditioning Current Visit: No Status: Acute Continue PT/OT for mobilization Subjective Patient reports: no new complaints, feels better, still having pain, pain is less, tolerating liquids well (full liquids), voiding w/o difficulty ( incontinent), flatus, no bowel movement (none today, last documented 2 days ago) , afebrile, other (Patient calorie counts started today) Objective Vital Signs - Last 8 Hours Temp Pulse Resp BP Pulse Ox 05/01/18 11:48 98.1 F 110 15 121/69 94 05/01/18 09:27 16 95 05/01/18 07:35 98.2 F 98 16 135/79 95 Intake and Output 04/30/18 05/01/18 05/01/18 23:59 07:59 15:59 Intake Total 220 / 220 250 / 250 0 / 0 Output Total 20 / 20 0 / 0 Balance 220 / 220 230 / 230 0 / 0 Intake: IV Fluids 100 / 100 250 / 250 Intralipid 20% 250 ML @ 21 mls/ 250 / 250 hr IVPB DAILY@1700 [facility] Rx#: [id number] Oral 120 / 120 0 / 0 0 / 0 Output: Urine 0 / 0 0 / 0 Wound Drainage 20 / 20 Right Lower Abdomen 20 / 20 Other: Meal Dinner Percent of Meal Consumed 50% # Urine Diapers 1 1 Blood Glucose* 126 112 154 - General physical appearance no distress, chronically ill - Eyes PERRL, normal ocular movement - ENT normal mucosa, atraumatic, normocephalic - Neck Neck exam: trachea midline - Respiratory normal respiratory effort, clear to auscultation, other (diminished bibasilar bases) - Cardiovascular Cardiovascular exam: Present: tachycardia - Abdomen Abdomen: Present: bowel sounds present, soft, distended (minimal distention today), wound (PHU drain to bulb suction with 30ml of drainage noted since midnight) - Incision Incision: Present: clean and dry, intact - Musculoskeletal other (severe deconditioning) - Psychiatric oriented to person, oriented to place, speech is normal - Labs 05/01/18 03:45 05/01/18 03:45 Diabetes panel 05/01/18 Range/Units 03:45 Sodium 129 L (136-145) mEq/L Potassium 4.2 (3.5-5.1) mEq/L Chloride 101 (98-107) mEq/L Carbon Dioxide 24 (23-29) mEq/L BUN 13 (8-23) mg/dL Creatinine 0.25 L (0.60-1.20) mg/dL Glucose 96 (70-105) mg/dL Calcium 8.2 L (8.6-10.3) mg/dL Calcium panel 05/01/18 05/01/18 Range/Units 03:45 03:45 Calcium 8.2 L (8.6-10.3) mg/dL Phosphorus 3.7 (2.7-4.5) mg/dL Pituitary panel 05/01/18 Range/Units 03:45 Sodium 129 L (136-145) mEq/L Potassium 4.2 (3.5-5.1) mEq/L Chloride 101 (98-107) mEq/L Carbon Dioxide 24 (23-29) mEq/L BUN 13 (8-23) mg/dL Creatinine 0.25 L (0.60-1.20) mg/dL Glucose 96 (70-105) mg/dL Calcium 8.2 L (8.6-10.3) mg/dL Adrenal panel 05/01/18 Range/Units 03:45 Sodium 129 L (136-145) mEq/L Potassium 4.2 (3.5-5.1) mEq/L Chloride 101 (98-107) mEq/L Carbon Dioxide 24 (23-29) mEq/L BUN 13 (8-23) mg/dL Creatinine 0.25 L (0.60-1.20) mg/dL Glucose 96 (70-105) mg/dL Calcium 8.2 L (8.6-10.3) mg/dL - VTE Documentation of Mechanical Device: Intermittent pneumatic compression device Consult Discharge Plan - Plan Referrals: NONE,PCP [Primary Care Provider] - - Attending Attestation For this encounter, I have reviewed the DIAL PAINTER or PA documentation, treatment plan, and medical decision making; and I have had face to face time with this patient. <April Anguiano - Last Filed: 05/01/18 18:25> Date of Encounter: 05/01/18 - Assessment and Plan (1) Severe protein-calorie malnutrition Current Visit: Yes Status: Chronic (2) Cigarette smoker Current Visit: No Status: Chronic (3) S/P colectomy Current Visit: Yes Status: Acute tolerating diet sliv dc tpn tomorrow prn pain control OOB to chair PT/OT ambulate aggressive pulmonary toilet, aerosols (4) Tachycardia Current Visit: Yes Status: Acute Subjective Patient reports: no new complaints, feels better, still having pain, pain is less, tolerating liquids well, flatus, no bowel movement, afebrile Objective Vital Signs - Last 8 Hours Temp Pulse Resp BP Pulse Ox 05/01/18 15:55 16 95 05/01/18 14:57 98.4 F 111 16 133/75 96 05/01/18 14:01 107 96 05/01/18 11:48 98.1 F 110 15 121/69 94 Intake and Output 05/01/18 05/01/18 05/01/18 07:59 15:59 23:59 Intake Total 250 / 250 50 / 50 Output Total 20 / 20 0 / 0 Balance 230 / 230 50 / 50 Intake: IV Fluids 250 / 250 Intralipid 20% 250 ML @ 21 mls/ 250 / 250 hr IVPB DAILY@1700 [facility] Rx#: [id number] Oral 0 / 0 50 / 50 Output: Urine 0 / 0 0 / 0 Wound Drainage 20 / 20 Right Lower Abdomen 20 / 20 Other: Meal Lunch Percent of Meal Consumed 75% # Urine Diapers 1 1 Blood Glucose* 112 116 - General physical appearance no distress, chronically ill - Eyes PERRL, normal ocular movement - ENT normal mucosa, normocephalic - Neck Neck exam: trachea midline - Respiratory normal expansion, normal respiratory effort - Cardiovascular Cardiovascular exam: Present: tachycardia - Abdomen Abdomen: Present: bowel sounds present, soft, non tender, distended. Absent: guarding, rebound - Incision Incision: Present: clean and dry, intact - Integumentary no rash, no growths - Neurologic CN 2-12 grossly intact - Musculoskeletal normal posture - Psychiatric oriented to time, oriented to person, memory intact - Labs 05/01/18 03:45 05/01/18 03:45 Diabetes panel 05/01/18 Range/Units 03:45 Sodium 129 L (136-145) mEq/L Potassium 4.2 (3.5-5.1) mEq/L Chloride 101 (98-107) mEq/L Carbon Dioxide 24 (23-29) mEq/L BUN 13 (8-23) mg/dL Creatinine 0.25 L (0.60-1.20) mg/dL Glucose 96 (70-105) mg/dL Calcium 8.2 L (8.6-10.3) mg/dL Calcium panel 05/01/18 05/01/18 Range/Units 03:45 03:45 Calcium 8.2 L (8.6-10.3) mg/dL Phosphorus 3.7 (2.7-4.5) mg/dL Pituitary panel 05/01/18 Range/Units 03:45 Sodium 129 L (136-145) mEq/L Potassium 4.2 (3.5-5.1) mEq/L Chloride 101 (98-107) mEq/L Carbon Dioxide 24 (23-29) mEq/L BUN 13 (8-23) mg/dL Creatinine 0.25 L (0.60-1.20) mg/dL Glucose 96 (70-105) mg/dL Calcium 8.2 L (8.6-10.3) mg/dL Adrenal panel 05/01/18 Range/Units 03:45 Sodium 129 L (136-145) mEq/L Potassium 4.2 (3.5-5.1) mEq/L Chloride 101 (98-107) mEq/L Carbon Dioxide 24 (23-29) mEq/L BUN 13 (8-23) mg/dL Creatinine 0.25 L (0.60-1.20) mg/dL Glucose 96 (70-105) mg/dL Calcium 8.2 L (8.6-10.3) mg/dL - Attending Attestation I have personally performed a face to face evaluation on this patient. I have reviewed and agree with the care plan. History and Exam by me shows:
[2018-05-01] MEDS ORDERED: *HR* Heparin 5,000 UNIT/ML VIAL SQ SCH (14:00)
[2018-05-01] MEDS: 0.9 % Sodium Chloride 1,000 ML IVC SCH (15:00)
[2018-05-01] MEDS: *HR* Enoxaparin 40 MG/0.4 ML SYRINGE SQ SCH (17:10)
[2018-05-02] MEDS: Insulin LISPRO 300 UNITS/3 ML VIAL SQ SCH ×6 (00:27→20:32)
[2018-05-02] MEDS: Acetylcysteine 10% 2 ML INHSOL IH SCH ×2 (03:41→10:48)
[2018-05-02] MEDS: Ipratropium/Albuterol Neb 3 ML IH SCH ×4 (03:41→21:25)
[2018-05-02] MEDS ORDERED: *HR* Enoxaparin 40 MG/0.4 ML SYRINGE SQ SCH (06:00)
[2018-05-02 08:10] LABS: Hematocrit 29.2 % (35.3-44.9); Hemoglobin 9.3 g/dL (11.5-15.4); Mean Corpuscular HGB Conc 31.8 g/dL (31.6-35.5); Mean Platelet Volume 8.4 fL (9.4-12.4); Platelet Count 479 K/mcL (140-400); Red Blood Count 3.21 M/mcL (3.82-4.97); Red Cell Distribution Width 15.1 % (11.5-14.5)
[2018-05-02 08:55] LABS: Phosphorous 3.7 mg/dL (2.7-4.5)
[2018-05-02 08:56] LABS: BUN/Creatinine Ratio 35 (6-26); Blood Urea Nitrogen 12 mg/dL (8-23); Calcium 8.5 mg/dL (8.6-10.3); Carbon Dioxide 23 mEq/L (23-29); Chloride 101 mEq/L (98-107); Glucose 87 mg/dL (70-105); Osmolality,Calculated 265 (280-300); Potassium 4.5 mEq/L (3.5-5.1); Sodium 128 mEq/L (136-145); eGFR For Non-African Americans > 60 (> 60)
--- NOTE | 2018-05-02 10:38 | Internal Med Progress Note ---
Hospitalist Progress Note - Encounter Date of Encounter: 05/02/18 Time of Encounter: 08:00 - Subjective Interval History: she has no complaints, has flatus, tolerated PO diet denies N/v/D, CP, SOB, palpitations, abdominal pain. pain is controlled has had no bowel movements - Exam Vitals: Temp Pulse Resp BP Pulse Ox 98.6 F 110 20 114/74 95 05/02/18 08:06 05/02/18 08:06 05/02/18 08:06 05/02/18 08:06 05/02/18 08:06 Exam: General: Patient is alert, oriented, no acute distress, underweight, Head: atraumatic, normocephalic, Eye: normal appearance, PERRL, no scleral icterus, no conjunctival injection ENT: mucous membranes moist, normal external ear exam Neck: normal inspection, trachea midline, full ROM, no carotid bruits Chest: normal inspection, symmetric chest rise Respiratory: Good respiratory effort. Bilateral breath sounds are clear without wheezing, occasional crackles infrascapularly , or rhonchi. Cardiovascular: tachycardic s1 and s2 No clicks, rubs, gallops, or murmors. Abdomen: soft, , BS+ve, incisional pain post surgery musculoskeletal: Spontaneously moving all extremities. no edema, no calf tenderness Skin: warm, dry, intact. Neuro: Alert and oriented x4. Sensation light touch intact. Cranial nerves 2- 12 is intact. no focal deficit Psych: Patient's affect is normal - Assessment and Plan (1) Colon obstruction Current Visit: Yes Status: Acute Assessment and Plan: S/p Laparotomy, sigmoid resection, incidental appendectomy, EEA on 04/24/18 biopsy/pathology report- negative for malignancy - full report below h/h stable soft diet with protein supplements TPN discontinued by surgery 05/01/18 pain control OOB to chair Pt/OT discharge planning Preop evaluation done by media production support manager and patient is high risk for the surgery due to her history of severe CAD. Pathology- A. Sigmoid colon resection: Multiple active mucosal ulcers with marked acute/chronic inflammation, granulation tissue, necrosis and prominent reactive/inflammatory lamina propria stromal cells and endothelial cells Adjacent intact mucosa shows reactive/regenerative epithelial atypia Inflammatory process extends into the muscularis propria. Resection margins are viable Negative for malignancy Benign pericolic lymph nodes (5) B. Anastomotic rings: Colonic anastomotic rings with no significant abnormality C. Appendix; appendectomy: Benign vermiform appendix with no significant abnormality (2) Tachycardia Current Visit: Yes Status: Acute Assessment and Plan: Vital signs reviewed ruled out PE - S/p CTPA on 05/01/18- full report below increased metoprolol to 25 mg BID pain control (3) Anemia Current Visit: Yes Status: Acute Assessment and Plan: was transfused 2PRBC on 04/23/18- H/h improved and stable will continue to follow CBC IV PPI (4) Thrombocytosis Current Visit: Yes Status: Acute Assessment and Plan: most likely reactiv e platelet counts have increased to 479 will continue to monitor CBC on ASA, plavix and lovenox (5) HTN (hypertension) Current Visit: Yes Status: Chronic Assessment and Plan: started on ensure clear TID if she tolerates will consider restarting home medications tele monitoring metoprolol home dose 12.5 mg BID (6) Hyponatremia Current Visit: Yes Status: Acute Assessment and Plan: stable will continue to monitor BMP (7) Coronary artery disease Current Visit: Yes Status: Chronic Assessment and Plan: Patient has an extensive hx . ASA and plavix started by surgery team on 04/28/18 metoprolol 12.5 mg BID TTE Impressions: LVEF 60-65%. Normal LV chamber size, wall thickness and function. Limited study, valves were not assessed. CXR 04/30- NAD (8) AAA (abdominal aortic aneurysm) Current Visit: Yes Status: Resolved Assessment and Plan: Patient recently underwent AAA repair Plan of care as per vascular surgery (9) Underweight Current Visit: Yes Status: Acute Assessment and Plan: BMI 19 currently receiving TPN diet advance to full liquids megace added on 04/30/18 (10) Weakness Current Visit: Yes Status: Acute Assessment and Plan: daily physical therapy OOB to chair BID/ambulate (11) Vitamin D deficiency Current Visit: Yes Status: Acute Assessment and Plan: vitamin D 18 started replacement (12) DVT prophylaxis Current Visit: No Status: Acute Assessment and Plan: Scds / lovenox OOB to chair physical therapy (13) Colitis Current Visit: Yes Status: Resolved Assessment and Plan: Afebrile s/p Laparotomy, sigmoid resection, EEA on 04/24/18 was treated with IV cipro and flagyl which was discontinued by surgery team on zosyn Discontinued on 04/30/18 by surgery team (14) Hypocalcemia Current Visit: Yes Status: Resolved Assessment and Plan: secondary hypoalbuminemia corrected calcium 9.5 - Time Spent with Patient Total time spent is greater than 50% in coordination of care (as documented) at patient's floor/unit and/or counseling patient: Internal Medicine: Result - Labs CBC & Chem 7: 05/02/18 07:41 05/02/18 07:41 Labs: Short CBC 05/02/18 Range/Units 07:41 WBC 7.7 (4.3-11.1) K/mcL Hgb 9.3 L (11.5-15.4) g/dL Hct 29.2 L (35.3-44.9) % Plt Count 479 H (140-400) K/mcL BMP 05/02/18 07:41 Sodium 128 L Potassium 4.5 Chloride 101 Carbon Dioxide 23 BUN 12 Creatinine 0.34 L Glucose 87 Calcium 8.5 L - ABG Interpretation ABG results: ABG ABG pH 7.48 pH Units (7.32-7.45) H 05/01/18 10:58 ABG pCO2 30 mmHg (35-45) L 05/01/18 10:58 ABG pO2 75 mmHg (85-104) L 05/01/18 10:58 ABG O2 Saturation 96 % (95-98) 05/01/18 10:58 PT/INR, D-dimer PT 14.3 Seconds (9.4-12.1) H 04/22/18 04:43 - Impressions Impressions Chest CTA 05/01/18 11:35 IMPRESSION: 1. No pulmonary embolus. RV LV ratio measures less than 0.8. 2. Similar-appearing 9 mm nodule in the anterior right upper lobe. Previous recommendations apply. 3. Decreased caliber bilateral pleural effusions and decreased prominence of interlobular septal thickening compared to prior. Overall, the appearance of the chest has improved compared the 118. The D/ / Gatito Fajardo / Gatito Fajardo Interpreting Provider: Gatito Fajardo - VTE Documentation of Mechanical Device: Intermittent pneumatic compression device Consult Discharge Plan - Plan Referrals: NONE,PCP [Primary Care Provider] - (5) HTN (hypertension) Qualifiers: Hypertension type: essential hypertension Qualified Code(s): I10 - Essential (primary) hypertension (7) Coronary artery disease Qualifiers: Coronary Disease-Associated Artery/Lesion type: [place] artery [place] vs. transplanted heart: [place] heart Associated angina: without angina Qualified Code(s): I25.10 - Atherosclerotic heart disease of [place] coronary artery without angina pectoris (8) AAA (abdominal aortic aneurysm) Qualifiers: Presence of rupture: without rupture Qualified Code(s): I71.4 - Abdominal aortic aneurysm, without rupture
[2018-05-02] MEDS: Megestrol Acetate 400 MG/10 ML UDC PO SCH (10:39)
[2018-05-02] MEDS: Aspirin 81 MG TAB.CHEW PO SCH (10:40)
[2018-05-02] MEDS: Pantoprazole 40 MG VIAL IVP SCH (10:41)
[2018-05-02] MEDS: Nicotine 7 MG PATCH.TD24 TD SCH (10:41)
--- NOTE | 2018-05-02 11:02 | General Surgery Progress Note ---
Date of Encounter: 05/02/18 Time of Encounter: 10:40 - Assessment and Plan (1) Colon obstruction Current Visit: Yes Status: Acute POD #8 Open sigmoid colectomy, incidental appendectomy, takedown splenic flexure with Dr. Anguiano Pathology- A. Sigmoid colon resection: Multiple active mucosal ulcers with marked acute/chronic inflammation, granulation tissue, necrosis and prominent reactive/inflammatory lamina propria stromal cells and endothelial cells Adjacent intact mucosa shows reactive/regenerative epithelial atypia Inflammatory process extends into the muscularis propria. Resection margins are viable Negative for malignancy Benign pericolic lymph nodes (5) B. Anastomotic rings: Colonic anastomotic rings with no significant abnormality C. Appendix; appendectomy: Benign vermiform appendix with no significant abnormality Continue soft diet with protein supplements (continue) Calorie counts- continue TPN stopped 05/01/18 Supportive care and pain control PT/OT for mobilization PPI therapy daily IS every 1 hour while awake Daily incision care Surgical drain removed today Abdominal binder- continue (2) Severe protein-calorie malnutrition Current Visit: Yes Status: Chronic Continue soft diet with protein supplements Calorie counts- continue Continue Megace to stimulate appetite TPN stopped 05/01/18 (3) Physical deconditioning Current Visit: No Status: Acute Continue PT/OT for mobilization Subjective Patient reports: no new complaints, feels better, tolerating a regular diet ( soft diet), voiding w/o difficulty (incontinent), flatus, bowel movement (last documented 04/29), afebrile Objective Vital Signs - Last 8 Hours Temp Pulse Resp BP Pulse Ox 05/02/18 08:06 98.6 F 110 20 114/74 95 05/02/18 08:01 98.6 F 109 15 114/74 94 05/02/18 05:09 99.0 F 107 15 124/74 97 05/02/18 03:43 16 98 Intake and Output 05/01/18 05/02/18 05/02/18 23:59 07:59 15:59 Intake Total 0 / 0 0 / 0 0 / 0 Output Total 20 / 20 0 / 0 Balance -20 / -20 0 / 0 0 / 0 Intake: Oral 0 / 0 0 / 0 0 / 0 Output: Urine 0 / 0 0 / 0 Wound Drainage 20 / 20 Right Lower Abdomen 20 / 20 Other: Meal full Percent of Meal Consumed 5% # Urine Diapers 3 2 Weight 54.1 kg Blood Glucose* 89 93 Patient Weight 05/02/18 23:59 Weight 54.1 kg - General physical appearance no distress, chronically ill - Eyes PERRL, normal ocular movement - ENT normal mucosa, atraumatic, normocephalic - Neck Neck exam: trachea midline - Respiratory normal respiratory effort, clear to auscultation, other (diminished bibasilar bases) - Cardiovascular Cardiovascular exam: Present: tachycardia - Abdomen Abdomen: Present: bowel sounds present, soft, non tender, wound (PHU drain with serous drainage noted (remove today)) - Incision Incision: Present: clean and dry, intact - Neurologic CN 2-12 grossly intact - Musculoskeletal other (severe deconditioning) - Psychiatric oriented to person, oriented to place, speech is normal - Labs 05/02/18 07:41 05/02/18 07:41 Diabetes panel 05/02/18 Range/Units 07:41 Sodium 128 L (136-145) mEq/L Potassium 4.5 (3.5-5.1) mEq/L Chloride 101 (98-107) mEq/L Carbon Dioxide 23 (23-29) mEq/L BUN 12 (8-23) mg/dL Creatinine 0.34 L (0.60-1.20) mg/dL Glucose 87 (70-105) mg/dL Calcium 8.5 L (8.6-10.3) mg/dL Calcium panel 05/02/18 05/02/18 Range/Units 07:41 07:41 Calcium 8.5 L (8.6-10.3) mg/dL Phosphorus 3.7 (2.7-4.5) mg/dL Pituitary panel 05/02/18 Range/Units 07:41 Sodium 128 L (136-145) mEq/L Potassium 4.5 (3.5-5.1) mEq/L Chloride 101 (98-107) mEq/L Carbon Dioxide 23 (23-29) mEq/L BUN 12 (8-23) mg/dL Creatinine 0.34 L (0.60-1.20) mg/dL Glucose 87 (70-105) mg/dL Calcium 8.5 L (8.6-10.3) mg/dL Adrenal panel 05/02/18 Range/Units 07:41 Sodium 128 L (136-145) mEq/L Potassium 4.5 (3.5-5.1) mEq/L Chloride 101 (98-107) mEq/L Carbon Dioxide 23 (23-29) mEq/L BUN 12 (8-23) mg/dL Creatinine 0.34 L (0.60-1.20) mg/dL Glucose 87 (70-105) mg/dL Calcium 8.5 L (8.6-10.3) mg/dL - VTE Documentation of Mechanical Device: Intermittent pneumatic compression device Consult Discharge Plan - Plan Additional Instructions: General Surgical Discharge Instructions 1. No pushing, pulling, or lifting greater than 15 lbs for 6 weeks 2. You may shower, but no tub baths, soaking, or swimming for 2 weeks 3. Take ibuprofen every 8 hours for discomfort. If this does not relieve discomfort, you may take the as needed Percocet. Take narcotics as directed. Do not take more narcotics then directed and do not share your narcotics with any other person 4. Take stool softeners (Colace) or a water based laxative (Miralax) while taking narcotics. You may hold for loose stools. 5. Report any fevers greater than 100.5F, increase abdominal discomfort, drainage that looks like pus, increased redness or pain at the surgical site, or any vomiting. 6. Report any pain in the calves, shortness of breath, or rapid heartbeat. 7. Follow-up in the office as directed. 8. If you were prescribed antibiotics, do not stop them without talking to your provider. Referrals: NONE,PCP [Primary Care Provider] - iGa Acosta FOURDRINIER MACHINE OPERATOR [Advanced Practice Nurse] - 05/09/18 8:15 am (surgery follow -up) - Attending Attestation For this encounter, I have reviewed the FURNITURE MOVER or PA documentation, treatment plan, and medical decision making; and I have had face to face time with this patient.
[2018-05-02] MEDS: 0.9 % Sodium Chloride 1,000 ML IVC SCH (12:28)
[2018-05-02] MEDS: Isosorbide MONOnitrate (24 HR) 60 MG TAB.ER.24H PO SCH (16:29)
[2018-05-02] MEDS: *HR* Enoxaparin 40 MG/0.4 ML SYRINGE SQ SCH (16:30)
[2018-05-03] MEDS: Ipratropium/Albuterol Neb 3 ML IH SCH ×4 (03:33→21:41)
[2018-05-03 05:27] LABS: Hematocrit 26.9 % (35.3-44.9); Hemoglobin 8.9 g/dL (11.5-15.4); Mean Corpuscular HGB Conc 33.1 g/dL (31.6-35.5); Mean Corpuscular Hemoglobin 30.2 pg (28.0-33.3); Mean Corpuscular Volume 91.2 fL (83.0-100.0); Mean Platelet Volume 8.3 fL (9.4-12.4); Platelet Count 493 K/mcL (140-400); Red Blood Count 2.95 M/mcL (3.82-4.97); Red Cell Distribution Width 14.9 % (11.5-14.5)
[2018-05-03 05:29] LABS: Magnesium 1.9 mg/dL (1.6-2.6); Phosphorous 3.7 mg/dL (2.7-4.5)
[2018-05-03 05:48] LABS: Blood Urea Nitrogen 12 mg/dL (8-23); Carbon Dioxide 21 mEq/L (23-29); Chloride 100 mEq/L (98-107); Potassium 3.9 mEq/L (3.5-5.1); Sodium 125 mEq/L (136-145)
[2018-05-03 05:49] LABS: BUN/Creatinine Ratio 36 (6-26); Calcium 8.4 mg/dL (8.6-10.3); Glucose 94 mg/dL (70-105); Osmolality,Calculated 260 (280-300); eGFR For Non-African Americans > 60 (> 60)
[2018-05-03] MEDS ORDERED: 0.9 % Sodium Chloride 1,000 ML ONE (10:08)
[2018-05-03] MEDS: Aspirin 81 MG TAB.CHEW PO SCH (10:11)
[2018-05-03] MEDS: Megestrol Acetate 400 MG/10 ML UDC PO SCH (10:11)
[2018-05-03] MEDS: Isosorbide MONOnitrate (24 HR) 60 MG TAB.ER.24H PO SCH (10:11)
[2018-05-03] MEDS: Nicotine 7 MG PATCH.TD24 TD SCH (10:12)
[2018-05-03] MEDS: 0.9 % Sodium Chloride 1,000 ML IVC SCH (10:15)
[2018-05-03] MEDS ORDERED: Isovue-370 500 ML INFUS..BTL IV ONE (10:48)
--- NOTE | 2018-05-03 14:03 | Internal Med Progress Note ---
Hospitalist Progress Note - Encounter Date of Encounter: 05/03/18 Time of Encounter: 14:01 - Subjective Interval History: she has no complaints, has flatus, tolerated PO diet denies N/v/D, CP, SOB, palpitations, abdominal pain. pain is controlled reports BM lastnight - Exam Vitals: Temp Pulse Resp BP Pulse Ox 97.5 F L 107 16 111/62 94 05/03/18 03:46 05/03/18 03:46 05/03/18 10:38 05/03/18 03:46 05/03/18 10:38 Exam: General: Patient is alert, oriented, no acute distress, underweight, Head: atraumatic, normocephalic, Eye: normal appearance, PERRL, no scleral icterus, no conjunctival injection ENT: mucous membranes moist, normal external ear exam Neck: normal inspection, trachea midline, full ROM, no carotid bruits Chest: normal inspection, symmetric chest rise Respiratory: Good respiratory effort. Bilateral breath sounds are clear without wheezing, occasional crackles infrascapularly , or rhonchi. Cardiovascular: tachycardic s1 and s2 No clicks, rubs, gallops, or murmors. Abdomen: soft, , BS+ve, incisional pain post surgery, has binder musculoskeletal: Spontaneously moving all extremities. no edema, no calf tenderness Skin: warm, dry, intact. Neuro: Alert and oriented x4. Sensation light touch intact. Cranial nerves 2- 12 is intact. no focal deficit Psych: Patient's affect is normal - Assessment and Plan (1) Colon obstruction Current Visit: Yes Status: Acute Assessment and Plan: S/p Laparotomy, sigmoid resection, incidental appendectomy, EEA on 04/24/18 biopsy/pathology report- negative for malignancy - full report below h/h stable soft diet with protein supplements TPN discontinued by surgery 05/01/18 pain control OOB to chair Pt/OT discharge planning Preop evaluation done by electronics department manager and patient is high risk for the surgery due to her history of severe CAD. Pathology- A. Sigmoid colon resection: Multiple active mucosal ulcers with marked acute/chronic inflammation, granulation tissue, necrosis and prominent reactive/inflammatory lamina propria stromal cells and endothelial cells Adjacent intact mucosa shows reactive/regenerative epithelial atypia Inflammatory process extends into the muscularis propria. Resection margins are viable Negative for malignancy Benign pericolic lymph nodes (5) B. Anastomotic rings: Colonic anastomotic rings with no significant abnormality C. Appendix; appendectomy: Benign vermiform appendix with no significant abnormality (2) Tachycardia Current Visit: Yes Status: Acute Assessment and Plan: Vital signs reviewed ruled out PE - S/p CTPA on 05/01/18- full report below increased metoprolol to 25 mg BID pain control ?secondary to dehydration (she is hyponatremic - hypovolemic) will start her on NS at low dose - watch for overload (3) Anemia Current Visit: Yes Status: Acute Assessment and Plan: was transfused 2PRBC on 04/23/18- H/h improved and stable will continue to follow CBC PPI orally (4) Thrombocytosis Current Visit: Yes Status: Acute Assessment and Plan: most likely reactive post surgery platelet counts have increased to 493 will continue to monitor CBC on ASA, plavix and lovenox (5) HTN (hypertension) Current Visit: Yes Status: Chronic Assessment and Plan: started on ensure clear TID if she tolerates will consider restarting home medications tele monitoring metoprolol home dose 25 mg BID stable (6) Hyponatremia Current Visit: Yes Status: Acute Assessment and Plan: appears tto be hypovolemic hyponatremia started on NS for gente hydration salt tablets will follow will continue to monitor BMP (7) Coronary artery disease Current Visit: Yes Status: Chronic Assessment and Plan: Patient has an extensive hx . ASA and plavix started by surgery team on 04/28/18 metoprolol 25 mg BID TTE Impressions: LVEF 60-65%. Normal LV chamber size, wall thickness and function. Limited study, valves were not assessed. CXR 04/30- NAD (8) AAA (abdominal aortic aneurysm) Current Visit: Yes Status: Resolved Assessment and Plan: Patient recently underwent AAA repair Plan of care as per vascular surgery (9) Underweight Current Visit: Yes Status: Acute Assessment and Plan: BMI 19 secondary to protein - calorie malnutrition currently receiving TPN diet advance to full liquids megace added on 04/30/18 (10) Weakness Current Visit: Yes Status: Acute Assessment and Plan: daily physical therapy patient was encouraged to ambulate OOB to chair BID/ambulate CT head IMPRESSION: No acute intracranial abnormality. Otherwise stable CT. (11) Vitamin D deficiency Current Visit: Yes Status: Acute (12) DVT prophylaxis Current Visit: No Status: Acute (13) Colitis Current Visit: Yes Status: Resolved (14) Hypocalcemia Current Visit: Yes Status: Resolved (15) Tobacco abuse Current Visit: Yes Status: Chronic Assessment and Plan: was counseled (16) Depression Current Visit: Yes Status: Acute Assessment and Plan: started on home medications - Time Spent with Patient Total time spent is greater than 50% in coordination of care (as documented) at patient's floor/unit and/or counseling patient: Internal Medicine: Result - Labs CBC & Chem 7: 05/03/18 05:00 05/03/18 04:00 Labs: Short CBC 05/03/18 Range/Units 05:00 WBC 7.5 (4.3-11.1) K/mcL Hgb 8.9 L (11.5-15.4) g/dL Hct 26.9 L (35.3-44.9) % Plt Count 493 H (140-400) K/mcL BMP 05/03/18 04:00 Sodium 125 L Potassium 3.9 Chloride 100 Carbon Dioxide 21 L BUN 12 Creatinine 0.33 L Glucose 94 Calcium 8.4 L - ABG Interpretation ABG results: ABG ABG pH 7.48 pH Units (7.32-7.45) H 05/01/18 10:58 ABG pCO2 30 mmHg (35-45) L 05/01/18 10:58 ABG pO2 75 mmHg (85-104) L 05/01/18 10:58 ABG O2 Saturation 96 % (95-98) 05/01/18 10:58 PT/INR, D-dimer PT 14.3 Seconds (9.4-12.1) H 04/22/18 04:43 - Impressions Impressions Head CT 05/03/18 10:48 IMPRESSION: No acute intracranial abnormality. Otherwise stable CT. D/ / Luis Enrique Nguyen MD / Luis Enrique Nguyen MD Interpreting Provider: Luis Enrique Nguyen MD - VTE Documentation of Mechanical Device: Intermittent pneumatic compression device Consult Discharge Plan - Plan Additional Instructions: General Surgical Discharge Instructions 1. No pushing, pulling, or lifting greater than 15 lbs for 6 weeks 2. You may shower, but no tub baths, soaking, or swimming for 2 weeks 3. Take ibuprofen every 8 hours for discomfort. If this does not relieve discomfort, you may take the as needed Percocet. Take narcotics as directed. Do not take more narcotics then directed and do not share your narcotics with any other person 4. Take stool softeners (Colace) or a water based laxative (Miralax) while taking narcotics. You may hold for loose stools. 5. Report any fevers greater than 100.5F, increase abdominal discomfort, drainage that looks like pus, increased redness or pain at the surgical site, or any vomiting. 6. Report any pain in the calves, shortness of breath, or rapid heartbeat. 7. Follow-up in the office as directed. 8. If you were prescribed antibiotics, do not stop them without talking to your provider. Referrals: Gia Acosta, ILLUSIONIST [Advanced Practice Nurse] - 05/09/18 8:15 am (surgery follow -up) NONE,PCP [Primary Care Provider] - (5) HTN (hypertension) Qualifiers: Hypertension type: essential hypertension Qualified Code(s): I10 - Essential (primary) hypertension (7) Coronary artery disease Qualifiers: Coronary Disease-Associated Artery/Lesion type: [place] artery [place] vs. transplanted heart: [place] heart Associated angina: without angina Qualified Code(s): I25.10 - Atherosclerotic heart disease of [place] coronary artery without angina pectoris (8) AAA (abdominal aortic aneurysm) Qualifiers: Presence of rupture: without rupture Qualified Code(s): I71.4 - Abdominal aortic aneurysm, without rupture (16) Depression Qualifiers: Depression Type: major depressive disorder Major depression recurrence: unspecified whether recurrent Major depression episode severity: unspecified
--- NOTE | 2018-05-03 15:30 | Electrocardiograph Report ---
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
[2018-05-03] MEDS: *HR* Enoxaparin 40 MG/0.4 ML SYRINGE SQ SCH (18:16)
[2018-05-04] MEDS: Ipratropium/Albuterol Neb 3 ML IH SCH ×4 (03:47→22:00)
[2018-05-04 04:31] LABS: Hematocrit 25.1 % (35.3-44.9); Hemoglobin 8.2 g/dL (11.5-15.4); Mean Corpuscular HGB Conc 32.7 g/dL (31.6-35.5); Mean Corpuscular Hemoglobin 30.1 pg (28.0-33.3); Mean Corpuscular Volume 92.3 fL (83.0-100.0); Mean Platelet Volume 8.2 fL (9.4-12.4); Platelet Count 437 K/mcL (140-400); Red Blood Count 2.72 M/mcL (3.82-4.97); Red Cell Distribution Width 14.8 % (11.5-14.5)
[2018-05-04 04:51] LABS: BUN/Creatinine Ratio 31 (6-26); Blood Urea Nitrogen 9 mg/dL (8-23); Calcium 7.6 mg/dL (8.6-10.3); Carbon Dioxide 20 mEq/L (23-29); Chloride 106 mEq/L (98-107); Glucose 85 mg/dL (70-105); Magnesium 1.7 mg/dL (1.6-2.6); Osmolality,Calculated 268 (280-300); Phosphorous 3.2 mg/dL (2.7-4.5); Potassium 3.4 mEq/L (3.5-5.1); Sodium 130 mEq/L (136-145); eGFR For Non-African Americans > 60 (> 60)
[2018-05-04] MEDS ORDERED: Potassium Chloride Elixir 20 MEQ/15 ML UDC PO ONE (07:11)
[2018-05-04] MEDS: Nicotine 7 MG PATCH.TD24 TD SCH (08:52)
[2018-05-04] MEDS: Isosorbide MONOnitrate (24 HR) 60 MG TAB.ER.24H PO SCH (08:52)
[2018-05-04] MEDS: Megestrol Acetate 400 MG/10 ML UDC PO SCH (08:52)
[2018-05-04] MEDS: Aspirin 81 MG TAB.CHEW PO SCH (08:53)
--- NOTE | 2018-05-04 12:20 | Internal Med Progress Note ---
Hospitalist Progress Note - Encounter Date of Encounter: 05/04/18 Time of Encounter: 08:00 - Subjective Interval History: she has no complaints, has flatus, tolerated PO diet denies N/v/D, CP, SOB, palpitations, abdominal pain. pain is controlled reports BM lastnight - Exam Vitals: Temp Pulse Resp BP Pulse Ox 97.6 F 102 16 112/68 94 05/04/18 09:58 05/04/18 09:58 05/04/18 10:31 05/04/18 09:58 05/04/18 10:31 Exam: General: Patient is alert, oriented, no acute distress, underweight, Head: atraumatic, normocephalic, Eye: normal appearance, PERRL, no scleral icterus, no conjunctival injection ENT: mucous membranes moist, normal external ear exam Neck: normal inspection, trachea midline, full ROM, no carotid bruits Chest: normal inspection, symmetric chest rise Respiratory: Good respiratory effort. Bilateral breath sounds are clear without wheezing, occasional crackles infrascapularly , or rhonchi. Cardiovascular: tachycardic s1 and s2 No clicks, rubs, gallops, or murmors. Abdomen: soft, , BS+ve, incisional pain post surgery, has binder musculoskeletal: Spontaneously moving all extremities. no edema, no calf tenderness Skin: warm, dry, intact. Neuro: Alert and oriented x4. Sensation light touch intact. Cranial nerves 2- 12 is intact. no focal deficit Psych: Patient's affect is normal - Assessment and Plan (1) Colon obstruction Current Visit: Yes Status: Acute Assessment and Plan: S/p Laparotomy, sigmoid resection, incidental appendectomy, EEA on 04/24/18 biopsy/pathology report- negative for malignancy - full report below h/h stable soft diet with protein supplements TPN discontinued by surgery 05/01/18 pain control OOB to chair Pt/OT discharge planning Preop evaluation done by press operator and patient is high risk for the surgery due to her history of severe CAD. Pathology- A. Sigmoid colon resection: Multiple active mucosal ulcers with marked acute/chronic inflammation, granulation tissue, necrosis and prominent reactive/inflammatory lamina propria stromal cells and endothelial cells Adjacent intact mucosa shows reactive/regenerative epithelial atypia Inflammatory process extends into the muscularis propria. Resection margins are viable Negative for malignancy Benign pericolic lymph nodes (5) B. Anastomotic rings: Colonic anastomotic rings with no significant abnormality C. Appendix; appendectomy: Benign vermiform appendix with no significant abnormality (2) Tachycardia Current Visit: Yes Status: Acute Assessment and Plan: Vital signs reviewed ruled out PE - S/p CTPA on 05/01/18- full report below increased metoprolol to 25 mg BID pain control was started on gentle hydration with some what improvement to HR (3) Anemia Current Visit: Yes Status: Acute Assessment and Plan: was transfused 2PRBC on 04/23/18- H/h improved and stable will continue to follow CBC PPI orally (4) Thrombocytosis Current Visit: Yes Status: Acute Assessment and Plan: most likely reactive post surgery platelet counts have increased to 493 now trending down 437 will continue to monitor CBC on ASA, plavix and lovenox (5) HTN (hypertension) Current Visit: Yes Status: Chronic Assessment and Plan: metoprolol home dose 25 mg BID stable (6) Hyponatremia Current Visit: Yes Status: Acute Assessment and Plan: appears to be hypovolumic hyponatremia started on NS for gentle hydration Na improved to 130 (125) salt tablets will follow will continue to monitor BMP (7) Coronary artery disease Current Visit: Yes Status: Chronic Assessment and Plan: Patient has an extensive hx . ASA and plavix started by surgery team on 04/28/18 metoprolol 25 mg BID TTE Impressions: LVEF 60-65%. Normal LV chamber size, wall thickness and function. Limited study, valves were not assessed. CXR 04/30- NAD (8) AAA (abdominal aortic aneurysm) Current Visit: Yes Status: Resolved Assessment and Plan: Patient recently underwent AAA repair Plan of care as per vascular surgery (9) Underweight Current Visit: Yes Status: Acute Assessment and Plan: BMI 19 secondary to protein - calorie malnutrition currently receiving TPN diet advance to full liquids megace added on 04/30/18 (10) Weakness Current Visit: Yes Status: Acute Assessment and Plan: daily physical therapy patient was encouraged to ambulate OOB to chair BID/ambulate CT head IMPRESSION: No acute intracranial abnormality. Otherwise stable CT. (11) Vitamin D deficiency Current Visit: Yes Status: Acute Assessment and Plan: vitamin D 18 started replacement (12) DVT prophylaxis Current Visit: No Status: Acute Assessment and Plan: Scds / lovenox OOB to chair physical therapy (13) Tobacco abuse Current Visit: Yes Status: Chronic Assessment and Plan: was counseled (14) Depression Current Visit: Yes Status: Acute Assessment and Plan: started on home medications with improvement of symptoms now more motivated- feeding her self (15) Hypocalcemia Current Visit: Yes Status: Resolved (16) Colitis Current Visit: Yes Status: Resolved - Time Spent with Patient Total time spent is greater than 50% in coordination of care (as documented) at patient's floor/unit and/or counseling patient: Internal Medicine: Result - Labs CBC & Chem 7: 05/04/18 04:00 05/04/18 03:53 Labs: Short CBC 05/04/18 Range/Units 04:00 WBC 6.0 (4.3-11.1) K/mcL Hgb 8.2 L (11.5-15.4) g/dL Hct 25.1 L (35.3-44.9) % Plt Count 437 H (140-400) K/mcL BMP 05/04/18 03:53 Sodium 130 L Potassium 3.4 L Chloride 106 Carbon Dioxide 20 L BUN 9 Creatinine 0.29 L Glucose 85 Calcium 7.6 L - ABG Interpretation ABG results: ABG ABG pH 7.48 pH Units (7.32-7.45) H 05/01/18 10:58 ABG pCO2 30 mmHg (35-45) L 05/01/18 10:58 ABG pO2 75 mmHg (85-104) L 05/01/18 10:58 ABG O2 Saturation 96 % (95-98) 05/01/18 10:58 PT/INR, D-dimer PT 14.3 Seconds (9.4-12.1) H 04/22/18 04:43 - VTE Documentation of Mechanical Device: Intermittent pneumatic compression device Consult Discharge Plan - Plan Additional Instructions: General Surgical Discharge Instructions 1. No pushing, pulling, or lifting greater than 15 lbs for 6 weeks 2. You may shower, but no tub baths, soaking, or swimming for 2 weeks 3. Take ibuprofen every 8 hours for discomfort. If this does not relieve discomfort, you may take the as needed Percocet. Take narcotics as directed. Do not take more narcotics then directed and do not share your narcotics with any other person 4. Take stool softeners (Colace) or a water based laxative (Miralax) while taking narcotics. You may hold for loose stools. 5. Report any fevers greater than 100.5F, increase abdominal discomfort, drainage that looks like pus, increased redness or pain at the surgical site, or any vomiting. 6. Report any pain in the calves, shortness of breath, or rapid heartbeat. 7. Follow-up in the office as directed. 8. If you were prescribed antibiotics, do not stop them without talking to your provider. Referrals: Gia Acosta, VETERINARY INSPECTOR [Advanced Practice Nurse] - 05/09/18 8:15 am (surgery follow -up) NONE,PCP [Primary Care Provider] - (5) HTN (hypertension) Qualifiers: Hypertension type: essential hypertension Qualified Code(s): I10 - Essential (primary) hypertension (7) Coronary artery disease Qualifiers: Coronary Disease-Associated Artery/Lesion type: [place] artery [place] vs. transplanted heart: [place] heart Associated angina: without angina Qualified Code(s): I25.10 - Atherosclerotic heart disease of [place] coronary artery without angina pectoris (8) AAA (abdominal aortic aneurysm) Qualifiers: Presence of rupture: without rupture Qualified Code(s): I71.4 - Abdominal aortic aneurysm, without rupture (14) Depression Qualifiers: Depression Type: major depressive disorder Major depression recurrence: unspecified whether recurrent Major depression episode severity: unspecified
[2018-05-04] MEDS ORDERED: *HR* HYDROcodone/Acet 5/325 mg TABLET PO PRN (15:31)
[2018-05-04] MEDS: 0.9 % Sodium Chloride 1,000 ML IVC SCH (22:14)
[2018-05-05] MEDS: Ipratropium/Albuterol Neb 3 ML IH SCH ×3 (04:23→15:37)
[2018-05-05 04:50] LABS: Hematocrit 24.8 % (35.3-44.9); Hemoglobin 8.1 g/dL (11.5-15.4); Mean Corpuscular HGB Conc 32.7 g/dL (31.6-35.5); Mean Corpuscular Hemoglobin 30.5 pg (28.0-33.3); Mean Corpuscular Volume 93.2 fL (83.0-100.0); Mean Platelet Volume 8.3 fL (9.4-12.4); Platelet Count 415 K/mcL (140-400); Red Blood Count 2.66 M/mcL (3.82-4.97); Red Cell Distribution Width 14.8 % (11.5-14.5)
[2018-05-05 05:09] LABS: BUN/Creatinine Ratio 28 (6-26); Blood Urea Nitrogen 8 mg/dL (8-23); Calcium 7.7 mg/dL (8.6-10.3); Carbon Dioxide 18 mEq/L (23-29); Chloride 106 mEq/L (98-107); Glucose 75 mg/dL (70-105); Osmolality,Calculated 267 (280-300); Potassium 3.5 mEq/L (3.5-5.1); Sodium 130 mEq/L (136-145); eGFR For Non-African Americans > 60 (> 60)
[2018-05-05] MEDS: Megestrol Acetate 400 MG/10 ML UDC PO SCH (09:09)
[2018-05-05] MEDS: Nicotine 7 MG PATCH.TD24 TD SCH (09:10)
[2018-05-05] MEDS: Aspirin 81 MG TAB.CHEW PO SCH (09:10)
[2018-05-05] MEDS: Isosorbide MONOnitrate (24 HR) 60 MG TAB.ER.24H PO SCH (09:10)
--- NOTE | 2018-05-05 11:58 | Discharge Summary ---
- NOTES TO OUTPATIENT PROVIDER Notes to Outpatient Provider: follow up [facility] vascular surgery,cardiology and surgery. follow frequent BMP and replace electrolytes as needed. follow vitamin D level. follow up with pulmonology for nodule found on CT chest Orders not resulted at time of discharge: Pending orders 04/22/18 15:51 Calprotectin, Fecal Routine 04/24/18 11:13 US anesthesia pain block [US] Stat 05/06/18 04:00 BMP [Basic Metabolic Panel] AM 0400 Complete Blood Count w/o Diff [HEME] AM 04005/07/18 04:00 BMP [Basic Metabolic Panel] AM 0400 Complete Blood Count w/o Diff [HEME] AM 04005/08/18 04:00 BMP [Basic Metabolic Panel] AM 0400 Date of Encounter: 05/05/18 Time of Encounter: 11:57 - Discharge Diagnosis (1) Colon obstruction Priority: Primary Status: Acute (2) Tachycardia Priority: Secondary Status: Acute (3) Anemia Priority: Secondary Status: Acute Qualifiers: Anemia type: other cause Other causes of anemia: acute posthemorrhagic Qualified Code(s): D62 - Acute posthemorrhagic anemia (4) Thrombocytosis Priority: Secondary Status: Acute (5) HTN (hypertension) Priority: Secondary Status: Chronic Qualifiers: Hypertension type: essential hypertension Qualified Code(s): I10 - Essential (primary) hypertension (6) Hyponatremia Priority: Secondary Status: Acute (7) Coronary artery disease Priority: Secondary Status: Chronic Qualifiers: Coronary Disease-Associated Artery/Lesion type: [place] artery [place] vs. transplanted heart: [place] heart Associated angina: without angina Qualified Code(s): I25.10 - Atherosclerotic heart disease of [place] coronary artery without angina pectoris (8) AAA (abdominal aortic aneurysm) Priority: Secondary Status: Resolved Qualifiers: Presence of rupture: without rupture Qualified Code(s): I71.4 - Abdominal aortic aneurysm, without rupture (9) Underweight Priority: Secondary Status: Acute (10) Weakness Priority: Secondary Status: Acute (11) Vitamin D deficiency Priority: Secondary Status: Acute (12) DVT prophylaxis Priority: Secondary Status: Acute (13) Tobacco abuse Priority: Secondary Status: Chronic (14) Depression Priority: Secondary Status: Acute Qualifiers: Depression Type: major depressive disorder Major depression recurrence: unspecified whether recurrent Major depression episode severity: unspecified Qualified Code(s): F32.9 - Major depressive disorder, single episode, unspecified (15) Hypocalcemia Priority: Secondary Status: Resolved (16) Colitis Priority: Secondary Status: Resolved Hospital course: Ms. Ryan is a 77 year old female with past medical history of asthma, COPD, CAD, CVA, hypertension presents to emergency room from long term facility with complaint of rectal bleeding. Patient also states that she is unable to remember the events accurately but does provide some history. There is no family present at bedside. She also notably underwent AAA open abdominal surgery with stent placement with Dr. Holman on 03/20/18 which per chart review had complications of postoperative ileus as well as atelectasis. Patient states that her symptoms began yesterday morning although she is unable to state how much bleeding she has experienced. Her main complaint at this time is weakness starting in the same time period. She states that she has been having diarrhea but is unsure how much. She denies any symptoms of fevers, chills, abdominal pain, nausea, vomiting. She states that she has had some diarrhea recently however she is unsure about this. She is on aspirin and Plavix secondary to multiple CVAs in the past, she denies residual deficits. In the emergency department, heart rate was mildly elevated at 104 and blood pressure stable at 103/61. Laboratory results are significant for H/H of 8.9/ 27.1 baseline hemoglobin appears to be around 8-9 during her admission for AAA surgery in - prior to that. PT mildly elevated at 12.7. Sodium mildly decreased at 127 which is at baseline. Lactic acid at 1.[address] of the chest and abdomen was obtained in the emergency department due to concerns for possible AAA leak or fistula formation. Results show decrease in size of aneurysm sac, no evidence of leak or abnormality. Also noted was a moderate stool burden with rectal distention and mild induration of perirectal fat. patient was admitted secondary to above presentation, was started on IV hydration and IV antibiotics for possible colitis, stool studies were ordered although they were later discontinued as patient did not have a bowel movement for 24 hours. GI was consulted for the rectal bleeding and it was thought that it was likely due to ischemic colitis from a recent AAA repair. She was advised to have colonoscopy performed but she was refusing bowel prep and colonoscopy. Hemoglobin dropped to 7.3 and was transfused 1 unit of PRBC on . She was found to be hyponatremic at 123, which improved with IV fluids, SSRI and Lasix were held and nephrology was consulted. Vascular surgery was consulted and recommendations were followed as she did have a recent AAA repair. 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 pathology from colonoscopy - below. CT abdomen and pelvis was performed on 04/19 which showed mild colonic wall thickening and no evidence of focal colonic mass, obstruction, or perforation ( full report below). Cardiology was consulted along with surgery for sigmoid colon obstructing mass. Echocardiogram was performed ( results below ), She was found to be high risk for surgery by the cardiology team. Palliative care was consulted and recommendations followed. Surgery was on board and she underwent another colonoscopy on 04/22 which showed thrombosed external hemorrhoids, stricture in the sigmoid colon which was biopsied and scattered severe inflammation of the sigmoid colon secondary to colitis. Antibiotics were changed to IV Zosyn. On 04/23 she was transfused 2 PRBC in preparation for. On 04/24 S/p Laparotomy, sigmoid resection, incidental appendectomy, EEA. PICC line was inserted and she was started on TPN post OR. BMp was followed through hospitalization and electrolytes were replaced continuously, h/h remained stable. she was hypocalcemic and vitamin D was 18 so she was started on vitamin D replacement. she remained Afebrile and IV Abx were discontinued as per surgery recommendations she was on SCDs and Lovenox through out hospitalization. she was tachycardic and experienced SOB so CTPA was performed and it was negative for PE. ( full report below) she continued to be tachycardic and hyponatremic ( hypovolemic, hyponatremia) so she was started on IVF fluids with improvement in tachycardia and hyponatremia. she was started on salt tablets. she was showing signs of depression so antidepressants were restarted, CT head was performed which showed no acute abnormalities- full results below. On 04/28 she was started on clear liquids which she tolerated diet was increased and patient tolerated. home medications were restarted and she tolerated. She continued to have flatness and had a bowel movement on 05/03. she was cleared by surgery for discharge. Surgical pathology report - is below. wound care was consulted and Mid line abdominal incision- wash with warm water and sopa, pat dry, apply dressing and abdominal binder she was counseled extensively on smoking cessation, she was encouraged to participate in Pt/OT and she continued to show improvement she is to have frequent BMPs for sodium along with other elctrolytes and to have them replaced frequently and as she was started on her Anti depressants. lasix was held due to hyponatremia in addition to potassium supplements for PCP to resume these medications as their discretion. to continue SCds and Lovenox post operation as she has limited mobility for atleast one month post surgery apporpriate follow up appointments were made by PIR TTE: Study Quality * Technically adequate exam. ECG Findings * Normal sinus rhythm. Left Ventricle * LVEF 60-65%. * Normal LV chamber size, wall thickness and function. Right Ventricle * Normal right ventricular structure and function. Aorta * Normally sized aortic root. Pericardium * There is a trivial pericardial effusion present. IVC * Normal IVC dimensions and inspiratory collapse. CTA A/P IMPRESSION: Status post abdominal aortic aneurysm repair with interval decrease in size of the aneurysm sac. No evidence for leak or acute aortic abnormality. Findings consistent with postoperative fluid, which is likely resolving blood products, near the left side of the aorta. Attention to on follow-up is recommended. Moderate stool burden with rectal distention and mild induration of the perirectal fat. Fecal impaction or local inflammation should be considered in the appropriate clinical setting. CT A/P CT/CT abd pelvis wo iv oral only IMPRESSION: 1. New mild bilateral pleural effusions and basilar atelectasis. 2. Atherosclerosis with infrarenal abdominal aortic aneurysm stent graft repair with a stable 4.4 cm aortic sac. 3. Stable retroperitoneal and pelvic edema/hemorrhage with no abscess or acute hematoma. Stable left periaortic retroperitoneal 4.4 cm loculated fluid collection which may represent postsurgical seroma. 4. Nonspecific mild colonic wall thickening which may relate to postsurgical change. There is no evidence of a focal colonic mass, obstruction, or perforation. 5. New indeterminate nodular hyperdensities at the dependent aspect of the bladder. This could represent debris or mild blood clots. This unlikely represents neoplasm as the finding was not present on the prior 04/15/2018 exam. Pathology report from colonoscopy specimen: Apple core lesion, sigmoid colon, biopsy: - Granulation tissue and acute inflammation. pathology report from 04/25-A. Sigmoid colon resection: Multiple active mucosal ulcers with marked acute/chronic inflammation, granulation tissue, necrosis and prominent reactive/inflammatory lamina propria stromal cells and endothelial cells. Adjacent intact mucosa shows reactive/regenerative epithelial atypia Inflammatory process extends into the muscularis propria. Resection margins are viable Negative for malignancy Benign pericolic lymph nodes (5) B. Anastomotic rings: Colonic anastomotic rings with no significant abnormality C. Appendix; appendectomy: Benign vermiform appendix with no significant abnormality. head CT IMPRESSION: No acute intracranial abnormality. Otherwise stable CT. CTPA IMPRESSION: 1. No pulmonary embolus. RV LV ratio measures less than 0.8. 2. Similar-appearing 9 mm nodule in the anterior right upper lobe. Previous recommendations apply. 3. Decreased caliber bilateral pleural effusions and decreased prominence of interlobular septal thickening compared to prior. Overall, the appearance of the chest has improved compared the 118. The Discharge discussed with: patient, nurse, social work, case management Time spent discussing smoking cessation with patient: more than 10 minutes - Time Spent with Patient Total time spent providing and/or coordinating discharge services: Greater than 30 minutes (50) - Discharge Medications Prescriptions: OxyCODONE/APAP 5/325 [Percocet 5/325 MG] 1 each PO Q6HR PRN 2 Days #8 tablet PRN Reason: Postoperative pain Enoxaparin [Lovenox] 40 mg SQ 1800 20 Days #20 syringe Ergocalciferol (VITAMIN D2) [Drisdol (50,000 Unit)] 50,000 unit PO QWEEK #2 capsule Megestrol Acetate [Megace] 400 mg PO DAILY #30 udc Metoprolol [Lopressor] 25 mg PO BID #60 tablet Nicotine Patch [Nicoderm] 7 mg TD DAILY #30 patch.td24 Sodium Chloride [Sodium Chloride Tab] 1 gm PO DAILY 15 Days #15 tablet Home Medications: Aspirin 81 mg PO DAILY 06/26/15 [History] Citalopram [CeleXA] 10 mg PO DAILY 10/19/15 [History] Docusate [Colace] 100 mg PO BID PRN 07/23/16 [History] Ipratropium/Albuterol Sulfate [Combivent Respimat Inhal [place]] 4 gm IH QID PRN 07/23/16 [History] Multivit-Min/FA/Lycopen/Lutein [Centrum Silver Tablet] 1 tab PO DAILY 07/23/16 [ History] Ferrous Sulfate 325 mg PO BIDWM tablet 08/11/16 [Rx] Ondansetron ODT [Zofran ODT] 4 mg SL Q6HR PRN #0 tab.rapdis 08/11/16 [Rx] Pantoprazole Sodium [Protonix] 20 mg PO DAILY 03/20/18 [History] Sennosides/Docusate Sodium [Senna Plus] 2 tab PO DAILY PRN 03/20/18 [History] Atorvastatin Calcium [Lipitor] 20 mg PO HS 03/27/18 [History] Clopidogrel [Plavix] 75 mg PO DAILY 03/27/18 [History] Polyethylene Glycol 3350 [MiraLAX] 17 gm PO DAILY 03/27/18 [History] Isosorbide MONOnitrate (24 HR) [Imdur] 60 mg PO DAILY tab.er.24h 04/01/18 [Rx] Oxybutynin Chloride [Ditropan Xl] 10 mg PO DAILY 04/15/18 [History] Enoxaparin [Lovenox] 40 mg SQ 1800 20 Days #20 syringe 05/05/18 [Rx] Ergocalciferol (VITAMIN D2) [Drisdol (50,000 Unit)] 50,000 unit PO QWEEK #2 capsule 05/05/18 [Rx] Megestrol Acetate [Megace] 400 mg PO DAILY #30 udc 05/05/18 [Rx] Metoprolol [Lopressor] 25 mg PO BID #60 tablet 05/05/18 [Rx] Nicotine Patch [Nicoderm] 7 mg TD DAILY #30 patch.td24 05/05/18 [Rx] OxyCODONE/APAP 5/325 [Percocet 5/325 MG] 1 each PO Q6HR PRN 2 Days #8 tablet 06/12 [Rx] Sodium Chloride [Sodium Chloride Tab] 1 gm PO DAILY 15 Days #15 tablet 05/05/18 [Rx] Allergies/Adverse Reactions: 3 Allergy/AdvReac Type Severity Reaction Status Date / Time codeine Allergy Severe Anaphylaxis Verified 03/27/18 16:39 Date of admission: 04/20/18 11:37 Primary care physician: PCP NONE Consults: 04/20/18 13:42 Consult to Surgery [CONS] Routine Consulting Provider: Enzo Espinoza Reason for Consult: Mass to colon Call Completed: No 04/21/18 14:22 Consult to Nutrition [CONS] Routine Comment: Start TPN Consulting Provider: NUTRITION Reason for Dietary Consult: Other TPN Start and Manage 04/21/18 18:10 Consult to PICC team [Consult to Invasive Line Access Team] [CONS] Routine Reason for Consult: TPN Line Type: PICC 04/22/18 12:32 Consult to Invasive Line Access Team [CONS] Routine Reason for Consult: Picc Line Insertion Line Type: PICC 04/24/18 15:59 Consult to Occupational Therapy [CONS] Routine Comment: Evaluate, develop and implement POC Reason for Consult: pt s/p open AAA 1 month ago, now s/p open sigmoid resection, generalized weakness Does patient have active BEDREST order?: No Is patient medically & hemodynamically stable?: Yes Patient assessed for mobility or mobilized this visit?: No - Constitutional Vitals: Temp Pulse Resp BP Pulse Ox 98.3 F 99 14 152/82 100 05/05/18 05:06 05/05/18 05:06 05/05/18 10:34 05/05/18 05:06 05/05/18 10:34 General appearance: Present: disheveled, A&O X 2. Absent: answers questions appropriately Exam: General: Patient is alert, oriented, no acute distress, underweight, Head: atraumatic, normocephalic, Eye: normal appearance, PERRL, no scleral icterus, no conjunctival injection ENT: mucous membranes moist, normal external ear exam Neck: normal inspection, trachea midline, full ROM, no carotid bruits Chest: normal inspection, symmetric chest rise Respiratory: Good respiratory effort. Bilateral breath sounds are clear without wheezing, occasional crackles infrascapularly , or rhonchi. Cardiovascular: tachycardic s1 and s2 No clicks, rubs, gallops, or murmors. Abdomen: soft, , BS+ve, incisional pain post surgery, has binder musculoskeletal: Spontaneously moving all extremities. no edema, no calf tenderness Skin: warm, dry, intact. Neuro: Alert and oriented x4. Sensation light touch intact. Cranial nerves 2- 12 is intact. no focal deficit Psych: Patient's affect is normal - Patient Status Disposition: Transfer SNF Condition: Fair Functional capacity at discharge: uses cane/walker Overall status at discharge: patient is progressing back to baseline - Discharge Instructions Follow Up With: Shane Leung MD [Partnered Physician] - 06/04/18 1:30 pm Andrae Holman MD [Partnered Physician] - 05/07/18 2:30 pm Gia Acosta CNP [Advanced Practice Nurse] - 05/09/18 8:15 am (surgery follow -up) Neva Gamble DO [Partnered Physician] - 05/20/18 11:30 am Additional Instructions: General Surgical Discharge Instructions 1. No pushing, pulling, or lifting greater than 15 lbs for 6 weeks 2. You may shower, but no tub baths, soaking, or swimming for 2 weeks 3. Take ibuprofen every 8 hours for discomfort. If this does not relieve discomfort, you may take the as needed Percocet. Take narcotics as directed. Do not take more narcotics then directed and do not share your narcotics with any other person 4. Take stool softeners (Colace) or a water based laxative (Miralax) while taking narcotics. You may hold for loose stools. 5. Report any fevers greater than 100.5F, increase abdominal discomfort, drainage that looks like pus, increased redness or pain at the surgical site, or any vomiting. 6. Report any pain in the calves, shortness of breath, or rapid heartbeat. 7. Follow-up in the office as directed. 8. If you were prescribed antibiotics, do not stop them without talking to your provider. - Diet and Activity Activity: as per physical therapy, increase activity as tolerated Diet: other (soft, chopped, ensure ) - VTE Documentation of Mechanical Device: Intermittent pneumatic compression device
--- NOTE | 2018-05-05 12:03 | Physician Discharge Referral ---
ExtendedCare Referral Info Transfer To: ECF Provider in Charge after Transfer: PCP Institutional Level of Care: Skilled (wound care, nursing, physical therapy) - Diagnosis (1) Colon obstruction Priority: Primary Status: Acute (2) Tachycardia Priority: Secondary Status: Acute (3) Anemia Priority: Secondary Status: Acute (4) Thrombocytosis Priority: Secondary Status: Acute (5) HTN (hypertension) Priority: Secondary Status: Chronic (6) Hyponatremia Priority: Secondary Status: Acute (7) Coronary artery disease Priority: Secondary Status: Chronic (8) AAA (abdominal aortic aneurysm) Priority: Secondary Status: Resolved (9) Underweight Priority: Secondary Status: Acute (10) Weakness Priority: Secondary Status: Acute (11) Vitamin D deficiency Priority: Secondary Status: Acute (12) DVT prophylaxis Priority: Secondary Status: Acute (13) Tobacco abuse Priority: Secondary Status: Chronic (14) Depression Priority: Secondary Status: Acute (15) Hypocalcemia Priority: Secondary Status: Resolved (16) Colitis Priority: Secondary Status: Resolved - Transfer Medications Home Medications: Aspirin 81 mg PO DAILY 06/26/15 [History] Citalopram [CeleXA] 10 mg PO DAILY 10/19/15 [History] Docusate [Colace] 100 mg PO BID PRN 07/23/16 [History] Ipratropium/Albuterol Sulfate [Combivent Respimat Inhal [place]] 4 gm IH QID PRN 07/23/16 [History] Multivit-Min/FA/Lycopen/Lutein [Centrum Silver Tablet] 1 tab PO DAILY 07/23/16 [ History] Ferrous Sulfate 325 mg PO BIDWM tablet 08/11/16 [Rx] Metoprolol [Lopressor] 12.5 mg PO BID tablet 08/11/16 [Rx] Ondansetron ODT [Zofran ODT] 4 mg SL Q6HR PRN #0 tab.rapdis 08/11/16 [Rx] Pantoprazole Sodium [Protonix] 20 mg PO DAILY 03/20/18 [History] Sennosides/Docusate Sodium [Senna Plus] 2 tab PO DAILY PRN 03/20/18 [History] Atorvastatin Calcium [Lipitor] 20 mg PO HS 03/27/18 [History] Clopidogrel [Plavix] 75 mg PO DAILY 03/27/18 [History] Polyethylene Glycol 3350 [MiraLAX] 17 gm PO DAILY 03/27/18 [History] Furosemide [Lasix] 20 mg PO DAILY #14 tablet 04/01/18 [Rx] Isosorbide MONOnitrate (24 HR) [Imdur] 60 mg PO DAILY tab.er.24h 04/01/18 [Rx] OxyCODONE/APAP 5/325 [Percocet 5/325 MG] 1 each PO Q6HR PRN 7 Days #25 tablet [Rx] Potassium Chloride 20 meq PO DAILY #14 tab.er.prt 04/01/18 [Rx] Oxybutynin Chloride [Ditropan Xl] 10 mg PO DAILY 04/15/18 [History] Allergies/Adverse Reactions: 3 Allergy/AdvReac Type Severity Reaction Status Date / Time codeine Allergy Severe Anaphylaxis Verified 03/27/18 16:39 - Respiratory Orders Oxygen / L per min (2) Smoking Cessation: Smoking cessation has been advised. For more information, call the [employer] Quit Line at 8-132-YPOO-NOW. - Lab Orders Lab Orders: CBC, Other (include drug levels w/frequency) (BMP adn other electrolytes frequently and replace as needed) - Advance Directives Code Status: Full Code - Mobility Orders Ambulate - Rehabiliation Orders Rehab Potential: Fair Rehab Orders: ROM Exercises - Diet Orders Mechanical Soft (chopped) CERTIFICATION: I certify that the transfer of the above named patient to an Extended Care Facility is necessary for the continuing treatment of the diagnosis listed. The above information is true and accurate reflection of patient's current condition. Confidential - Redisclosure prohibited without a patient's written consent.
[2018-05-05] MEDS: 0.9 % Sodium Chloride 1,000 ML IVC SCH (12:42)
[2018-05-05 15:07] VITALS: BP 127/64
== END 2018-05-05 16:21 | DRG 329 ==
LOC: EMEROOARM 16:31 → 3ANU 16:31 → SUATTDRO 20:10 → 3ANU 21:30 → SUATTDRO 04-20 11:37 → 3ANU 04-21 11:15
PROVIDERS: ADMIT Pediatrics; ATTEND Internal Medicine
PROC: ENDOCBX (2018-04-22 14:15)

== ENCOUNTER 2018-05-27 06:46 | Inpatient (IN) ==
[2018-05-27] MEDS ORDERED: Ondansetron 4 MG/2 ML VIAL IVP ONE (07:22)
[2018-05-27] MEDS ORDERED: Isovue-370 500 ML INFUS..BTL IV ONE (07:22)
[2018-05-27] MEDS ORDERED: 0.9 % Sodium Chloride 1,000 ML IVC ONE (07:22)
[2018-05-27 08:18] LABS: Basophils % 0.1 %; Hematocrit 42.4 % (35.3-44.9); Lymphocytes # 1.1 K/mcL (0.6-4.6); Lymphocytes % 5.1 %; Mean Corpuscular HGB Conc 31.8 g/dL (31.6-35.5); Mean Corpuscular Hemoglobin 29.2 pg (28.0-33.3); Mean Corpuscular Volume 91.8 fL (83.0-100.0); Mean Platelet Volume 8.5 fL (9.4-12.4); Monocytes # 1.1 K/mcL (0.0-1.3); Monocytes % 5.2 %; Platelet Count 541 K/mcL (140-400); Red Blood Count 4.62 M/mcL (3.82-4.97); Red Cell Distribution Width 15.1 % (11.5-14.5); Segmented Neutrophils % 88.6 %
[2018-05-27 08:20] LABS: INR 1.2; Prothrombin Time 13.5 Seconds (9.4-12.1)
[2018-05-27 08:23] LABS: Albumin/Globulin Ratio 1.1 (1.1-2.2); Bilirubin,Direct 0.1 mg/dL (0.0-0.2); Bilirubin,Indirect 0.3 mg/dL (0.0-1.2); Bilirubin,Total 0.4 mg/dL (0.3-1.0); Calcium 10.6 mg/dL (8.6-10.3); Globulin 3.7 g/dL (2.4-3.5); Potassium 4.6 mEq/L (3.5-5.1); Total Protein 7.7 g/dL (6.4-8.9)
[2018-05-27] MEDS ORDERED: 0.9 % Sodium Chloride 500 ML IVC ONE (08:27)
[2018-05-27 08:54] LABS: Hemoglobin 13.5 g/dL (11.5-15.4)
--- NOTE | 2018-05-27 09:07 | Emergency Department Note ---
Disposition Clinical Impression: Small bowel obstruction, Elevated lactic acid level, Tachycardia, Tachypnea Disposition: Admitted As Inpatient Condition: Fair Forms: ED Satisfaction Letter Time of Disposition: 09:51 General Adult HPI - General Chief complaint: ED Weakness Stated complaint: abd pain weakness Time Seen by Provider: 05/27/18 06:53 Source: EMS Mode of arrival: EMS Limitations: physical limitation, other Nursing Notes Reviewed: Yes Vital Signs Reviewed: Yes - History of Present Illness HPI Narrative: 78-year-old female presents via EMS for evaluation of generalized weakness. Patient complaint of weakness this morning and the group home facility decided to send her out to our facility for evaluation. Patient is denying any chest pain or abdominal pain at this time. She is tachypneic and tachycardic during transport. Otherwise she has no other complaints. 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 Location: abdomen Radiation: non-radiation Pain Severity: mild Pain Scale: 0 Consistency: constant Improves with: nothing Worsens with: nothing Associated symptoms: Reports: denies other symptoms Treatments Prior to Arrival: none - Related Data Home Medications Medication Instructions Recorded Confirmed Aspirin 81 mg PO DAILY 06/26/15 04/15/18 Citalopram [CeleXA] 10 mg PO DAILY 10/19/15 04/15/18 Docusate [Colace] 100 mg PO BID PRN 07/23/16 04/15/18 Ipratropium/Albuterol Sulfate 4 gm IH QID PRN 07/23/16 04/15/18 [Combivent Respimat Inhal [place]] Multivit-Min/FA/Lycopen/Lutein 1 tab PO DAILY 07/23/16 04/15/18 [Centrum Silver Tablet] Pantoprazole Sodium [Protonix] 20 mg PO DAILY 03/20/18 04/15/18 Sennosides/Docusate Sodium [Senna 2 tab PO DAILY PRN 03/20/18 04/15/18 Plus] Atorvastatin Calcium [Lipitor] 20 mg PO HS 03/27/18 04/15/18 Clopidogrel [Plavix] 75 mg PO DAILY 03/27/18 04/15/18 Polyethylene Glycol 3350 [MiraLAX] 17 gm PO DAILY 03/27/18 04/15/18 Oxybutynin Chloride [Ditropan Xl] 10 mg PO DAILY 04/15/18 04/15/18 Previous Rx's Medication Instructions Recorded Ferrous Sulfate 325 mg PO BIDWM tablet 08/11/16 Ondansetron ODT [Zofran ODT] 4 mg SL Q6HR PRN #0 tab.rapdis 08/11/16 Isosorbide MONOnitrate (24 HR) 60 mg PO DAILY tab.er.24h 04/01/18 [Imdur] Enoxaparin [Lovenox] 40 mg SQ 1800 20 Days #20 syringe 05/05/18 Ergocalciferol (VITAMIN D2) 50,000 unit PO QWEEK #2 capsule 05/05/18 [Drisdol (50,000 Unit)] Megestrol Acetate [Megace] 400 mg PO DAILY #30 udc 05/05/18 Metoprolol [Lopressor] 25 mg PO BID #60 tablet 05/05/18 Nicotine Patch [Nicoderm] 7 mg TD DAILY #30 patch.td24 05/05/18 OxyCODONE/APAP 5/325 [Percocet 1 each PO Q6HR PRN 2 Days #8 tablet 05/05/18 5/325 MG] Sodium Chloride [Sodium Chloride 1 gm PO DAILY 15 Days #15 tablet 05/05/18 Tab] cephALEXin [Keflex] 500 mg PO BID #14 capsule 05/16/18 Allergies Allergy/AdvReac Type Severity Reaction Status Date / Time codeine Allergy Severe Anaphylaxis Verified 05/27/18 08:10 All systems ED: reviewed and negative except as stated. Review of Systems: As Per HPI Constitutional: Denies: fever, chills, weakness Cardiovascular: Denies: chest pain, palpitations, dyspnea on exertion, orthopnea Respiratory: Denies: cough, dyspnea, wheezes, hemoptysis Gastrointestinal: Reports: abdominal pain. Denies: nausea, vomiting, diarrhea, constipation, hematemesis Genitourinary: Denies: urgency, dysuria Musculoskeletal: Denies: back pain, neck pain Integumentary: Denies: rash Neurological: Denies: headache Past Medical History - Past Medical History Attestation: Yes The following information was validated with the patient. Source: patient Medical history: Reports: cancer Surgical history: Reports: breast surgery (lumpectomy/?slnb) Psychiatric history: Reports: anxiety, depression, panic disorder RADIOLOGY RN history: Reports: no RADIOLOGY RN history - Social History Smoking Status: Never smoker Smokeless Tobacco Status: No Alcohol use: Reports: rarely Drug use: Reports: marijuana Physical Exam - General Limitations: physical limitation, other General appearance: alert - Head Head exam: atraumatic, normocephalic, normal inspection - Eye Eye exam: Present: normal appearance, PERRL, EOMI - ENT ENT exam: normal exam, normal oropharynx, mucous membranes moist - Neck Neck exam: Present: normal inspection, full ROM, trachea midline. Absent: tenderness, meningismus, lymphadenopathy - Chest Chest inspection: Present: normal inspection, symmetric chest wall rise, tenderness - Respiratory Respiratory exam: Present: normal lung sounds bilaterally, respiratory distress. Absent: wheezes - Cardiovascular Cardiovascular exam: Present: normal rhythm, tachycardia, normal heart sounds - Abdominal Exam Abdominal exam: Present: soft, distention, diminished bowel sounds, incision. Absent: tenderness, guarding, rebound, rigidity, trauma, Street's sign, Rovsing' s sign, tenderness at McBurney's Point - Extremities Exam Extremities exam: Present: normal inspection, full ROM, normal capillary refill. Absent: tenderness - Back Exam Back exam: Present: normal inspection, full ROM. Absent: tenderness - Neurological Exam Neurological exam: Present: alert, oriented X3, CN II-XII intact, normal gait - Skin Skin exam: Present: warm, dry, intact, normal color Course Course Narrative: Patient seen and examined some arrival. See history of present illness. 78- year-old female presents from group home [facility] for evaluation of generalized weakness. During transport by EMS the patient was tachycardic and tachypnea. She did have a recent surgery on her abdomen for which they thought it was an aortic aneurysm repair. Patient does have a distended abdomen with the surgical sites that is in place in the abdominal wall. Does not appear to have any deterioration. There is bruising to the anterior abdominal wall. Patient is denying any trauma, chest pain, shortness breath, headache vision changes nausea vomiting or diarrhea. Denies any fevers or chills. No new medications. Vital signs are obviously concerning on initial presentation 70 axis was obtained fluids nausea medication and pain medication will be provided as needed. EKG chest x-ray CBC chemistry troponin along with urinalysis and lactic acid were ordered with concern for possible bowel obstruction versus intra-abdominal etiology including aneurysm or rupture. Bedside pelvic ultrasound was utilized showing no free fluid in the abdomen right upper quadrant was visualized and the lower pubic region with no free fluid noted between the liver and kidney or around the bladder. Patient does have visible distended loops of bowel on ultrasound. CT angiography the chest and abdomen were ordered immediately as well including the labs considering the patient does have an aneurysm history and there is concern for obstruction versus dissection in the presurgical area. Disposition will be admission the hospital. Surgical consultations and other medical intervention will be established. Patient will be provided with fluids for symptomatic control and pain medication as needed. - Reevaluation(s) Reevaluation #1: CT angiography the chest and abdomen are negative for acute vascular related etiology. No free fluid noted in the abdomen. Small bowel obstruction is noted with transition point in the abdomen with distention of the stomach and fluid content into the esophagus. This is concerning for aspirations so nasogastric tube will be placed. Pain medication fluids will be started as well secondary to elevated lactic acid and a bicarbonate of 10. Patient is still tachycardic and to The pain medication will be added on at this point. Disposition will be admission. A discussion and consultation was placed with the on-call surgeon Dr. Shireen Anguiano. 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 She had no other recommendations this time outside of that she would see her in consultation. Patient is informed. The hospitalist Dr. Mercedes reviewed the case as well with me. He will request evaluation by the manager assembly for review with a bicarbonate lactic acidosis. If they are comfortable with the patient going to the floor the patient will be placed on a medical floor for continuation of care. The 45 minutes of critical care applied secondary to multisystem involvement as well as bowel obstruction and lactic acidosis. No recommendation for antibiotics was given at this time. Patient is concerning for decompensation secondary to the tachypnea and tachycardia will be monitored closely. Time: 09:48 Reevaluation #2: ICU attending has reviewed the patient the bedside and feels that she is comfortable for 2 north. Patient will be admitted for continuation of care. This was repaired to pass on the information from the manager assembly. Time: 10:01 Vital Signs Temperature 98.7 F 05/27/18 06:56 Pulse Rate 140 05/27/18 06:56 Respiratory Rate 42 05/27/18 06:56 Blood Pressure 124/91 05/27/18 06:56 O2 Sat by Pulse Oximetry 95 05/27/18 06:56 Temperature 98.7 F 05/27/18 06:56 Pulse Rate 128 05/27/18 08:00 Respiratory Rate 31 05/27/18 08:00 Blood Pressure 135/82 05/27/18 08:00 O2 Sat by Pulse Oximetry 100 05/27/18 08:15 Oxygen Delivery Oxygen Delivery Nasal Cannula Medical Decision Making - MDM Narrative Medical decision making narrative: Abdominal distention, postsurgical bowel obstruction, tachycardia, tachypnea - Medical Records Medical records reviewed: Yes I reviewed the patient's medical records. - Lab Data Lab results reviewed: Yes I reviewed the patient's lab results. Result diagrams: 05/27/18 07:30 05/27/18 07:30 Lab Results 05/27/18 05/27/18 05/27/18 Range/Units 07:30 07:30 07:53 WBC 21.5 H (4.3-11.1) K/mcL RBC 4.62 (3.82-4.97) M/mcL Hgb 13.5 D (11.5-15.4) g/dL Hct 42.4 (35.3-44.9) % MCV 91.8 (83.0-100.0) fL MCH 29.2 (28.0-33.3) pg MCHC 31.8 (31.6-35.5) g/dL RDW 15.1 H (11.5-14.5) % Plt Count 541 H (140-400) K/mcL MPV 8.5 L (9.4-12.4) fL Immature Gran % 1.0 (0-4) % Seg Neutrophils % 88.6 % Lymphocytes % 5.1 % Monocytes % 5.2 % Eosinophils % 0.0 % Basophils % 0.1 % Neutrophils # 19.0 H (1.6-8.9) K/mcL Lymphocytes # 1.1 (0.6-4.6) K/mcL Monocytes # 1.1 (0.0-1.3) K/mcL Eosinophils # 0.0 (0.0-0.6) K/mcL Basophils # 0.0 (0.0-0.2) K/mcL PT (9.4-12.1) Seconds INR APTT (26.0-36.0) Seconds Sodium 131 L (136-145) mEq/L Potassium 4.6 (3.5-5.1) mEq/L Chloride 101 (98-107) mEq/L Carbon Dioxide 10 L* (23-29) mEq/L BUN 36 H (8-23) mg/dL Creatinine 1.28 H (0.60-1.20) mg/dL Est GFR ( Amer) 49 L (> 60) Est GFR (Non-Af Amer) 41 L (> 60) BUN/Creatinine Ratio 28 H (6-26) Glucose 176 H (70-105) mg/dL Calculated Osmolality 285 (280-300) Lactic Acid 5.5 H* (0.5-2.2) mmol/L Calcium 10.6 H (8.6-10.3) mg/dL Total Bilirubin 0.4 (0.3-1.0) mg/dL Direct Bilirubin 0.1 (0.0-0.2) mg/dL Indirect Bilirubin 0.3 (0.0-1.2) mg/dL AST 19 (13-39) Units/L ALT 7 (7-52) Units/L Alkaline Phosphatase 103 (34-104) Units/L Serum Total Protein 7.7 (6.4-8.9) g/dL Albumin 4.0 (3.5-5.7) g/dL Globulin 3.7 H (2.4-3.5) g/dL Albumin/Globulin Ratio 1.1 (1.1-2.2) Lipase 9 L (11-82) Units/L 05/27/18 Range/Units 07:58 WBC (4.3-11.1) K/mcL RBC (3.82-4.97) M/mcL Hgb (11.5-15.4) g/dL Hct (35.3-44.9) % MCV (83.0-100.0) fL MCH (28.0-33.3) pg MCHC (31.6-35.5) g/dL RDW (11.5-14.5) % Plt Count (140-400) K/mcL MPV (9.4-12.4) fL Immature Gran % (0-4) % Seg Neutrophils % % Lymphocytes % % Monocytes % % Eosinophils % % Basophils % % Neutrophils # (1.6-8.9) K/mcL Lymphocytes # (0.6-4.6) K/mcL Monocytes # (0.0-1.3) K/mcL Eosinophils # (0.0-0.6) K/mcL Basophils # (0.0-0.2) K/mcL PT 13.5 H (9.4-12.1) Seconds INR 1.2 APTT 29.0 (26.0-36.0) Seconds Sodium (136-145) mEq/L Potassium (3.5-5.1) mEq/L Chloride (98-107) mEq/L Carbon Dioxide (23-29) mEq/L BUN (8-23) mg/dL Creatinine (0.60-1.20) mg/dL Est GFR ( Amer) (> 60) Est GFR (Non-Af Amer) (> 60) BUN/Creatinine Ratio (6-26) Glucose (70-105) mg/dL Calculated Osmolality (280-300) Lactic Acid (0.5-2.2) mmol/L Calcium (8.6-10.3) mg/dL Total Bilirubin (0.3-1.0) mg/dL Direct Bilirubin (0.0-0.2) mg/dL Indirect Bilirubin (0.0-1.2) mg/dL AST (13-39) Units/L ALT (7-52) Units/L Alkaline Phosphatase (34-104) Units/L Serum Total Protein (6.4-8.9) g/dL Albumin (3.5-5.7) g/dL Globulin (2.4-3.5) g/dL Albumin/Globulin Ratio (1.1-2.2) Lipase (11-82) Units/L - Radiology Data Radiology results reviewed: Yes I reviewed the patient's radiology results. CT angiography the chest and abdomen are positive for small bowel obstruction with no signs of perforation - EKG Data EKG #1 EKG attestation: Yes I reviewed and interpreted this EKG. EKG results narrative: EKG shows sinus tachycardia. Heart rate of 124. NE interval 150. QTC of 329. QTC of 473. No acute signs of ST segment elevation or abnormality. [place] appears to be slightly leftward deviated. With a left anterior fascicular block. This is unchanged from previous EKG on 05/16/18. No acute signs of WPW or Brugada syndrome Critical Care Time Critical Care Time: Yes Total Critical Care Time: 45 Attestation: Critical care performed: Time is exclusive of separately billable procedures. Time includes: direct patient care, patient reassessment, coordination of patient care, interpretation of data (laboratory data, radiology data, and respiratory data), review of patient's medical records, medical consultation and documentation of patient care. Procedures included in critical care time: Procedures excluded from critical care time:
[2018-05-27] MEDS ORDERED: *HR* FentaNYL (PF) 100 MCG/2 ML VIAL IVP ONE (09:45)
[2018-05-27 09:57] LABS: Bilirubin,Urine Negative (Negative); Blood,Urine Moderate (Negative); Clarity,Urine Clear (Clear); Color,Urine Yellow (Yellow); Glucose,Urine (UA) Normal (Normal); Ketones,Urine Negative (Negative); Leukocyte Esterase,Urine Trace (Negative); Nitrite,Urine Negative (Negative); Protein,Urine 30 mg/dL (Neg-Trace); Urobilinogen,Urine Normal (Normal)
[2018-05-27 10:04] LABS: Bacteria,Urine Few per hpf (None-Few); Hyaline Casts,Urine Few per lpf (None-Few); RBC,Urine 15-30 per hpf (0-3); Squamous Epithelial Cell,Urine Many per lpf (None-Few); WBC,Urine 50-100 per hpf (0-3)
[2018-05-27] MEDS ORDERED: Naloxone 0.4 MG/ML INJ IVP PRN ×2 (10:21→23:44)
[2018-05-27] MEDS ORDERED: Acetaminophen IV 1,000 MG/100 ML INFUS..BTL IVPB PRN (10:23)
[2018-05-27] MEDS ORDERED: Tetracaine/Benzocaine/Butamben 1 SPRAY AEROSOL MM ONE (10:26)
[2018-05-27] MEDS ORDERED: Lidocaine Jelly 6ml 1 APPL/6 ML JEL.PF.APP MM ONE ×2 (10:26→10:45)
--- NOTE | 2018-05-27 10:56 | General Surgery Consult Note ---
<Nuvia Hale - Last Filed: 05/27/18 12:56> Date of Encounter: 05/27/18 Time of Encounter: 10:33 Assessment and Plan (1) Small bowel obstruction Current Visit: Yes Status: Acute Recent history of sigmoid resection with obstruction seen on CT. Concerns for aspiration - asked ED to insert NG - NPO - serial abdominal exams - zofran PRN - agree with Ofirmev for pain control - agree with IVF LR (2) Sepsis Current Visit: Yes Status: Suspected WBC 21.5 with tachycardia and LA 5.5 - per primary hospital medicine team Qualifiers: Sepsis type: methicillin resistant Staphylococcus aureus Qualified Code(s) : A41.02 - Sepsis due to Methicillin resistant Staphylococcus aureus (3) Anemia Current Visit: No Status: Acute HgB 13.5 stable with no sign of acute bleed- monitor with daily CBCs Qualifiers: Anemia type: other cause Other causes of anemia: acute posthemorrhagic Qualified Code(s): D62 - Acute posthemorrhagic anemia (4) Severe protein-calorie malnutrition Current Visit: No Status: Chronic Consider consult to Nutrition for TPN (5) AAA (abdominal aortic aneurysm) Current Visit: No Status: Resolved post surgical repair - stable Qualifiers: Presence of rupture: without rupture Qualified Code(s): I71.4 - Abdominal aortic aneurysm, without rupture History of Present Illness Consult date: 05/27/18 Reason for consult: abdominal pain History of present illness: 78 y/o female hx breat cancer , COPD, CVA and anemia recently admitted to colon obstruction.. Unable to obtain full history as patient unable to anser questions beyond yes/no. SN[facility] sent to ED for weakness and found to be tachypenic and tachycardiac in transport. Patient admits to abdominal pain and nausea but denies vomiting. In ED, CTA was done to evaluate for recent AAA repair wit no evidence of aortic dissection but found to have SBO with with dilated loops throughout extending to cecum resulting in dilation of stomach and esophagus putting patient at risk for aspiration. US showed no free fluid but distend loops of bowel. She received 2 L IVF and we asked for NG to be placed while in ED. History reconstructed from past records; Recent admit for colon obstruction with obstructing mass in proximal sigmoid treated with open sigmoid resection and incidental appendectomy on 04-24-[address] Anguiano. Biopsy report atypical but negative for malignancy . She was discharged from [facility] on 05-05 after treated for hyponatremia, anemia requiring transfusion and colitis. Previously , Abdominal Aortic Aneurysm repair on 03-20-[address] Holman with post op illieus. Past Med Surg Social Fam HX - Past Medical History Medical history: cancer Additional medical history: BRONCHITIS, RIGHT BREAST CANCER Psychiatric history: anxiety, depression, panic disorder - Past Surgical History Surgical History: breast surgery (lumpectomy/?slnb) Additional surgical history: AAA repair 03/20/2018. jaw - Social History Smoking Status: Never smoker Smokeless Tobacco Status: No Alcohol use: rarely Drug use: marijuana - Family History Mother Living Status: Hx Family Cancer: Yes (Colon.) Father Living Status: Hx Family Cardiac Disorders: Yes (MA) Medications and Allergies Aspirin 81 mg PO DAILY 06/26/15 [History] Citalopram [CeleXA] 10 mg PO DAILY 10/19/15 [History] Docusate [Colace] 100 mg PO BID PRN 07/23/16 [History] Ipratropium/Albuterol Sulfate [Combivent Respimat Inhal [place]] 4 gm IH QID PRN 07/23/16 [History] Multivit-Min/FA/Lycopen/Lutein [Centrum Silver Tablet] 1 tab PO DAILY 07/23/16 [ History] Ferrous Sulfate 325 mg PO BIDWM tablet 08/11/16 [Rx] Ondansetron ODT [Zofran ODT] 4 mg SL Q6HR PRN #0 tab.rapdis 08/11/16 [Rx] Pantoprazole Sodium [Protonix] 20 mg PO DAILY 03/20/18 [History] Sennosides/Docusate Sodium [Senna Plus] 2 tab PO DAILY PRN 03/20/18 [History] Atorvastatin Calcium [Lipitor] 20 mg PO HS 03/27/18 [History] Clopidogrel [Plavix] 75 mg PO DAILY 03/27/18 [History] Polyethylene Glycol 3350 [MiraLAX] 17 gm PO DAILY 03/27/18 [History] Isosorbide MONOnitrate (24 HR) [Imdur] 60 mg PO DAILY tab.er.24h 04/01/18 [Rx] Oxybutynin Chloride [Ditropan Xl] 10 mg PO DAILY 04/15/18 [History] Enoxaparin [Lovenox] 40 mg SQ 1800 20 Days #20 syringe 05/05/18 [Rx] Megestrol Acetate [Megace] 400 mg PO DAILY #30 udc 05/05/18 [Rx] Metoprolol [Lopressor] 25 mg PO BID #60 tablet 05/05/18 [Rx] OxyCODONE/APAP 5/325 [Percocet 5/325 MG] 1 each PO Q6HR PRN 2 Days #8 tablet 06/12 [Rx] Sodium Chloride [Sodium Chloride Tab] 1 gm PO DAILY 15 Days #15 tablet 05/05/18 [Rx] Ergocalciferol (VITAMIN D2) [Drisdol (50,000 Unit)] 50,000 unit PO FR 05/27/18 [ History] 3 Allergy/AdvReac Type Severity Reaction Status Date / Time codeine Allergy Severe Anaphylaxis Verified 05/27/18 08:10 Review of Systems ROS unobtainable: due to mental status General Surgery Exam Initial Vital Signs Temp Pulse Resp BP Pulse Ox 98.7 F 140 42 124/91 95 05/27/18 06:56 05/27/18 06:56 05/27/18 06:56 05/27/18 06:56 05/27/18 06:56 - General physical appearance moderate pain, cachectic, chronically ill - Eyes PERRL, normal ocular movement - ENT normal pinna, normal nares (oral mucosa dry, food particlesappearing to be partially digested carrot), no hearing loss - Respiratory clear to auscultation (increased work of breathing) - Cardiovascular Cardiovascular exam: Present: RRR, no murmurs/rubs/gallops - Abdomen Abdomen general surgery: Present: bowel sounds present, non tender, tympanic, distended, surgical scars, wound Hernia: Present: none - Incision Incision: Present: intact, approximated. Absent: draining, inflamed - Integumentary Integumentary general surgery: Present: warm and dry, no abnormal pigmentation. 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 left, strength difficult to appreicate with poor effort) - Psychiatric Psychiatric general surgery: Absent: A&Ox3, appropriate (poor historian, often not responing to questions), memory intact, angry Exam Initial Vital Signs Temp Pulse Resp BP Pulse Ox 98.7 F 140 42 124/91 95 05/27/18 06:56 05/27/18 06:56 05/27/18 06:56 05/27/18 06:56 05/27/18 06:56 Results - Labs 05/27/18 07:30 05/27/18 07:30 Abnormal lab results WBC 21.5 K/mcL (4.3-11.1) H 05/27/18 07:30 RDW 15.1 % (11.5-14.5) H 05/27/18 07:30 Plt Count 541 K/mcL (140-400) H 05/27/18 07:30 MPV 8.5 fL (9.4-12.4) L 05/27/18 07:30 Neutrophils # 19.0 K/mcL (1.6-8.9) H 05/27/18 07:30 PT 13.5 Seconds (9.4-12.1) H 05/27/18 07:58 Sodium 131 mEq/L (136-145) L 05/27/18 07:30 Carbon Dioxide 10 mEq/L (23-29) L* 05/27/18 07:30 BUN 36 mg/dL (8-23) H 05/27/18 07:30 Creatinine 1.28 mg/dL (0.60-1.20) H 05/27/18 07:30 Est GFR ( Amer) 49 (> 60) L 05/27/18 07:30 Est GFR (Non-Af Amer) 41 (> 60) L 05/27/18 07:30 BUN/Creatinine Ratio 28 (6-26) H 05/27/18 07:30 Glucose 176 mg/dL (70-105) H 05/27/18 07:30 Lactic Acid 5.5 mmol/L (0.5-2.2) H* 05/27/18 07:53 Calcium 10.6 mg/dL (8.6-10.3) H 05/27/18 07:30 Globulin 3.7 g/dL (2.4-3.5) H 05/27/18 07:30 Lipase 9 Units/L (11-82) L 05/27/18 07:30 Urine Protein 30 mg/dL (Neg-Trace) H 05/27/18 09:40 Urine Blood Moderate (Negative) H 05/27/18 09:40 Ur Leukocyte Esterase Trace (Negative) H 05/27/18 09:40 Urine Microscopic RBC 15-30 per hpf (0-3) H 05/27/18 09:40 Urine Microscopic WBC 50-100 per hpf (0-3) H 05/27/18 09:40 Ur Squamous Epith Cells Many per lpf (None-Few) H 05/27/18 09:40 All other labs normal. Consult Discharge Plan - Plan Referrals: Tushar Morris MD [Primary Care Provider] - (Patient is from [facility] no PCP appointment needed) <April Anguiano - Last Filed: 05/28/18 02:08> Date of Encounter: 05/27/18 Time of Encounter: 19:00 Assessment and Plan (1) Abdominal pain Current Visit: No Status: Acute patient with generalized abdominal pain, soft no rebound or guarding patient states less pain then when presented to hospital serial abdominal exams Qualifiers: Abdominal location: generalized Qualified Code(s): R10.84 - Generalized abdominal pain (2) Failure to thrive Current Visit: No Status: Chronic Qualifiers: Failure to thrive age range: in adult Qualified Code(s): R62.7 - Adult failure to thrive (3) Physical deconditioning Current Visit: No Status: Chronic patient with severe deconditioning (4) Tachycardia Current Visit: No Status: Acute history A fib fluid resuscitate (5) HTN (hypertension) Current Visit: No Status: Chronic controlled currently, monitor Qualifiers: Hypertension type: essential hypertension Qualified Code(s): I10 - Essential (primary) hypertension (6) Elevated lactic acid level Current Visit: Yes Status: Acute elevated, ivf resuscitate, trend, has decreased (7) Small bowel obstruction Current Visit: Yes Status: Acute patient CT scan reviewed with dilated small bowel from cecum to stomach with no transition point, significant stool load through colon ngt decompression serial abdominal exams prn pain control ivf hydration prn antiemetics hob 30 degrees npo History of Present Illness Reason for consult: abdominal pain Requesting physician: Frederic Mercedes History of present illness: Patient unable to give history of present illness. She states she has less pain then when she presented to ED. She denies abdominal pain currently unless abdomen is palpated. Denies nausea or emesis. Unable to state when last passing flatus or bm. Past Med Surg Social Fam HX - Past Medical History Source: old records reviewed Medical history: aortic aneurysm, hyperlipidemia, hypertension - Past Surgical History Surgical History: colectomy (sigmoid colectomy) Review of Systems ROS unobtainable: due to mental status All systems PM: The remainder of the systems were reviewed and are negative General Surgery Exam Initial Vital Signs Temp Pulse Resp BP Pulse Ox 98.7 F 140 42 124/91 95 05/27/18 06:56 05/27/18 06:56 05/27/18 06:56 05/27/18 06:56 05/27/18 06:56 - General physical appearance well developed, moderate distress, moderate pain, cachectic, chronically ill - Eyes PERRL, normal ocular movement - ENT normal nares - Neck no masses - Cardiovascular Cardiovascular exam: Present: tachycardia, no murmurs/rubs/gallops - Abdomen Abdomen general surgery: Present: bowel sounds present, soft, distended, tender. Absent: guarding, rebound - Integumentary Integumentary general surgery: Present: warm and dry - Neurologic Present: CN 2-12 grossly intact - Musculoskeletal Present: other (severe deconditioning) - Psychiatric Psychiatric general surgery: Present: oriented to person. Absent: A&Ox3 Exam Initial Vital Signs Temp Pulse Resp BP Pulse Ox 98.7 F 140 42 124/91 95 05/27/18 06:56 05/27/18 06:56 05/27/18 06:56 05/27/18 06:56 05/27/18 06:56 Results - Labs 05/27/18 21:03 05/27/18 21:03 Abnormal lab results Hgb 11.1 g/dL (11.5-15.4) L D 05/27/18 21:03 Hct 34.5 % (35.3-44.9) L 05/27/18 21:03 RDW 15.3 % (11.5-14.5) H 05/27/18 21:03 MPV 8.6 fL (9.4-12.4) L 05/27/18 21:03 Lymphocytes # 0.5 K/mcL (0.6-4.6) L 05/27/18 21:03 Monocytes # 1.4 K/mcL (0.0-1.3) H 05/27/18 21:03 PT 13.5 Seconds (9.4-12.1) H 05/27/18 07:58 ABG pH 7.47 pH Units (7.32-7.45) H 05/28/18 01:05 ABG pCO2 23 mmHg (35-45) L 05/28/18 01:05 ABG pO2 67 mmHg (85-104) L 05/28/18 01:05 ABG HCO3 17 mEq/L (21-27) L 05/28/18 01:05 ABG Total CO2 17 mEq/L (20-26) L 05/28/18 01:05 ABG Base Excess -6 mEq/L (-2 to 3) L 05/28/18 01:05 Sodium 135 mEq/L (136-145) L 05/27/18 21:03 Carbon Dioxide 15 mEq/L (23-29) L 05/27/18 21:03 BUN 47 mg/dL (8-23) H 05/27/18 21:03 Est GFR ( Amer) 57 (> 60) L 05/27/18 21:03 Est GFR (Non-Af Amer) 47 (> 60) L 05/27/18 21:03 BUN/Creatinine Ratio 42 (6-26) H 05/27/18 21:03 Glucose 127 mg/dL (70-105) H 05/27/18 21:03 Lactic Acid 7.6 mmol/L (0.5-2.2) H* 05/28/18 00:23 Phosphorus 5.4 mg/dL (2.7-4.5) H 05/27/18 21:03 Globulin 3.7 g/dL (2.4-3.5) H 05/27/18 07:30 Lipase 9 Units/L (11-82) L 05/27/18 07:30 Urine Protein 30 mg/dL (Neg-Trace) H 05/27/18 09:40 Urine Blood Moderate (Negative) H 05/27/18 09:40 Ur Leukocyte Esterase Trace (Negative) H 05/27/18 09:40 Urine Microscopic RBC 15-30 per hpf (0-3) H 05/27/18 09:40 Urine Microscopic WBC 50-100 per hpf (0-3) H 05/27/18 09:40 Ur Squamous Epith Cells Many per lpf (None-Few) H 05/27/18 09:40 Diabetes panel 05/27/18 05/27/18 Range/Units 14:24 21:03 Sodium 132 L 135 L (136-145) mEq/L Potassium 4.0 3.6 (3.5-5.1) mEq/L Chloride 105 107 (98-107) mEq/L Carbon Dioxide 13 L 15 L (23-29) mEq/L BUN 45 H 47 H (8-23) mg/dL Creatinine 1.07 1.13 (0.60-1.20) mg/dL Glucose 147 H 127 H (70-105) mg/dL Calcium 9.9 9.4 (8.6-10.3) mg/dL Thyroid panel 05/27/18 Range/Units 21:03 TSH 1.296 (0.340-5.600) mcIU/mL Calcium panel 05/27/18 05/27/18 Range/Units 14:24 21:03 Calcium 9.9 9.4 (8.6-10.3) mg/dL Phosphorus 5.4 H (2.7-4.5) mg/dL Pituitary panel 05/27/18 05/27/18 05/27/18 Range/Units 14:24 21:03 21:03 Sodium 132 L 135 L (136-145) mEq/L Potassium 4.0 3.6 (3.5-5.1) mEq/L Chloride 105 107 (98-107) mEq/L Carbon Dioxide 13 L 15 L (23-29) mEq/L BUN 45 H 47 H (8-23) mg/dL Creatinine 1.07 1.13 (0.60-1.20) mg/dL Glucose 147 H 127 H (70-105) mg/dL Calcium 9.9 9.4 (8.6-10.3) mg/dL TSH 1.296 (0.340-5.600) mcIU/mL Adrenal panel 05/27/18 05/27/18 Range/Units 14:24 21:03 Sodium 132 L 135 L (136-145) mEq/L Potassium 4.0 3.6 (3.5-5.1) mEq/L Chloride 105 107 (98-107) mEq/L Carbon Dioxide 13 L 15 L (23-29) mEq/L BUN 45 H 47 H (8-23) mg/dL Creatinine 1.07 1.13 (0.60-1.20) mg/dL Glucose 147 H 127 H (70-105) mg/dL Calcium 9.9 9.4 (8.6-10.3) mg/dL All other labs normal. - Imaging CT scan - abdomen: report reviewed, image reviewed CT scan - pelvis: report reviewed, image reviewed - Attending Attestation I examined this patient and my medical decision-making was reviewed with the Resident Physician. I agree with the documented findings, disposition and treatment plan as described except to the extent set forth below.
[2018-05-27] MEDS ORDERED: Ringers Solution, Lactated 1,000 ML IVC SCH ×4 (11:00→23:44)
--- NOTE | 2018-05-27 11:00 | Internal Med History&Physical ---
Date of Encounter: 05/27/18 Time of Encounter: 10:35 Internal Medicine - H&P: HPI Chief complaint: Nausea , vomiting, abdominal discomfort Admitted From: Emergency Dept Plans for Post Hospital Care: Home History of present illness: Ms. Ryan is a 78 year old female patient with a history of asthma, COPD, coronary artery disease, CVA, hypertension, prior abdominal aortic aneurysm repair, and recent laparotomy with sigmoid resection done in March of this year presented to the ER with complaints of intractable nausea and vomiting. She reports that symptoms began last night. She reports generalized abdominal pain. Denies any chest pain or palpitations. She reports that her last bowel movement was yesterday. Denies any shortness of breath but patient does appear to be tachypneic. No fevers or chills reported. Patient looks very frail and pale. Patient currently resides at a [facility] where she was sent following her last hospitalization here for skilled rehabilitation. She denies any new cough or sputum production. Reviewing the pathology results from her surgical resection, no signs of malignancy were identified. Past Med Surg Social Fam HX - Past Medical History Source: old records reviewed Medical history: cancer (Breast) Additional medical history: BRONCHITIS, RIGHT BREAST CANCER Psychiatric history: anxiety, depression, panic disorder - Past Surgical History Surgical History: breast surgery (lumpectomy/?slnb) Additional surgical history: AAA repair 03/20/2018. jaw - Social History Smoking Status: Never smoker Smokeless Tobacco Status: No Alcohol use: rarely Drug use: marijuana - Family History Mother Living Status: Hx Family Cancer: Yes (Colon.) Father Living Status: Hx Family Cardiac Disorders: Yes ([place]) Internal Medicine - H&P: Meds Aspirin 81 mg PO DAILY 06/26/15 [History] Citalopram [CeleXA] 10 mg PO DAILY 10/19/15 [History] Docusate [Colace] 100 mg PO BID PRN 07/23/16 [History] Ipratropium/Albuterol Sulfate [Combivent Respimat Inhal [place]] 4 gm IH QID PRN 07/23/16 [History] Multivit-Min/FA/Lycopen/Lutein [Centrum Silver Tablet] 1 tab PO DAILY 07/23/16 [ History] Ferrous Sulfate 325 mg PO BIDWM tablet 08/11/16 [Rx] Ondansetron ODT [Zofran ODT] 4 mg SL Q6HR PRN #0 tab.rapdis 08/11/16 [Rx] Pantoprazole Sodium [Protonix] 20 mg PO DAILY 03/20/18 [History] Sennosides/Docusate Sodium [Senna Plus] 2 tab PO DAILY PRN 03/20/18 [History] Atorvastatin Calcium [Lipitor] 20 mg PO HS 03/27/18 [History] Clopidogrel [Plavix] 75 mg PO DAILY 03/27/18 [History] Polyethylene Glycol 3350 [MiraLAX] 17 gm PO DAILY 03/27/18 [History] Isosorbide MONOnitrate (24 HR) [Imdur] 60 mg PO DAILY tab.er.24h 04/01/18 [Rx] Oxybutynin Chloride [Ditropan Xl] 10 mg PO DAILY 04/15/18 [History] Enoxaparin [Lovenox] 40 mg SQ 1800 20 Days #20 syringe 05/05/18 [Rx] Ergocalciferol (VITAMIN D2) [Drisdol (50,000 Unit)] 50,000 unit PO QWEEK #2 capsule 05/05/18 [Rx] Megestrol Acetate [Megace] 400 mg PO DAILY #30 udc 05/05/18 [Rx] Metoprolol [Lopressor] 25 mg PO BID #60 tablet 05/05/18 [Rx] Nicotine Patch [Nicoderm] 7 mg TD DAILY #30 patch.td24 05/05/18 [Rx] OxyCODONE/APAP 5/325 [Percocet 5/325 MG] 1 each PO Q6HR PRN 2 Days #8 tablet 06/12 [Rx] Sodium Chloride [Sodium Chloride Tab] 1 gm PO DAILY 15 Days #15 tablet 05/05/18 [Rx] cephALEXin [Keflex] 500 mg PO BID #14 capsule 05/16/18 [Rx] 3 Allergy/AdvReac Type Severity Reaction Status Date / Time codeine Allergy Severe Anaphylaxis Verified 05/27/18 08:10 All Systems PM: A 10-system review of systems was performed and is negative for pertinent findings except as documented above in the HPI. - Constitutional Constitutional: fatigue, malaise, weakness, no chills, no fever(s), no night sweats - EENT Eyes: no change in vision, no discharge, no pain, no photophobia Ears: no ear discharge, no ear pain, no tinnitus Nose, mouth and throat: no dysphagia, no nasal discharge, no neck pain, no sore throat - Cardiovascular Cardiovascular ROS IM: no chest pain, no diaphoresis, no dyspnea, no lightheadedness, no palpitations, no syncope - Respiratory Respiratory: no cough, no dyspnea, no wheezing, no excessive phlegm production - Gastrointestinal Gastrointestinal: abdominal pain, nausea, vomiting - Genitourinary Genitourinary: no change in urinary stream, no dysuria, no flank pain, no hematuria - Musculoskeletal Musculoskeletal ROS IM: no numbness, no tingling - Integumentary Integumentary IM: no rash, no unusual bruising - Neurological Neurological ROS: no confusion, no convulsions, no focal weakness, no numbness, no tingling, no tremor(s) - Hematologic/Lymphatic Hematologic/Lymphatic: no easy bruising - Constitutional Vitals: Temp Pulse Resp BP Pulse Ox 98.7 F 128 31 135/82 100 05/27/18 06:56 05/27/18 08:00 05/27/18 08:00 05/27/18 08:00 05/27/18 08:15 General appearance: Present: cooperative, severe distress Exam: Patient appears very lethargic. Does answer questions after prodding. - Neck Neck exam general surgery: Present: supple, trachea midline. Absent: lymphadenopathy - Respiratory Respiratory exam: Present: accessory muscle use, CTAB, respiratory distress, tachypnea. Absent: rales, rhonchi, wheezes Additional comments: Patient is tachypneic with shallow breaths - Cardiovascular Cardiovascular exam: Present: RRR, +S1, +S2, tachycardia. Absent: diastolic murmur, gallop, rubs, systolic murmur - GI/Abdominal GI/Abdominal exam: Present: diminished bowel sounds, distended, soft, tenderness (Generalized), no peritoneal signs - Extremities Exam Extremities exam: Present: warm, radial pulses palpable and symmetrical. Absent : calf tenderness, cyanotic, pedal edema - Neurological Exam Neurological exam: Present: alert, CN II-XII intact, no focal deficits. Absent : facial droop, speech deficit - Skin Skin exam: Present: dry, intact, pallor Internal Med - H&P Results - Labs CBC & Chem 7: 05/27/18 07:30 05/27/18 07:30 - EKG Data -: EKG Interpreted by Myself EKG shows normal: sinus rhythm Rate: tachycardia - Impressions Impressions Abdomen/Pelvis CTA 05/27/18 07:22 IMPRESSION: 1. Findings suspicious for small bowel obstruction as there are dilated small bowel loops throughout the abdomen extending to the cecum. As a result, the stomach is markedly distended and the esophagus is mildly dilated and fluid-filled. This puts the patient at risk for aspiration. Recommend nasogastric tube decompression. 2. Patchy consolidation in the posterior right lower lobe is suspicious for pneumonia. Previously seen small pleural effusions have resolved. 3. No acute abnormality of the thoracic and abdominal aorta. Status post repair of abdominal aortic aneurysm. The aneurysm sac size has decreased. The previously seen left periaortic fluid collection has resolved. 4. Moderate emphysema. Two subpleural nodules in the right upper lobe measuring up to 8.5 mm are unchanged from 03/26/2018 but were not seen in 2014. Please see follow-up guidelines below. RECOMMENDATIONS: Multiple Solid Nodules: Nodule size greater than 8 mm In a low-risk patient, CT at 3-6 months, then consider CT at 18-24 months. In a high-risk patient, CT at 3-6 months, then CT at 18-24 months. - Low risk patients include individuals with minimal or absent history of smoking and other known risk factors. - High risk patients include individuals with a history or smoking or known risk factors. Radiology 2017 http://pubs.[facility]na.org/doi/full/10.1148/radiol.[email or web address] D/ / 05/27/2018 08:47:56 Luis Enrique Nguyen MD / [facility] Interpreting Provider: Luis Enrique Nguyen MD Chest CTA 05/27/18 07:23 IMPRESSION: 1. Findings suspicious for small bowel obstruction as there are dilated small bowel loops throughout the abdomen extending to the cecum. As a result, the stomach is markedly distended and the esophagus is mildly dilated and fluid-filled. This puts the patient at risk for aspiration. Recommend nasogastric tube decompression. 2. Patchy consolidation in the posterior right lower lobe is suspicious for pneumonia. Previously seen small pleural effusions have resolved. 3. No acute abnormality of the thoracic and abdominal aorta. Status post repair of abdominal aortic aneurysm. The aneurysm sac size has decreased. The previously seen left periaortic fluid collection has resolved. 4. Moderate emphysema. Two subpleural nodules in the right upper lobe measuring up to 8.5 mm are unchanged from 03/26/2018 but were not seen in 2015. Please see follow-up guidelines below. RECOMMENDATIONS: Multiple Solid Nodules: Nodule size greater than 8 mm In a low-risk patient, CT at 3-6 months, then consider CT at 18-24 months. In a high-risk patient, CT at 3-6 months, then CT at 18-24 months. - Low risk patients include individuals with minimal or absent history of smoking and other known risk factors. - High risk patients include individuals with a history or smoking or known risk factors. Radiology 2017 http://pubs.rsna.org/doi/full/10.1148/radiol.[email or web address] D/ / 05/27/2018 08:47:56 Luis Enrique Nguyen MD / [facility] Interpreting Provider: Luis Enrique Nguyen MD - Assessment and plan (1) Small bowel obstruction Current Visit: Yes Status: Acute Assessment and plan: Small bowel obstruction per CT. NG tube to be placed in the ER with low intermittent suction for gastric decompression. Surgery consulted. High risk for complications. (2) Sepsis Current Visit: Yes Status: Suspected Assessment and plan: Patient presenting with sepsis. Could be from aspiration pneumonia. We will treat with broad-spectrum antibiotics. Follow blood cultures. Check pro calcitonin. High risk for complications. Lactic acid 5.5 initially and is now improving. IV hydration. Monitor urine output closely. Qualifiers: Sepsis type: methicillin resistant Staphylococcus aureus Qualified Code(s) : A41.02 - Sepsis due to Methicillin resistant Staphylococcus aureus (3) Acute kidney injury Current Visit: Yes Status: Acute Assessment and plan: Creatinine 1.28. Likely related to sepsis, dehydration and persistent nausea or vomiting. Will treat with IV fluids. Follow renal function closely. (4) Metabolic acidosis Current Visit: Yes Status: Acute Assessment and plan: Due to sepsis, lactic acidosis along with persistent nausea and vomiting. (5) COPD (chronic obstructive pulmonary disease) Current Visit: Yes Status: Chronic Assessment and plan: Patient with underlying history of COPD. Currently tachypneic. No significant wheezing audible but patient does have decreased breath sounds bilaterally. Will treat with bronchodilators and O2 supplementation. Qualifiers: COPD type: emphysema Emphysema type: panlobular Qualified Code(s): J43.1 - Panlobular emphysema (6) Coronary artery disease Current Visit: Yes Status: Chronic Assessment and plan: No chest pain at this time. Continue home medications Qualifiers: Coronary Disease-Associated Artery/Lesion type: [place] artery [place] vs. transplanted heart: [place] heart Associated angina: without angina Qualified Code(s): I25.10 - Atherosclerotic heart disease of [place] coronary artery without angina pectoris (7) Essential hypertension Current Visit: Yes Status: Chronic Assessment and plan: Blood pressure is well controlled. Monitor blood pressure closely (8) Pneumonia Current Visit: Yes Status: Suspected Assessment and plan: Patient has possible right lower lobe pneumonia. Most likely from aspiration. Will treat with empiric antibiotics and also added vancomycin to cover MRSA as patient has been hospitalized recently. Qualifiers: Pneumonia type: aspiration pneumonia Aspiration pneumonia type: due to gastric secretions Laterality: right Lung location: lower lobe of lung Qualified Code(s): J69.0 - Pneumonitis due to inhalation of food and vomit (9) Severe protein-calorie malnutrition Current Visit: No Status: Chronic Assessment and plan: Nutrition consulted. Patient currently nothing by mouth due to small bowel obstruction. - Time Spent With Patient Total time spent is greater than 50% in coordination of care (as documented) at patient's floor/unit and/or counseling patient:
[2018-05-27] MEDS ORDERED: Albuterol 2.5 MG/3 ML NEBULIZER IH PRN ×2 (11:09→23:44)
[2018-05-27] MEDS ORDERED: Aminoglycoside Consult 1 EACH MC ONE (12:44)
[2018-05-27] MEDS ORDERED: Ondansetron ODT 4 MG TAB.RAPDIS SL PRN (13:01)
--- NOTE | 2018-05-27 13:42 | Sepsis Event Note ---
Sepsis Event Note - Evaluation Sepsis Screen: Sepsis Risk Current Stage of Suspected Sepsis: severe sepsis Possible Source of Sepsis: pulmonary - Focused Exam Date of Encounter: 05/27/18 Time of Encounter: 10:35 Vital Signs: Vital Signs Temp Pulse Resp BP Pulse Ox 05/27/18 13:04 97.2 F L 130 18 111/78 99 05/27/18 12:42 26 112/87 Respiratory Exam: Present: decreased breath sounds Cardiovascular Exam: Present: RRR Capillary Refill: < 2 seconds Peripheral Pulse Strength: 3+ normal Peripheral Pulse Location: Radial Skin Exam: normal turgor - Bedside Monitoring Bedside Ultrasound Performed: No Passive Leg raise/fluid bolus: not performed
[2018-05-27 15:31] LABS: BUN/Creatinine Ratio 42 (6-26); Blood Urea Nitrogen 45 mg/dL (8-23); Calcium 9.9 mg/dL (8.6-10.3); Carbon Dioxide 13 mEq/L (23-29); Chloride 105 mEq/L (98-107); Glucose 147 mg/dL (70-105); Osmolality,Calculated 288 (280-300); Sodium 132 mEq/L (136-145); eGFR For Non-African Americans 50 (> 60)
[2018-05-27] MEDS ORDERED: Piperacillin/Tazobactam 3.375 GM in 0.9 % Sodium Chloride Mini Bag 100 ML IVPB SCH (16:00)
--- NOTE | 2018-05-27 18:50 | Sepsis Event Note ---
Sepsis Reassessment Note - Evaluation Sepsis Screen: Sepsis Risk Current Stage of Sepsis: severe sepsis Possible Source of Sepsis: pulmonary - Focused Exam Date of Encounter: 05/27/18 Time of Encounter: 18:49 Vital Signs: Vital Signs Temp Pulse Resp BP Pulse Ox 05/27/18 16:42 97.5 F L 129 27 116/76 96 05/27/18 15:39 127 22 131/85 96 05/27/18 15:18 129 20 123/80 96 05/27/18 13:04 97.2 F L 130 18 111/78 99 05/27/18 12:42 26 112/87 Respiratory Exam: Present: wheezes, decreased breath sounds Cardiovascular Exam: Present: RRR, tachycardia Capillary Refill: < 2 seconds Peripheral Pulse Strength: 3+ normal Peripheral Pulse Location: Radial Skin Exam: normal turgor
[2018-05-27] MEDS ORDERED: Pantoprazole 40 MG VIAL IVP SCH (19:24)
[2018-05-27] MEDS ORDERED: Milk and Molasses Enema 200 ML RC ONE (19:32)
[2018-05-27] MEDS ORDERED: Ringers Solution, Lactated 1,000 ML IVC ONE (19:53)
[2018-05-27] MEDS ORDERED: *HR* Metoprolol 5 MG/5 ML VIAL IVP ONE (20:12)
[2018-05-27 20:35] LABS: ABG Base Excess -8 mEq/L (-2 to 3); ABG HCO3 14 mEq/L (21-27); ABG Oxygen Saturation 97 % (95-98); ABG PCO2 21 mmHg (35-45); ABG PH 7.45 pH Units (7.32-7.45); ABG PO2 83 mmHg (85-104); ABG TCO2 15 mEq/L (20-26)
[2018-05-27 21:16] LABS: Basophils % 0.1 %; Hematocrit 34.5 % (35.3-44.9); Immature Granulocytes % 0.4 % (0-4); Lymphocytes # 0.5 K/mcL (0.6-4.6); Lymphocytes % 5.9 %; Mean Corpuscular HGB Conc 32.2 g/dL (31.6-35.5); Mean Corpuscular Volume 90.1 fL (83.0-100.0); Mean Platelet Volume 8.6 fL (9.4-12.4); Monocytes # 1.4 K/mcL (0.0-1.3); Monocytes % 15.9 %; Neutrophils # 6.6 K/mcL (1.6-8.9); Platelet Count 333 K/mcL (140-400); Red Blood Count 3.83 M/mcL (3.82-4.97); Red Cell Distribution Width 15.3 % (11.5-14.5); Segmented Neutrophils % 77.7 %
[2018-05-27 21:25] LABS: Hemoglobin 11.1 g/dL (11.5-15.4)
[2018-05-27 21:42] LABS: Calcium 9.4 mg/dL (8.6-10.3); Magnesium 2.1 mg/dL (1.6-2.6); Phosphorous 5.4 mg/dL (2.7-4.5); Potassium 3.6 mEq/L (3.5-5.1)
--- NOTE | 2018-05-27 22:29 | Event Note ---
Date of Encounter: 05/27/18 Time of Encounter: 22:20 I've assessed and reassessed patient a couple times tonight. I called and updated/spoke with Dr. Anguiano. Clinically, she looks a little better with a liter bolus we gave her earlier. Her ABG suggests respiratory compensation of a metabolic acidosis. We will continue IVF hydration and bolus, trend her lactate and ABG, and I will move her to ICU for closer monitoring and care. She may need intubation for respiratory failure. Her abdomen does not appear to be surgical at this time on exam. I suspect she is still intravascularly depeleted and in need of IVF hydration/bolus. Dr. Anguiano and I discussed case and we both agree with plan. If lactate trends up, I will call her and update her.
[2018-05-28] MEDS ORDERED: Piperacillin/Tazobactam 3.375 GM in 0.9 % Sodium Chloride Mini Bag 100 ML IVPB SCH
[2018-05-28] MEDS ORDERED: Ondansetron 4 MG/2 ML VIAL IVP SCH
[2018-05-28] MEDS ORDERED: *HR* Metoprolol 5 MG/5 ML VIAL IVP SCH
[2018-05-28] MEDS: Ondansetron 4 MG/2 ML VIAL IVP SCH ×4 (00:15→12:09)
[2018-05-28 01:10] LABS: ABG Base Excess -6 mEq/L (-2 to 3); ABG HCO3 17 mEq/L (21-27); ABG Oxygen Saturation 95 % (95-98); ABG PCO2 23 mmHg (35-45); ABG PH 7.47 pH Units (7.32-7.45); ABG PO2 67 mmHg (85-104); ABG TCO2 17 mEq/L (20-26)
[2018-05-28] MEDS ORDERED: 0.9 % Sodium Chloride 1,000 ML ONE (01:12)
--- NOTE | 2018-05-28 01:15 | Event Note ---
Date of Encounter: 05/28/18 Time of Encounter: 01:12 Patient lactate is elevated to 7.6. Her abdominal exam is now more tender to palpation. Repeat ABG similar to previous. I called and spoke with Dr. Anguiano. She is coming in to reassess patient.
--- NOTE | 2018-05-28 02:32 | General Surgery Progress Note ---
Date of Encounter: 05/28/18 Time of Encounter: 02:30 - Assessment and Plan (1) Abdominal pain Current Visit: No Status: Acute Qualifiers: Abdominal location: generalized Qualified Code(s): R10.84 - Generalized abdominal pain (2) Failure to thrive Current Visit: No Status: Chronic Qualifiers: Failure to thrive age range: in adult Qualified Code(s): R62.7 - Adult failure to thrive (3) Physical deconditioning Current Visit: No Status: Chronic (4) Tachycardia Current Visit: No Status: Acute (5) HTN (hypertension) Current Visit: No Status: Chronic Qualifiers: Hypertension type: essential hypertension Qualified Code(s): I10 - Essential (primary) hypertension (6) Elevated lactic acid level Current Visit: Yes Status: Acute Was called by Dr Huang with concerns regarding patients worsening condition. Continued tacchycardia, worsening abdominal pain and distention, increasing elevated lactate. Upon evaluation Clifford is unable to answer questions appropriately now. When asked if she is in pain she shakes her head no but is in obvious distress/ discomfort and has pain with palpation as evidenced by wincing and vocalization. She has worsening abdominal distention and I am concerned patient likely has ischemic bowel whether colon or small bowel. 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 Given her increasing lactate, increasing abdominal distention and abdominal pain, change in mental status, severe deconditioning from two recent significant open abdominal procedures I am concerned patient will not survive her current medical condition which she is likely suffering from gut. Her listed next of kin is her granddaughter Kita Obrien whom Dr Huang and myself have spoken with. We have explained the patients grave condition and our concerns regarding likely bowel and need for surgery for potential survival but have also discussed our concerns that patient will likely not survive surgery, potentially not survive hospital admission or not be able to return to desired previous lifestyle/way of life. Our records indicate patient is a full code but patient is unable to discuss code status or surgery options. Granddaughter states that she is patients next of kin contact and the patient has no medical power of erisa attorney but has previously communicated her wishes to not undergo further lifesaving measures. Granddaughter states the patients daughter is alive, Iza Curtis and has given her cell phone number ) as well as the contact information for her Franklinharley Curtis ( [phone]). We have left voice messages on both phone numbers for family to return phone call to ICU. Several attempts at contact have been made without answer. Granddaughter states that about a year ago patient and daughter had a falling out and have had no further contact and that Clifford has expressed her wishes to not have her daughter involved with her care. Patients granddaughter, Kita, has requested patient be made DNR-CC and no surgical intervention be initiated. She understands that this will result in her grandmothers and states she would not have wanted further surgery. (7) Small bowel obstruction Current Visit: Yes Status: Acute Subjective Narrative: patient is awake but unable to answer questions appropriately, when asked if you are in pain she answers no but is in obvious discomfort, winces with palpation. when asked questions she just blankly stares forward and does not answer Objective Vital Signs - Last 8 Hours Temp Pulse Resp BP Pulse Ox 05/28/18 02:00 123 22 112/63 99 05/28/18 01:30 124 22 118/63 99 05/28/18 01:15 125 22 108/58 99 05/28/18 01:00 125 23 114/62 100 05/28/18 00:00 120 22 132/77 97 05/27/18 23:30 124 20 110/80 100 05/27/18 23:15 98.2 F 120 22 123/74 100 05/27/18 20:33 110 05/27/18 19:54 98.2 F 135 24 136/85 97 Intake and Output 05/27/18 05/27/18 05/28/18 15:59 23:59 07:59 Intake Total 1350 / 1350 1000 / 1000 Output Total 975 / 975 1300 / 1300 Balance -975 / 25 50 / 50 1000 / 1000 Intake: IV Fluids 1350 / 1350 1000 / 1000 Lactated Ringers 1,000 ML @ 100 1000 / 1000 1000 / 1000 mls/hr IVC .Q10H URSZULA Rx#: [id number] Ofirmev 1,000 mg/100 ml 1,000 100 / 100 mg In 100 ml @ 400 mls/hr IVPB Q6HR PRN Rx#:[id number] Vancocin 750 MG In 0.9 % Sodium 250 / 250 Chloride 250 ML @ 250 mls/hr IVPB Q24H URSZULA Rx#:[id number] Oral 0 / 0 Output: Urine 250 / 250 Gastric Tube Lavage Amount 25 / 25 300 / 300 Left Nare 25 / 25 300 / 300 Gastric Drainage 950 / 950 750 / 750 Other: Meal NPO Percent of Meal Consumed 0% Stool Size Copious Stool Consistency loose liquid Stool Color Brown # Urine Diapers 1 # Bowel Movement Diapers 1 Weight 43.5 kg 43.1 kg Blood Glucose* 129 - General physical appearance well developed, moderate distress, moderate pain - Eyes normal ocular movement - ENT dry mucosa, atraumatic - Neck Neck exam: trachea midline - Respiratory normal expansion, other (tachypnea) - Cardiovascular Cardiovascular exam: Present: tachycardia, no murmurs/rubs/gallops - Abdomen Abdomen: Present: soft, distended, tender. Absent: bowel sounds present (faint) , guarding, rebound - Integumentary no rash, no growths - Neurologic other (unable to assess) - Musculoskeletal other (severe deconditioning) - Psychiatric other (A x O x 0) - Labs 05/27/18 21:03 05/27/18 21:03 Diabetes panel 05/27/18 05/27/18 Range/Units 14:24 21:03 Sodium 132 L 135 L (136-145) mEq/L Potassium 4.0 3.6 (3.5-5.1) mEq/L Chloride 105 107 (98-107) mEq/L Carbon Dioxide 13 L 15 L (23-29) mEq/L BUN 45 H 47 H (8-23) mg/dL Creatinine 1.07 1.13 (0.60-1.20) mg/dL Glucose 147 H 127 H (70-105) mg/dL Calcium 9.9 9.4 (8.6-10.3) mg/dL Thyroid panel 05/27/18 Range/Units 21:03 TSH 1.296 (0.340-5.600) mcIU/mL Calcium panel 05/27/18 05/27/18 Range/Units 14:24 21:03 Calcium 9.9 9.4 (8.6-10.3) mg/dL Phosphorus 5.4 H (2.7-4.5) mg/dL Pituitary panel 05/27/18 05/27/18 05/27/18 Range/Units 14:24 21:03 21:03 Sodium 132 L 135 L (136-145) mEq/L Potassium 4.0 3.6 (3.5-5.1) mEq/L Chloride 105 107 (98-107) mEq/L Carbon Dioxide 13 L 15 L (23-29) mEq/L BUN 45 H 47 H (8-23) mg/dL Creatinine 1.07 1.13 (0.60-1.20) mg/dL Glucose 147 H 127 H (70-105) mg/dL Calcium 9.9 9.4 (8.6-10.3) mg/dL TSH 1.296 (0.340-5.600) mcIU/mL Adrenal panel 05/27/18 05/27/18 Range/Units 14:24 21:03 Sodium 132 L 135 L (136-145) mEq/L Potassium 4.0 3.6 (3.5-5.1) mEq/L Chloride 105 107 (98-107) mEq/L Carbon Dioxide 13 L 15 L (23-29) mEq/L BUN 45 H 47 H (8-23) mg/dL Creatinine 1.07 1.13 (0.60-1.20) mg/dL Glucose 147 H 127 H (70-105) mg/dL Calcium 9.9 9.4 (8.6-10.3) mg/dL Consult Discharge Plan - Plan Referrals: Tushar Morris MD [Primary Care Provider] - (Patient is from [facility] no PCP appointment needed)
[2018-05-28] MEDS ORDERED: *HR* LORazepam 2 MG/ML VIAL IVP PRN ×2 (02:33→03:54)
[2018-05-28] MEDS ORDERED: OXYCODONE Oral CONC 10 MG/0.5 ML ORAL.SYG SL PRN ×3 (02:33→10:12)
--- NOTE | 2018-05-28 02:46 | Event Note ---
Date of Encounter: 05/28/18 Time of Encounter: 02:32 I met with and discussed with Dr. Anguiano the current patient status and need for urgent surgery. Dr. Anguiano expressed concern that patient may not survive surgery and/or complications that may arise. Patient remains critical, and I attempted to contact her emergency contact (Kita Obrien), but there was no answer. I left voicemail asking her to contact us back. Meanwhile, I called her ECF requesting contact information, living will status, and/or POA information. ECF (Signature) staff stated that the only contact and medical decision maker listed for patient was Kita Obrien. ECF staff stated that other patient family members were NOT to be contacted per patient wishes. Nonetheless, given that patient's daughter is legal next of kin, we felt obligated to try to contact her regarding the grave nature of the patient. Kita provided us with name and phone number of her mother (patient's daughter and legal next of kin -- Iza Curtis). We called Iza and her (Anderson Curtis) but we were unable to reach them. We left voicemails for them to contact us back in ICU. We have been unable to reach Iza thus far. Kita expressed to Dr. Anguiano and to me that patient's wishes were to be DNR and to NOT receive any heroic measures in a terminal state. Given her current status, Kita feels compelled to change patient code status to DNR-CC and to initiate comfort measures only now. I and Dr. Anguiano agree with her decision. Attempts were made to contact next of kin as above, but unsuccessful.
[2018-05-28] MEDS ORDERED: *HR* FentaNYL (PF) 100 MCG/2 ML VIAL IVP ONE (02:52)
[2018-05-28] MEDS ORDERED: Albuterol 2.5 MG/3 ML NEBULIZER IH PRN (03:54)
[2018-05-28] MEDS ORDERED: *HR* Heparin 5,000 UNIT/ML VIAL SQ SCH ×2 (06:00)
[2018-05-28 06:52] VITALS: BP 110/58
[2018-05-28] MEDS ORDERED: Pantoprazole 40 MG VIAL IVP SCH (09:00)
--- NOTE | 2018-05-28 09:37 | Palliative - Consult Note ---
Date of Encounter: 05/28/18 Time of Encounter: 09:00 - Assessment and Plan (1) Abdominal pain Current Visit: Yes Status: Acute Assessment and plan: Currently has Oxycodone ordered - utilized x1. She is minimally responsive - not able to communicate at this point. Will schedule medication around the clock to ensure she is comfortable and have PRN available if needed. Qualifiers: Abdominal location: unspecified location Qualified Code(s): R10.9 - Unspecified abdominal pain (2) Restlessness and agitation Current Visit: Yes Status: Acute Assessment and plan: Has Lorazepam available if needed. Has not utilized at this time. (3) Goals of care, counseling/discussion Current Visit: Yes Status: Acute Assessment and plan: No family present - reports that daughter will be here to visit this am. Called and spoke with social work specialist - not sure as far as payment source for [facility], if she is alf Medicaid or still under a skilled level of care. We will investigate possible transition to inpatient hospice, but have to have family available to sign appropriate paperwork. Will d/w primary nurse to notify me if family arrives. 1100 Update - I spoke with granddaughter Kita, she had called and asked for a transfer to [place]. Upon discussion, she stated her mother Iza called and told her a nurse from her said "we tore a hole in her esophagus which caused sepsis". I discussed with Kita this was not accurate information, and again reviewed the CT results that Dr. Huang and Dr. Anguiano reviewed with her during the night. After discussion, she wants to continue with current comfort care and not pursue transfer. I discussed with Kita that pt meets criteria to transition to inpatient hospice for symptom control. HOWEVER, we have to establish that their would be payment source as if she stabilized and does not meet criteria for inpatient hospice, she would need to transition back to [facility] with continued hospice care. Calls are being made to [place] and I discussing with [facility]. 1130 - Cassi Haque from [facility] spoke with Negrita at [facility] - patient was already private pay at [facility] and she can transition to [facility] today. Will notify Dr. Morales. (4) Small bowel obstruction Current Visit: Yes Status: Acute (5) Sepsis Current Visit: Yes Status: Suspected Qualifiers: Sepsis type: methicillin resistant Staphylococcus aureus Qualified Code(s) : A41.02 - Sepsis due to Methicillin resistant Staphylococcus aureus (6) Acute kidney injury Current Visit: Yes Status: Acute Palliative-CN HPI - Data of Consult Requesting Physician: Frederic Mercedes MD Primary Care Provider: Tushar Morris MD - Consult Narrative Palliative Care/Comfort Measures: Palliative care History of present illness: Ms. Ryan is a 78 year old female who presented from [facility] with weakness, and had tachycardia/tachypenia. Evaluation was completed in ED, and pt found to have small bowel obstruction with dilated loops of bowel extending to cecum, dilated esophagus, and stomach. Surgical consultation was obtained. Patient was admitted to ICU. Hospitalist was contacted when pt experienced further abd distention and increasing lactic acid. She was seen during the night by Dr. Huang. Discussion was held with Dr. Anguiano, and pt deemed poor surgical candidate. Patient has no established POA, and daughter Iza was not able to be reached, but granddaughter was contacted, (Kita), and she was transitioned to DNRCC, considering pt poor condition. To note - Patient has expressed in the past and previous admission, that she did not want to involve Iza in decision making, and she wanted Kita (granddaughter) to make decisions. She was transitioned to palliative care bed. Patient has history of breast cancer , COPD, CVA and anemia recently admitted to colon obstruction.. She had recent AAA repair in February [address] Holman, and then had colon resection for obstructing mass here at [place] per Dr. Anguiano. Pathology negative for malignancy. Upon my visit, no family present. She is resting with eyes closed. She does open eyes when name called, and attempted to answer a few yes/no questions, but drifts back to sleep. Appears in no distress. NG present with scant amount greenish fluid. CC: Frederic Mercedes MD - Time Spent with Patient Time: Total time spent is greater than 50% in coordination of care (as documented) at patient's floor/unit and/or counseling patient: 25 - 35 minutes Past Med Surg Social Fam HX - Past Medical History Medical history: aortic aneurysm, hyperlipidemia, hypertension Additional medical history: BRONCHITIS, RIGHT BREAST CANCER Psychiatric history: anxiety, depression, panic disorder - Past Surgical History Surgical History: colectomy (sigmoid colectomy) Additional surgical history: AAA repair 03/20/2018. jaw - Social History Smoking Status: Never smoker Smokeless Tobacco Status: No Alcohol use: rarely Drug use: marijuana - Family History Mother History Unknown: Yes Living Status: Hx Family Cancer: Yes (Colon.) Father History Unknown: Yes Living Status: Hx Family Cardiac Disorders: Yes ([place]) Medications and Allergies Aspirin 81 mg PO DAILY 06/26/15 [History] Citalopram [CeleXA] 10 mg PO DAILY 10/19/15 [History] Docusate [Colace] 100 mg PO BID PRN 07/23/16 [History] Ipratropium/Albuterol Sulfate [Combivent Respimat Inhal [place]] 4 gm IH QID PRN 07/23/16 [History] Multivit-Min/FA/Lycopen/Lutein [Centrum Silver Tablet] 1 tab PO DAILY 07/23/16 [ History] Ferrous Sulfate 325 mg PO BIDWM tablet 08/11/16 [Rx] Ondansetron ODT [Zofran ODT] 4 mg SL Q6HR PRN #0 tab.rapdis 08/11/16 [Rx] Pantoprazole Sodium [Protonix] 20 mg PO DAILY 03/20/18 [History] Sennosides/Docusate Sodium [Senna Plus] 2 tab PO DAILY PRN 03/20/18 [History] Atorvastatin Calcium [Lipitor] 20 mg PO HS 03/27/18 [History] Clopidogrel [Plavix] 75 mg PO DAILY 03/27/18 [History] Polyethylene Glycol 3350 [MiraLAX] 17 gm PO DAILY 03/27/18 [History] Isosorbide MONOnitrate (24 HR) [Imdur] 60 mg PO DAILY tab.er.24h 04/01/18 [Rx] Oxybutynin Chloride [Ditropan Xl] 10 mg PO DAILY 04/15/18 [History] Enoxaparin [Lovenox] 40 mg SQ 1800 20 Days #20 syringe 05/05/18 [Rx] Megestrol Acetate [Megace] 400 mg PO DAILY #30 udc 05/05/18 [Rx] Metoprolol [Lopressor] 25 mg PO BID #60 tablet 05/05/18 [Rx] OxyCODONE/APAP 5/325 [Percocet 5/325 MG] 1 each PO Q6HR PRN 2 Days #8 tablet 06/12 [Rx] Sodium Chloride [Sodium Chloride Tab] 1 gm PO DAILY 15 Days #15 tablet 05/05/18 [Rx] Ergocalciferol (VITAMIN D2) [Drisdol (50,000 Unit)] 50,000 unit PO FR 05/27/18 [ History] 3 Allergy/AdvReac Type Severity Reaction Status Date / Time codeine Allergy Severe Anaphylaxis Verified 05/27/18 08:10 ROS unobtainable: due to mental status Palliative Care-Exam - Constitutional Vitals: Temp Pulse Resp BP Pulse Ox 98.5 F 114 22 110/58 99 05/28/18 06:51 05/28/18 06:51 05/28/18 06:51 05/28/18 06:51 05/28/18 06:51 General appearance: Present: no acute distress - Head Head Exam: Present: normal inspection, normocephalic - Respiratory Respiratory exam: Present: decreased breath sounds, CTAB Additional comments: Shallow inspiratory effort. - Cardiovascular Cardiovascular exam: Present: +S1, +S2, tachycardia - GI/Abdominal Exam GI/Abdominal exam: Present: diminished bowel sounds, distended, firm additional comments: NG with scant amount green drainage in tubing - Catheter Type: Urethral (Jama) - Extremities Exam Extremities exam: Present: normal capillary refill, normal inspection - Neurological Exam Additional comments: Patient opens eyes when name called. Did attempt to speak but not understandable. Does not follow commands - Skin Skin exam: Present: dry, pallor, warm Internal Medicine - CN: Reslt - Labs CBC & Chem 7: 05/27/18 21:03 05/27/18 21:03 Labs: Short CBC 05/27/18 Range/Units 21:03 WBC 8.5 D (4.3-11.1) K/mcL Hgb 11.1 L D (11.5-15.4) g/dL Hct 34.5 L (35.3-44.9) % Plt Count 333 (140-400) K/mcL Neutrophils # 6.6 (1.6-8.9) K/mcL BMP 05/27/18 05/27/18 14:24 21:03 Sodium 132 L 135 L Potassium 4.0 3.6 Chloride 105 107 Carbon Dioxide 13 L 15 L BUN 45 H 47 H Creatinine 1.07 1.13 Glucose 147 H 127 H Calcium 9.9 9.4 - ABG Interpretation ABG results: ABG ABG pH 7.47 pH Units (7.32-7.45) H 05/28/18 01:05 ABG pCO2 23 mmHg (35-45) L 05/28/18 01:05 ABG pO2 67 mmHg (85-104) L 05/28/18 01:05 ABG O2 Saturation 95 % (95-98) 05/28/18 01:05 PT/INR, D-dimer PT 13.5 Seconds (9.4-12.1) H 05/27/18 07:58 - Impressions Impressions KUB X-Ray 05/27/18 13:03 IMPRESSION: 1. Nasogastric tube tip is within the stomach. 2. Multiple dilated bowel loops within abdomen and pelvis. Please see separate CT abdomen and pelvis report for further evaluation. D/ / James Bartholomew MD / James Bartholomew MD Interpreting Provider: James Bartholomew MD Consult Discharge Plan - Plan Referrals: Tushar Morris MD [Primary Care Provider] - (Patient is from [facility] no PCP appointment needed) Palliative Quality Palliative Quality: Screen for Code Status: Yes, Screen for Goals of Care: NA ( AMS, unable to discuss, no family at bedside), Screen for Pain: Yes, If Pain Regimen Started, Initiate Bowel Regimen: NA, Screen for Nausea/Vomitting: NA Code Status: 05/28/18 02:33 Resuscitation Status: Active [RES] Routine Comment: Resuscitation Status: DNR-Comfort Care
[2018-05-28] MEDS ORDERED: Atropine Sulfate 1% 40 DROP/2 ML BOTTLE SL PRN (09:49)
[2018-05-28] MEDS ORDERED: OXYCODONE Oral CONC 10 MG/0.5 ML ORAL.SYG SL SCH (10:00)
--- NOTE | 2018-05-28 12:26 | Discharge Summary ---
- NOTES TO OUTPATIENT PROVIDER Notes to Outpatient Provider: f/u with Hospice team Orders not resulted at time of discharge: Pending orders 05/27/18 11:28 Culture,Blood [BC] Routine 05/27/18 19:22 Culture,Urine [RM] Stat Date of Encounter: 05/28/18 Time of Encounter: 12:19 - Discharge Diagnosis (1) Sepsis Priority: Primary Status: Suspected Qualifiers: Sepsis type: methicillin resistant Staphylococcus aureus Qualified Code(s) : A41.02 - Sepsis due to Methicillin resistant Staphylococcus aureus (2) Small bowel obstruction Priority: Primary Status: Acute (3) Pneumonia Priority: Primary Status: Suspected Qualifiers: Pneumonia type: aspiration pneumonia Aspiration pneumonia type: due to gastric secretions Laterality: right Lung location: lower lobe of lung Qualified Code(s): J69.0 - Pneumonitis due to inhalation of food and vomit (4) Severe protein-calorie malnutrition Priority: Primary Status: Chronic (5) COPD (chronic obstructive pulmonary disease) Priority: Secondary Status: Chronic Qualifiers: COPD type: emphysema Emphysema type: panlobular Qualified Code(s): J43.1 - Panlobular emphysema (6) Coronary artery disease Priority: Secondary Status: Chronic Qualifiers: Coronary Disease-Associated Artery/Lesion type: de[place] artery [place] vs. transplanted heart: deering heart Associated angina: without angina Qualified Code(s): I25.10 - Atherosclerotic heart disease of de[place] coronary artery without angina pectoris (7) Acute kidney injury Priority: Primary Status: Acute (8) Metabolic acidosis Priority: Primary Status: Acute (9) Essential hypertension Priority: Secondary Status: Chronic Hospital course: Ms. Ryan is a 78 year old female patient with a history of asthma, COPD, coronary artery disease, CVA, hypertension, prior abdominal aortic aneurysm repair, and recent laparotomy with sigmoid resection done due o sigmoid colon mass in March of this year presented to the ER with complaints of intractable nausea and vomiting. Patient looks very frail and pale. The pathology results from her surgical resection, no signs of malignancy were identified. Her CT of Abd showed SBO with dilated small bowel loops through out the abdomen extending to cecum. Pt was in septic, she also happened to have pneumonia. She was admitted in the hospital and started her broad spec abx. Her LA seems to be worsening as well as her mentation. Pt was evaluated by surgery last night and recommend it is not safe for surgery due to her multiple other comorbidities, recommend comfort care. I talked to pt's grand daughter Kita Obrien @ [phone], who would like to make pt comfortable. Pt was seen by our palliative care team who recommend in patient hospice care. So will transfer her to in patient hospice care today. - Time Spent with Patient Total time spent providing and/or coordinating discharge services: - Discharge Medications Home Medications: Aspirin 81 mg PO DAILY 06/26/15 [History] Citalopram [CeleXA] 10 mg PO DAILY 10/19/15 [History] Docusate [Colace] 100 mg PO BID PRN 07/23/16 [History] Ipratropium/Albuterol Sulfate [Combivent Respimat Inhal [place]] 4 gm IH QID PRN 07/23/16 [History] Multivit-Min/FA/Lycopen/Lutein [Centrum Silver Tablet] 1 tab PO DAILY 07/23/16 [ History] Ferrous Sulfate 325 mg PO BIDWM tablet 08/11/16 [Rx] Ondansetron ODT [Zofran ODT] 4 mg SL Q6HR PRN #0 tab.rapdis 08/11/16 [Rx] Pantoprazole Sodium [Protonix] 20 mg PO DAILY 03/20/18 [History] Sennosides/Docusate Sodium [Senna Plus] 2 tab PO DAILY PRN 03/20/18 [History] Atorvastatin Calcium [Lipitor] 20 mg PO HS 03/27/18 [History] Clopidogrel [Plavix] 75 mg PO DAILY 03/27/18 [History] Polyethylene Glycol 3350 [MiraLAX] 17 gm PO DAILY 03/27/18 [History] Isosorbide MONOnitrate (24 HR) [Imdur] 60 mg PO DAILY tab.er.24h 04/01/18 [Rx] Oxybutynin Chloride [Ditropan Xl] 10 mg PO DAILY 04/15/18 [History] Enoxaparin [Lovenox] 40 mg SQ 1800 20 Days #20 syringe 05/05/18 [Rx] Megestrol Acetate [Megace] 400 mg PO DAILY #30 udc 05/05/18 [Rx] Metoprolol [Lopressor] 25 mg PO BID #60 tablet 05/05/18 [Rx] OxyCODONE/APAP 5/325 [Percocet 5/325 MG] 1 each PO Q6HR PRN 2 Days #8 tablet 06/12 [Rx] Sodium Chloride [Sodium Chloride Tab] 1 gm PO DAILY 15 Days #15 tablet 05/05/18 [Rx] Ergocalciferol (VITAMIN D2) [Drisdol (50,000 Unit)] 50,000 unit PO FR 05/27/18 [ History] Allergies/Adverse Reactions: 3 Allergy/AdvReac Type Severity Reaction Status Date / Time codeine Allergy Severe Anaphylaxis Verified 05/27/18 08:10 Date of admission: 05/27/18 10:10 Primary care physician: Tushar Morris MD Consults: 05/27/18 14:22 Consult to Nutrition [CONS] Routine Comment: Consulting Provider: NUTRITION Reason for Dietary Consult: TPN Start and Manage 05/27/18 15:23 Consult to Nutrition [CONS] Routine Comment: NGT, SBO Consulting Provider: NUTRITION Reason for Dietary Consult: MST Score 05/27/18 15:24 Consult to Bender Machine [CONS] Routine Reason for SW Consult: PAtient from [facility] 05/28/18 03:16 Consult to Palliative Care [CONS] Routine Comment: Consulting Provider: Palliative Care [place] Reason for Consult: SBO, likely bowel necrosis, not a surgical candidate, DNRCC Call Completed: No - Constitutional Vitals: Temp Pulse Resp BP Pulse Ox 98.5 F 114 22 110/58 99 05/28/18 06:51 05/28/18 06:51 05/28/18 06:51 05/28/18 06:51 05/28/18 06:51 General appearance: Present: A&O X 1, severe distress. Absent: answers questions appropriately Exam: a - Head Head exam: Present: atraumatic, normal inspection - Neck Neck exam general surgery: Present: supple - Respiratory Respiratory exam: Present: decreased breath sounds, respiratory distress (mild) , wheezes (mild). Absent: rales, rhonchi - Cardiovascular Cardiovascular exam: Present: +S1, +S2, tachycardia - GI/Abdominal GI/Abdominal exam: Present: distended, hypoactive bowel sounds, soft, tenderness. Absent: rebound - Extremities Exam Extremities exam: Present: pedal edema. Absent: calf tenderness - Neurological Exam Neurological exam: Present: altered - Psychiatric Psychiatric exam: Present: depressed - Patient Status Disposition: Hospice - Medical Facility Condition: Fair - Discharge Instructions Follow Up With: Tushar Morris MD [Primary Care Provider] - (Patient is from [facility] no PCP appointment needed)
== END 2018-05-28 12:45 | disposition hospice, inpatient (51) | DRG 871 ==
LOC: EMEROOARM 06:46 → 2NNU 10:10 → ICNU 23:26 → 2ANU 05-28 05:30
PROVIDERS: ADMIT Internal Medicine; ATTEND Internal Medicine

== ENCOUNTER 2018-05-28 12:10 | Inpatient (IN) ==
[2018-05-28] MEDS ORDERED: Haloperidol Lactate 5 MG/ML VIAL IVP PRN (12:26)
[2018-05-28] MEDS ORDERED: MORPHINE SUL Oral CONC 10 MG/0.5 ML ORAL.SYG SL PRN (12:26)
[2018-05-28] MEDS ORDERED: Atropine Sulfate 1% 40 DROP/2 ML BOTTLE SL PRN (12:26)
[2018-05-28] MEDS ORDERED: *HR* LORazepam 2 MG/ML VIAL IVP PRN (12:26)
[2018-05-28] MEDS: MORPHINE SUL Oral CONC 10 MG/0.5 ML ORAL.SYG SL SCH ×2 (15:59→22:08)
[2018-05-29] MEDS: MORPHINE SUL Oral CONC 10 MG/0.5 ML ORAL.SYG SL SCH ×4 (04:12→22:17)
--- NOTE | 2018-05-29 10:04 | Palliative - Consult Note ---
Date of Encounter: 05/29/18 Time of Encounter: 09:20 - Assessment and Plan (1) Abdominal pain Current Visit: No Status: Acute Assessment and plan: Continue scheduled MOrphine - has not required any doses for breakthrough. Monitor Qualifiers: Abdominal location: generalized Qualified Code(s): R10.84 - Generalized abdominal pain (2) Restlessness and agitation Current Visit: No Status: Acute Assessment and plan: Has Lorazepam and Haldol PRN if needed. Has not required last 24 hours. (3) Advance care planning Current Visit: Yes Status: Acute Assessment and plan: Will reassess pt in am. She is more tachycardic today with irreg heart rate. Respirations appear more shallow. She does appear comfortable however. Will D/ W granddaughter Kita today. If remains stable on current medications, may be able to return to [facility] Saturday. (4) Metabolic encephalopathy Current Visit: Yes Status: Acute (5) Small bowel obstruction Current Visit: No Status: Acute (6) Sepsis Current Visit: No Status: Suspected Qualifiers: Sepsis type: methicillin resistant Staphylococcus aureus Qualified Code(s) : A41.02 - Sepsis due to Methicillin resistant Staphylococcus aureus Palliative-CN HPI - Data of Consult Requesting Physician: Sweta Gutierrez MD - Consult Narrative History of present illness: Ms. Ryan is a 78 year old female who originally presented from [facility] with weakness, and had tachycardia/tachypenia. Evaluation was completed in ED, and pt found to have small bowel obstruction with dilated loops of bowel extending to cecum, dilated esophagus, and stomach. Surgical consultation was obtained. Patient was admitted to ICU. Hospitalist was contacted when pt experienced further abd distention and increasing lactic acid. She was seen during the night by Dr. Huang. Discussion was held with Dr. Anguiano, and pt deemed poor surgical candidate. Patient has no established POA, and daughter Iza was not able to be reached, but granddaughter was contacted, (Kita), and she was transitioned to DNRCC, considering pt poor condition. To note - Patient has expressed in the past and previous admission, that she did not want to involve Iza in decision making, and she wanted Kita (granddaughter) to make decisions. She was transitioned to palliative care bed, and after further discussion with hospitalist and pt granddaughter, she was transitioned to general inpt hospice for continued symptom management. Patient has history of breast cancer , COPD, CVA and anemia recently admitted to colon obstruction.. She had recent AAA repair in February [address] Holman, and then had colon resection for obstructing mass here at [place] per Dr. Anguiano. Pathology negative for malignancy. Upon my visit, no family present. She is resting with eyes closed. She does attempt to open her eyes with assessment. No verbal response this am. Appears in no distress. CC: Sweta Gutierrez MD - Time Spent with Patient Time: Total time spent is greater than 50% in coordination of care (as documented) at patient's floor/unit and/or counseling patient: Past Med Surg Social Fam HX - Past Medical History Medical history: aortic aneurysm, hyperlipidemia, hypertension Additional medical history: BRONCHITIS, RIGHT BREAST CANCER Psychiatric history: anxiety, depression, panic disorder - Past Surgical History Surgical History: colectomy Additional surgical history: AAA repair 03/20/2018. jaw - Social History Smoking Status: Never smoker Smokeless Tobacco Status: No Alcohol use: rarely Drug use: marijuana - Family History Mother Living Status: Hx Family Cancer: Yes (Colon.) Father Living Status: Hx Family Cardiac Disorders: Yes ([place]) Medications and Allergies Aspirin 81 mg PO DAILY 06/26/15 [History] Citalopram [CeleXA] 10 mg PO DAILY 10/19/15 [History] Docusate [Colace] 100 mg PO BID PRN 07/23/16 [History] Ipratropium/Albuterol Sulfate [Combivent Respimat Inhal [place]] 4 gm IH QID PRN 07/23/16 [History] Multivit-Min/FA/Lycopen/Lutein [Centrum Silver Tablet] 1 tab PO DAILY 07/23/16 [ History] Ferrous Sulfate 325 mg PO BIDWM tablet 08/11/16 [Rx] Ondansetron ODT [Zofran ODT] 4 mg SL Q6HR PRN #0 tab.rapdis 08/11/16 [Rx] Pantoprazole Sodium [Protonix] 20 mg PO DAILY 03/20/18 [History] Sennosides/Docusate Sodium [Senna Plus] 2 tab PO DAILY PRN 03/20/18 [History] Atorvastatin Calcium [Lipitor] 20 mg PO HS 03/27/18 [History] Clopidogrel [Plavix] 75 mg PO DAILY 03/27/18 [History] Polyethylene Glycol 3350 [MiraLAX] 17 gm PO DAILY 03/27/18 [History] Isosorbide MONOnitrate (24 HR) [Imdur] 60 mg PO DAILY tab.er.24h 04/01/18 [Rx] Oxybutynin Chloride [Ditropan Xl] 10 mg PO DAILY 04/15/18 [History] Enoxaparin [Lovenox] 40 mg SQ 1800 20 Days #20 syringe 05/05/18 [Rx] Megestrol Acetate [Megace] 400 mg PO DAILY #30 udc 05/05/18 [Rx] Metoprolol [Lopressor] 25 mg PO BID #60 tablet 05/05/18 [Rx] OxyCODONE/APAP 5/325 [Percocet 5/325 MG] 1 each PO Q6HR PRN 2 Days #8 tablet 06/12 [Rx] Sodium Chloride [Sodium Chloride Tab] 1 gm PO DAILY 15 Days #15 tablet 05/05/18 [Rx] Ergocalciferol (VITAMIN D2) [Drisdol (50,000 Unit)] 50,000 unit PO FR 05/27/18 [ History] 3 Allergy/AdvReac Type Severity Reaction Status Date / Time codeine Allergy Severe Anaphylaxis Verified 05/27/18 08:10 ROS unobtainable: due to mental status Palliative Care-Exam - Constitutional Vitals: Temp Pulse Resp BP Pulse Ox 98.4 F 103 19 112/67 98 05/29/18 06:53 05/29/18 06:53 05/29/18 06:53 05/29/18 06:53 05/29/18 06:53 General appearance: Present: no acute distress, thin - Head Head Exam: Present: normal inspection, normocephalic - Respiratory Respiratory exam: Present: decreased breath sounds Additional comments: Shallow inspiratory effort - Cardiovascular Cardiovascular exam: Present: irregular rhythm, tachycardia - GI/Abdominal Exam GI/Abdominal exam: Present: diminished bowel sounds, distended - Catheter Type: Urethral (Jama) Additional comments: Clear yellow urine - Extremities Exam Extremities exam: Present: normal capillary refill, normal inspection - Neurological Exam Additional comments: Minimally responsive, will attempt to open eyes with stimulation. No verbal response. Does not follow commands - Skin Skin exam: Present: dry, pallor Palliative Quality Palliative Quality: Screen for Code Status: Yes, Screen for Goals of Care: Yes, Screen for Pain: Yes, If Pain Regimen Started, Initiate Bowel Regimen: NA ( Ischemic gut), Screen for Nausea/Vomitting: Yes Code Status: 05/28/18 12:26 Resuscitation Status: Active [RES] Routine Comment: Resuscitation Status: DNR-Comfort Care
--- NOTE | 2018-05-29 10:27 | Pallative History & Physical ---
Date of Encounter: 05/29/18 Time of Encounter: 09:00 Assessment and Plan (1) Abdominal pain Current visit: Yes Status: Acute Continue scheduled Morphine - has not required any doses for breakthrough. Monitor Qualifiers: Abdominal location: generalized Qualified Code(s): R10.84 - Generalized abdominal pain (2) Small bowel obstruction Current visit: No Status: Acute comfort care only (3) Restlessness and agitation Current visit: No Status: Acute Lorazepam and Haldol PRN (4) Advance care planning Current visit: Yes Status: Acute Patient looks actively dying, will evaluate daily. If pt stabilizes, plan is to discharge back to [facility]. Ongoing emotional support to family. (5) Metabolic encephalopathy Current visit: Yes Status: Acute Internal Medicine - H&P: HPI History of present illness: Ms. Ryan is a 78 year old female who originally presented from [facility] with weakness, and had tachycardia/tachypenia. Evaluation was completed in ED, and pt found to have small bowel obstruction with dilated loops of bowel extending to cecum, dilated esophagus, and stomach. Patient was admitted to ICU. Surgical consultation was obtained and patient was deemed a poor surgical candidate. Patient has no established POA, and daughter Iza was not able to be reached, but granddaughter was contacted, (Kita), and she was transitioned to DNRCC, considering pt poor condition. To note - Patient has expressed in the past and previous admission, that she did not want to involve Iza in decision making, and she wanted Kita (granddaughter) to make decisions. She was transitioned to palliative care bed, and after further discussion with hospitalist and pt granddaughter, she was transitioned to general inpt hospice for continued symptom management. Patient has history of breast cancer , COPD, CVA and anemia recently admitted to colon obstruction. She had recent AAA repair in February 2018, and then had colon resection for obstructing mass here at [facility]. Pathology negative for malignancy. At the time of exam, no family present. P was lehargic, not opening eyes, not verbal. Appears comfortable. Past Med Surg Social Fam HX - Past Medical History Medical history: aortic aneurysm, hyperlipidemia, hypertension Additional medical history: BRONCHITIS, RIGHT BREAST CANCER Psychiatric history: anxiety, depression, panic disorder - Past Surgical History Surgical History: colectomy Additional surgical history: AAA repair 03/20/2018. jaw - Social History Smoking Status: Never smoker Smokeless Tobacco Status: No Alcohol use: rarely Drug use: marijuana - Family History Mother Living Status: Hx Family Cancer: Yes (Colon.) Father Living Status: Hx Family Cardiac Disorders: Yes (PR) Internal Medicine - H&P: Meds Aspirin 81 mg PO DAILY 06/26/15 [History] Citalopram [CeleXA] 10 mg PO DAILY 10/19/15 [History] Docusate [Colace] 100 mg PO BID PRN 07/23/16 [History] Ipratropium/Albuterol Sulfate [Combivent Respimat Inhal [place]] 4 gm IH QID PRN 07/23/16 [History] Multivit-Min/FA/Lycopen/Lutein [Centrum Silver Tablet] 1 tab PO DAILY 07/23/16 [ History] Ferrous Sulfate 325 mg PO BIDWM tablet 08/11/16 [Rx] Ondansetron ODT [Zofran ODT] 4 mg SL Q6HR PRN #0 tab.rapdis 08/11/16 [Rx] Pantoprazole Sodium [Protonix] 20 mg PO DAILY 03/20/18 [History] Sennosides/Docusate Sodium [Senna Plus] 2 tab PO DAILY PRN 03/20/18 [History] Atorvastatin Calcium [Lipitor] 20 mg PO HS 03/27/18 [History] Clopidogrel [Plavix] 75 mg PO DAILY 03/27/18 [History] Polyethylene Glycol 3350 [MiraLAX] 17 gm PO DAILY 03/27/18 [History] Isosorbide MONOnitrate (24 HR) [Imdur] 60 mg PO DAILY tab.er.24h 04/01/18 [Rx] Oxybutynin Chloride [Ditropan Xl] 10 mg PO DAILY 04/15/18 [History] Enoxaparin [Lovenox] 40 mg SQ 1800 20 Days #20 syringe 05/05/18 [Rx] Megestrol Acetate [Megace] 400 mg PO DAILY #30 udc 05/05/18 [Rx] Metoprolol [Lopressor] 25 mg PO BID #60 tablet 05/05/18 [Rx] OxyCODONE/APAP 5/325 [Percocet 5/325 MG] 1 each PO Q6HR PRN 2 Days #8 tablet 06/12 [Rx] Sodium Chloride [Sodium Chloride Tab] 1 gm PO DAILY 15 Days #15 tablet 05/05/18 [Rx] Ergocalciferol (VITAMIN D2) [Drisdol (50,000 Unit)] 50,000 unit PO FR 05/27/18 [ History] 3 Allergy/AdvReac Type Severity Reaction Status Date / Time codeine Allergy Severe Anaphylaxis Verified 05/27/18 08:10 ROS unobtainable: due to mental status Palliative Care-Exam - Constitutional Vitals: Temp Pulse Resp BP Pulse Ox 98.4 F 103 19 112/67 98 05/29/18 06:53 05/29/18 06:53 05/29/18 06:53 05/29/18 06:53 05/29/18 06:53 General appearance: Present: no acute distress, thin - Respiratory Respiratory exam: Present: decreased breath sounds - Cardiovascular Cardiovascular exam: Present: RRR - GI/Abdominal Exam GI/Abdominal exam: Present: diminished bowel sounds, distended - Catheter Type: Urethral (Jama) Additional comments: Draining clear urine - Extremities Exam Extremities exam: Present: normal capillary refill, normal inspection. Absent: pedal edema - Neurological Exam Additional comments: lethargic, minimally responsive, attempted to open eyes transiently, non verbal , not following commands. - Skin Skin exam: Present: dry Palliative Quality Palliative Quality: Screen for Code Status: Yes, Screen for Goals of Care: Yes, Screen for Pain: Yes, If Pain Regimen Started, Initiate Bowel Regimen: NA ( Ischemic gut), Screen for Nausea/Vomitting: Yes Code Status: 05/28/18 12:26 Resuscitation Status: Active [RES] Routine Comment: Resuscitation Status: DNR-Comfort Care
[2018-05-30] MEDS: MORPHINE SUL Oral CONC 10 MG/0.5 ML ORAL.SYG SL SCH ×3 (04:14→16:01)
[2018-05-30 06:34] VITALS: BP 111/76
--- NOTE | 2018-05-30 11:12 | Palliative Progress Note ---
Date of Encounter: 05/30/18 Time of Encounter: 11:00 - Assessment and plan (1) Abdominal pain Current Visit: Yes Status: Acute Assessment and plan: Continue scheduled Morphine - has not required any doses for breakthrough. Monitor Qualifiers: Abdominal location: generalized Qualified Code(s): R10.84 - Generalized abdominal pain (2) Small bowel obstruction Current Visit: No Status: Acute Assessment and plan: comfort care only Had a big BM overnight (3) Restlessness and agitation Current Visit: No Status: Acute Assessment and plan: Lorazepam and Haldol PRN, Has not required last 24 hours. (4) Advance care planning Current Visit: Yes Status: Acute Assessment and plan: Patient shows a slight improvement today. She is more awake, but still very lethargic. she is asking for food, will start comfort feed with clear liquids thickened. Plan is to return to [facility] today. D/W Kita, she is agreeable. She states pt's daughter, as well as her other granddaughter will be in to visit today. (5) Metabolic encephalopathy Current Visit: Yes Status: Acute - Time Spent With Patient Total time spent is greater than 50% in coordination of care (as documented) at patient's floor/unit and/or counseling patient: Greater than 35 minutes - Subjective Interval history: Patient today is more awake, opens her eyes. She had a big BM overnight as per nursing documentation. When asked if she was hungry, patient nodded yes weakly. No family present at the bedside. Appears comfortable. - Constitutional Exam: General appearance: Present: no acute distress, thin - Respiratory Respiratory exam: Present: decreased breath sounds - Cardiovascular Cardiovascular exam: Present: RRR - GI/Abdominal Exam GI/Abdominal exam: Present: diminished bowel sounds, distended - Catheter Type: Urethral (Jama) Additional comments: Draining clear urine - Extremities Exam Extremities exam: Present: normal capillary refill, normal inspection. Absent: pedal edema - Neurological Exam Additional comments: lethargic, more responsive, opening eyes and communicative. - Skin Skin exam: Present: dry Palliative Quality Palliative Quality: Screen for Code Status: Yes, Screen for Goals of Care: Yes, Screen for Pain: Yes, If Pain Regimen Started, Initiate Bowel Regimen: NA ( Ischemic gut), Screen for Nausea/Vomitting: Yes Code Status: 05/28/18 12:26 Resuscitation Status: Active [RES] Routine Comment: Resuscitation Status: DNR-Comfort Care Consult Discharge Plan - Plan Referrals: NONE,PCP [Primary Care Provider] -
--- NOTE | 2018-05-30 11:32 | Discharge Summary ---
- NOTES TO OUTPATIENT PROVIDER Notes to Outpatient Provider: Hospice admission with [facility] Date of Encounter: 05/30/18 Time of Encounter: 11:00 - Discharge Diagnosis (1) Metabolic encephalopathy Priority: Primary Status: Acute Comments: hospice diagnosis (2) Abdominal pain Priority: Primary Status: Acute Qualifiers: Abdominal location: generalized Qualified Code(s): R10.84 - Generalized abdominal pain (3) Small bowel obstruction Priority: Primary Status: Acute (4) Restlessness and agitation Priority: Secondary Status: Acute (5) Advance care planning Priority: Secondary Status: Acute - Hospital Course Hospital course: Ms. Ryan is a 78 year old female who originally presented from [facility] with weakness, and had tachycardia/tachypenia. Evaluation was completed in ED, and pt found to have small bowel obstruction with dilated loops of bowel extending to cecum, dilated esophagus, and stomach. Patient was admitted to ICU. Surgical consultation was obtained and patient was deemed a poor surgical candidate. Patient has no established POA, and daughter Iza was not able to be reached, but granddaughter was contacted, (Kita), and she was transitioned to DNC, considering pt poor condition. To note - Patient has expressed in the past and previous admission, that she did not want to involve Iza in decision making, and she wanted Kita (granddaughter) to make decisions. She was transitioned to palliative care bed, and after further discussion with hospitalist and pt granddaughter, she was transitioned to general inpt hospice for continued symptom management. Pt was kept comfortable, symptoms stabilized. Pt stable for tranfer to [place] with continued hospice care. - Time Spent with Patient Total time spent providing and/or coordinating discharge services: - Discharge Medications Home Medications: Docusate [Colace] 100 mg PO BID PRN 07/23/16 [History] Sennosides/Docusate Sodium [Senna Plus] 2 tab PO DAILY PRN 03/20/18 [History] Haloperidol 0.5 mg PO Q6H PRN 10 Days #15 tablet 05/30/18 [Rx] LORazepam [Ativan] 0.5 mg PO Q4HR PRN 10 Days #30 tablet 05/30/18 [Rx] MORPHINE SUL Oral CONC [Roxanol Oral Conc] 10 mg PO Q6H 10 Days #1 bottle [Rx] Allergies/Adverse Reactions: 3 Allergy/AdvReac Type Severity Reaction Status Date / Time codeine Allergy Severe Anaphylaxis Verified 05/27/18 08:10 Internal Medicine - DS: Prov Date of admission: 05/28/18 12:46 Primary care physician: PCP NONE Admitting clinician: Sweta Gutierrez Attending physician on admission: Sweta Gutierrez Consults: 05/28/18 12:27 Consult to Palliative Care [CONS] Routine Comment: Consulting Provider: Palliative Care Chelsie Reason for Consult: GIP Time Notified: 12:30 Call Completed: No Attending physician on discharge: Sweta Gutierrez Discharging clinician: Sweta Gutierrez Anticipated date of discharge: 05/30/18 Internal Medicine - DS: Exam - Constitutional Vitals: Vital Signs Temp Pulse Resp BP Pulse Ox 05/30/18 06:33 98.0 F 129 15 111/76 99 05/30/18 04:25 101.4 F H 136 16 118/67 98 05/30/18 00:00 99.7 F H 136 17 137/81 100 Intake and Output 05/29/18 05/30/18 05/30/18 23:59 07:59 15:59 Intake Total 0 / 0 Balance 0 / 0 Intake: Oral 0 / 0 Other: Meal NPO Percent of Meal Consumed 0% Stool Size Large Stool Consistency soft Stool Color Brown # Bowel Movements 1 Additional comments: General appearance: Present: no acute distress, thin - Respiratory Respiratory exam: Present: decreased breath sounds - Cardiovascular Cardiovascular exam: Present: RRR - GI/Abdominal Exam GI/Abdominal exam: Present: diminished bowel sounds, distended - Catheter Type: Urethral (Jama) Additional comments: Draining clear urine - Extremities Exam Extremities exam: Present: normal capillary refill, normal inspection. Absent: pedal edema - Neurological Exam Additional comments: lethargic, more responsive, opening eyes and communicative. - Skin Skin exam: Present: dry - Patient Status Disposition: Transfer SNF Condition: Fair Functional capacity at discharge: bed bound Overall status at discharge: other - Discharge Instructions Follow Up With: NONE,PCP [Primary Care Provider] - - Diet and Activity Activity: other (Bed rest) Diet: other (Clear liquids thickened diet and comfort feeds)
--- NOTE | 2018-05-30 16:20 | Physician Discharge Referral ---
ExtendedCare Referral Info Transfer To: [facility] [place] Provider in Charge: Matt Provider in Charge after Transfer: [facility] Registered Nurse Institutional Level of Care: Intermediate (Hospice) - Diagnosis (1) Small bowel obstruction Priority: Primary Status: Acute (2) Abdominal pain Priority: Secondary Status: Acute (3) Restlessness and agitation Priority: Secondary Status: Acute Prognosis: Poor Aware of Diagnosis: Family Aware of Prognosis: Family - Transfer Medications Prescriptions: LORazepam [Ativan] 0.5 mg PO Q4HR PRN 10 Days #30 tablet PRN Reason: Anxiety Haloperidol 0.5 mg PO Q6H PRN 10 Days #15 tablet PRN Reason: Agitation MORPHINE SUL Oral CONC [Roxanol Oral Conc] 10 mg PO Q6H 10 Days #1 bottle Home Medications: Docusate [Colace] 100 mg PO BID PRN 07/23/16 [History] Sennosides/Docusate Sodium [Senna Plus] 2 tab PO DAILY PRN 03/20/18 [History] Haloperidol 0.5 mg PO Q6H PRN 10 Days #15 tablet 05/30/18 [Rx] LORazepam [Ativan] 0.5 mg PO Q4HR PRN 10 Days #30 tablet 05/30/18 [Rx] MORPHINE SUL Oral CONC [Roxanol Oral Conc] 10 mg PO Q6H 10 Days #1 bottle [Rx] Allergies/Adverse Reactions: 3 Allergy/AdvReac Type Severity Reaction Status Date / Time codeine Allergy Severe Anaphylaxis Verified 05/27/18 08:10 - Respiratory Orders Oxygen / L per min (3L) Smoking Cessation: Smoking cessation has been advised. For more information, call the [place] Tobacco Quit Line at 5-814-THJC-NOW. - Ancillary Orders May use pressure relief devices daily prn - Advance Directives Code Status: DNR-Comfort Care - Mobility Orders Bedrest - Rehabiliation Orders Rehab Potential: Poor - Treatments Skin tear care topically daily PRN per policy - Diet Orders Pureed (Honey thick) CERTIFICATION: I certify that the transfer of the above named patient to an Extended Care Facility is necessary for the continuing treatment of the diagnosis listed. The above information is true and accurate reflection of patient's current condition. Confidential - Redisclosure prohibited without a patient's written consent.
== END 2018-05-30 17:50 | DRG 871 ==
LOC: 2ANU 12:46
PROVIDERS: ADMIT Internal Medicine Hospice and Palliative Medicine; ATTEND Internal Medicine Hospice and Palliative Medicine